=== PATIENT | male | born 1970 ===

== ENCOUNTER → 2020-02-24 08:49 | Outpatient (BNVA) | payer OTHER, SELFPAY | PROVIDERS: Visit Provider Anesthesiology | DX: F10.20 Alcohol dependence, uncomplicated (principal); F14.10 Cocaine abuse, uncomplicated; M47.817 Spondylosis without myelopathy or radiculopathy, lumbosacral region; M54.16 Radiculopathy, lumbar region | CPT/HCPCS: 80305; 99212 ==

== ENCOUNTER → 2020-03-09 13:48 | Outpatient (BNVA) | payer OTHER, SELFPAY | PROVIDERS: Visit Provider Nurse Practitioner Psychiatric/Mental Health | DX: F10.20 Alcohol dependence, uncomplicated (principal) | CPT/HCPCS: 80305 ==

== ENCOUNTER → 2020-04-13 14:47 | Outpatient (BNVA) | payer OTHER, SELFPAY | PROVIDERS: Visit Provider Nurse Practitioner Psychiatric/Mental Health | DX: F10.20 Alcohol dependence, uncomplicated (principal) | CPT/HCPCS: 80305; 99212 ==

== ENCOUNTER 2020-04-19 11:45 | Outpatient (REF) | payer OTHER, SELFPAY ==
[2020-04-19 13:26] LABS: MANUAL DIFF FLAG NO
[2020-04-19 13:31] LABS: Basophils Absolute Auto 0.1 X10*3/uL (0.0-0.2); Basophils Percent Auto 0.6 % (0-2); Eosinophils Absolute Auto 0.1 X10*3/uL (0.0-0.4); Eosinophils Percent Auto 1.3 % (0-4); Hemoglobin 16.1 g/dl (14.0-18.0); Imm Gran Abs Auto 0.03 X10*3/uL (0.00-0.03); Imm Gran Pct Auto 0.3 % (0.0-0.4); Lymphocytes Absolute Auto 3.2 X10*3/uL (1.2-4.9); Lymphocytes Percent Auto 35.1 % (20-40); Mean Corpuscular HGB Conc 32.9 g/dl (31.0-36.0); Mean Corpuscular Hemoglobin 30.6 pg (27.0-33.0); Mean Platelet Volume 9.7 fL (9.4-12.4); Monocytes Absolute Auto 0.7 X10*3/uL (0.1-1.2); Monocytes Percent Auto 7.6 % (2-11); Neutrophils Percent Auto 55.1 % (45-73); Platelet Count 401 X10*3/uL (160-400); Red Blood Count 5.27 X10*6/uL (4.60-5.80); Red Cell Distribution Width 12.3 % (11.0-16.0); White Blood Count 9.1 X10*3/uL (4.8-10.8)
[2020-04-19 13:54] LABS: Alanine Aminotransferase 25 U/L (0-40); Albumin Level 4.8 g/dL (3.5-5.0); Alkaline Phosphatase 141 U/L (39-117); Anion Gap 14 (12-20); Aspartate Amino Transferase 17 U/L (5-37); Bilirubin Direct 0.2 mg/dL (0.0-0.5); Bilirubin Total 0.7 mg/dL (0.0-1.0); Blood Urea Nitrogen 14 mg/dL (9-16); Calcium 9.9 mg/dL (8.4-10.2); Carbon Dioxide 29 mmol/L (22-29); Chloride 102 mmol/L (96-108); Cholesterol 316 mg/dL; Estimated Glomerular Filt Rate > 60; Glucose Fasting 83 mg/dL (60-99); HDL Cholesterol 52 mg/dL; LDL Cholesterol Calculated 230 mg/dl; Potassium 4.9 mmol/l (3.3-5.1); Sodium 140 mmol/L (135-145); Triglycerides 174 mg/dL
== END 2020-04-19 11:46 | disposition home or self-care (01) ==
LOC: HO.LAB 11:45
PROVIDERS: PCP Internal Medicine; Visit Provider Nurse Practitioner Family
DX: Z00.00 Encounter for general adult medical examination without abnormal findings (principal); F19.10 Other psychoactive substance abuse, uncomplicated; Z12.5 Encounter for screening for malignant neoplasm of prostate
CPT/HCPCS: 36415; 80048; 80061; 80076; 84153; 85025

== ENCOUNTER 2020-04-19 13:07 | Outpatient (REF) | payer OTHER, SELFPAY | END 2020-04-19 13:08 | disposition home or self-care (01) | LOC: HO.LAB 13:07 | PROVIDERS: Visit Provider Internal Medicine | DX: Z20.822 Contact with and (suspected) exposure to COVID-19 (principal) | CPT/HCPCS: 36415; C9803; U0003 ==

== ENCOUNTER → 2020-04-20 14:54 | Outpatient (BNVA) | payer OTHER, SELFPAY | PROVIDERS: Visit Provider Nurse Practitioner Psychiatric/Mental Health | DX: F10.20 Alcohol dependence, uncomplicated (principal) | CPT/HCPCS: 80305; 99212 ==

== ENCOUNTER → 2020-05-18 14:03 | Outpatient (BNVA) | payer OTHER, SELFPAY | PROVIDERS: PCP Internal Medicine; Visit Provider Nurse Practitioner Psychiatric/Mental Health | DX: Z51.81 Encounter for therapeutic drug level monitoring (principal) ==

== ENCOUNTER → 2020-06-15 14:15 | Outpatient (BNVA) | payer OTHER, SELFPAY | PROVIDERS: Visit Provider Nurse Practitioner Psychiatric/Mental Health | DX: F10.20 Alcohol dependence, uncomplicated (principal) | CPT/HCPCS: 99212 ==

== ENCOUNTER 2020-06-17 23:13 | Emergency (ER) | payer OTHER, SELFPAY ==
[2020-06-17 23:26] VITALS: BP 133/93; BP 147/86; PULSE 100; PULSE 115; RESP 24; TEMP 37.1; O2SAT 100; O2SAT 98; BMI 23.3
[2020-06-18] VITALS: RESP 16
--- NOTE | 2020-06-18 01:11 | ED.ALCOHOL ---
HPI - Alcohol General Chief Complaint: ETOH/Substance Use Stated Complaint: ETOH Time Seen by Provider: 06/18/20 01:10 Source: patient and EMS Mode of arrival: EMS History of Present Illness HPI narrative: This is a 50-year-old male who is brought in by EMS and patient states he has only had 2 beers this evening and further endorses and requests alcohol detox. Otherwise, he denies any constitutional symptoms such as fevers, chills, GI symptoms, shortness of breath. Related Data Home Medications Medication Instructions Recorded Confirmed bupropion HCl 300 mg 24 hr tablet, 300 mg PO DAILY 04/13/20 04/25/20 extended release trazodone 100 mg tablet mg PO BEDTIME tab 04/13/20 04/25/20 Previous Rx's Medication Instructions Recorded gabapentin 300 mg capsule 300 mg PO TID 30 Days #90 cap 02/24/20 vitamin B complex 1 cap PO DAILY #30 cap 04/13/20 atorvastatin 40 mg tablet 40 mg PO BEDTIME 90 Days #90 tab 04/25/20 folic acid 1 mg tablet 1 mg PO DAILY #30 tab 06/08/20 naltrexone 50 mg tablet 50 mg PO DAILY 7 Days #7 tab 06/08/20 Allergies Allergy/AdvReac Type Severity Reaction Status Date / Time No Known Allergies Allergy Verified 06/17/20 23:26 [No Known Allergies*] Review of Systems Review of Systems: Pertinent positives and negatives as stated in HPI 10 point review systems is otherwise negative. [facility] Past Medical History Source: nursing notes reviewed Medical History Abuse, drug or alcohol Alcoholism Lumbar radiculopathy Pure hypercholesterolemia Right elbow pain Spondylosis of lumbosacral spine without myelopathy Surgical History History of eye surgery Family History Family History Father Alcoholism Mother Diabetes Social History Social History Alcohol intake: current Alcohol intake frequency: 3 or more drinks per day Alcohol type: beer and hard liquor Smoking Status: Never smoker Substance Use Type: Crack/Cocaine and Marijuana Advance Directives: No Advance Directives Information Provided: Yes Physical Exam Vital Signs: Vital Signs: Last Vital Signs Temp 98.8 F 06/17/20 23:26 Pulse 80 06/18/20 06:19 Resp 16 06/18/20 06:19 BP 130/86 06/18/20 06:19 Pulse Ox 100 06/18/20 06:19 Body Mass Index 23.3 VITAL SIGNS: Reviewed. GENERAL: Well developed, well nourished, in no acute distress. HEAD: Normocephalic/atraumatic EYES: PERRLA, EOMI NOSE: Nares patent bilateral OROPHARYNX: no oral lesions noted, posterior pharynx clear NECK: Supple, no adenopathy LUNGS: Normal breath sounds. No adventitious sounds or accessory muscle use. SpO2<100> CARDIOVASCULAR: Regular rate and rhythm without noted murmurs ABDOMEN: Soft, non-tender, non-distended with bowel sounds. NEUROLOGIC: Alert and oriented x 4. Course Course Course Narrative: This is a 50-year-old male with history and clinical presentation of longstanding alcohol use disorder and recently seen by Tatyana Grover on 06/16 of this year wherein the patient verbalizes that he stop taking the naltrexone but would be interested in an inpatient program. At that time he was provided information for [facility]. All investigations reviewed and patient is medically cleared for inpatient detox program as indicated. Signed out to Dr Phillip: f/u detox plan ([facility] protocol) MDM - Alcohol Lab Data Result diagrams: 06/18/20 01:21 06/18/20 01:21 Labs: Lab Results 06/18/20 06/18/20 06/18/20 Range/Units 01:20 01:21 01:21 WBC 9.0 (4.8-10.8) X10*3/uL RBC 5.41 (4.60-5.80) X10*6/uL Hgb 16.4 (14.0-18.0) g/dl Hct 48.5 (42-52) % MCV 89.6 (80-98) fL MCH 30.3 (27.0-33.0) pg MCHC 33.8 (31.0-36.0) g/dl RDW 12.5 (11.0-16.0) % Plt Count 384 (160-400) X10*3/uL MPV 8.9 L (9.4-12.4) fL Immature Gran % (Auto) 0.2 (0.0-0.4) % Neut % (Auto) 64.1 (45-73) % Lymph % (Auto) 28.2 (20-40) % [place] % (Auto) 6.6 (2-11) % Eos % (Auto) 0.6 (0-4) % Baso % (Auto) 0.3 (0-2) % Lymph # (Auto) 2.6 (1.2-4.9) X10*3/uL [place] # (Auto) 0.6 (0.1-1.2) X10*3/uL Eos # (Auto) 0.1 (0.0-0.4) X10*3/uL Baso # (Auto) 0.0 (0.0-0.2) X10*3/uL Abs Immat Gran (auto) 0.02 (0.00-0.03) X10*3/uL Absolute Neuts (auto) 5.8 (2.0-8.3) X10*3/uL Absolute Nucleated RBC 0.000 (0.0-0.012) X10*3/uL Nucleated RBC % (auto) 0.0 (0.0-0.2) /100WBC Sodium 146 H (135-145) mmol/L Potassium 3.9 (3.3-5.1) mmol/L Chloride 111 H (96-108) mmol/L Carbon Dioxide 22 (22-29) mmol/L Anion Gap 17 (12-20) BUN 7 L (9-16) mg/dL Creatinine 0.73 (0.5-1.4) mg/dL Estim Creat Clear Calc 104.1 Estimated GFR > 60 Random Glucose 117 H (60-115) mg/dL Calcium 9.4 (8.4-10.2) mg/dL Total Bilirubin < 0.2 (0.0-1.0) mg/dL AST 18 (5-37) U/L ALT 17 (0-40) U/L Alkaline Phosphatase 138 H (39-117) U/L Total Protein 8.0 (6.5-8.0) g/dL Albumin 4.8 (3.5-5.0) g/dL Ethyl Alcohol 191 mg/dL Discharge Plan Discharge Prescriptions: No Action folic acid 1 mg tablet 1 mg PO DAILY Qty: 30 RF: 1 naltrexone 50 mg tablet 50 mg PO DAILY 7 Days Qty: 7 RF: 0 atorvastatin 40 mg tablet 40 mg PO BEDTIME 90 Days Qty: 90 RF: 3 gabapentin 300 mg capsule 300 mg PO TID 30 Days Qty: 90 RF: 8 vitamin B complex Capsule 1 cap PO DAILY Qty: 30 RF: 1 trazodone 100 mg tablet PO BEDTIME RF: 0 bupropion HCl 300 mg tablet extended release 24 hr 300 mg PO DAILY RF: 0
[2020-06-18 01:25] LABS: MANUAL DIFF FLAG NO
[2020-06-18 01:28] LABS: Basophils Percent Auto 0.3 % (0-2); Eosinophils Absolute Auto 0.1 X10*3/uL (0.0-0.4); Eosinophils Percent Auto 0.6 % (0-4); Hematocrit 48.5 % (42-52); Hemoglobin 16.4 g/dl (14.0-18.0); Imm Gran Abs Auto 0.02 X10*3/uL (0.00-0.03); Imm Gran Pct Auto 0.2 % (0.0-0.4); Lymphocytes Absolute Auto 2.6 X10*3/uL (1.2-4.9); Lymphocytes Percent Auto 28.2 % (20-40); Mean Corpuscular HGB Conc 33.8 g/dl (31.0-36.0); Mean Corpuscular Hemoglobin 30.3 pg (27.0-33.0); Mean Corpuscular Volume 89.6 fL (80-98); Mean Platelet Volume 8.9 fL (9.4-12.4); Monocytes Absolute Auto 0.6 X10*3/uL (0.1-1.2); Monocytes Percent Auto 6.6 % (2-11); Neutrophils Absolute Auto 5.8 X10*3/uL (2.0-8.3); Neutrophils Percent Auto 64.1 % (45-73); Platelet Count 384 X10*3/uL (160-400); Red Blood Count 5.41 X10*6/uL (4.60-5.80); Red Cell Distribution Width 12.5 % (11.0-16.0)
[2020-06-18 01:52] LABS: Ethanol 191 mg/dL
[2020-06-18 01:55] LABS: Alanine Aminotransferase 17 U/L (0-40); Albumin Level 4.8 g/dL (3.5-5.0); Alkaline Phosphatase 138 U/L (39-117); Anion Gap 17 (12-20); Aspartate Amino Transferase 18 U/L (5-37); Bilirubin Total < 0.2 mg/dL (0.0-1.0); Blood Urea Nitrogen 7 mg/dL (9-16); Calcium 9.4 mg/dL (8.4-10.2); Carbon Dioxide 22 mmol/L (22-29); Chloride 111 mmol/L (96-108); Creatinine Clr Calc Pharmacy 104.1; Estimated Glomerular Filt Rate > 60; Glucose Random 117 mg/dL (60-115); Potassium 3.9 mmol/L (3.3-5.1); Sodium 146 mmol/L (135-145)
[2020-06-18 03:00] VITALS: RESP 16
[2020-06-18 06:19] VITALS: BP 130/86; PULSE 80; RESP 16; O2SAT 100
--- NOTE | 2020-06-18 06:25 | PC.NURSE ---
Pt wakes easily in chair, pt reports feeling sick to his stomach from the drinking. This RN offering pt crackers and gingerale however pt refusing. Pt agreeable to provide urine sample, ambulating to the bathroom with a steady gait. VSS at this time. Pt denies alcohol withdrawal symptoms, including anxiety, hallucinations, N/V, and tremors. Pt awaiting breakfast in chair. Continue to monitor.
--- NOTE | 2020-06-18 07:00 | PC.NURSE ---
RECEIVED REPORT FROM BRIELLE HORVATH
[2020-06-18 07:26] LABS: Amphetamine Screen Urine Not Detected (Not Detect); Barbiturates, Urine Not Detected (Not Detect); Benzodiazepines Screen Urine Not Detected (Not Detect); Cannabinoid Screen Urine POSITIVE (Not Detect); Cocaine Screen Urine POSITIVE (Not Detect); Opiate Screen Urine Not Detected (Not Detect); Phencyclidine Screen Urine Not Detected (Not Detect)
[2020-06-18 08:02] VITALS: BP 125/85; PULSE 85; RESP 18; O2SAT 100
--- NOTE | 2020-06-18 08:04 | PC.NURSE ---
PT SLEEPING BUT EASILY AROUSABLE, PT REPORTS EPIGASTRIC PAIN/BURNING /. PT ALSO STATES THAT HE RELAPSED IN DRINKING ALCOHOL YESTERDAY AND ALSO DID SOME COCAINE, PT IS REQUESTING TO GO TO DETOX BUT DENIES SI/HI. PT ALSO STATES THAT HE HAS COURT ON [address] AND NOT SURE HOW THAT WILL WORK WITH DETOX.
--- NOTE | 2020-06-18 10:15 | PC.NURSE ---
EVELINA FROM CARE TEAM AT BEDSIDE
[2020-06-18 10:43] VITALS: BP 155/82; PULSE 73; RESP 18; O2SAT 100
--- NOTE | 2020-06-18 10:53 | MHC.CARE ---
CARE team rec consult placed 06/18/20 at 0120am seeking detox for primary concern of ETOH. Pts BAL at arrival was 191. Pt was seen this am 06/18 at 0930 by CARE team. Pt reported that he cannot attend a program outside of the local area due to upcoming court date on this wed. T/w placed calls to local detox and spoke w intake via [facility] who stated [place] has beds and [place] might have a bed later this evening. Pt not able/desired to attend [facility] location. T/w faxed clinical to [facility] at [facility] and did not hear back so placed a second call and asked to speak to the unit directly. Nsg at the [facility] will review packet and unclear if dcs today but suspected a bed this evening. Pt is instructed to call later with number provided. Pt seeking to dc home as he was not certain he wanted this service anymore but did not want to wait in the ED. Pt was given lists of resources and places to call if desired. Pt was instructed to follow up on the referral made today and he was grateful for this. Pt stated he wanted to ask his to come pick him up if provider would dc him. Pt was calm and polite and expressed gratitude for the assistance. Pt reported he planned to also follow up with his provider here at [facility] in the [facility] with Tatyana Grover. T/w reviewed info with ED provider for dc process as needed.
== END 2020-06-18 11:01 | disposition home or self-care (01) ==
PROVIDERS: Emergency Provider Student in an Organized Health Care Education/Training Program; PCP Internal Medicine
DX: F10.129 Alcohol abuse with intoxication, unspecified (principal); F14.90 Cocaine use, unspecified, uncomplicated; F15.90 Other stimulant use, unspecified, uncomplicated; Y90.6 Blood alcohol level of 120-199 mg/100 ml; Z71.51 Drug abuse counseling and surveillance of drug abuser
CPT/HCPCS: 36415; 80053; 80307; 80320; 85025; 99284

== ENCOUNTER 2020-07-17 08:59 | Outpatient (REF) | payer OTHER, SELFPAY ==
--- NOTE | ~2020-07-17 | XR_ITS ---
EXAMINATION: XR ELBOW, RIGHT CLINICAL INFORMATION: Right elbow pain. COMPARISON: None TECHNIQUE: AP, lateral, and oblique views of the right elbow. FINDINGS: No acute fracture or dislocation. No joint space narrowing or marginal osteophytes. No osseous erosion. No abnormal soft tissue calcification. No significant joint effusion. XR/XR elbow RT 2V IMPRESSION: Unremarkable examination.
[2020-07-17 10:18] LABS: Alanine Aminotransferase 21 U/L (0-40); Albumin Level 4.1 g/dL (3.5-5.0); Alkaline Phosphatase 120 U/L (39-117); Anion Gap 11 (12-20); Aspartate Amino Transferase 18 U/L (5-37); Bilirubin Total 0.2 mg/dL (0.0-1.0); Blood Urea Nitrogen 12 mg/dL (9-16); Calcium 9.2 mg/dL (8.4-10.2); Carbon Dioxide 27 mmol/L (22-29); Chloride 105 mmol/L (96-108); Cholesterol 169 mg/dL; Estimated Glomerular Filt Rate > 60; Glucose Fasting 97 mg/dL (60-99); HDL Cholesterol 41 mg/dL; LDL Cholesterol Calculated 102 mg/dl; Potassium 4.2 mmol/L (3.3-5.1); Sodium 139 mmol/L (135-145); Total Protein 6.8 g/dL (6.5-8.0); Triglycerides 130 mg/dL
== END 2020-07-17 09:00 | disposition home or self-care (01) ==
LOC: HO.LAB 08:59
PROVIDERS: PCP Internal Medicine; Visit Provider Internal Medicine
DX: M25.521 Pain in right elbow (principal); E78.00 Pure hypercholesterolemia, unspecified; E78.5 Hyperlipidemia, unspecified
CPT/HCPCS: 36415; 73070; 80053; 80061

== ENCOUNTER 2020-08-23 10:29 | Outpatient (REF) | payer OTHER, SELFPAY ==
--- NOTE | ~2020-08-23 | US_ITS ---
EXAMINATION: US COMPLETE ABDOMEN WITH LIVER ELASTOGRAPHY CLINICAL INFORMATION: Alcohol dependence COMPARISON: Previous abdominal ultrasound December 2015 TECHNIQUE: Real-time imaging of the abdominal viscera. Noninvasive ultrasound liver fibrosis assessment is performed using Vern ElastPQ point quantification shear wave elastography (pSWE) with a C5-2 MHz transducer. Multiple elastography samples are obtained. FINDINGS: PANCREAS: Not visualized due to bowel gas. ABDOMINAL AORTA: The middle, and distal aortic segments are normal in caliber. Proximal abdominal aorta is not well visualized. INFERIOR VENA CAVA: Visualized portions are normal. LIVER: Normal. The liver demonstrates normal size, contour and echogenicity. No focal lesion or intrahepatic biliary duct dilatation. The right lobe measures 13.2 cm in length. The left lobe measures 7.5 cm in length. Portal flow is normal/hepatopedal Shear wave liver elastography median stiffness is 1.2 m/s (reference: normal median stiffness is 1.3 m/s or less). IQR/median stiffness to assess sampling precision is 0.08 (reference: good quality data set is IQR/median stiffness of 0.15 or less). GALLBLADDER: The gallbladder is normal in size. There is a 0.4 x 0.2 x 0.2 cm echogenic density adjacent to the gallbladder wall that does not move or shadow suggestive of a polyp. No definite gallstones are seen. The gallbladder wall is otherwise COMMON BILE DUCT: Normal in caliber measuring . 0.3 cm in diameter. RIGHT KIDNEY: Normal. No hydronephrosis. No renal calculi or focal parenchymal lesions. The kidney measures 10 cm in maximum dimension. LEFT KIDNEY: Normal. No hydronephrosis. No renal calculi or focal parenchymal lesions. The kidney measures 10 cm in maximum dimension. SPLEEN: Normal. The spleen measures 10 cm in maximum dimension. FREE FLUID: None. US/US abdomen comp w elastography IMPRESSION: 1. Impression: Normal-appearing liver. Small gallbladder wall polyp. Nonvisualization of the pancreas and proximal aorta. 2. Liver elastography: High probability of normal. Adequate sampling. REFERENCE: Society of Radiologists in Ultrasound Liver Stiffness Thresholds (2019): LIVER STIFFNESS THRESHOLDS: *Liver Stiffness equal or less than 1.3 m/s: High probability of being normal. *Liver Stiffness less than 1.7 m/s: In the absence of other known clinical signs, rules out compensated advanced chronic liver disease. *Liver Stiffness 1.7-2.1 m/s: Suggestive of compensated advanced chronic liver disease but need further test for confirmation. *Liver Stiffness over 2.1 m/s: Rules in compensated advanced chronic liver disease. *Liver Stiffness over 2.4 m/s: Suggestive of clinically significant portal hypertension. QUALITY OF DATA SET: *IQR/Median value equal or less than 0.15 implies a quality data set. *IQR/Median value over 0.15 implies a poor quality data set. SIGNIFICANT CHANGE FROM PRIOR EXAM: Significant change if liver stiffness measurement is 10% or greater from prior exam. OTHER CONSIDERATIONS: The stage of liver fibrosis may be overestimated in the setting of acute hepatitis, liver inflammation, elevated liver function tests, hepatic vascular congestion, obstructive cholestasis, non-fasting state, and infiltrative diseases such as amyloidosis and lymphoma. In some patients with NAFLD, the liver stiffness thresholds for compensated advanced chronic liver disease may be lower. In causes other than viral hepatitis and NAFLD, liver stiffness thresholds are not well established.
== END 2020-08-23 10:30 | disposition home or self-care (01) ==
LOC: HO.US 10:29
PROVIDERS: Visit Provider Internal Medicine
DX: F10.20 Alcohol dependence, uncomplicated (principal)
CPT/HCPCS: 76705; 76981

== ENCOUNTER → 2020-08-31 14:23 | Outpatient (BNVA) | payer OTHER, SELFPAY | PROVIDERS: PCP Internal Medicine; Visit Provider Nurse Practitioner Psychiatric/Mental Health | DX: F10.20 Alcohol dependence, uncomplicated (principal) | CPT/HCPCS: 80305; 99212 ==

== ENCOUNTER 2020-09-20 07:00 | Day surgery (SDC) | payer OTHER, SELFPAY ==
[2020-08-31 11:39] VITALS: BMI 27.8
--- NOTE | 2020-09-05 11:00 | P.CONAN_ITS ---
HPI - Anesthesia Eval Consult details Narrative: 50yo M for Upper Endoscopy and Colonoscopy h/o polysub abuse - ? current [facility] Active Problems Active Problems: All Active Problems (Updated 08/31/20 @ 10:53 by Janay Denis) Encounter for routine adult health examination (Acute) Alcohol use disorder, severe, dependence (Acute) Headache (Acute) Right elbow pain (Acute) Pure hypercholesterolemia (Acute) Lumbar radiculopathy (Acute) Spondylosis of lumbosacral spine without myelopathy (Acute) Alcoholism (Acute) Abuse, drug or alcohol (Acute) Past Medical History Medical History (Updated 08/31/20 @ 10:53 by Janay Denis) Abuse, drug or alcohol Alcoholism GERD (gastroesophageal reflux disease) Headache History of back pain Lumbar radiculopathy Pure hypercholesterolemia Right elbow pain Spondylosis of lumbosacral spine without myelopathy Family History Family History Father Alcoholism Mother Diabetes Surgical History Surgical History (Updated 08/31/20 @ 10:52 by Janay Denis) History of esophagogastroduodenoscopy (EGD) History of eye surgery History of eye surgery Social History Social History Alcohol intake: current Alcohol intake frequency: 3 or more drinks per day Alcohol type: beer and hard liquor Patient Tobacco Use Status: Never used Tobacco Substance Use Type: Crack/Cocaine Meds Allergies Allergy/AdvReac Type Severity Reaction Status Date / Time No Known Allergies Allergy Verified 07/25/20 10:43 [No Known Allergies*] Home Medications Medication Instructions Recorded Confirmed Last Taken Type bupropion HCl 300 mg 24 hr tablet, 300 mg PO DAILY 04/13/20 08/31/20 Unknown History extended release trazodone 100 mg tablet 100 mg PO BEDTIME tab 04/13/20 08/31/20 Unknown History Exam Exam Date and Time: September 05, 2020 1100 Height,Weight and Vital Signs: Height 5 ft 2 in Weight 68.946 kg Assessment and Plan Assessment Anesthesia Assessment: Chart Reviewed
--- NOTE | 2020-09-18 13:37 | HO.ANESPROP2 ---
Documented by User: Lillian Devora 09/18/20 13:39 HPI - Anesthesia Eval Consult details Narrative: 50yo M for Upper Endoscopy and Colonoscopy +ETOH abuse +cocain use per social hx PMFSH Active Problems Active Problems: All Active Problems (Updated 08/31/20 @ 10:53 by Janay Denis) Encounter for routine adult health examination (Acute) Alcohol use disorder, severe, dependence (Acute) Headache (Acute) Right elbow pain (Acute) Pure hypercholesterolemia (Acute) Lumbar radiculopathy (Acute) Spondylosis of lumbosacral spine without myelopathy (Acute) Alcoholism (Acute) Abuse, drug or alcohol (Acute) Past Medical History Medical History Abuse, drug or alcohol Alcoholism GERD (gastroesophageal reflux disease) Headache History of back pain Lumbar radiculopathy Pure hypercholesterolemia Right elbow pain Spondylosis of lumbosacral spine without myelopathy Family History Family History Father Alcoholism Mother Diabetes Surgical History Surgical History History of esophagogastroduodenoscopy (EGD) History of eye surgery History of eye surgery Social History Social History Alcohol intake: current Alcohol intake frequency: 3 or more drinks per day Alcohol type: beer and hard liquor Patient Tobacco Use Status: Never used Tobacco Use of substances other than those prescribed or required for medical reasons: Yes Substance Use Type: Crack/Cocaine Advance Directives Information Provided: No Meds Allergies Allergy/AdvReac Type Severity Reaction Status Date / Time No Known Allergies Allergy Verified 07/25/20 10:43 [No Known Allergies*] Home Medications Medication Instructions Recorded Confirmed Last Taken Type bupropion HCl 300 mg 24 hr tablet, 300 mg PO DAILY 04/13/20 08/31/20 Unknown History extended release trazodone 100 mg tablet 100 mg PO BEDTIME tab 04/13/20 08/31/20 Unknown History Exam Exam Date and Time: September 18, 2020 1337 Height,Weight and Vital Signs: Height 5 ft 2 in Weight 68.946 kg Pertinent Lab Results Pertinent Lab Results: Laboratory Tests 06/18/20 07/17/20 01:21 09:21 WBC 9.0 Hgb 16.4 Hct 48.5 Plt Count 384 Sodium 139 Potassium 4.2 Chloride 105 Carbon Dioxide 27 BUN 12 D Creatinine 0.87 Assessment and Plan Assessment Anesthesia Assessment: Chart Reviewed Documented by User: Mary Munoz 09/20/20 09:32 PMFSH Past Medical History Medical History Abuse, drug or alcohol Alcoholism GERD (gastroesophageal reflux disease) Headache History of back pain Lumbar radiculopathy Pure hypercholesterolemia Right elbow pain Spondylosis of lumbosacral spine without myelopathy Family History Family History Father Alcoholism Mother Diabetes Family history of problems with anesthesia: No Surgical History Surgical History History of esophagogastroduodenoscopy (EGD) History of eye surgery History of eye surgery History of Problems with Anesthesia: No Social History Social History Alcohol intake: current Alcohol intake frequency: 3 or more drinks per day Alcohol type: beer and hard liquor Patient Tobacco Use Status: Never used Tobacco Use of substances other than those prescribed or required for medical reasons: Yes Substance Use Type: Crack/Cocaine Advance Directives Information Provided: No Meds Allergies Allergy/AdvReac Type Severity Reaction Status Date / Time No Known Allergies Allergy Verified 07/25/20 10:43 [No Known Allergies*] Home Medications Medication Instructions Recorded Confirmed Last Taken Type bupropion HCl 300 mg 24 hr tablet, 300 mg PO DAILY 04/13/20 08/31/20 Unknown History extended release trazodone 100 mg tablet 100 mg PO BEDTIME tab 04/13/20 08/31/20 Unknown History Exam Height,Weight and Vital Signs: Vital Signs Temp Pulse Resp BP Pulse Ox 09/20/20 07:44 97.6 F 88 16 108/80 99 Pertinent Lab Results Pertinent Lab Results: Lab Results 09/20/20 Range/Units 07:25 Urine Opiates Screen Not Detected (Not Detect) Ur Barbiturates Screen Not Detected (Not Detect) Ur Phencyclidine Scrn Not Detected (Not Detect) Ur Amphetamines Screen Not Detected (Not Detect) U Benzodiazepines Scrn Not Detected (Not Detect) Urine Cocaine Screen Not Detected (Not Detect) U Marijuana (THC) Screen POSITIVE H (Not Detect) Airway Mallampati Class: II TM Dist: >3cm Neck ROM: Full Partial: Lower Loose/Missing/Broken Teeth: Yes Heart: RRR Lungs: CTAB Assessment and Plan Assessment Anesthesia Assessment: Anesthesia Plan Discussed and Chart Reviewed Final Anesthetic Review NPO: Yes ASA Class: II Final Preanesthetic Review: No Changes in Pt Med Stat, Meds/Allgs Chart Reviewed, Consent Obtained/Reviewed and Anes Risks/Benef Reviewed Patient Risk: Intermediate Procedure Risk: Low Assessment/Block/Sedation in SS: Assess/Block/Sedation-SS Anesthetic Plan Anesthetic Plan: MAC: Disposition: Standard PACU
[2020-09-20 07:44] VITALS: BP 108/80; PULSE 88; RESP 16; TEMP 36.4; O2SAT 99
[2020-09-20] MEDS: Lactated Ringers 1,000 ML 100 ML IVCONT (07:57)
[2020-09-20 08:15] LABS: Amphetamine Screen Urine Not Detected (Not Detect); Barbiturates, Urine Not Detected (Not Detect); Benzodiazepines Screen Urine Not Detected (Not Detect); Cannabinoid Screen Urine POSITIVE (Not Detect); Cocaine Screen Urine Not Detected (Not Detect); Opiate Screen Urine Not Detected (Not Detect); Phencyclidine Screen Urine Not Detected (Not Detect)
[2020-09-20 09:56] VITALS: BP 86/57; PULSE 68; RESP 14; TEMP 36.4; O2SAT 98
--- NOTE | 2020-09-20 09:58 | PM.OP ---
Brief Operative Note Date of Service: 09/20/20 Pre-op diagnosis: Abdominal pain, Screening Post-op diagnosis: other (Gastritis, Hiatal hernia, Diverticulosis) Procedure: EGD with biopsies, Colonoscopy to the cecum Surgeon: Andrew Pope Anesthesia: MAC Was an Contract Administration Specialist used for this Procedure?: No Estimated blood loss (mL): 4.0 Pathology: other (A. Gastric antrum B. EG Junction at 35cm) Condition: stable Disposition: PACU
[2020-09-20 10:11] VITALS: BP 114/80; PULSE 83; RESP 16; O2SAT 100
--- NOTE | 2020-09-22 10:56 | OP_ITS ---
SURGEON: Andrew Pope MD INDICATIONS: The patient presents for evaluation of abdominal discomfort, previous history of gastritis and H pylori, and colorectal cancer screening. Full consent has been obtained from him for this, including risks of bleeding and perforation. PREOPERATIVE DIAGNOSIS: POSTOPERATIVE DIAGNOSIS: PROCEDURE PERFORMED: Esophagogastroduodenoscopy with biopsies, and colonoscopy to the cecum. ESTIMATED BLOOD LOSS: COMPLICATIONS: ANESTHESIA: Monitored anesthesia care. ASSISTANTS: SPECIMENS: PREOPERATIVE DIAGNOSES: History of abdominal discomfort, gastritis and Helicobacter pylori, colorectal cancer screening. POSTOPERATIVE DIAGNOSES: History of abdominal discomfort, gastritis and Helicobacter pylori, colorectal cancer screening, mild gastritis, hiatal hernia, diverticulosis, and internal hemorrhoids. DESCRIPTION OF PROCEDURE: The patient was placed in the left lateral decubitus position. The Olympus video gastroscope was passed in the posterior oropharynx and upper esophagus under direct vision. The scope was passed slowly into the distal esophagus. The gastroesophageal junction appeared at 35 cm. There was a very slight irregularity consistent with reflux, but no evidence of esophagitis nor any definitive evidence of Lopez's mucosa. The scope entered into the stomach. There was a small hiatal hernia. The scope was advanced to pylorus and the duodenum was cannulated to the descending portion. The duodenum including the bulb appeared normal without mass or ulceration. Scope was withdrawn back in the stomach. The gastric antrum had some mild areas of erythema and edema, but no erosions nor ulceration. There was good peristalsis. The scope was retroflexed visualizing the proximal stomach carefully, which appeared normal, without any sign of mass or ulceration. The scope was straightened. Biopsies were obtained from the gastric antrum. Scope was withdrawn back in the esophagus. Biopsies were obtained at the EG junction at 35 cm. Proximal to this, the esophageal mucosa appeared normal. The scope was withdrawn from the patient. He was turned around for colonoscopy. The digital rectal exam revealed no abnormalities. The Olympus video pediatric colonoscope was entered into the rectum and advanced easily to the cecum. Once in the cecum, I did identify normal-appearing cecal pouch with appendiceal orifice and a normal-appearing ileocecal valve. There was transillumination of light deep in the right lower quadrant. The entire cecum and ileocecal valve appeared normal. The scope was slowly withdrawn assessing all mucosal surfaces carefully. Preparation was excellent. I did not visualize any sign of polyps, colitis, nor angiodysplasia. There was a mild amount of sigmoid diverticulosis. In the rectum, scope was retroflexed visualizing small internal hemorrhoids, but no other pathology. The rectal mucosa appeared normal. The scope was straightened out and withdrawn from the patient. He tolerated both procedures well and was returned to the recovery area in stable condition. IMPRESSION: 1. Small hiatal hernia. 2. Mild gastritis. 3. Sigmoid diverticulosis. 4. Internal hemorrhoids. PLAN: Given today's negative colonoscopy, I would recommend a followup colonoscopy in 10 years for screening. He will continue his daily omeprazole. He will be seen in several months for a followup visit. If Helicobacter pylori is present on the gastric biopsies, we could consider treating that if he remains with significant upper GI complaints. He was advised again to avoid alcohol and cocaine. MD PRADEEP Stevens/RAKEL / [id number] MTDD
== END 2020-09-20 10:49 | disposition home or self-care (01) ==
PROVIDERS: Nurse Practitioner; PCP Internal Medicine; Visit Provider Internal Medicine
PROC: (CPT 45378; principal; 2020-09-20 08:20)
DX: Z12.11 Encounter for screening for malignant neoplasm of colon (principal); K57.30 Diverticulosis of large intestine without perforation or abscess without bleeding; K64.8 Other hemorrhoids; K29.70 Gastritis, unspecified, without bleeding; B96.81 Helicobacter pylori [H. pylori] as the cause of diseases classified elsewhere; K44.9 Diaphragmatic hernia without obstruction or gangrene; K21.9 Gastro-esophageal reflux disease without esophagitis; E78.5 Hyperlipidemia, unspecified; Z79.899 Other long term (current) drug therapy
CPT/HCPCS: 45378; 43239; 80307; 88305; 88342

== ENCOUNTER 2020-10-02 10:39 | Outpatient (REF) | payer OTHER, SELFPAY ==
--- NOTE | ~2020-10-02 | XR_ITS ---
EXAMINATION: XR CERVICAL SPINE CLINICAL INFORMATION: Cervical spondylarthritis. COMPARISON: CT scan of 09/23/2015 TECHNIQUE: Three views of the cervical spine were obtained. FINDINGS: No abnormal prevertebral soft tissue swelling is seen. No acute fracture is identified. There is significant disc space narrowing with marginal sclerosis and spurring seen C3 through C7. There appears to be fusion of the posterior elements at the C3-C4 level. XR/XR cervical spine 3V IMPRESSION: Cervical spondylosis C3 through C7 without acute fracture identified.
== END 2020-10-02 10:40 | disposition home or self-care (01) ==
LOC: HO.XRAY 10:39
PROVIDERS: PCP Internal Medicine; Visit Provider Psychiatry & Neurology Neurology
DX: M47.812 Spondylosis without myelopathy or radiculopathy, cervical region (principal)
CPT/HCPCS: 72040

== ENCOUNTER 2020-10-10 13:15 | Outpatient (REF) | payer OTHER, SELFPAY ==
--- NOTE | ~2020-10-10 | CT_ITS ---
EXAMINATION: CT HEAD WITHOUT CONTRAST CLINICAL INFORMATION: Tension headaches COMPARISON: CT head September 2015 TECHNIQUE: Contiguous axial imaging was performed from the skull base to vertex without intravenous administration of contrast. This CT examination was performed using dose optimization techniques as appropriate, variously including the following: *Automated exposure control *Adjustment of mA and/or kV according to patient size (this includes techniques or standardized protocols for targeted exams where dose is matched to indication/reason for exam; i.e. extremities or head) *Use of iterative reconstruction technique DLP: 694 mGy-cm FINDINGS: There is no evidence of acute intracranial hemorrhage or territorial infarction. No abnormal mass effect or midline shift is seen. Blake to white matter differentiation is well preserved. No extra-axial fluid collections are identified. The ventricles are normal in size. There is no abnormal attenuation within the brain parenchyma. The osseous structures and soft tissues are normal. Mastoid air cells clear. Sinuses: Mild mucosal thickening in the left maxillary sinus CT/CT head/brain wo con IMPRESSION: No acute intracranial pathology. Mucosal thickening in the left maxillary sinus slightly increased compared with September 2015
== END 2020-10-10 13:16 | disposition home or self-care (01) ==
LOC: HO.CT 13:15
PROVIDERS: Visit Provider Psychiatry & Neurology Neurology
DX: G44.209 Tension-type headache, unspecified, not intractable (principal)
CPT/HCPCS: 70450

== ENCOUNTER → 2020-10-20 09:11 | Outpatient (BNVA) | payer OTHER, SELFPAY | PROVIDERS: PCP Internal Medicine; Visit Provider Nurse Practitioner Family | DX: M47.817 Spondylosis without myelopathy or radiculopathy, lumbosacral region (principal); M54.16 Radiculopathy, lumbar region; F10.20 Alcohol dependence, uncomplicated; F19.10 Other psychoactive substance abuse, uncomplicated; Z79.899 Other long term (current) drug therapy | CPT/HCPCS: 99212 ==

== ENCOUNTER 2021-01-04 10:45 | Outpatient (REF) | payer OTHER, SELFPAY ==
[2021-01-04 11:12] LABS: COVID-19 Test Negative (Negative)
== END 2021-01-04 10:46 | disposition home or self-care (01) ==
LOC: HO.LAB 10:45
PROVIDERS: PCP Internal Medicine; Visit Provider Internal Medicine
DX: Z20.822 Contact with and (suspected) exposure to COVID-19 (principal)
CPT/HCPCS: 36415; 87635; C9803

== ENCOUNTER 2021-01-09 04:36 | Emergency (ER) | payer OTHER, SELFPAY ==
[2021-01-09 04:40] VITALS: BP 117/85; PULSE 105; RESP 16; TEMP 37.1; O2SAT 99; BMI 25.5
[2021-01-09 05:04] LABS: Strep A Nucleic Acid Negative (Negative)
[2021-01-09 05:13] LABS: COVID-19 Test Negative (Negative); IDNOW Serial# 9DD0AD1C
--- NOTE | 2021-01-09 05:31 | PC.NURSE ---
this nurse spoke to pt to clarify his symptoms/chief complaint and pt stated that he is seeking detox for alcohol and drugs. pt states he has not drank alcohol in a few months but started drinking yesterday morning, states he drank beer but unable to state how much. pt also states he uses cocaine. Provider notified provider added order for ethanol blood draw as well as drug urine screen. nuclear chemistry techniciansalome Rai obtained bloodwork and this nurse obtained urine sample. urine and blood sent to lab. MD koenig.
[2021-01-09 05:49] LABS: Amphetamine Screen Urine Not Detected (Not Detect); Barbiturates, Urine Not Detected (Not Detect); Benzodiazepines Screen Urine Not Detected (Not Detect); Cannabinoid Screen Urine Not Detected (Not Detect); Cocaine Screen Urine POSITIVE (Not Detect); Fentanyl, urine Not Detected (Not Detect); Opiate Screen Urine Not Detected (Not Detect); Phencyclidine Screen Urine Not Detected (Not Detect)
[2021-01-09 05:56] LABS: Ethanol 135 mg/dL
--- NOTE | 2021-01-09 06:22 | ED.GENADULT ---
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 and that he had been without use for approximately 5 months but has ?fallen off the wagon?. Related Data Home Medications Medication Instructions Recorded Confirmed trazodone 100 mg tablet 100 mg PO BEDTIME tab 04/13/20 10/20/20 Previous Rx's Medication Instructions Recorded gabapentin 300 mg capsule 300 mg PO TID 30 Days #90 cap 02/24/20 vitamin B complex 1 cap PO DAILY #30 cap 04/13/20 atorvastatin 40 mg tablet 40 mg PO BEDTIME 90 Days #90 tab 04/25/20 folic acid 1 mg tablet 1 mg PO DAILY #30 tab 06/08/20 naproxen 500 mg tablet 500 mg PO BID PRN 30 Days #60 tab 07/25/20 omeprazole 20 mg capsule,delayed 20 mg PO DAILY 90 Days #90 cap 07/25/20 release bupropion HCl 300 mg 24 hr tablet, 300 mg PO DAILY 90 Days #90 tab 10/21/20 extended release Allergies Allergy/AdvReac Type Severity Reaction Status Date / Time No Known Allergies Allergy Verified 01/09/21 04:38 [No Known Allergies*] Review of Systems Review of Systems: Pertinent positives and negatives as stated in HPI 10 point review of systems is otherwise negative. [facility] Past Medical History Source: nursing notes reviewed Medical History Abuse, drug or alcohol Alcoholism GERD (gastroesophageal reflux disease) Headache History of back pain Lumbar radiculopathy Pure hypercholesterolemia Right elbow pain Spondylosis of lumbosacral spine without myelopathy Surgical History History of esophagogastroduodenoscopy (EGD) History of eye surgery History of eye surgery Family History Family History Father Alcoholism Mother Diabetes Social History Social History Alcohol intake: current Alcohol intake frequency: 3 or more drinks per day Alcohol type: beer and hard liquor Patient Tobacco Use Status: Never used Tobacco Substance Use Type: Crack/Cocaine Advance Directives: No Advance Directives Information Provided: Yes Physical Exam Vital Signs: Vital Signs: Last Vital Signs Temp 98.7 F 01/09/21 04:40 Pulse 105 H 01/09/21 04:40 Resp 16 01/09/21 04:40 BP 117/85 01/09/21 04:40 Pulse Ox 99 01/09/21 04:40 Body Mass Index 25.5 VITAL SIGNS: Reviewed. GENERAL: Well developed, well nourished, in no acute distress. HEAD: Normocephalic/atraumatic EYES: PERRLA, EOMI OROPHARYNX: no oral lesions noted, posterior pharynx clear LUNGS: Normal breath sounds. No adventitious sounds or accessory muscle use. SpO2<99> CARDIOVASCULAR: Regular rate and rhythm without noted murmurs ABDOMEN: Soft, non-tender, non-distended with bowel sounds. NEUROLOGIC: Alert and oriented x 4. Strength and sensation to light touch were grossly intact x 4. Course Course Course Narrative: 50-year-old male with history and clinical presentation consistent with relapse with drugs and alcohol and requesting detox. Review of all investigations demonstrates presence cocaine and an elevated alcohol. Consult placed for passenger coach driver. Patient reports a history withdrawal symptoms and was provided with 25 mg of Librium and placed on a CIWA until passenger coach driver evaluates him. Medical Decision Making Lab Data Labs: Lab Results 01/09/21 01/09/21 01/09/21 Range/Units 04:51 04:51 05:29 Urine Opiates Screen Not Detected (Not Detect) Urine Fentanyl Screen Not Detected (Not Detect) Ur Barbiturates Screen Not Detected (Not Detect) Ur Phencyclidine Scrn Not Detected (Not Detect) Ur Amphetamines Screen Not Detected (Not Detect) U Benzodiazepines Scrn Not Detected (Not Detect) Urine Cocaine Screen POSITIVE H (Not Detect) U Marijuana (THC) Screen Not Detected (Not Detect) Ethyl Alcohol mg/dL COVID-19 (NATHALIE) Negative (Negative) COVID-19 Clin Com See Note S. pyogenes GrpA MARLENE Negative (Negative) 01/09/21 Range/Units 05:30 Urine Opiates Screen (Not Detect) Urine Fentanyl Screen (Not Detect) Ur Barbiturates Screen (Not Detect) Ur Phencyclidine Scrn (Not Detect) Ur Amphetamines Screen (Not Detect) U Benzodiazepines Scrn (Not Detect) Urine Cocaine Screen (Not Detect) U Marijuana (THC) Screen (Not Detect) Ethyl Alcohol 135 mg/dL COVID-19 (NATHALIE) (Negative) COVID-19 Clin Com S. pyogenes GrpA MARLENE (Negative) Discharge Plan Discharge Clinical Impression: Abuse, drug or alcohol Prescriptions: No Action folic acid 1 mg tablet 1 mg PO DAILY Qty: 30 RF: 1 bupropion HCl 300 mg tablet extended release 24 hr 300 mg PO DAILY 90 Days Qty: 90 RF: 1 atorvastatin 40 mg tablet 40 mg PO BEDTIME 90 Days Qty: 90 RF: 3 naproxen 500 mg tablet 500 mg PO BID PRN (Reason: pain) 30 Days Qty: 60 RF: 3 omeprazole 20 mg capsule,delayed release(DR/EC) 20 mg PO DAILY 90 Days Qty: 90 RF: 3 gabapentin 300 mg capsule 300 mg PO TID 30 Days Qty: 90 RF: 8 vitamin B complex Capsule 1 cap PO DAILY Qty: 30 RF: 1 trazodone 100 mg tablet 100 mg PO BEDTIME RF: 0
--- NOTE | 2021-01-09 08:55 | MHC.RECOVRN ---
T/w attempted to meet with pt to discuss ATS. Pt not in family room. Pts RN also reports pt she was looking for pt and is not in any bathrooms. Appears to have eloped. Dr. Phillip aware.
--- NOTE | 2021-01-09 10:19 | PC.NURSE ---
this development writer went to family room to administer pt's Librium, pt was not in room when this development writer went in. this development writer check all restrooms and did not see pt. Librium returned to dacia, witness co-signed.
== END 2021-01-09 10:19 | disposition left against medical advice (07) ==
PROVIDERS: Emergency Provider Student in an Organized Health Care Education/Training Program; PCP Internal Medicine
DX: F10.10 Alcohol abuse, uncomplicated (principal); Y90.6 Blood alcohol level of 120-199 mg/100 ml; F14.90 Cocaine use, unspecified, uncomplicated; Z20.822 Contact with and (suspected) exposure to COVID-19; Z79.899 Other long term (current) drug therapy; Z71.41 Alcohol abuse counseling and surveillance of alcoholic
CPT/HCPCS: 36415; 80307; 82077; 87635; 87651; 99283; 99284

== ENCOUNTER 2021-02-13 09:41 | Outpatient (REF) | payer OTHER, SELFPAY ==
[2021-02-13 10:04] LABS: MANUAL DIFF FLAG NO
[2021-02-13 10:14] LABS: Basophils Percent Auto 0.5 % (0-2); Eosinophils Absolute Auto 0.2 X10*3/uL (0.0-0.4); Eosinophils Percent Auto 2.4 % (0-4); Hematocrit 45.2 % (42.0-52.0); Imm Gran Abs Auto 0.02 X10*3/uL (0.00-0.03); Imm Gran Pct Auto 0.3 % (0.0-0.4); Lymphocytes Absolute Auto 2.1 X10*3/uL (1.2-4.9); Lymphocytes Percent Auto 32.1 % (20-40); Mean Corpuscular HGB Conc 33.2 g/dl (31.0-36.0); Mean Corpuscular Hemoglobin 30.9 pg (27.0-33.0); Mean Corpuscular Volume 93.2 fL (80.0-98.0); Mean Platelet Volume 8.9 fL (9.4-12.4); Monocytes Absolute Auto 0.5 X10*3/uL (0.1-1.2); Monocytes Percent Auto 8.1 % (2-11); Neutrophils Absolute Auto 3.7 x10*3/uL (2.0-8.3); Neutrophils Percent Auto 56.6 % (45-73); Platelet Count 344 X10*3/uL (160-400); Red Blood Count 4.85 X10*6/uL (4.60-5.80); Red Cell Distribution Width 13.2 % (11.0-16.0); White Blood Count 6.6 X10*3/uL (4.8-10.8)
[2021-02-13 10:38] LABS: Alanine Aminotransferase 29 U/L (0-40); Albumin Level 4.4 g/dL (3.5-5.0); Alkaline Phosphatase 140 U/L (39-117); Anion Gap 13 (12-20); Aspartate Amino Transferase 23 U/L (5-37); Bilirubin Total 0.6 mg/dL (0.0-1.0); Blood Urea Nitrogen 13 mg/dL (9-16); Calcium 9.6 mg/dL (8.4-10.2); Carbon Dioxide 26 mmol/L (22-29); Chloride 106 mmol/L (96-108); Cholesterol 210 mg/dL; Estimated Glomerular Filt Rate > 60; Glucose Fasting 90 mg/dL (60-99); HDL Cholesterol 55 mg/dL; LDL Cholesterol Calculated 134 mg/dl; Potassium 4.5 mmol/L (3.3-5.1); Sodium 140 mmol/L (135-145); Total Protein 7.7 g/dL (6.5-8.0); Triglycerides 105 mg/dL
[2021-02-20 16:10] LABS: Vitamin D 25-OH, D2 <4 ng/mL; Vitamin D 25-OH, D3 28 ng/mL; Vitamin D 25-OH, Total 28 ng/mL (30-100)
== END 2021-02-13 09:42 | disposition home or self-care (01) ==
LOC: HO.LAB 09:41
PROVIDERS: PCP Internal Medicine; Visit Provider Internal Medicine
DX: E55.9 Vitamin D deficiency, unspecified (principal); E78.5 Hyperlipidemia, unspecified; F10.20 Alcohol dependence, uncomplicated; D64.9 Anemia, unspecified
CPT/HCPCS: 36415; 80053; 80061; 82306; 85025

== ENCOUNTER 2021-03-16 13:09 | Emergency (ER) | payer OTHER, SELFPAY ==
--- NOTE | 2021-03-16 14:38 | PC.NURSE ---
pt called for triage not present at 1400, 1413 and now 1440
== END 2021-03-16 16:56 | disposition left against medical advice (07) ==
PROVIDERS: Emergency Provider Emergency Medicine; PCP Internal Medicine
DX: Z04.1 Encounter for examination and observation following transport accident (principal)

== ENCOUNTER 2021-03-21 10:54 | Emergency (ER) | payer OTHER, SELFPAY ==
[2021-03-21 11:11] VITALS: BP 127/82; PULSE 81; RESP 18; TEMP 36.2; O2SAT 98; BMI 26.9
== END 2021-03-21 15:00 | disposition left against medical advice (07) ==
PROVIDERS: Emergency Provider Emergency Medicine; PCP Internal Medicine
DX: M54.9 Dorsalgia, unspecified (principal); M25.511 Pain in right shoulder; M25.512 Pain in left shoulder; R51.9 Headache, unspecified
CPT/HCPCS: 99281; 99282

== ENCOUNTER → 2021-03-27 15:22 | Outpatient (BNVA) | payer OTHER, SELFPAY | PROVIDERS: PCP Internal Medicine; Visit Provider Nurse Practitioner Family | DX: M47.817 Spondylosis without myelopathy or radiculopathy, lumbosacral region (principal); M54.16 Radiculopathy, lumbar region; F10.20 Alcohol dependence, uncomplicated; F19.10 Other psychoactive substance abuse, uncomplicated | CPT/HCPCS: 99212 ==

== ENCOUNTER 2021-05-15 14:05 | Outpatient (REF) | payer OTHER, SELFPAY ==
--- NOTE | ~2021-05-15 | MR_ITS ---
EXAMINATION: MR LUMBAR SPINE WITHOUT CONTRAST CLINICAL INFORMATION: Right-sided lower back pain. Right leg pain. COMPARISON: Lumbar spine radiographs dated 03/26/2017 and lumbar spine MRI dated 06/03/2011. TECHNIQUE: MRI of the lumbar spine was obtained using routine sequences without contrast. FINDINGS: VERTEBRAL BODIES AND PARASPINAL STRUCTURES: Normal vertebral body alignment. The lumbar lordosis is maintained. No acute fracture or subluxation. No loss of vertebral body height. Prominent loss of intervertebral disc height with disc desiccation at L4-L5 and L5-S1 where there are Modic type II degenerative endplate changes as well as a prominent Schmorl's node at the inferior endplate of L4. More mild loss of intervertebral disc height with disc desiccation at L3-L4. Findings have progressed when compared to the prior MRI. No evidence of acute osseous injury. The visualized paraspinal soft tissues are unremarkable. CONUS MEDULLARIS AND CAUDA EQUINA: Normal, terminating at the level of L1. SPINAL LEVELS: T12-L1: No significant disc bulge. No central canal or neural foraminal stenosis. L1-L2: No significant disc bulge. No central canal or neural foraminal stenosis. L2-L3: No significant disc bulge. No central canal or neural foraminal stenosis. L3-L4: Mild broad-based disc bulge with a tiny left paracentral disc protrusion. Bilateral facet arthropathy. Mild bilateral neural foraminal stenosis. Findings are new/increased when compared to the prior examination. L4-L5: Broad-based disc bulge with bilateral facet arthropathy which encroaches upon the traversing bilateral L5 nerve roots within the lateral recesses and causes [id number] bilateral neural foraminal stenosis. Findings are slightly progressed when compared to the prior examination. L5-S1: Broad-based disc bulge with faint annular fissuring which abuts the traversing bilateral S1 nerve roots in the lateral recesses. Bilateral facet arthropathy causing mild central canal as well as [id number] bilateral neural foraminal stenosis, increased when compared to the prior examination. MR/MR lumbar spine wo con IMPRESSION: 1. Prominent degenerative disc disease at L4-L5 with a posterior Schmorl's node as well as a broad-based disc bulge and bilateral facet arthropathy which encroach upon the traversing bilateral L5 nerve roots in the lateral recesses. This causes [id number] bilateral neural foraminal stenosis. Findings are progressed when compared to the prior examination. 2. Degenerative disc disease at L5-S1 with a broad-based disc bulge and faint annular fissuring which abuts the traversing bilateral S1 nerve roots in combination with bilateral facet arthropathy causes mild central canal as well as [id number] bilateral neural foraminal stenosis, increased when compared to the prior examination. 3. Mild broad-based disc bulge at L3-L4 with a tiny left paracentral disc protrusion and bilateral facet arthropathy causing mild bilateral neural foraminal stenosis, new/increased when compared to the prior examination.
== END 2021-05-15 14:06 | disposition home or self-care (01) ==
LOC: HO.MRI 14:05
PROVIDERS: Visit Provider Nurse Practitioner Family
DX: M54.16 Radiculopathy, lumbar region (principal)
CPT/HCPCS: 72148

== ENCOUNTER → 2021-06-08 08:55 | Outpatient (BNVA) | payer OTHER, SELFPAY | PROVIDERS: PCP Internal Medicine; Visit Provider Nurse Practitioner Family | DX: F10.20 Alcohol dependence, uncomplicated (principal); M47.817 Spondylosis without myelopathy or radiculopathy, lumbosacral region; M54.16 Radiculopathy, lumbar region | CPT/HCPCS: 99212 ==

== ENCOUNTER 2021-07-09 10:48 | Emergency (ER) | payer OTHER, SELFPAY ==
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
[2021-07-09 12:03] VITALS: BP 107/69; PULSE 72; RESP 18; TEMP 36.6; O2SAT 100; BMI 26.2
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
== END 2021-07-09 15:08 | disposition home or self-care (01) ==
PROVIDERS: Emergency Provider Emergency Medicine; PCP Internal Medicine
DX: Z04.1 Encounter for examination and observation following transport accident (principal); G89.29 Other chronic pain; M54.2 Cervicalgia; M54.50 Low back pain, unspecified; M54.6 Pain in thoracic spine
CPT/HCPCS: 70450; 72125; 99283; 99284

== ENCOUNTER 2021-07-10 08:40 | Outpatient (REF) | payer OTHER, SELFPAY ==
[2021-07-10 10:37] LABS: Alanine Aminotransferase 41 U/L (0-40); Albumin Level 4.1 g/dL (3.5-5.0); Alkaline Phosphatase 103 U/L (39-117); Anion Gap 10 (12-20); Aspartate Amino Transferase 28 U/L (5-37); Bilirubin Total 0.5 mg/dL (0.0-1.0); Blood Urea Nitrogen 15 mg/dL (9-16); Calcium 9.8 mg/dL (8.4-10.2); Carbon Dioxide 29 mmol/L (22-29); Chloride 107 mmol/L (96-108); Cholesterol 176 mg/dL; Estimated Glomerular Filt Rate > 60; Glucose Fasting 91 mg/dL (60-99); HDL Cholesterol 44 mg/dL; LDL Cholesterol Calculated 114 mg/dl; Potassium 4.7 mmol/L (3.3-5.1); Sodium 141 mmol/L (135-145); Total Protein 6.9 g/dL (6.5-8.0); Triglycerides 92 mg/dL
== END 2021-07-10 08:41 | disposition home or self-care (01) ==
LOC: HO.LAB 08:40
PROVIDERS: PCP Internal Medicine; Visit Provider Internal Medicine
DX: E78.00 Pure hypercholesterolemia, unspecified (principal); E78.5 Hyperlipidemia, unspecified
CPT/HCPCS: 36415; 80053; 80061

== ENCOUNTER 2021-09-07 05:48 | Outpatient (REF) | payer OTHER, SELFPAY | END 2021-09-07 05:49 | disposition home or self-care (01) | LOC: HO.RADIR 05:48 | PROVIDERS: Visit Provider Internal Medicine | DX: Z13.89 Encounter for screening for other disorder (principal) ==

== ENCOUNTER 2021-10-04 10:29 | Emergency (ER) | payer OTHER, SELFPAY ==
[2021-10-04 11:20] VITALS: BP 123/80; PULSE 88; RESP 16; TEMP 36.4; O2SAT 98; BMI 24.0
--- NOTE | 2021-10-04 12:27 | ED_ITS ---
HPI - Back Pain/Injury General Chief Complaint: Back Pain/Injury Stated Complaint: back and shoulder pain Time Seen by Provider: 10/04/21 12:18 Source: patient Mode of arrival: ambulatory History of Present Illness HPI Narrative: 51-year-old male with a past medical history of ETOH abuse, substance abuse, lumbar radiculopathy, HLD, presenting to the ED complaining of upper and mid right-sided back pain x1 week s/p heavy lifting at work. 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 Denies radiation of pain down lower extremities, numbness, tingling, weakness, urinary incontinence/retention MD elicited complaint: back pain and back injury Onset (ago): week(s) Related Data Home Medications Medication Instructions Recorded Confirmed trazodone 100 mg tablet 100 mg PO BEDTIME 04/13/20 07/26/21 Previous Rx's Medication Instructions Recorded gabapentin 300 mg capsule 300 mg PO TID 1 month #90 caps 02/24/20 folic acid 1 mg tablet 1 mg PO DAILY #30 tabs 06/08/20 atorvastatin 40 mg tablet 40 mg PO BEDTIME 90 days #90 tabs 06/07/21 ibuprofen 600 mg tablet 600 mg PO Q8H PRN pain #14 tabs 07/09/21 bupropion HCl 300 mg 24 hr tablet, 300 mg PO DAILY 90 days #90 tabs 07/26/21 extended release lidocaine 5 % topical patch 1 patch topical DAILY #15 ea 07/26/21 naproxen 500 mg tablet 500 mg PO BID PRN pain 30 days #60 07/26/21 tabs omeprazole 20 mg capsule,delayed 20 mg PO DAILY 90 days #90 caps 07/26/21 release vitamin B complex 1 cap PO DAILY 90 days #90 caps 07/26/21 acetaminophen 500 mg tablet 500 mg PO Q6H PRN fever or pain 10/04/21 (Tylenol Extra Strength) #14 tabs lidocaine 5 % topical patch 1 patch topical DAILY PRN pain #30 10/04/21 (Lidoderm) ea naproxen 500 mg tablet 500 mg PO BID PRN pain 10 days #20 10/04/21 tabs Allergies Allergy/AdvReac Type Severity Reaction Status Date / Time No Known Allergies Allergy Verified 07/26/21 08:52 [No Known Allergies*] Review of Systems Review of Systems: Constitutional: No Fever, No Chills ENT/Mouth: No Ear Pain, No Nasal Congestion, No Sinus Pain, No Hoarseness, No sore throat, No Rhinorrhea, No Swallowing Difficulty Cardiovascular: No Chest Pain, No SOB Respiratory: No Cough, No Sputum, No Wheezing Gastrointestinal: No Nausea, No Vomiting, No Diarrhea, No Constipation, No Abdominal pain Genitourinary: No Dysuria, No Urinary Frequency, No Hematuria, No Urinary Incontinence/retention, No Urgency, No Flank Pain Musculoskeletal: + joint pain, No Myalgias, No Joint Swelling Skin: No Skin Lesions, No rash Neuro: No Weakness, No Numbness, No Paresthesias Yes all other systems are reviewed and are negative Neurologic: Denies Sensory deficit (Neuro) [facility] Past Medical History Attestation statement: The following information was validated with the patient. Medical History Abuse, drug or alcohol Alcoholism Cocaine use disorder GERD (gastroesophageal reflux disease) Headache History of back pain Lumbar radiculopathy Mild recurrent major depression Physical exam Pure hypercholesterolemia Right elbow pain Spondylosis of lumbosacral spine without myelopathy Surgical History History of esophagogastroduodenoscopy (EGD) History of eye surgery History of eye surgery Family History Family History Father Alcoholism Substance use disorder Mother Diabetes Social History Social History Housing: Apartment Alcohol intake: former Patient Tobacco Use Status: Never used Tobacco e-Cigarette/Vaping Use: Never Used Second Hand Smoke Exposure: No Substance Use Type: Crack/Cocaine and Marijuana Advance Directives: No Advance Directives Information Provided: No service: No Current occupational status: employed Current occupational exposures/hazards: No Cognitive needs: No Hearing needs: No Vision needs: No Physical Exam Vital Signs: Vital Signs: Last Vital Signs Temp 97.6 F 10/04/21 11:20 Pulse 88 10/04/21 11:20 Resp 16 10/04/21 11:20 BP 123/80 10/04/21 11:20 Pulse Ox 98 10/04/21 11:20 O2 Del Method 10/04/21 11:20 BMI result Body Mass Index 24.0 Const: General: cooperative, healthy appearing and no acute distress Orientation/consciousness: patient oriented x3 Limitations: no limitations HEENT: Head: Yes normal to inspection and Yes atraumatic Ears: hearing grossly normal bilaterally General nose exam: Normal external nose present Face and sinus: Yes normal facial exam Eyes: General: appearance normal, both eyes and all related structures EOM: EOMs intact bilaterally Neck: Other: No midline cervical spinous tenderness Neck: Yes normal visual inspection and Yes no meningeal signs Resp: Effort & Inspection: normal respiratory effort and no respiratory distress Cardio: Rate: regular rate Heart sounds: S1 normal heart sound present and S2 normal heart sound present GI: Inspection: Yes normal to inspection Palpation (GI): Soft to palpation, nontender, no guarding and not rigid : General: Yes no CVA tenderness Back/Spine/Pelvis: Other: No midline thoracic/lumbar spinous tenderness/step-off or deformity. + right- sided upper back and midthoracic MSK tenderness to palpation reproducing subjective complaint. No ecchymosis/erythema or crepitus Back: no CVA tenderness Skin: Rashes: no rashes Wounds: no wounds Neuro: Other: Strength intact throughout. No saddle anesthesia. Sensation intact to light touch. Neurovascular intact distally General: patient oriented x3, gait normal, tone normal and no meningeal signs Gait exam (Neuro): Normal gait present Motor exam (neuro): 5/5 motor strength present throughout Sensory Exam: No Sensory deficit (Neuro) Extrem: General: Yes normal to inspection MDM - Back Pain/Injury MDM Narrative Medical decision making narrative: 51-year-old male with a past medical history of ETOH abuse, substance abuse, lumbar radiculopathy, HLD, presenting to the ED complaining of upper and mid right-sided back pain x1 week s/p heavy lifting at work. On exam vital signs stable, NAD/nontoxic-appearing, physical exam as above. No midline spinous tenderness throughout or red flag symptoms. Concern for MSK pain/strain and muscle spasming. Low concern for cauda equina, cord compression, epidural abscess or pyelo/renal stone Differential Diagnosis Differential diagnosis: Likely lumbar radiculopathy, renal colic, pyelonephritis and thoracic back pain Medical Records Attestation: I reviewed the patient's medical records. Lab Data Attestation: I reviewed the patient's lab results. Discharge Plan Discharge Clinical Impression: Back pain, thoracic Patient Disposition: Home, Self-Care Instructions: Back Pain (ED) Additional Instructions: Your pain is likely musculoskeletal Naproxen as an anti-inflammatory / pain medication, take with food Lidoderm patches are numbing patches, apply to painful area In addition take Tylenol at home If symptoms persist or worsen, pain becomes unbearable, you developed urinary retention or incontinence, or weakness return to the ED Es probable que manning dolor sea musculoesquel?ximena Naproxeno denisha medicamento antiinflamatorio/analg?sico, t?alexander con alimentos Los parches de Lidoderm son parches anest?sicos, se aplican en el ?rigoberto dolorida Adem?s rose Tylenol en casa Si los s?ntomas persisten o empeoran, el dolor se vuelve insoportable, desarroll? retenci?n urinaria o incontinencia, o debilidad, regrese al servicio de urgencias. Prescriptions: New acetaminophen [Tylenol Extra Strength] 500 mg tablet 500 mg PO Q6H PRN (Reason: fever or pain) Qty: 14 0RF lidocaine [Lidoderm] 5 % adhesive patch,medicated 1 patch topical DAILY MDD remove after 12 hours PRN (Reason: pain) Qty: 30 0RF Rx Instructions: leave on most painful area for up to 12 hrs naproxen 500 mg tablet 500 mg PO BID PRN (Reason: pain) 10 Days Qty: 20 0RF No Action folic acid 1 mg tablet 1 mg PO DAILY Qty: 30 1RF atorvastatin 40 mg tablet 40 mg PO BEDTIME 90 Days Qty: 90 3RF ibuprofen 600 mg tablet 600 mg PO Q8H PRN (Reason: pain) Qty: 14 0RF bupropion HCl 300 mg tablet extended release 24 hr 300 mg PO DAILY 90 Days Qty: 90 1RF lidocaine 5 % adhesive patch,medicated 1 patch topical DAILY Qty: 15 0RF Rx Instructions: leave on most painful area for up to 12 hrs omeprazole 20 mg capsule,delayed release(DR/EC) 20 mg PO DAILY 90 Days Qty: 90 3RF naproxen 500 mg tablet 500 mg PO BID PRN (Reason: pain) 30 Days Qty: 60 3RF vitamin B complex Capsule 1 cap PO DAILY 90 Days Qty: 90 1RF gabapentin 300 mg capsule 300 mg PO TID 30 Days Qty: 90 8RF trazodone 100 mg tablet 100 mg PO BEDTIME Referrals: [facility] [Outside] - 3 days Stand Alone Forms: Work/School Release Print Language: Salvadorean
== END 2021-10-04 13:03 | disposition home or self-care (01) ==
PROVIDERS: Emergency Provider Emergency Medicine; PCP Internal Medicine
DX: M54.6 Pain in thoracic spine (principal); E78.00 Pure hypercholesterolemia, unspecified
CPT/HCPCS: 99283

== ENCOUNTER 2021-12-05 06:00 | Outpatient (REF) | payer OTHER, SELFPAY | END 2021-12-05 06:01 | disposition home or self-care (01) | LOC: HO.RADIR 06:00 | PROVIDERS: Visit Provider Internal Medicine | DX: Z13.89 Encounter for screening for other disorder (principal) ==

== ENCOUNTER 2021-12-11 13:21 | Outpatient (REF) | payer OTHER, SELFPAY ==
--- NOTE | ~2021-12-11 | XR_ITS ---
EXAMINATION: XR RIBS, RIGHT CLINICAL INFORMATION: Posterior right rib pain COMPARISON: Previous chest x-ray most recent November 2013 TECHNIQUE: 3 views of the right ribs were obtained. FINDINGS: Lungs are clear. No consolidation, pneumothorax, or pleural effusion. The cardiomediastinal silhouette and pulmonary vasculature are normal. There are degenerative changes of the thoracic spine. Ribs are intact. No fractures are identified. XR/XR ribs RT min 3V w CXR1V IMPRESSION: No evidence for acute disease in the chest. No rib fracture.
== END 2021-12-11 13:22 | disposition home or self-care (01) ==
LOC: HO.XRAY 13:21
PROVIDERS: PCP Internal Medicine; Visit Provider Internal Medicine
DX: R07.81 Pleurodynia (principal)
CPT/HCPCS: 71101

== ENCOUNTER → 2021-12-26 09:36 | Outpatient (BNVA) | payer OTHER, SELFPAY | PROVIDERS: PCP Internal Medicine; Visit Provider Nurse Practitioner Psychiatric/Mental Health | DX: F10.20 Alcohol dependence, uncomplicated (principal); F14.10 Cocaine abuse, uncomplicated; Z51.81 Encounter for therapeutic drug level monitoring; Z79.899 Other long term (current) drug therapy | CPT/HCPCS: 80305; 99212 ==

== ENCOUNTER 2021-12-27 01:20 | Emergency (ER) | payer OTHER, SELFPAY ==
[2021-12-27 01:48] VITALS: BP 122/86; PULSE 97; RESP 16; TEMP 38.1; O2SAT 97; BMI 25.6
[2021-12-27 02:00] VITALS: BP 120/83; PULSE 91; RESP 16; TEMP 37.1; O2SAT 98
[2021-12-27 02:10] LABS: COVID-19 Test Negative (Negative); IDNOW Serial# 16C4AD1C
--- NOTE | 2021-12-27 02:48 | ED.ALCOHOL ---
HPI - Alcohol General Chief Complaint: ETOH/Substance Use Stated Complaint: general medical Time Seen by Provider: 12/27/21 02:48 History of Present Illness HPI narrative: Patient is a 51-year-old male presents today with having drank alcohol and used cocaine in the parking lot. Patient now wants detox. Denies any suicidal homicidal thoughts. Is homeless have no place to sleep. Related Data Home Medications Medication Instructions Recorded Confirmed trazodone 100 mg tablet 100 mg PO BEDTIME 04/13/20 10/10/21 Previous Rx's Medication Instructions Recorded folic acid 1 mg tablet 1 mg PO DAILY #30 tabs 06/08/20 atorvastatin 40 mg tablet 40 mg PO BEDTIME 90 days #90 tabs 06/07/21 ibuprofen 600 mg tablet 600 mg PO Q8H PRN pain #14 tabs 07/09/21 bupropion HCl 300 mg 24 hr tablet, 300 mg PO DAILY 90 days #90 tabs 07/26/21 extended release omeprazole 20 mg capsule,delayed 20 mg PO DAILY 90 days #90 caps 07/26/21 release vitamin B complex 1 cap PO DAILY 90 days #90 caps 07/26/21 acetaminophen 500 mg tablet 500 mg PO Q6H PRN fever or pain 10/04/21 (Tylenol Extra Strength) #14 tabs gabapentin 300 mg capsule 300 mg PO TID 1 month #90 caps 10/31/21 naproxen 500 mg tablet 500 mg PO BID PRN pain 30 days #60 12/01/21 tabs lidocaine 5 % topical patch 1 patch topical DAILY #30 ea 12/11/21 naltrexone 50 mg tablet 50 mg PO DAILY #14 tabs 12/26/21 Allergies Allergy/AdvReac Type Severity Reaction Status Date / Time No Known Allergies Allergy Verified 12/26/21 09:48 [No Known Allergies*] Review of Systems Review of Systems: No suicidal homicidal ideation Yes all other systems are reviewed and are negative [facility] Past Medical History Attestation statement: The following information was validated with the patient. Medical History Abuse, drug or alcohol Alcoholism Cocaine use disorder GERD (gastroesophageal reflux disease) Headache History of back pain Lumbar radiculopathy Mild recurrent major depression Physical exam Pure hypercholesterolemia Right elbow pain Spondylosis of lumbosacral spine without myelopathy Surgical History History of esophagogastroduodenoscopy (EGD) History of eye surgery History of eye surgery Family History Family History Father Alcoholism Substance use disorder Mother Diabetes Social History Social History Housing: Apartment Alcohol intake: former Patient Tobacco Use Status: Never used Tobacco e-Cigarette/Vaping Use: Never Used Second Hand Smoke Exposure: No Substance Use Type: Crack/Cocaine and Marijuana Advance Directives: No service: No Current occupational status: employed Current occupational exposures/hazards: No Cognitive needs: No Hearing needs: No Vision needs: No Physical Exam ED Vital Signs: Vital Signs - 24 hr 12/27/21 01:48 12/27/21 02:00 12/27/21 03:55 Temperature 100.5 F H 98.7 F 98.2 F Pulse Rate 97 91 78 Respiratory Rate 16 16 18 Blood Pressure 122/86 120/83 93/56 L Pulse Oximetry 97 98 98 Oxygen Delivery Method Room Air Room Air Room Air BMI result Body Mass Index 25.6 Appearance: Alert. Oriented X3. No acute distress. Eyes: Pupils equal, round and reactive to light. ENT: Pharynx normal. Neck: Normal inspection. Neck supple. No lymph nodes noted. No crepitus CVS: Normal heart rate and rhythm. Pulses normal. Normal S1 and S2 Respiratory: No respiratory distress. Breath sounds normal. No Wheezing. No rales Abdomen: Soft and nontender. No rigidity. No distention. good BS x4 Skin: Skin warm and dry. Normal skin color. Normal skin turgor. Extremities: No lower extremity edema. Neurovascular intact to all extremities. No Lacerations. No Rash Neuro: Oriented X 3. No motor deficit. No sensory deficit. Moving all extermities. No slurred speech MDM - Alcohol MDM Narrative Medical decision making narrative: Will monitor patient await clinical sobriety. Patient denies any suicidal homicidal ideations. Medical Records Attestation: I reviewed the patient's medical records. Lab Data Attestation: I reviewed the patient's lab results. Result diagrams: 12/27/21 03:11 12/27/21 03:11 Labs: Lab Results 12/27/21 12/27/21 12/27/21 Range/Units 01:42 03:11 03:11 WBC 13.4 H (4.8-10.8) X10*3/uL RBC 5.03 (4.60-5.80) X10*6/uL Hgb 15.5 (14.0-18.0) g/dl Hct 45.6 (42.0-52.0) % MCV 90.7 (80.0-98.0) fL MCH 30.8 (27.0-33.0) pg MCHC 34.0 (31.0-36.0) g/dl RDW 13.4 (11.0-16.0) % Plt Count 419 H (160-400) X10*3/uL MPV 8.8 L (9.4-12.4) fL Immature Gran % (Auto) 0.3 (0.0-0.4) % Neut % (Auto) 70.4 (45-73) % Lymph % (Auto) 22.9 (20-40) % [place] % (Auto) 5.8 (2-11) % Eos % (Auto) 0.2 (0-4) % Baso % (Auto) 0.4 (0-2) % Lymph # (Auto) 3.1 (1.2-4.9) X10*3/uL [place] # (Auto) 0.8 (0.1-1.2) X10*3/uL Eos # (Auto) 0.0 (0.0-0.4) X10*3/uL Baso # (Auto) 0.1 (0.0-0.2) X10*3/uL Abs Immat Gran (auto) 0.04 H (0.00-0.03) X10*3/uL Absolute Neuts (auto) 9.5 H (2.0-8.3) x10*3/uL Absolute Nucleated RBC 0.000 (0.0-0.012) X10*3/uL Nucleated RBC % (auto) 0.0 (0.0-0.2) /100WBC Sodium 143 (135-145) mmol/L Potassium 4.3 (3.3-5.1) mmol/L Chloride 106 (96-108) mmol/L Carbon Dioxide 19 L (22-29) mmol/L Anion Gap 22 H (12-20) BUN 13 (9-16) mg/dL Creatinine 0.94 (0.5-1.4) mg/dL Estim Creat Clear Calc 70.9 Estimated GFR > 60 POC Glucose (60-115) mg/dL Random Glucose 57 L* (60-115) mg/dL Calcium 9.8 (8.4-10.2) mg/dL Total Bilirubin 0.5 (0.0-1.0) mg/dL AST 24 (5-37) U/L ALT 32 (0-40) U/L Alkaline Phosphatase 117 (39-117) U/L Total Protein 7.7 (6.5-8.0) g/dL Albumin 4.5 (3.5-5.0) g/dL Ethyl Alcohol 167 mg/dL COVID-19 (NATHALIE) Negative (Negative) COVID-19 Clin Com See Note 12/27/21 Range/Units 04:45 WBC (4.8-10.8) X10*3/uL RBC (4.60-5.80) X10*6/uL Hgb (14.0-18.0) g/dl Hct (42.0-52.0) % MCV (80.0-98.0) fL MCH (27.0-33.0) pg MCHC (31.0-36.0) g/dl RDW (11.0-16.0) % Plt Count (160-400) X10*3/uL MPV (9.4-12.4) fL Immature Gran % (Auto) (0.0-0.4) % Neut % (Auto) (45-73) % Lymph % (Auto) (20-40) % [place] % (Auto) (2-11) % Eos % (Auto) (0-4) % Baso % (Auto) (0-2) % Lymph # (Auto) (1.2-4.9) X10*3/uL [place] # (Auto) (0.1-1.2) X10*3/uL Eos # (Auto) (0.0-0.4) X10*3/uL Baso # (Auto) (0.0-0.2) X10*3/uL Abs Immat Gran (auto) (0.00-0.03) X10*3/uL Absolute Neuts (auto) (2.0-8.3) x10*3/uL Absolute Nucleated RBC (0.0-0.012) X10*3/uL Nucleated RBC % (auto) (0.0-0.2) /100WBC Sodium (135-145) mmol/L Potassium (3.3-5.1) mmol/L Chloride (96-108) mmol/L Carbon Dioxide (22-29) mmol/L Anion Gap (12-20) BUN (9-16) mg/dL Creatinine (0.5-1.4) mg/dL Estim Creat Clear Calc Estimated GFR POC Glucose 80 (60-115) mg/dL Random Glucose (60-115) mg/dL Calcium (8.4-10.2) mg/dL Total Bilirubin (0.0-1.0) mg/dL AST (5-37) U/L ALT (0-40) U/L Alkaline Phosphatase (39-117) U/L Total Protein (6.5-8.0) g/dL Albumin (3.5-5.0) g/dL Ethyl Alcohol mg/dL COVID-19 (NATHALIE) (Negative) COVID-19 Clin Com Discharge Plan Discharge Clinical Impression: Polysubstance (excluding opioids) dependence, Cocaine use disorder, Alcoholism Patient Disposition: Home, Self-Care Instructions: Cocaine Abuse (ED), Abuse of Alcohol (ED), Polysubstance Abuse (ED) Prescriptions: No Action folic acid 1 mg tablet 1 mg PO DAILY Qty: 30 1RF atorvastatin 40 mg tablet 40 mg PO BEDTIME 90 Days Qty: 90 3RF gabapentin 300 mg capsule 300 mg PO TID 30 Days Qty: 90 8RF naproxen 500 mg tablet 500 mg PO BID PRN (Reason: pain) 30 Days Qty: 60 3RF lidocaine 5 % adhesive patch,medicated 1 patch topical DAILY Qty: 30 5RF Rx Instructions: leave on most painful area for up to 12 hrs ibuprofen 600 mg tablet 600 mg PO Q8H PRN (Reason: pain) Qty: 14 0RF acetaminophen [Tylenol Extra Strength] 500 mg tablet 500 mg PO Q6H PRN (Reason: fever or pain) Qty: 14 0RF bupropion HCl 300 mg tablet extended release 24 hr 300 mg PO DAILY 90 Days Qty: 90 1RF omeprazole 20 mg capsule,delayed release(DR/EC) 20 mg PO DAILY 90 Days Qty: 90 3RF vitamin B complex Capsule 1 cap PO DAILY 90 Days Qty: 90 1RF trazodone 100 mg tablet 100 mg PO BEDTIME naltrexone 50 mg tablet 50 mg PO DAILY Qty: 14 0RF Rx Instructions: take 1/2 tab for 2 days, then take one tab daily Referrals: Physician,Unknown J [Primary Care Provider] - (Please go to detox. please stop using recreational drugs. Please do not drive after using cocaine. Please do not drive after using alcohol. Driving while intoxicated or under the influence of drugs can kill you.)
[2021-12-27 03:21] LABS: Basophils Absolute Auto 0.1 X10*3/uL (0.0-0.2); Basophils Percent Auto 0.4 % (0-2); Eosinophils Percent Auto 0.2 % (0-4); Hematocrit 45.6 % (42.0-52.0); Hemoglobin 15.5 g/dl (14.0-18.0); Imm Gran Abs Auto 0.04 X10*3/uL (0.00-0.03); Imm Gran Pct Auto 0.3 % (0.0-0.4); Lymphocytes Absolute Auto 3.1 X10*3/uL (1.2-4.9); Lymphocytes Percent Auto 22.9 % (20-40); MANUAL DIFF FLAG NO; Mean Corpuscular Hemoglobin 30.8 pg (27.0-33.0); Mean Corpuscular Volume 90.7 fL (80.0-98.0); Mean Platelet Volume 8.8 fL (9.4-12.4); Monocytes Absolute Auto 0.8 X10*3/uL (0.1-1.2); Monocytes Percent Auto 5.8 % (2-11); Neutrophils Absolute Auto 9.5 x10*3/uL (2.0-8.3); Neutrophils Percent Auto 70.4 % (45-73); Platelet Count 419 X10*3/uL (160-400); Red Blood Count 5.03 X10*6/uL (4.60-5.80); Red Cell Distribution Width 13.4 % (11.0-16.0); White Blood Count 13.4 X10*3/uL (4.8-10.8)
[2021-12-27 03:55] VITALS: BP 93/56; PULSE 78; RESP 18; TEMP 36.8; O2SAT 98
[2021-12-27 04:02] LABS: Alanine Aminotransferase 32 U/L (0-40); Albumin Level 4.5 g/dL (3.5-5.0); Alkaline Phosphatase 117 U/L (39-117); Anion Gap 22 (12-20); Aspartate Amino Transferase 24 U/L (5-37); Bilirubin Total 0.5 mg/dL (0.0-1.0); Blood Urea Nitrogen 13 mg/dL (9-16); Calcium 9.8 mg/dL (8.4-10.2); Carbon Dioxide 19 mmol/L (22-29); Chloride 106 mmol/L (96-108); Creatinine Clr Calc Pharmacy 70.9; Estimated Glomerular Filt Rate > 60; Ethanol 167 mg/dL; Glucose Random 57 mg/dL (60-115); Potassium 4.3 mmol/L (3.3-5.1); Sodium 143 mmol/L (135-145); Total Protein 7.7 g/dL (6.5-8.0)
[2021-12-27] MEDS: Ketorolac Tromethamine 30 MG/ML VIAL IM (04:32)
--- NOTE | 2021-12-27 04:42 | PC.NURSE ---
pt drowsy, medicated per provider order for generalized pain, given orange juice by provider.
[2021-12-27 04:50] LABS: Glucose, Whole Blood 80 mg/dL (60-115)
--- NOTE | 2021-12-27 04:50 | PC.NURSE ---
Recheck POC 80, pt resting comfortably.
[2021-12-27 05:57] VITALS: BP 107/74; PULSE 79; RESP 16; TEMP 36.6; O2SAT 98
== END 2021-12-27 06:29 | disposition home or self-care (01) ==
PROVIDERS: Emergency Provider Emergency Medicine Emergency Medical Services
DX: F14.29 Cocaine dependence with unspecified cocaine-induced disorder (principal); F10.129 Alcohol abuse with intoxication, unspecified; Y90.6 Blood alcohol level of 120-199 mg/100 ml; Z20.822 Contact with and (suspected) exposure to COVID-19; Z79.899 Other long term (current) drug therapy; Z59.00 Homelessness unspecified; Z71.51 Drug abuse counseling and surveillance of drug abuser
CPT/HCPCS: 80053; 82077; 82947; 85025; 87635; 96372; 99284; J1885

== ENCOUNTER 2021-12-28 20:45 | Inpatient (IN) | payer OTHER, SELFPAY ==
[2021-12-28 20:53] VITALS: BP 84/52; BP 98/64; PULSE 65; PULSE 77; RESP 22; TEMP 37.1; O2SAT 96; O2SAT 99; BMI 25.4
--- NOTE | 2021-12-28 21:02 | ECG_ITS ---
Test Reason : SEIZURE Blood Pressure : / mmHG Vent. Rate : 061 BPM Atrial Rate : 061 BPM P-R Int : 184 ms QRS Dur : 084 ms QT Int : 426 ms P-R-T Axes : 006 -21 020 degrees QTc Int : 428 ms Normal sinus rhythm Minimal voltage criteria for LVH, may be normal variant ( R in aVL ) Borderline ECG When compared with ECG of 12-NOV-2017 20:33, No significant change was found Referred By: Xochilt Phillip Electronically Signed By:LUIS MIGUEL MENSAH
--- NOTE | 2021-12-28 21:10 | ED.SEIZURE ---
HPI - Seizure General Chief Complaint: Seizure Stated Complaint: post seizure Time Seen by Provider: 12/28/21 21:00 Source: patient and EMS Mode of arrival: EMS Limitations: other (Postictal) History of Present Illness HPI Narrative: Patient comes in NC room from home via EMS. Patient has seizure prior to arrival. Patient admits that he was smoking marijuana, he scratched cocaine couple of days ago, last alcohol drink according to the patient was almost 30 hours ago. Patient states that he has had seizures in the past related to smoking marijuana. Patient was seen here yesterday, patient was seeking detox. Patient states that he has tried to obtain from using alcohol. At this time, patient complaining of tongue discomfort, did bite his tongue, but did not cause any lacerations. No urinary incontinence. Patient complaining of chest pressure Related Data Home Medications Medication Instructions Recorded Confirmed trazodone 100 mg tablet 100 mg PO BEDTIME 04/13/20 10/10/21 Previous Rx's Medication Instructions Recorded folic acid 1 mg tablet 1 mg PO DAILY #30 tabs 06/08/20 atorvastatin 40 mg tablet 40 mg PO BEDTIME 90 days #90 tabs 06/07/21 ibuprofen 600 mg tablet 600 mg PO Q8H PRN pain #14 tabs 07/09/21 bupropion HCl 300 mg 24 hr tablet, 300 mg PO DAILY 90 days #90 tabs 07/26/21 extended release omeprazole 20 mg capsule,delayed 20 mg PO DAILY 90 days #90 caps 07/26/21 release vitamin B complex 1 cap PO DAILY 90 days #90 caps 07/26/21 acetaminophen 500 mg tablet 500 mg PO Q6H PRN fever or pain 10/04/21 (Tylenol Extra Strength) #14 tabs gabapentin 300 mg capsule 300 mg PO TID 1 month #90 caps 10/31/21 naproxen 500 mg tablet 500 mg PO BID PRN pain 30 days #60 12/01/21 tabs lidocaine 5 % topical patch 1 patch topical DAILY #30 ea 12/11/21 naltrexone 50 mg tablet 50 mg PO DAILY #14 tabs 12/26/21 Allergies Allergy/AdvReac Type Severity Reaction Status Date / Time No Known Allergies Allergy Verified 12/26/21 09:48 [No Known Allergies*] PMFSH Past Medical History Medical History Abuse, drug or alcohol Alcoholism Cocaine use disorder GERD (gastroesophageal reflux disease) Headache History of back pain Lumbar radiculopathy Mild recurrent major depression Physical exam Pure hypercholesterolemia Right elbow pain Spondylosis of lumbosacral spine without myelopathy Surgical History History of esophagogastroduodenoscopy (EGD) History of eye surgery History of eye surgery Family History Family History Father Alcoholism Substance use disorder Mother Diabetes Social History Social History Housing: Apartment Alcohol intake: former Patient Tobacco Use Status: Never used Tobacco e-Cigarette/Vaping Use: Never Used Second Hand Smoke Exposure: No Substance Use Type: Crack/Cocaine and Marijuana service: No Current occupational status: employed Current occupational exposures/hazards: No Cognitive needs: No Hearing needs: No Vision needs: No Physical Exam Vital Signs: Vital Signs: Last Vital Signs Temp 98.7 F 12/28/21 20:53 Pulse 63 12/28/21 22:01 Resp 20 12/28/21 22:01 BP 91/56 L 12/28/21 22:01 Pulse Ox 97 12/28/21 22:01 O2 Del Method 12/28/21 22:01 BMI result Body Mass Index 25.4 Const: Other: Appearance: Alert. Oriented X3. No acute distress. Mildly postictal Eyes: Pupils equal, round and reactive to light. ENT: Pharynx normal. Neck: Normal inspection. Neck supple. No lymph nodes noted. No crepitus CVS: Normal heart rate and rhythm. Pulses normal. Normal S1 and S2 Respiratory: No respiratory distress. Breath sounds normal. No Wheezing. No rales Abdomen: Soft and nontender. No rigidity. No distention. Skin: Skin warm and dry. Normal skin color. Normal skin turgor. Extremities: No lower extremity edema. No Lacerations. No Rash Neuro: Oriented X 3. No motor deficit. No sensory deficit. Moving all extremities. No slurred speech. CN 2 through 12 grossly intact, mildly postictal Psych: calm, cooperative, normal affect Course Course Course Narrative: Patient has had seizures in the past, related to smoking marijuana, likely laced. However, patient states that his last drink was approximately 30 hours ago as he is trying to stop drinking. Alcohol levels pending. Patient given p.o. Ativan here in the emergency room. Patient's alcohol level is undetectable, patient likely did have our alcohol withdrawal seizure. Patient has been started on the phenobarb protocol. I discussed the patient with Dr. Mcmahon, patient being admitted. Patient agrees with plan. Elevated lactic acid is likely secondary to the seizure. Patient initially came in hypotensive, patient was given 2 L of normal saline. Patient does not have any signs of symptoms of any infection. Sepsis is not suspected. MDM - Seizure Lab Data Result diagrams: 12/28/21 21:15 12/28/21 21:15 Labs: Lab Results 12/28/21 12/28/21 12/28/21 Range/Units 21:15 21:15 21:15 WBC 9.7 (4.8-10.8) X10*3/uL RBC 4.53 L (4.60-5.80) X10*6/uL Hgb 14.3 (14.0-18.0) g/dl Hct 41.4 L (42.0-52.0) % MCV 91.4 (80.0-98.0) fL MCH 31.6 (27.0-33.0) pg MCHC 34.5 (31.0-36.0) g/dl RDW 13.0 (11.0-16.0) % Plt Count 370 (160-400) X10*3/uL MPV 9.3 L (9.4-12.4) fL Immature Gran % (Auto) 0.3 (0.0-0.4) % Neut % (Auto) 61.6 (45-73) % Lymph % (Auto) 25.9 (20-40) % [place] % (Auto) 10.2 (2-11) % Eos % (Auto) 1.6 (0-4) % Baso % (Auto) 0.4 (0-2) % Lymph # (Auto) 2.5 (1.2-4.9) X10*3/uL [place] # (Auto) 1.0 (0.1-1.2) X10*3/uL Eos # (Auto) 0.2 (0.0-0.4) X10*3/uL Baso # (Auto) 0.0 (0.0-0.2) X10*3/uL Abs Immat Gran (auto) 0.03 (0.00-0.03) X10*3/uL Absolute Neuts (auto) 6.0 (2.0-8.3) x10*3/uL Absolute Nucleated RBC 0.000 (0.0-0.012) X10*3/uL Nucleated RBC % (auto) 0.0 (0.0-0.2) /100WBC Sodium 140 (135-145) mmol/L Potassium 4.3 (3.3-5.1) mmol/L Chloride 103 (96-108) mmol/L Carbon Dioxide 24 (22-29) mmol/L Anion Gap 17 (12-20) BUN 22 H D (9-16) mg/dL Creatinine 1.34 (0.5-1.4) mg/dL Estim Creat Clear Calc 53.9 Estimated GFR 56 Random Glucose 218 H D (60-115) mg/dL Lactic Acid 2.5 H* (0.5-2.0) mmol/L Calcium 9.3 (8.4-10.2) mg/dL Magnesium 2.4 (1.6-2.6) mg/dL Total Bilirubin 0.6 (0.0-1.0) mg/dL Direct Bilirubin 0.2 (0.0-0.5) mg/dL AST 36 D (5-37) U/L ALT 35 (0-40) U/L Alkaline Phosphatase 105 (39-117) U/L Troponin I High Sens (<3.5-35.0) ng/L Total Protein 7.3 (6.5-8.0) g/dL Albumin 4.1 (3.5-5.0) g/dL Ethyl Alcohol < 10 mg/dL COVID-19 (NATHALIE) (Negative) COVID-19 Clin Com 12/28/21 12/28/21 Range/Units 21:15 21:15 WBC (4.8-10.8) X10*3/uL RBC (4.60-5.80) X10*6/uL Hgb (14.0-18.0) g/dl Hct (42.0-52.0) % MCV (80.0-98.0) fL MCH (27.0-33.0) pg MCHC (31.0-36.0) g/dl RDW (11.0-16.0) % Plt Count (160-400) X10*3/uL MPV (9.4-12.4) fL Immature Gran % (Auto) (0.0-0.4) % Neut % (Auto) (45-73) % Lymph % (Auto) (20-40) % [place] % (Auto) (2-11) % Eos % (Auto) (0-4) % Baso % (Auto) (0-2) % Lymph # (Auto) (1.2-4.9) X10*3/uL [place] # (Auto) (0.1-1.2) X10*3/uL Eos # (Auto) (0.0-0.4) X10*3/uL Baso # (Auto) (0.0-0.2) X10*3/uL Abs Immat Gran (auto) (0.00-0.03) X10*3/uL Absolute Neuts (auto) (2.0-8.3) x10*3/uL Absolute Nucleated RBC (0.0-0.012) X10*3/uL Nucleated RBC % (auto) (0.0-0.2) /100WBC Sodium (135-145) mmol/L Potassium (3.3-5.1) mmol/L Chloride (96-108) mmol/L Carbon Dioxide (22-29) mmol/L Anion Gap (12-20) BUN (9-16) mg/dL Creatinine (0.5-1.4) mg/dL Estim Creat Clear Calc Estimated GFR Random Glucose (60-115) mg/dL Lactic Acid (0.5-2.0) mmol/L Calcium (8.4-10.2) mg/dL Magnesium (1.6-2.6) mg/dL Total Bilirubin (0.0-1.0) mg/dL Direct Bilirubin (0.0-0.5) mg/dL AST (5-37) U/L ALT (0-40) U/L Alkaline Phosphatase (39-117) U/L Troponin I High Sens < 3.5 (<3.5-35.0) ng/L Total Protein (6.5-8.0) g/dL Albumin (3.5-5.0) g/dL Ethyl Alcohol mg/dL COVID-19 (NATHALIE) Negative (Negative) COVID-19 Clin Com See Note Discharge Plan Discharge Clinical Impression: Alcohol withdrawal seizure Patient Disposition: Admitted As Inpatient Prescriptions: No Action folic acid 1 mg tablet 1 mg PO DAILY Qty: 30 1RF atorvastatin 40 mg tablet 40 mg PO BEDTIME 90 Days Qty: 90 3RF gabapentin 300 mg capsule 300 mg PO TID 30 Days Qty: 90 8RF naproxen 500 mg tablet 500 mg PO BID PRN (Reason: pain) 30 Days Qty: 60 3RF lidocaine 5 % adhesive patch,medicated 1 patch topical DAILY Qty: 30 5RF Rx Instructions: leave on most painful area for up to 12 hrs ibuprofen 600 mg tablet 600 mg PO Q8H PRN (Reason: pain) Qty: 14 0RF acetaminophen [Tylenol Extra Strength] 500 mg tablet 500 mg PO Q6H PRN (Reason: fever or pain) Qty: 14 0RF bupropion HCl 300 mg tablet extended release 24 hr 300 mg PO DAILY 90 Days Qty: 90 1RF omeprazole 20 mg capsule,delayed release(DR/EC) 20 mg PO DAILY 90 Days Qty: 90 3RF vitamin B complex Capsule 1 cap PO DAILY 90 Days Qty: 90 1RF trazodone 100 mg tablet 100 mg PO BEDTIME naltrexone 50 mg tablet 50 mg PO DAILY Qty: 14 0RF Rx Instructions: take 1/2 tab for 2 days, then take one tab daily
[2021-12-28] MEDS: 0.9 % Sodium Chloride 1,000 ML 999 ML IVCONT ×2 (21:19→22:33)
[2021-12-28 21:24] LABS: MANUAL DIFF FLAG NO
[2021-12-28] MEDS: ondansetron HCL 4 MG/2 ML VIAL IVPUSH (21:25)
[2021-12-28] MEDS: LORazepam 1 MG TABLET 2 MG PO (21:25)
[2021-12-28 21:26] LABS: Basophils Percent Auto 0.4 % (0-2); Eosinophils Absolute Auto 0.2 X10*3/uL (0.0-0.4); Eosinophils Percent Auto 1.6 % (0-4); Hematocrit 41.4 % (42.0-52.0); Hemoglobin 14.3 g/dl (14.0-18.0); Imm Gran Abs Auto 0.03 X10*3/uL (0.00-0.03); Imm Gran Pct Auto 0.3 % (0.0-0.4); Lymphocytes Absolute Auto 2.5 X10*3/uL (1.2-4.9); Lymphocytes Percent Auto 25.9 % (20-40); Mean Corpuscular HGB Conc 34.5 g/dl (31.0-36.0); Mean Corpuscular Hemoglobin 31.6 pg (27.0-33.0); Mean Corpuscular Volume 91.4 fL (80.0-98.0); Mean Platelet Volume 9.3 fL (9.4-12.4); Monocytes Percent Auto 10.2 % (2-11); Neutrophils Percent Auto 61.6 % (45-73); Platelet Count 370 X10*3/uL (160-400); Red Blood Count 4.53 X10*6/uL (4.60-5.80); White Blood Count 9.7 X10*3/uL (4.8-10.8)
[2021-12-28 21:42] LABS: Lactic Acid 2.5 mmol/L (0.5-2.0)
[2021-12-28 21:43] LABS: Alanine Aminotransferase 35 U/L (0-40); Albumin Level 4.1 g/dL (3.5-5.0); Alkaline Phosphatase 105 U/L (39-117); Anion Gap 17 (12-20); Aspartate Amino Transferase 36 U/L (5-37); Bilirubin Direct 0.2 mg/dL (0.0-0.5); Bilirubin Total 0.6 mg/dL (0.0-1.0); Blood Urea Nitrogen 22 mg/dL (9-16); COVID-19 Test Negative (Negative); Calcium 9.3 mg/dL (8.4-10.2); Carbon Dioxide 24 mmol/L (22-29); Chloride 103 mmol/L (96-108); Creatinine Clr Calc Pharmacy 53.9; Estimated Glomerular Filt Rate 56; Ethanol < 10 mg/dL; Glucose Random 218 mg/dL (60-115); IDNOW Serial# 16C4AD1C; Magnesium 2.4 mg/dL (1.6-2.6); Potassium 4.3 mmol/L (3.3-5.1); Sodium 140 mmol/L (135-145); Total Protein 7.3 g/dL (6.5-8.0)
[2021-12-28 21:46] LABS: Troponin-I High Sensitivity < 3.5 ng/L (<3.5-35.0)
[2021-12-28 22:01] VITALS: BP 91/56; PULSE 63; RESP 20; O2SAT 97
--- NOTE | 2021-12-28 22:11 | P.HPHOSP_ITS ---
History of Present Illness Date of Service: 12/28/21 Chief Complaint: seizure Syrian-speaking only, history is obtained with the help of an lang interpreter 51-year-old male with past medical history of alcohol abuse, HLD, GERD, presents the hospital with complaints of seizure episode at home. Patient reports that he stop drinking about 30 hours ago, had about 1 neb of hard liquor around 12:00 on the day of presentation which is nowhere near what he usually drinks but several hours later had a tonic clonic witnessed seizure in front of his son who called EMS and he was brought into the hospital. Patient stop drinking because he wants to detox and and he was seen in our ED the day prior and was provided with resources to a detox facility. Patient reports that when the seizure episode occurred, he was sitting down. He denies any head injury, he reports being postictal. patient noted to be postictal even on arrival to the ED. at this time patient denies any headache, no chest pain, no shortness breast, no nausea or vomiting, no diarrhea constipation, knee in her symptoms, no abdominal pain, no numbness or tingling. On arrival to the ED patient hemodynamically stable But found to be hypotensive with BP of 84/52, Labs are significant for WBC count of 9.7, BUN of 22, creatinine of 1.34 with a baseline of 0.9, lactic acid of 2.5 improved after IV fluids, UA negative, UDS positive for cocaine and marijuana patient started on phenobarb, IV fluids, will be admitted for further management Review of Systems Review of Systems: Yes all other systems are reviewed and are negative [facility] Medical History Abuse, drug or alcohol Alcoholism Cocaine use disorder GERD (gastroesophageal reflux disease) Headache History of back pain Lumbar radiculopathy Mild recurrent major depression Physical exam Pure hypercholesterolemia Right elbow pain Spondylosis of lumbosacral spine without myelopathy Family History Father Alcoholism Substance use disorder Mother Diabetes Surgical History History of esophagogastroduodenoscopy (EGD) History of eye surgery History of eye surgery Social History Housing: Apartment Alcohol intake: former Patient Tobacco Use Status: Never used Tobacco e-Cigarette/Vaping Use: Never Used Second Hand Smoke Exposure: No Substance Use Type: Crack/Cocaine and Marijuana Advance Directives: No Advance Directives Information Provided: No service: No Current occupational status: employed Current occupational exposures/hazards: No Cognitive needs: No Hearing needs: No Vision needs: No Meds Allergies Allergy/AdvReac Type Severity Reaction Status Date / Time No Known Allergies Allergy Verified 12/26/21 09:48 [No Known Allergies*] Active Medications: Current Medications Sodium Chloride (Ns) 1,000 mls @ 999 mls/hr IVCONT .Q1H1M ONE Stop: 12/28/21 23:07 Pharmacy Consult (Consult Rx Etoh Phenob Im/Po) 1 each MISCELLANE ONCE PRN; Protocol PRN Reason: Consult order Home Medications Medication Instructions Recorded Confirmed Last Taken Type atorvastatin 40 mg tablet 1 tab BEDTIME 12/28/21 12/28/21 Unknown History bupropion HCl 300 mg 24 hr tablet, 1 tab PO DAILY 12/28/21 12/28/21 Unknown History extended release gabapentin 300 mg capsule 1 cap PO TID 12/28/21 12/28/21 Unknown History lidocaine 5 % topical patch patch 12/28/21 Unknown History naltrexone 50 mg tablet 1 tab PO DAILY 12/28/21 12/28/21 Unknown History naproxen 500 mg tablet 1 tab PO BID 12/28/21 12/28/21 Unknown History omeprazole 20 mg capsule,delayed 1 cap PO DAILY 12/28/21 12/28/21 Unknown History release vitamin B complex (Vitamins B 1 cap DAILY 12/28/21 12/28/21 Unknown History Complex capsule) Physical Exam Vital Signs and Narrative: Vital Signs: Last Vital Signs Temp 98.7 F 12/28/21 20:53 Pulse 63 12/28/21 22:01 Resp 20 12/28/21 22:01 BP 91/56 L 12/28/21 22:01 Pulse Ox 97 12/28/21 22:01 O2 Del Method 12/28/21 22:01 BMI result Body Mass Index 25.4 Const: General: cooperative and no acute distress Orientation/consciousness: patient oriented x3 Eyes: General: appearance normal, both eyes and all related structures Resp: Effort & Inspection: normal respiratory effort Auscultation: clear to auscultation bilaterally Cardio: Rate: regular rate Rhythm: regular rhythm GI: Palpation (GI): Soft to palpation Auscultation: normal bowel sounds Skin: General skin exam: no rashes or lesions noted Neuro: General: patient oriented x3 Cognition (Neuro): normal cognition Extrem: General: Yes normal to inspection and Yes no pedal edema Results Labs CBC and Chem 7: 12/28/21 21:15 12/28/21 21:15 Labs: Laboratory Results - last 24 hr 12/28/21 12/28/21 12/28/21 21:15 21:15 21:15 MCV 91.4 MCH 31.6 MCHC 34.5 RDW 13.0 Plt Count 370 MPV 9.3 L Immature Gran % (Auto) 0.3 Neut % (Auto) 61.6 Lymph % (Auto) 25.9 [place] % (Auto) 10.2 Eos % (Auto) 1.6 Baso % (Auto) 0.4 Lymph # (Auto) 2.5 [place] # (Auto) 1.0 Eos # (Auto) 0.2 Baso # (Auto) 0.0 Abs Immat Gran (auto) 0.03 Absolute Neuts (auto) 6.0 Absolute Nucleated RBC 0.000 Nucleated RBC % (auto) 0.0 Anion Gap 17 Estim Creat Clear Calc 53.9 Estimated GFR 56 Random Glucose 218 H D Lactic Acid 2.5 H* Calcium 9.3 Magnesium 2.4 Total Bilirubin 0.6 Direct Bilirubin 0.2 AST 36 D ALT 35 Alkaline Phosphatase 105 Total Protein 7.3 Albumin 4.1 Ethyl Alcohol < 10 COVID-19 (NATHALIE) COVID-19 Clin Com 12/28/21 21:15 MCV MCH MCHC RDW Plt Count MPV Immature Gran % (Auto) Neut % (Auto) Lymph % (Auto) [place] % (Auto) Eos % (Auto) Baso % (Auto) Lymph # (Auto) [place] # (Auto) Eos # (Auto) Baso # (Auto) Abs Immat Gran (auto) Absolute Neuts (auto) Absolute Nucleated RBC Nucleated RBC % (auto) Anion Gap Estim Creat Clear Calc Estimated GFR Random Glucose Lactic Acid Calcium Magnesium Total Bilirubin Direct Bilirubin AST ALT Alkaline Phosphatase Total Protein Albumin Ethyl Alcohol COVID-19 (NATHALIE) Negative COVID-19 Clin Com See Note Assessment and Plan (1) Alcohol withdrawal seizure: Qualifiers: Complication of substance-induced condition: uncomplicated Qualified Code(s): F10.930 - Alcohol use, unspecified with withdrawal, uncomplicated; R56.9 - Unspecified convulsions Status: Acute (2) PABLO (acute kidney injury): Status: Acute (3) Hypotension: Status: Acute (4) Lactic acidosis: Status: Acute Plan 51-year-old male with past medical history of alcohol abuse, presents to the hospital after an alcohol withdrawal seizure # alcohol withdrawal seizure - after not drinking for 30 hours - currently patient not delirious, alert and oriented - started on phenobarb protocol, will add thiamine and folic acid supplement - care team consulted patient interested in detox # PABLO - likely secondary to dehydration in the setting of alcohol abuse - will treat with IV fluids - follow BMP # hypotension - likely secondary to dehydration - no evidence or source of infection, patient has no leukocytosis, afebrile, lactic acidosis explained by seizure - responsive to IV fluids - continue maintenance fluid - vitals q.4 hours # lactic acidosis - likely secondary to dehydration as well as seizure episode - improved with IV fluids - trend # will continue home statin, omeprazole for history of GERD DVT prophylaxis: Lovenox Pt will require a minimum 2 night hospital stay for management of alcohol withdrawal Quality Stroke Does the patient have a stroke diagnosis?: No VTE Prior VTE?: No VTE Risk Level:: Medical - moderate - high VTE Device Contraindication: Treatment Not Indicated VTE Drug Contraindication: N/A - Med Ordered
[2021-12-28 23:08] VITALS: BP 98/56; PULSE 80; RESP 18; TEMP 36.7; O2SAT 97
[2021-12-28] MEDS: PHENobarbitaL sodium 130 MG/ML IM ONCE 237 MG IM (23:16)
[2021-12-28] MEDS: Enoxaparin Sodium 40 MG/0.4 ML SYRINGE SUBCUT (23:16)
[2021-12-28] MEDS: Acetaminophen 325 MG TABLET 650 MG PO (23:17)
[2021-12-28 23:22] LABS: Reflex Lactate? Lactic Acid Added
[2021-12-29 00:55] LABS: Appearance Urine Clear; Color Urine Dark Yellow; Glucose Urine UA Negative (Negative); Leukocyte Esterase Urine Negative (Negative); Nitrite Urine Negative (Negative); Specific Gravity - Urine >= 1.030 (1.005-1.025); UMIC TRIGGER UACC YES; Urine Blood Negative (Negative); Urine Ketones Trace mg/dL (Negative); Urine Protein 30 (1+) mg/dL (Neg-Trace)
[2021-12-29 00:57] LABS: Bacteria Urine None Seen (None Seen); RBC Urine 0-2 /HPF (0-2); Squamous Epithelial Cell Urine 0-2 /HPF (0-2); WBC Urine 0-5 /HPF (0-5)
[2021-12-29 00:59] LABS: ~Lactic Acid-LAB USE ONLY 2.5 mmol/L (0.5-2.0)
[2021-12-29 01:23] LABS: Amphetamine Screen Urine Not Detected (Not Detect); Barbiturates, Urine Not Detected (Not Detect); Benzodiazepines Screen Urine Not Detected (Not Detect); Cannabinoid Screen Urine POSITIVE (Not Detect); Cocaine Screen Urine POSITIVE (Not Detect); Fentanyl, urine Not Detected (Not Detect); Opiate Screen Urine Not Detected (Not Detect); Phencyclidine Screen Urine Not Detected (Not Detect)
--- NOTE | 2021-12-29 01:39 | PC.NURSE ---
Patient BP continues to run low 89-90/50-52, P 78-80. Dr. Mcmahon notified. will order 1 L of IV hydration.
[2021-12-29] MEDS: 0.9 % Sodium Chloride 2,000 ML 2000 ML IV (01:47)
[2021-12-29] MEDS: PHENobarbitaL sodium 130 MG/ML VIAL IM Q3Hx2 178 MG IM ×2 (02:12→05:00)
[2021-12-29 02:25] LABS: Reflex Lactate? 2 Y
[2021-12-29 03:04] LABS: ~Lactic Acid-LAB USE ONLY 1.6 mmol/L (0.5-2.0)
[2021-12-29 03:28] VITALS: BP 97/66; PULSE 78; RESP 16; O2SAT 96
[2021-12-29 05:03] VITALS: BP 104/71; PULSE 70; RESP 16; TEMP 36.4; O2SAT 96
[2021-12-29 06:36] VITALS: BP 100/61; PULSE 63; RESP 17; TEMP 36.2; O2SAT 97
--- NOTE | 2021-12-29 07:26 | PHA.MEDREC ---
Pharmacy Consult ? Medication Reconciliation Pharmacy has completed the medication reconciliation. Reviewed by LEVON YEE, completed by nurs. Thanks Kirill
[2021-12-29 07:31] LABS: MANUAL DIFF FLAG NO
[2021-12-29 07:41] LABS: Basophils Percent Auto 0.2 % (0-2); Eosinophils Absolute Auto 0.2 X10*3/uL (0.0-0.4); Eosinophils Percent Auto 2.6 % (0-4); Hematocrit 35.3 % (42.0-52.0); Hemoglobin 11.6 g/dl (14.0-18.0); Imm Gran Abs Auto 0.01 X10*3/uL (0.00-0.03); Imm Gran Pct Auto 0.2 % (0.0-0.4); Lymphocytes Absolute Auto 1.8 X10*3/uL (1.2-4.9); Lymphocytes Percent Auto 28.1 % (20-40); Mean Corpuscular HGB Conc 32.9 g/dl (31.0-36.0); Mean Corpuscular Hemoglobin 30.7 pg (27.0-33.0); Mean Corpuscular Volume 93.4 fL (80.0-98.0); Mean Platelet Volume 9.6 fL (9.4-12.4); Monocytes Absolute Auto 0.8 X10*3/uL (0.1-1.2); Monocytes Percent Auto 11.5 % (2-11); Neutrophils Absolute Auto 3.8 x10*3/uL (2.0-8.3); Neutrophils Percent Auto 57.4 % (45-73); Platelet Count 242 X10*3/uL (160-400); Red Blood Count 3.78 X10*6/uL (4.60-5.80); Red Cell Distribution Width 13.2 % (11.0-16.0); White Blood Count 6.6 X10*3/uL (4.8-10.8)
[2021-12-29 08:14] LABS: Anion Gap 11 (12-20); Blood Urea Nitrogen 18 mg/dL (9-16); Carbon Dioxide 21 mmol/L (22-29); Chloride 112 mmol/L (96-108); Creatinine Clr Calc Pharmacy 93.9; Estimated Glomerular Filt Rate > 60; Glucose Random 107 mg/dL (60-115); Sodium 140 mmol/L (135-145)
[2021-12-29 08:27] LABS: Calcium 7.7 mg/dL (8.4-10.2)
[2021-12-29] MEDS: 0.9 % Sodium Chloride Flush 3 ML SYRINGE IVFLUSH ×2 (08:43)
[2021-12-29] MEDS: Lactated Ringers 1,000 ML 100 ML IVCONT ×2 (09:29)
[2021-12-29] MEDS: Thiamine HCL 100 MG TABLET PO (09:30)
[2021-12-29] MEDS: PHENobarbitaL 15 MG TABLET 45 MG PO (09:30)
[2021-12-29] MEDS: Folic Acid 1 MG TABLET PO (09:30)
[2021-12-29 09:32] VITALS: BP 125/85; PULSE 56; RESP 16; O2SAT 96
--- NOTE | 2021-12-29 11:07 | P.PNIM_ITS ---
Subjective Subjective Date of Service: 12/29/21 Interval History: patient complaining of epigastric discomfort for almost 1 month, also complaining of sore throat, denies chest pain, no palpitation, denies tremors, admits to drinking 3-4 8 oz beer as well as hard liquor and 1 nip daily, no acute events since admission, no recurrent seizures. History obtained via spanish interpreter Review of Systems Review of Systems: Yes all other systems are reviewed and are negative Physical Exam 2 Vital Signs: Vital Signs: Last Vital Signs Temp 97.1 F 12/29/21 06:36 Pulse 56 12/29/21 09:32 Resp 16 12/29/21 09:32 BP 125/85 12/29/21 09:32 Pulse Ox 96 12/29/21 09:32 O2 Del Method 12/29/21 09:32 BMI result Body Mass Index 25.4 Const: Other: General awake alert x3,in no acute distress. anicteric sclera Neck supple no JVD. CVS regular rate rhythm, Respiratory lungs clear to auscultation, no respiratory distress, no wheeze, no rhonchi. Gastrointestinal abdomen soft, mild epigastric discomfort, bowel sounds audible, no guarding , no rigidity. Extremities no edema. Neuro nonfocal , no tremors Skin no rash psych appropriate affect Objective Data Active Medications Acetaminophen (Acetaminophen 325 Mg Tablet) 650 mg PO Q6H PRN PRN Reason: Pain, Mild (Pain Scale 1-3) Last Admin: 12/28/21 23:17 Dose: 650 mg Documented By: LIZA Docusate Sodium (Docusate Sodium 100 Mg Capsule) 100 mg PO DAILY PRN PRN Reason: Constipation Enoxaparin Sodium (Enoxaparin Sodium 40 Mg/0.4 Ml Syringe) 40 mg SUBCUT Q24H [facility] Last Admin: 12/28/21 23:16 Dose: 40 mg Documented By: LIZA Folic Acid (Folic Acid 1 Mg Tablet) 1 mg PO DAILY [facility] Last Admin: 12/29/21 09:30 Dose: 1 mg Documented By: HENRI Lactated Ringer's (Lr) 1,000 mls @ 100 mls/hr IVCONT .Q10H [facility] Last Admin: 12/29/21 09:29 Dose: 100 mls/hr Documented By: HENRI Ondansetron HCl (Ondansetron Hcl 4 Mg/2 Ml Vial) 4 mg IVPUSH Q8H PRN PRN Reason: Nausea and Vomiting Pharmacy Consult (Consult Rx Etoh Phenob Im/Po) 1 each MISCELLANE ONCE PRN; Pro tocol PRN Reason: Consult order Phenobarbital (Phenobarbital 15 Mg Tablet) 45 mg PO BID [facility]; Protocol Stop: 12/30/21 21:01 Last Admin: 12/29/21 09:30 Dose: 45 mg Documented By: HENRI Phenobarbital (Phenobarbital 30 Mg Tablet) 30 mg PO BID [facility]; Protocol Stop: 01/01/22 21:01 Phenobarbital (Phenobarbital 30 Mg Tablet) 30 mg PO DAILY [facility]; Protocol Stop: 01/03/22 09:01 Sodium Chloride (0.9 % Sodium Chloride Flush 3 Ml Syringe) 3 ml IVFLUSH QSHIFT [facility] Last Admin: 12/29/21 08:43 Dose: 3 ml Documented By: HENRI Thiamine HCl (Thiamine Hcl 100 Mg Tablet) 100 mg PO DAILY [facility] Last Admin: 12/29/21 09:30 Dose: 100 mg Documented By: HENRI Labs CBC & Chem 7: 12/29/21 07:15 12/29/21 07:15 Labs: Laboratory Results - last 24 hr 12/28/21 12/28/21 12/28/21 21:15 21:15 21:15 MCV 91.4 MCH 31.6 MCHC 34.5 RDW 13.0 Plt Count 370 MPV 9.3 L Immature Gran % (Auto) 0.3 Neut % (Auto) 61.6 Lymph % (Auto) 25.9 [place] % (Auto) 10.2 Eos % (Auto) 1.6 Baso % (Auto) 0.4 Lymph # (Auto) 2.5 [place] # (Auto) 1.0 Eos # (Auto) 0.2 Baso # (Auto) 0.0 Abs Immat Gran (auto) 0.03 Absolute Neuts (auto) 6.0 Absolute Nucleated RBC 0.000 Nucleated RBC % (auto) 0.0 Anion Gap 17 Estim Creat Clear Calc 53.9 Estimated GFR 56 Random Glucose 218 H D Lactic Acid 2.5 H* Lactic Acid F/U @ 2Hr Lactic Acid F/U @ 4Hr Calcium 9.3 Magnesium 2.4 Total Bilirubin 0.6 Direct Bilirubin 0.2 AST 36 D ALT 35 Alkaline Phosphatase 105 Total Protein 7.3 Albumin 4.1 Urine Color Urine Appearance Urine pH Ur Specific [place] Urine Protein Urine Glucose (UA) Urine Ketones Urine Blood Urine Nitrite Ur Leukocyte Esterase Urine RBC Urine WBC Ur Squamous Epith Cells Urine Bacteria Hyaline Casts Urine Opiates Screen Urine Fentanyl Screen Ur Barbiturates Screen Ur Phencyclidine Scrn Ur Amphetamines Screen U Benzodiazepines Scrn Urine Cocaine Screen U Marijuana (THC) Screen Ethyl Alcohol < 10 COVID-19 (NATHALIE) COVID-19 Clin Com 12/28/21 12/29/21 12/29/21 21:15 00:19 00:49 MCV MCH MCHC RDW Plt Count MPV Immature Gran % (Auto) Neut % (Auto) Lymph % (Auto) [place] % (Auto) Eos % (Auto) Baso % (Auto) Lymph # (Auto) [place] # (Auto) Eos # (Auto) Baso # (Auto) Abs Immat Gran (auto) Absolute Neuts (auto) Absolute Nucleated RBC Nucleated RBC % (auto) Anion Gap Estim Creat Clear Calc Estimated GFR Random Glucose Lactic Acid Lactic Acid F/U @ 2Hr 2.5 H* Lactic Acid F/U @ 4Hr Calcium Magnesium Total Bilirubin Direct Bilirubin AST ALT Alkaline Phosphatase Total Protein Albumin Urine Color Dark Yellow Urine Appearance Clear Urine pH 5.0 Ur Specific [place] >= 1.030 H Urine Protein 30 (1+) H Urine Glucose (UA) Negative Urine Ketones Trace Urine Blood Negative Urine Nitrite Negative Ur Leukocyte Esterase Negative Urine RBC 0-2 Urine WBC 0-5 Ur Squamous Epith Cells 0-2 Urine Bacteria None Seen Hyaline Casts 3-5 Urine Opiates Screen Urine Fentanyl Screen Ur Barbiturates Screen Ur Phencyclidine Scrn Ur Amphetamines Screen U Benzodiazepines Scrn Urine Cocaine Screen U Marijuana (THC) Screen Ethyl Alcohol COVID-19 (NATHALIE) Negative COVID-19 Clin Com See Note 12/29/21 12/29/21 12/29/21 00:49 02:38 07:15 MCV 93.4 MCH 30.7 MCHC 32.9 RDW 13.2 Plt Count 242 D MPV 9.6 Immature Gran % (Auto) 0.2 Neut % (Auto) 57.4 Lymph % (Auto) 28.1 [place] % (Auto) 11.5 H Eos % (Auto) 2.6 Baso % (Auto) 0.2 Lymph # (Auto) 1.8 [place] # (Auto) 0.8 Eos # (Auto) 0.2 Baso # (Auto) 0.0 Abs Immat Gran (auto) 0.01 Absolute Neuts (auto) 3.8 Absolute Nucleated RBC 0.000 Nucleated RBC % (auto) 0.0 Anion Gap Estim Creat Clear Calc Estimated GFR Random Glucose Lactic Acid Lactic Acid F/U @ 2Hr Lactic Acid F/U @ 4Hr 1.6 Calcium Magnesium Total Bilirubin Direct Bilirubin AST ALT Alkaline Phosphatase Total Protein Albumin Urine Color Urine Appearance Urine pH Ur Specific [place] Urine Protein Urine Glucose (UA) Urine Ketones Urine Blood Urine Nitrite Ur Leukocyte Esterase Urine RBC Urine WBC Ur Squamous Epith Cells Urine Bacteria Hyaline Casts Urine Opiates Screen Not Detected Urine Fentanyl Screen Not Detected Ur Barbiturates Screen Not Detected Ur Phencyclidine Scrn Not Detected Ur Amphetamines Screen Not Detected U Benzodiazepines Scrn Not Detected Urine Cocaine Screen POSITIVE H U Marijuana (THC) Screen POSITIVE H Ethyl Alcohol COVID-19 (NATHALIE) COVID-[employer] 12/29/21 07:15 MCV MCH MCHC RDW Plt Count MPV Immature Gran % (Auto) Neut % (Auto) Lymph % (Auto) [place] % (Auto) Eos % (Auto) Baso % (Auto) Lymph # (Auto) [place] # (Auto) Eos # (Auto) Baso # (Auto) Abs Immat Gran (auto) Absolute Neuts (auto) Absolute Nucleated RBC Nucleated RBC % (auto) Anion Gap 11 L Estim Creat Clear Calc 93.9 Estimated GFR > 60 Random Glucose 107 D Lactic Acid Lactic Acid F/U @ 2Hr Lactic Acid F/U @ 4Hr Calcium 7.7 L D Magnesium Total Bilirubin Direct Bilirubin AST ALT Alkaline Phosphatase Total Protein Albumin Urine Color Urine Appearance Urine pH Ur Specific [place] Urine Protein Urine Glucose (UA) Urine Ketones Urine Blood Urine Nitrite Ur Leukocyte Esterase Urine RBC Urine WBC Ur Squamous Epith Cells Urine Bacteria Hyaline Casts Urine Opiates Screen Urine Fentanyl Screen Ur Barbiturates Screen Ur Phencyclidine Scrn Ur Amphetamines Screen U Benzodiazepines Scrn Urine Cocaine Screen U Marijuana (THC) Screen Ethyl Alcohol COVID-19 (NATHALIE) COVID-[employer] Assessment and Plan (1) Lactic acidosis: Status: Acute (2) Hypotension: Status: Acute (3) PABLO (acute kidney injury): Status: Acute (4) Alcohol withdrawal seizure: Status: Acute Plan 51-year-old male with past medical history of alcohol abuse, presents to the hospital after an alcohol withdrawal seizure #? alcohol abuse/alcohol withdrawal seizure -? no recurrent seizures since admission seizures occurred after not drinking for 30 hours -? at present patient not delirious,? alert or disoriented -? cont. on? phenobarb protocol, cont. thiamine and folic acid , follow CIWA protocol - ? care team consulted patient interested in detox # ? PABLO creatinine normalized ,dc IV fluids,was likely secondary to dehydration in the setting of alcohol abuse #? hypotension resolved with IV fluids -? likely secondary to dehydration,? no evidence or source of infection, patient has no leukocytosis, afebrile, lactic acidosis explained by seizure -? continue maintenance fluid - ? vitals q.4 hours #? lactic acidosis -? likely secondary to dehydration as well as seizure episode,? improved with IV fluids #? 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 Lovenox ? will need continued inpatient hospitalization due to alcohol withdrawal seizures on phenobarb protocol, and IV fluids for hypotension and lactic acidosis. Quality Stroke Does the patient have a stroke diagnosis?: No VTE Prior VTE?: No VTE Risk Level:: Medical - moderate - high VTE Device Contraindication: Treatment Not Indicated VTE Drug Contraindication: N/A - Med Ordered
--- NOTE | 2021-12-29 11:30 | PC.NURSE ---
Pt alert and oriented x4. Ambulated to bathroom with steady gait.
--- NOTE | 2021-12-29 12:58 | PM.DS ---
DS: Providers Provider Date of Service: 12/29/21 Date of admission: 12/28/21 22:15 Primary care physician: Kaley Ramirez MD Consults: 12/29/21 06:27 Consult to Care Team Routine Comment: Reason for consultation: detox of alcohol and crack cocaine DS: Diagnosis Discharge Diagnosis (1) Lactic acidosis: Status: Acute (2) Hypotension: Status: Acute (3) PABLO (acute kidney injury): Status: Acute (4) Alcohol withdrawal seizure: Status: Acute DS: Summary Hospital Course Hospital Course: Chief Complaint: seizure ? Belarusian-speaking only, history is obtained with the help of an floor winder ?51-year-old male with past medical history of alcohol abuse, HLD, GERD, presents the hospital with complaints of seizure episode at home.? Patient reports that he stop drinking about 30 hours ago, had about 1 neb of hard liquor around 12:00 on the day of presentation which is nowhere near what he usually drinks but several hours later had a tonic clonic witnessed seizure in front of his son who called EMS and he was brought into the hospital.? Patient stop drinking because he wants to detox and and he was seen in our ED the day prior and was provided with resources to a detox facility.? Patient reports that when the seizure episode occurred, he was sitting down.? He denies any head injury, he reports being postictal. patient noted to be postictal even on arrival to the ED. ?at this time patient denies any headache, no chest pain, no shortness breast, no nausea or vomiting, no diarrhea constipation, knee in her symptoms, no abdominal pain, no numbness or tingling. On arrival to the ED patient hemodynamically stable? But found to be hypotensive with BP of 84/52, Labs are significant for WBC count of 9.7, BUN of 22, creatinine of 1.34 with a baseline of 0.9, lactic acid of 2.5 improved after IV fluids, UA negative, UDS positive for cocaine and marijuana ?patient started on phenobarb, IV fluids, will be admitted for further management Hospital course 51-year-old male with past medical history of alcohol abuse, presents to the hospital after an alcohol withdrawal seizure, patient admitted to [facility] due to alcohol withdrawal seizure, no recurrent seizures since admission seizures occurred after not drinking for 30 hours, patient placed on phenobarb protocol, thiamine and folic acid gating consult was obtained however patient decided to leave hospital against medical advice he has been inform about risk of having another seizure but patient is adamant to leave the hospital recommended return to hospital with any recurrent symptoms of withdrawal including seizures lightheadedness dizziness nausea vomiting. # ? PABLO? creatinine normalized with IV fluids,was likely secondary to dehydration in the setting of alcohol abuse #? hypotension resolved with IV fluids, likely secondary to dehydration,? no evidence or source of infection, patient has no leukocytosis, afebrile, lactic acidosis explained by seizure #? lactic acidosis? likely secondary to dehydration as well as seizure episode,? improved with IV fluids #?? epigastric pain likely due to alcoholic gastritis continue omeprazole # ? sore throat take lozenges Time Spent with Patient Time attestation: Total time spent providing and/or coordinating discharge services: Discharge coordination time: Greater than 30 minutes Quality: Safe Use of Opioids Does Pt have an Active Cancer Diagnosis on the Problem List?: No Quality: Stroke Does the patient have a stroke diagnosis?: No Physical Exam Vital Signs: Vital Signs: Last Vital Signs Temp 97.1 F 12/29/21 06:36 Pulse 56 12/29/21 09:32 Resp 16 12/29/21 09:32 BP 125/85 12/29/21 09:32 Pulse Ox 96 12/29/21 09:32 O2 Del Method 12/29/21 09:32 BMI result Body Mass Index 25.4 Const: Other: General? awake aleisha rt x3,in no acute distress.? ?anicte albaro sclera Neck [place] pple no JVD. CVS? regular rate rhyth m, Respiratory roxie gs clear to auscul tation, no respira tory distress, no wheeze, no rhonchi . Gastrointestinal abdomen soft,? mi ld epigastric disc omfort, bowel soun ds audible, no gua rding , no rigidit y. Extremities no edema. Neuro nonfo enio , no tremors S kin no rash psych appropriate affect DS: Data Data Completed and Pending Labs on day of discharge: Laboratory Results - last 24 hr 12/28/21 12/28/21 12/28/21 21:15 21:15 21:15 WBC 9.7 RBC 4.53 L Hgb 14.3 Hct 41.4 L MCV 91.4 MCH 31.6 MCHC 34.5 RDW 13.0 Plt Count 370 MPV 9.3 L Immature Gran % (Auto) 0.3 Neut % (Auto) 61.6 Lymph % (Auto) 25.9 [place] % (Auto) 10.2 Eos % (Auto) 1.6 Baso % (Auto) 0.4 Lymph # (Auto) 2.5 [place] # (Auto) 1.0 Eos # (Auto) 0.2 Baso # (Auto) 0.0 Abs Immat Gran (auto) 0.03 Absolute Neuts (auto) 6.0 Absolute Nucleated RBC 0.000 Nucleated RBC % (auto) 0.0 Sodium 140 Potassium 4.3 Chloride 103 Carbon Dioxide 24 Anion Gap 17 BUN 22 H D Creatinine 1.34 Estim Creat Clear Calc 53.9 Estimated GFR 56 Random Glucose 218 H D Lactic Acid 2.5 H* Lactic Acid F/U @ 2Hr Lactic Acid F/U @ 4Hr Calcium 9.3 Magnesium 2.4 Total Bilirubin 0.6 Direct Bilirubin 0.2 AST 36 D ALT 35 Alkaline Phosphatase 105 Troponin I High Sens Total Protein 7.3 Albumin 4.1 Urine Color Urine Appearance Urine pH Ur Specific [place] Urine Protein Urine Glucose (UA) Urine Ketones Urine Blood Urine Nitrite Ur Leukocyte Esterase Urine RBC Urine WBC Ur Squamous Epith Cells Urine Bacteria Hyaline Casts Urine Opiates Screen Urine Fentanyl Screen Ur Barbiturates Screen Ur Phencyclidine Scrn Ur Amphetamines Screen U Benzodiazepines Scrn Urine Cocaine Screen U Marijuana (THC) Screen Ethyl Alcohol < 10 COVID-19 (NATHALIE) COVID-19 Clin Com 12/28/21 12/28/21 12/29/21 21:15 21:15 00:19 WBC RBC Hgb Hct MCV MCH MCHC RDW Plt Count MPV Immature Gran % (Auto) Neut % (Auto) Lymph % (Auto) [place] % (Auto) Eos % (Auto) Baso % (Auto) Lymph # (Auto) [place] # (Auto) Eos # (Auto) Baso # (Auto) Abs Immat Gran (auto) Absolute Neuts (auto) Absolute Nucleated RBC Nucleated RBC % (auto) Sodium Potassium Chloride Carbon Dioxide Anion Gap BUN Creatinine Estim Creat Clear Calc Estimated GFR Random Glucose Lactic Acid Lactic Acid F/U @ 2Hr 2.5 H* Lactic Acid F/U @ 4Hr Calcium Magnesium Total Bilirubin Direct Bilirubin AST ALT Alkaline Phosphatase Troponin I High Sens < 3.5 Total Protein Albumin Urine Color Urine Appearance Urine pH Ur Specific [place] Urine Protein Urine Glucose (UA) Urine Ketones Urine Blood Urine Nitrite Ur Leukocyte Esterase Urine RBC Urine WBC Ur Squamous Epith Cells Urine Bacteria Hyaline Casts Urine Opiates Screen Urine Fentanyl Screen Ur Barbiturates Screen Ur Phencyclidine Scrn Ur Amphetamines Screen U Benzodiazepines Scrn Urine Cocaine Screen U Marijuana (THC) Screen Ethyl Alcohol COVID-19 (NATHALIE) Negative COVID-19 Clin Com See Note 12/29/21 12/29/21 12/29/21 00:49 00:49 02:38 WBC RBC Hgb Hct MCV MCH MCHC RDW Plt Count MPV Immature Gran % (Auto) Neut % (Auto) Lymph % (Auto) [place] % (Auto) Eos % (Auto) Baso % (Auto) Lymph # (Auto) [place] # (Auto) Eos # (Auto) Baso # (Auto) Abs Immat Gran (auto) Absolute Neuts (auto) Absolute Nucleated RBC Nucleated RBC % (auto) Sodium Potassium Chloride Carbon Dioxide Anion Gap BUN Creatinine Estim Creat Clear Calc Estimated GFR Random Glucose Lactic Acid Lactic Acid F/U @ 2Hr Lactic Acid F/U @ 4Hr 1.6 Calcium Magnesium Total Bilirubin Direct Bilirubin AST ALT Alkaline Phosphatase Troponin I High Sens Total Protein Albumin Urine Color Dark Yellow Urine Appearance Clear Urine pH 5.0 Ur Specific [place] >= 1.030 H Urine Protein 30 (1+) H Urine Glucose (UA) Negative Urine Ketones Trace Urine Blood Negative Urine Nitrite Negative Ur Leukocyte Esterase Negative Urine RBC 0-2 Urine WBC 0-5 Ur Squamous Epith Cells 0-2 Urine Bacteria None Seen Hyaline Casts 3-5 Urine Opiates Screen Not Detected Urine Fentanyl Screen Not Detected Ur Barbiturates Screen Not Detected Ur Phencyclidine Scrn Not Detected Ur Amphetamines Screen Not Detected U Benzodiazepines Scrn Not Detected Urine Cocaine Screen POSITIVE H U Marijuana (THC) Screen POSITIVE H Ethyl Alcohol COVID-19 (NATHALIE) COVID-19 Clin Com 12/29/21 12/29/21 07:15 07:15 WBC 6.6 RBC 3.78 L Hgb 11.6 L Hct 35.3 L MCV 93.4 MCH 30.7 MCHC 32.9 RDW 13.2 Plt Count 242 D MPV 9.6 Immature Gran % (Auto) 0.2 Neut % (Auto) 57.4 Lymph % (Auto) 28.1 [place] % (Auto) 11.5 H Eos % (Auto) 2.6 Baso % (Auto) 0.2 Lymph # (Auto) 1.8 [place] # (Auto) 0.8 Eos # (Auto) 0.2 Baso # (Auto) 0.0 Abs Immat Gran (auto) 0.01 Absolute Neuts (auto) 3.8 Absolute Nucleated RBC 0.000 Nucleated RBC % (auto) 0.0 Sodium 140 Potassium 4.0 Chloride 112 H Carbon Dioxide 21 L Anion Gap 11 L BUN 18 H Creatinine 0.77 Estim Creat Clear Calc 93.9 Estimated GFR > 60 Random Glucose 107 D Lactic Acid Lactic Acid F/U @ 2Hr Lactic Acid F/U @ 4Hr Calcium 7.7 L D Magnesium Total Bilirubin Direct Bilirubin AST ALT Alkaline Phosphatase Troponin I High Sens Total Protein Albumin Urine Color Urine Appearance Urine pH Ur Specific [place] Urine Protein Urine Glucose (UA) Urine Ketones Urine Blood Urine Nitrite Ur Leukocyte Esterase Urine RBC Urine WBC Ur Squamous Epith Cells Urine Bacteria Hyaline Casts Urine Opiates Screen Urine Fentanyl Screen Ur Barbiturates Screen Ur Phencyclidine Scrn Ur Amphetamines Screen U Benzodiazepines Scrn Urine Cocaine Screen U Marijuana (THC) Screen Ethyl Alcohol COVID-19 (NATHALIE) COVID-19 Clin Com Discharge Plan Discharge Patient Disposition: Left Against Medical Advice Discharge Diagnosis: alcohol withdrawal seizures APBLO hypotension lactic acidosis Referrals: Kaley Sanchez MD [Primary Care Provider] - 1 Week Discharge Medications: Continued atorvastatin 40 mg tablet 1 tab BEDTIME naltrexone 50 mg tablet 1 tab PO DAILY lidocaine 5 % adhesive patch,medicated 1 patch topical DAILY gabapentin 300 mg capsule 1 cap PO TID omeprazole 20 mg capsule,delayed release(DR/EC) 1 cap PO DAILY naproxen 500 mg tablet 1 tab PO BID PRN (Reason: Pain) vitamin B complex [Vitamins B Complex] Capsule 1 cap DAILY bupropion HCl 300 mg tablet extended release 24 hr 1 tab PO DAILY Discharge Orders: Discharge Order (Routine); Ordered 12/29/21 Ordered By: Ryanne Herr Care Plan Goals: alcohol withdrawal seizure patient wishes to leave against medical advice patient inform of risk of further seizures but patient is adamant to leave the hospital therefore strongly recommend to abstain from alcohol and patient is being discharged home on all of his above medications return to [facility] with recurrent seizure / nausea vomiting lightheadedness dizziness chest pain or shortness of breath. Health Concerns: alcoholic gastritis, alcohol abuse and withdrawal hyperlipidemia continue all home medications Plan of Treatment: follow-up with primary care physician Assessment: as above
--- NOTE | 2021-12-29 13:00 | PC.NURSE ---
Pt requesting to leave. Hospitalist at bedside. Pt to leave AMA
== END 2021-12-29 13:33 | disposition left against medical advice (07) | DRG 241 ==
LOC: HO.ED 22:15 → HO.EDOVER 12-29 00:32
PROVIDERS: Admitting Provider Internal Medicine; Emergency Provider Emergency Medicine; PCP Internal Medicine; Visit Provider Hospitalist
DX: K29.20 Alcoholic gastritis without bleeding (principal); E87.2 Acidosis; N17.9 Acute kidney failure, unspecified; R56.9 Unspecified convulsions; I95.9 Hypotension, unspecified; E86.0 Dehydration; J02.9 Acute pharyngitis, unspecified; K21.9 Gastro-esophageal reflux disease without esophagitis; F10.239 Alcohol dependence with withdrawal, unspecified; M47.817 Spondylosis without myelopathy or radiculopathy, lumbosacral region; Z20.822 Contact with and (suspected) exposure to COVID-19; Z79.899 Other long term (current) drug therapy
CPT/HCPCS: 36415; 80048; 80076; 80307; 81001; 82077; 83605; 83735; 84484; 85025; 87635; 93005; 96361; 96372; 96374; 99285; J1650; J2405; J2560

== ENCOUNTER 2022-01-29 20:19 | Emergency (ER) | payer OTHER, SELFPAY ==
[2022-01-29 21:45] VITALS: BP 132/76; BP 132/78; PULSE 82; PULSE 84; RESP 14; TEMP 36.6; O2SAT 98; O2SAT 99; BMI 25.7
[2022-01-29 23:16] VITALS: BP 119/73; PULSE 86; RESP 20
== END 2022-01-30 01:34 | disposition left against medical advice (07) ==
PROVIDERS: Emergency Provider Emergency Medicine
DX: R51.9 Headache, unspecified (principal); F33.1 Major depressive disorder, recurrent, moderate; G25.81 Restless legs syndrome
CPT/HCPCS: 99283; 99284

== ENCOUNTER 2022-02-15 11:07 | Emergency (ER) | payer OTHER, SELFPAY ==
[2022-02-15 11:08] VITALS: BP 135/88; PULSE 99; RESP 20; TEMP 36.9; O2SAT 99; BMI 24.9
--- NOTE | 2022-02-15 11:37 | ED_ITS ---
HPI - General Adult General Chief complaint: General Medical Stated complaint: severe headache Time Seen by Provider: 02/15/22 11:37 Source: patient Mode of arrival: ambulatory Limitations: no limitations History of Present Illness HPI narrative: Patient is a 51 year old assigned male at with a history of GERD and cocaine use presenting to the emergency department today with left sided sinus pain x2 weeks. Patient states that over the last 2 weeks, he has had left sided sinus pain and nasal congestion. Patient states that nothing makes it better and nothing makes it worse. Patient denies any dizziness, lightheadedness, abdominal pain, nausea, vomiting, fever, chills, blurry vision, double vision, loss of vision, chest pain, difficulty breathing, shortness of breath, back pain, night sweats, pain with urination, increased urinary frequency, increased urinary urgency, blood in his urine or stool, syncope or a near syncopal episode, recent trauma or falls, bowel incontinence, bladder incontinence, bowel retention, bladder retention, or any other complaints at this time. Onset (ago): week(s) (2) Location: face Radiation: non-radiation Severity: mild Severity scale (1-10): 4 Quality: aching and dull Pain Consistency: constant Relieving factors: none Exacerbating factors: none Associated symptoms: denies other symptoms Treatments prior to arrival: none Related Data Home Medications Medication Instructions Recorded Confirmed atorvastatin 40 mg tablet 1 tab BEDTIME 12/28/21 12/28/21 bupropion HCl 300 mg 24 hr tablet, 1 tab PO DAILY 12/28/21 12/28/21 extended release gabapentin 300 mg capsule 1 cap PO TID 12/28/21 12/28/21 lidocaine 5 % topical patch 1 patch topical DAILY 12/28/21 12/29/21 naltrexone 50 mg tablet 1 tab PO DAILY 12/28/21 12/28/21 naproxen 500 mg tablet 1 tab PO BID PRN Pain 12/28/21 12/28/21 omeprazole 20 mg capsule,delayed 1 cap PO DAILY 12/28/21 12/28/21 release vitamin B complex (Vitamins B 1 cap DAILY 12/28/21 12/28/21 Complex capsule) Previous Rx's Medication Instructions Recorded doxycycline hyclate 100 mg tablet 100 mg PO BID 7 days #14 tabs 02/15/22 Allergies Allergy/AdvReac Type Severity Reaction Status Date / Time No Known Allergies Allergy Verified 12/26/21 09:48 [No Known Allergies*] Review of Systems Constitutional: Constitutional: Reports no additional constitutional complaints, Denies chills, Denies fever(s) and Denies night sweats Eyes: Eyes: Reports no additional eye complaints, Denies blurry vision, Denies change in vision, Denies diplopia, Denies eye discharge, Denies loss of vision and Denies eye pain ENT: Denies dizziness and Reports sinus pressure Cardiovascular: Cardiovascular: Reports no additional cardiovascular complaints, Denies chest pain, Denies lightheadedness, Denies Loss of Consciousness and Denies dyspnea Respiratory: Respiratory: Reports no additional respiratory complaints and Denies dyspnea Gastrointestinal: Gastrointestinal: Reports no additional gastrointestinal complaints, Denies abdominal pain, Denies melena, Denies hematochezia, Denies change in bowel habits and Denies change in stool character Genitourinary: Genitourinary: Reports no additional male genitourinary complaints, Denies hematuria, Denies oliguria, Denies difficulty urinating, Denies dysuria, Denies urinary frequency, Denies urinary hesitancy, Denies urinary incontinence and Denies urinary urgency Musculoskeletal: Musculoskeletal: Reports no additional musculoskeletal complaints, Denies numbness and Denies tingling Neurologic: Denies dizziness, Denies loss of vision, Denies numbness and Denies tingling Psychiatric: Psychiatric: Reports no additional psychiatric complaints Endocrine: Endocrine: Reports no additional endocrine complaints Hematologic/Lymphatic: Hematologic/Lymphatic: Reports no additional hematologic/lymphatic complaints Allergic/Immunologic: Allergic/Immunologic: Reports no additional allergic/immunologic complaints [facility] Past Medical History Attestation statement: The following information was validated with the patient. Source: old records reviewed Medical History Abuse, drug or alcohol Alcoholism Cocaine use disorder GERD (gastroesophageal reflux disease) Headache History of back pain Lumbar radiculopathy Mild recurrent major depression Physical exam Pure hypercholesterolemia Right elbow pain Spondylosis of lumbosacral spine without myelopathy Surgical History History of esophagogastroduodenoscopy (EGD) History of eye surgery History of eye surgery Family History Family History Father Alcoholism Substance use disorder Mother Diabetes Social History Social History Housing: Apartment Alcohol intake: current Alcohol intake frequency: 3 or more drinks per day Patient Tobacco Use Status: Former Tobacco user e-Cigarette/Vaping Use: Never Used Second Hand Smoke Exposure: No Substance Use Type: Marijuana Advance Directives: No Advance Directives Information Provided: Yes service: No Current occupational status: employed Current occupational exposures/hazards: No Cognitive needs: No Hearing needs: No Vision needs: No Physical Exam ED Vital Signs: Vital Signs - 24 hr 02/15/22 11:08 Temperature 98.4 F Pulse Rate 99 Respiratory Rate 20 Blood Pressure 135/88 Pulse Oximetry 99 Oxygen Delivery Method Room Air BMI result Body Mass Index 24.9 Const General: cooperative, no acute distress, alert and awake Nutritional Appearance: well nourished Orientation/consciousness: patient oriented x3 Limitations: no limitations HENMT Head: Yes normal to inspection and Yes atraumatic Ears: hearing grossly normal bilaterally and external ears normal General nose exam: Normal external nose present, no nasal discharge noted and no epistaxis Face and sinus: Yes normal facial exam, No abrasion, No laceration and Yes sinus tenderness Mouth: Normal oral and palatal mucosa present, no drooling and no muffled voice Eyes General: appearance normal, both eyes and all related structures Periorbital: periorbital findings normal Eyelids: Yes eyelids normal Conjunctivae: conjunctivae normal Pupils: Equal, round and reactive pupils present EOM: EOMs intact bilaterally Neck Neck: Yes normal visual inspection, Yes full ROM and Yes no lymphadenopathy Chest Chest palpation & inspection: normal inspection of the chest Resp Effort & Inspection: normal respiratory effort and able to speak in complete sentences Auscultation: clear to auscultation bilaterally Cardio Rate: regular rate Rhythm: regular rhythm GI Inspection: Yes normal to inspection Neuro General: patient oriented x3 and moves all extremities Cranial nerves: Yes Equal, round and reactive pupils present Cognition (Neuro): normal cognition Motor exam (neuro): 5/5 motor strength present throughout Sensory Exam: Normal double simultaneous stimulation for sensation Coordination: [id number] test normal Extrem General: Yes normal to inspection, Yes full ROM and Yes capillary refill normal Psych Appearance: grossly normal Mental Status: mental status grossly normal Affect: normal affect Attitude: cooperative Thought process: Normal thought process present Thought content: Normal thought content present Insight: Good insight present (Psych) Medical Decision Making MDM Narrative Medical decision making narrative: Patient is a 51 year old assigned male at with a history of cocaine use and GERD presenting to the emergency department today with left sided facial pain. Patient's physical exam showed left sided sinus pain to palpation / tympany. Patient was afebrile and not tachycardic. Patient's clinical presentation is most consistent with acute sinusitis. Low suspicion for sinus abscess, however, patient given strict return precautions. I explained my physical exam findings to the patient. I answered all questions asked by the patient. I stressed the importance of the patient taking his medication as prescribed. I stressed the importance of the patient following up with his [facility] care provider. I stressed the importance of the patient returning to the emergency department immediately if his symptoms were to worsen or if he were to develop any dizziness, shortness of breath, difficulty breathing, chest pain, blurry vision, loss of vision, nausea, vomiting, abdominal pain, fever, chills, back pain, or any other complaints. Patient verbalized agreement and understanding with this treatment plan and discharge. Medical Records Medical records reviewed: Yes I reviewed the patient's medical records. Discharge Plan Discharge Clinical Impression: Sinusitis Patient Disposition: Home, Self-Care Instructions: Sinusitis (ED) Additional Instructions: Follow up with your primary care provider. Return to the emergency department immediately if your symptoms worsen or if you develop any dizziness, shortness of breath, difficulty breathing, chest pain, blurry vision, loss of vision, nausea, vomiting, abdominal pain, fever, chills, back pain, or any other complaints. Prescriptions: New doxycycline hyclate 100 mg tablet 100 mg PO BID 7 Days Qty: 14 0RF No Action atorvastatin 40 mg tablet 1 tab BEDTIME naltrexone 50 mg tablet 1 tab PO DAILY lidocaine 5 % adhesive patch,medicated 1 patch topical DAILY gabapentin 300 mg capsule 1 cap PO TID omeprazole 20 mg capsule,delayed release(DR/EC) 1 cap PO DAILY naproxen 500 mg tablet 1 tab PO BID PRN (Reason: Pain) vitamin B complex [Vitamins B Complex] Capsule 1 cap DAILY bupropion HCl 300 mg tablet extended release 24 hr 1 tab PO DAILY Referrals: Kaley Sanchez MD [Primary Care Provider] - Stand Alone Forms: Work/School Release Interventions: ED Discharge Assessment Last Done: 02/15/22 12:08 Discharge Date/Time: 02/15/22 12:09 Print Language: Czech
== END 2022-02-15 12:09 | disposition home or self-care (01) ==
PROVIDERS: Emergency Provider Emergency Medicine; PCP Internal Medicine
DX: J32.9 Chronic sinusitis, unspecified (principal); R51.9 Headache, unspecified; Z79.899 Other long term (current) drug therapy
CPT/HCPCS: 99283

== ENCOUNTER 2022-03-17 17:47 | Emergency (ER) | payer OTHER, SELFPAY ==
--- NOTE | 2022-03-17 18:07 | ED.OVERDOSE ---
HPI - Overdose General Chief Complaint: Altered Mental Status Stated Complaint: substance abuse, AMS Time Seen by Provider: 03/17/22 18:03 Source: patient Mode of arrival: EMS Limitations: no limitations History of Present Illness HPI Narrative: Patient with history of cocaine and heroin use was found semi-responsive which are low breathing was given 2 mg of Narcan came back to normal still sleeping was saturating 100% patient been here for same multiple times No signs of trauma Related Data Home Medications Medication Instructions Recorded Confirmed atorvastatin 40 mg tablet 1 tab BEDTIME 12/28/21 12/28/21 bupropion HCl 300 mg 24 hr tablet, 1 tab PO DAILY 12/28/21 12/28/21 extended release gabapentin 300 mg capsule 1 cap PO TID 12/28/21 12/28/21 lidocaine 5 % topical patch 1 patch topical DAILY 12/28/21 12/29/21 naltrexone 50 mg tablet 1 tab PO DAILY 12/28/21 12/28/21 naproxen 500 mg tablet 1 tab PO BID PRN Pain 12/28/21 12/28/21 omeprazole 20 mg capsule,delayed 1 cap PO DAILY 12/28/21 12/28/21 release vitamin B complex (Vitamins B 1 cap DAILY 12/28/21 12/28/21 Complex capsule) Previous Rx's Medication Instructions Recorded doxycycline hyclate 100 mg tablet 100 mg PO BID 7 days #14 tabs 02/15/22 Allergies Allergy/AdvReac Type Severity Reaction Status Date / Time No Known Allergies Allergy Verified 12/26/21 09:48 [No Known Allergies*] Review of Systems Review of Systems: Yes all other systems are reviewed and are negative [facility] Past Medical History Medical History Abuse, drug or alcohol Alcoholism Cocaine use disorder GERD (gastroesophageal reflux disease) Headache History of back pain Lumbar radiculopathy Mild recurrent major depression Physical exam Pure hypercholesterolemia Right elbow pain Spondylosis of lumbosacral spine without myelopathy Surgical History History of esophagogastroduodenoscopy (EGD) History of eye surgery History of eye surgery Family History Family History Father Alcoholism Substance use disorder Mother Diabetes Social History Social History Housing: Apartment Alcohol intake: current Alcohol intake frequency: 3 or more drinks per day Patient Tobacco Use Status: Former Tobacco user Smoked in Last 30 Days: Yes e-Cigarette/Vaping Use: Never Used Second Hand Smoke Exposure: No Use of substances other than those prescribed or required for medical reasons: Yes Substance Use Type: Crack/Cocaine, Heroin, Marijuana and Methamphetamine Advance Directives: No Advance Directives Information Provided: No service: No Current occupational status: employed Current occupational exposures/hazards: No Cognitive needs: No Hearing needs: No Vision needs: No Physical Exam Vital Signs: Vital Signs: Last Vital Signs Temp 97.7 F 03/17/22 21:05 Pulse 72 03/17/22 21:05 Resp 14 03/17/22 21:05 BP 118/73 03/17/22 21:05 Pulse Ox 99 03/17/22 21:05 O2 Del Method 03/17/22 21:05 BMI result Body Mass Index 22.3 Appearance: Alert. Oriented X3. No acute distress. Sleepy easily arousable Eyes: PERRLA, No Nystagmus HEENT: Atraumatic normocephalic Pharynx normal. Oral Mucosa moist Neck: Normal inspection. Neck supple. No midline tenderness CVS: Normal heart rate and rhythm. Pulses normal. Respiratory: No respiratory distress. Equal air entry bilateral, no wheezing/rales/rhonchi Abdomen: Soft and nontender. Bowel sounds are present, no mass palpable, no CVA tenderness Skin: Skin warm and dry. Normal skin color. Normal skin turgor. Extremities: No lower extremity edema. No calf tenderness Neuro: Oriented X 3. No motor deficit. No sensory deficit.No cerebellar signs , cranial nerves II-XII intact Medical Decision Making Medical Decision Making MDM Narrative: Patient with history of opiate abuse does not want detox discharge patient vitals are stable Discharge Plan Discharge Clinical Impression: Opiate addiction Patient Disposition: Home, Self-Care Instructions: Opioid Use Disorder (ED) Additional Instructions: Follow up with detox Prescriptions: No Action atorvastatin 40 mg tablet 1 tab BEDTIME naltrexone 50 mg tablet 1 tab PO DAILY lidocaine 5 % adhesive patch,medicated 1 patch topical DAILY gabapentin 300 mg capsule 1 cap PO TID omeprazole 20 mg capsule,delayed release(DR/EC) 1 cap PO DAILY naproxen 500 mg tablet 1 tab PO BID PRN (Reason: Pain) vitamin B complex [Vitamins B Complex] Capsule 1 cap DAILY bupropion HCl 300 mg tablet extended release 24 hr 1 tab PO DAILY doxycycline hyclate 100 mg tablet 100 mg PO BID 7 Days Qty: 14 0RF Interventions: ED Discharge Assessment Last Done: 03/17/22 21:29 Discharge Date/Time: 03/17/22 21:30
[2022-03-17 18:42] VITALS: BP 108/72; PULSE 58; RESP 16; TEMP 36.4; O2SAT 99; BMI 22.3
--- NOTE | 2022-03-17 18:56 | MHC.RECOVSUP ---
Recovery Support note: Patient is a 51 year old male in ED bed 21 due to altered mental status. Chart review indicates patient has a history of alcohol and cocaine use. This bond writer met with patient to discuss what brought him to the hospital. Patient was difficult to arouse, opening his eyes when this bond writer asked a question but not providing an answer. Patient may benefit from recovery resources prior to discharge.
--- OUTSIDE RECORDS SUMMARY | 2022-03-17 19:02 | XMS_ITS | Continuity of Care Document ---
:1970 Author Organization [facility] Address [address] [place] [address]- Care Team Providers Name Role Phone Not on Staff, PCP Primary Care Physician Unavailable Encounter [facility] Date(s): 02/06/22 - 02/13/22 [facility] [address] [place], [place] [address] Attending Physician: Tyson DSOUZA, Zoya Bauman Allergies, Adverse Reactions, Alerts Substance Reaction Severity Status penicillins Active Immunizations Given and Recorded Vaccine Date Status Refusal Reason tetanus/diphtheria/pertussis, acel(Tdap) 11/30/15 Given Medications Cymbalta 60 mg oral enteric coated capsule 1 capsule = 60 mg, By Mouth, 2 times a day, Take 1 capsule at 9 AM and 2 PM daily, # 60 capsule, 3 Refills, Maintenance, 02/06/22 16:08:00 EDT, EC Capsule, [id number], 173, cm, 02/06/22 15:44:00 EDT, Height Start Date: 02/06/22 Status: Orderedibuprofen 800 mg oral tablet 800 mg, 1, tablet, By Mouth, 3 times a day, PRN, # 270 tablet, Refills 0, Maintenance, as needed forpain, 08/28/16 15:39:02 Start Date: 08/28/16 Status: OrderedVitamin D3 2000 intl units oral capsule 1 capsule = 50 mcg, By Mouth, Daily, # 90 capsule, 3 Refills, Maintenance, 02/06/22 16:12:00 EDT, Capsule, [id number], Partial fill upon patient request if the prescription is for a schedule IIopioid drug., 173, cm, 02/06/22 15:44:00 EDT, Height Start Date: 02/06/22 Status: Ordered Problem List Condition Confirmation Course Effective Dates Status Health Stat us Informant Adjustment disorder Confirmed Active with mixed anxiety and depressed mood Adverse effects of Confirmed Active medication1 Childhood asthma Confirmed Active without complication Depression Confirmed Active Limitation due to Confirmed Active disability2 Drug or alcohol Confirmed Active risk assessment or counseling3 Cephalalgia Confirmed Active H/O renal calculi Confirmed Active Intermittent Confirmed Active palpitations Low back pain Confirmed Active Neck pain Confirmed Active Lower extremity Confirmed Active pain Upper extremity Confirmed Active pain Depression, major, Confirmed Active single episode, severe 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
--- OUTSIDE RECORDS SUMMARY | 2022-03-17 19:02 | XMS_ITS ---
:1970 Author Organization [facility] Address [address] [place] [address] Care Team Providers Name Role Phone Andrew Pope Unavailable Unavailable PROBLEMS Type Condition ICD9-CM [id number]-IH Onset Condition SNOMED Cod e Code Code Dates Status Problem Gastroesophageal K21.9 Active 235 853873 reflux disease, esophagitis presence not specified Problem Abdominal pain, R10.13 Active 7992 2009 epigastric Problem Gastritis K29.70 Active 9713239 Problem Diverticulosis of K57.30 Active 39 9749070 large intestine without perforation or abscess without bleeding Problem Generalized R10.84 Active [id number] 6 abdominal pain Problem H. pylori infection A04.8 Active 909979047 Problem Encounter for Z12.11 Active 120815 004 screening for malignant neoplasm of colon Problem Gastroesophageal K21.9 Active reflux disease, unspecified whether esophagitis present ALLERGIES No Known Allergies ENCOUNTERS Encounter Location Date Diagnosis [facility] [address] [place] [address] 16 Sep, 2020 Encounter for filipe D[place] [id number] colonoscop y Z12.11 ; Diverticulosis o f large intestine withou t perforation or a bscess without bleeding K57.30 ; Other hemorrhoid s K64.8 ; Gastritis K29.70 ; Hernia, hiatal K44.9 and Abdominal pain, generalize d R10.[address] [facility] [address] [place] [address] [facility] [address] KATIE D[place] disease, u nspecified whether [address] esophagitis pres ent K21.9 ; Encounter for sc reening for malignant neopla sm of colon Z12.11 ; H. pylo ri infection A04.8 and Genera lized abdominal pain R 10.84 [facility] [address] [facility] [address] [place] [address] [facility] [address] [facility] [address] [place] [address] [facility] [address] [facility] [address] [place] [address] [facility] [address] [facility] [address] [place] [address] [facility] [address] [facility], [place] [phone] [facility] [address] [facility] [address] [place] [address] [facility] [address] [facility] [address] [place] [address] [place] [address] [facility] [address] KATIE [place] disease, e sophagitis [address] presence not spe cified K21.9 and Abdominal pa in, epigastric R10.1 3 IMMUNIZATIONS Vaccine Route Administration Date Status Influenza Unknown Jan 06, 2020 Administered SOCIAL HISTORY Never Assessed REASON FOR REFERRAL FUNCTIONAL STATUS PLAN OF CARE Activity Details Follow Up prn Reason: Pending Test Pathology Pending Test US ABD Future/Pending Procedure COLONOSCOPY 20200822 Future/Pending Procedure UPPER GI ENDOSCOPY 20200822 Future/Pending Procedure UPPER GI ENDOSCOPY 20151214 VITAL SIGNS Weight 148 lbs 2020-08-22 Weight 139 lbs 2015-12-14 Height 65 in 2020-08-22 Height 65 in 2015-12-14 BMI 24.63 kg/m2 2020-08-22 BMI 23.13 kg/m2 2015-12-14 Heart Rate 76 /min 2015-12-14 Temperature 96.9 degrees Fahrenheit 2020-08-22 Blood pressure systolic 000 mm Hg 2020-08-22 Blood pressure diastolic 00 mm Hg 2020-08-22 MEDICATIONS Medication Instructions Dosage Frequency Start End Duration Statu s Date Date Gabapentin Active Dulcolax (colon Orally two take at 3:00 22 August, 1 day Active prep) 5 MG tablets twice a p.m and 2020 day for one day 7:00p.m. Ibuprofen Active Naltrexone HCl Active Omeprazole Active Atorvastatin Active Calcium ibuprofen 800 Active MiraLax (colon orally begin at mixed with 22 August, day Active prep) 8.3 ounce 5:00 p.m. the Gatorade or 2020 ((238) grams day before the Crystal procedure Light B Complex Active Folic Acid Active buPROPion HCl ER Active (XL) PROCEDURES Procedure Date Ordered Result Body Site BP SCR PRFRM RCMDD DEFIND SCR INTVL August 22, 2020 TOBACCO NON-USER August 22, 2020 DOC MEDS VERIFIED W/PT OR RE August 22, 2020 UPPER GI ENDOSCOPY, BIOPSY September 20, 2020 COLORECTAL CA SCREEN DOC REV August 22, 2020 DIAGNOSTIC COLONOSCOPY September 20, 2020 RESULTS Name Result Date Reference Range GI BIOPSY 2015-12-25 G.I. BIOPSY US ABD 2015-12-25 REASON FOR VISIT ABDOMINAL PAIN * sooner appt*, h pylori,screening,gerd, h pylori,screening,gerd, bowel prep, patientpresents today for colonoscopy , COVID Screen, Pt no show, PATIENT PRESENTS TODAY FOR screening colonoscopy, COVID Screen, Looking for results, EPIGASTRIC PAIN, REFLUX, NEEDS DATE FOR PAT TESTING, GERD Insurance Providers [facility] Health Member Patient Patient Patient Patient Patient Subscriber Subscriber Subscriber Group Insurance Plan Plan Plan Plan ID Relationship Address Phone Name Date of ID Name Date of No Type Insurance Insurance Insurance Coverage to Subscriber Address Phone Name Dates [facility] [phone] [facility] self [place] [id number] [facility] [id number] [facility] [id number]
--- OUTSIDE RECORDS SUMMARY | 2022-03-17 19:02 | XMS_ITS | Continuity of Care Document ---
:[address] [facility] Address [address] [place] [address]- Care Team Providers Name Role Phone Not on Staff, PCP Primary Care Physician Unavailable Encounter [facility] [place] [facility] Date(s): 12/14/21 - 01/13/22 [facility] [address] [place], [place] [address] Allergies, Adverse Reactions, Alerts Substance Reaction Severity Status penicillins Active Immunizations Given and Recorded Vaccine Date Status Refusal Reason tetanus/diphtheria/pertussis, acel(Tdap) 11/30/15 Given Medications Cymbalta 60 mg oral enteric coated capsule 1 capsule = 60 mg, By Mouth, 2 times a day, Take 1 capsule at 9 AM and 2 PM daily, # 30 capsule, 2 Refills, Maintenance, 04/09/18 15:38:20 EST, EC Capsule Start Date: 04/09/18 Status: Orderedibuprofen 800 mg oral tablet 800 mg, 1, tablet, By Mouth, 3 times a day, PRN, # 270 tablet, Refills 0, Maintenance, as needed forpain, 08/28/16 15:39:02 Start Date: 08/28/16 Status: Ordered Problem List Condition Confirmation Course [...] 66% ( crippled ) on 08/15/16; initial Korbel: 8 on SOAPP-R: 28 on 08/15/16 Social History Social History Type Response Smoking Status Never smoker entered on: 01/10/15 Sex Patient Care team information PersonnelName: Not on Staff, PCP
[2022-03-17 21:05] VITALS: BP 118/73; PULSE 72; RESP 14; TEMP 36.5; O2SAT 99
== END 2022-03-17 21:30 | disposition home or self-care (01) ==
PROVIDERS: Emergency Provider Internal Medicine
DX: F11.29 Opioid dependence with unspecified opioid-induced disorder (principal); F14.10 Cocaine abuse, uncomplicated; Z87.891 Personal history of nicotine dependence; Z79.899 Other long term (current) drug therapy
CPT/HCPCS: 99283; 99284

== ENCOUNTER → 2022-03-25 11:13 | Outpatient (BNVA) | payer OTHER, SELFPAY | PROVIDERS: Visit Provider Anesthesiology | DX: M47.817 Spondylosis without myelopathy or radiculopathy, lumbosacral region (principal); F14.10 Cocaine abuse, uncomplicated; F10.20 Alcohol dependence, uncomplicated | CPT/HCPCS: 99212 ==

== ENCOUNTER 2022-03-26 18:24 | Emergency (ER) | payer OTHER, SELFPAY ==
--- NOTE | ~2022-03-26 | CT_ITS ---
EXAMINATION: CT ABDOMEN AND PELVIS WITHOUT CONTRAST CLINICAL INFORMATION: Right back and flank pain with dysuria COMPARISON: Ultrasound abdomen 08/23/2020 TECHNIQUE: Multidetector volumetric imaging was performed from the superior aspect of the liver through the pubic symphysis. Sagittal and coronal reformatted images were obtained on the technologist's workstation. This CT examination was performed using dose optimization techniques as appropriate, variously including the following: *Automated exposure control *Adjustment of mA and/or kV according to patient size (this includes techniques or standardized protocols for targeted exams where dose is matched to indication/reason for exam; i.e. extremities or head) *Use of iterative reconstruction technique DLP: 439 mGy-cm FINDINGS: LUNG BASES: The visualized lung bases are unremarkable. LIVER, GALLBLADDER, AND BILIARY TREE: The liver is normal in size, shape, and attenuation. No focal hepatic lesion or biliary ductal dilatation is present. The gallbladder is unremarkable with no evidence of radiopaque gallstones, gallbladder wall thickening, or obvious pericholecystic inflammatory changes. PANCREAS: Unremarkable. SPLEEN: Unremarkable. ADRENAL GLANDS: Unremarkable. KIDNEYS AND URETERS: The kidneys are normal in size, shape, and attenuation. No hydronephrosis, hydroureter, or calculi seen. No perinephric stranding. BLADDER: The bladder is decompressed GASTROINTESTINAL TRACT: The small and large bowel are unremarkable aside from colonic diverticulosis without diverticulitis.. The appendix is unremarkable. ABDOMINAL WALL: No significant hernia is appreciated. LYMPH NODES: Normal. VASCULAR: Unremarkable. PELVIC VISCERA: There is mild BPH. Seminal vesicles appear normal. OSSEOUS STRUCTURES: Marked degenerative changes present at L4-L5 and L5-S1. A cyst filled with air is present in the L4 vertebral body. CT/CT abdomen pelvis wo IV con IMPRESSION: 1. A cause for the patient's right back pain and dysuria has not been found. 2. Incidental note made of colonic diverticulosis without diverticulitis, mild BPH and degenerative changes in the spine. Fleischner guidelines were followed.
[2022-03-26 18:39] VITALS: BP 156/80; PULSE 79; O2SAT 100
[2022-03-26 18:41] VITALS: BP 120/81; PULSE 75; RESP 18; TEMP 36.6; O2SAT 98; BMI 22.3
--- NOTE | 2022-03-26 18:42 | ED.BACK ---
HPI - Back Pain/Injury General Chief Complaint: Back Pain/Injury <Clarissa Dumont CNP - Last Filed: 03/26/22 18:45> Stated Complaint: LOW BACK/R LEG PAIN X'S 5 DAYS PER EMS <Clarissa Dumont CNP - Last Filed: 03/26/22 18:45> Time Seen by Provider: 03/26/22 18:36 <Clarissa Dumont CNP - Last Filed: 03/26/22 18:45> Source: patient <Samuel Mo MD - Last Filed: 03/27/22 04:31> Mode of arrival: EMS <Samuel Mo MD - Last Filed: 03/27/22 04:31> Limitations: no limitations <Samuel Mo MD - Last Filed: 03/27/22 04:31> History of Present Illness HPI Narrative: Patient chronic back pain came for increased pain for last 5 days especially on the right side it radiated to the right leg patient was seen and triaged by provider blood workup was done which was negative CT scan of the abdomen pelvis negative for kidney stone or acute pathology patient does have chronic pain seen at Pain [facility], used to get gabapentin, plan to get steroid injections unable to get his pain medications by PCP <Samuel Mo MD - Last Filed: 03/27/22 04:31> Related Data Home Medications: Home Medications Medication Instructions Recorded Confirmed atorvastatin 40 mg tablet 1 tab BEDTIME 12/28/21 12/28/21 bupropion HCl 300 mg 24 hr tablet, 1 tab PO DAILY 12/28/21 12/28/21 extended release gabapentin 300 mg capsule 1 cap PO TID 12/28/21 12/28/21 lidocaine 5 % topical patch 1 patch topical DAILY 12/28/21 12/29/21 naltrexone 50 mg tablet 1 tab PO DAILY 12/28/21 12/28/21 naproxen 500 mg tablet 1 tab PO BID PRN Pain 12/28/21 12/28/21 omeprazole 20 mg capsule,delayed 1 cap PO DAILY 12/28/21 12/28/21 release vitamin B complex (Vitamins B 1 cap DAILY 12/28/21 12/28/21 Complex capsule) Previous Rx's Medication Instructions Recorded doxycycline hyclate 100 mg tablet 100 mg PO BID 7 days #14 tabs 02/15/22 celecoxib 100 mg capsule (Celebrex) 100 mg PO BID 30 days #60 caps 03/25/22 cyclobenzaprine 10 mg tablet 10 mg PO Q8H #20 tabs 03/26/22 prednisone 20 mg tablet 40 mg PO DAILY #10 tabs 03/26/22 tramadol 50 mg tablet 50 mg PO Q6H PRN pain #20 tabs 03/26/22 <Clarissa Dumont CNP - Last Filed: 03/26/22 18:45> Allergies/Adverse Reactions: Allergies Allergy/AdvReac Type Severity Reaction Status Date / Time No Known Allergies Allergy Verified 03/25/22 11:30 [No Known Allergies*] <Clarissa Dumont CNP - Last Filed: 03/26/22 18:45> Review of Systems Review of Systems: Yes all other systems are reviewed and are negative <Samuel Mo MD - Last Filed: 03/27/22 04:31> [facility] Past Medical History Medical History: Medical History Abuse, drug or alcohol Alcoholism Cocaine use disorder GERD (gastroesophageal reflux disease) Headache History of back pain Lumbar radiculopathy Mild recurrent major depression Physical exam Pure hypercholesterolemia Right elbow pain Spondylosis of lumbosacral spine without myelopathy <Clarissa Dumont CNP - Last Filed: 03/26/22 18:45> Surgical History: Surgical History History of esophagogastroduodenoscopy (EGD) History of eye surgery History of eye surgery <Clarissa Dumont CNP - Last Filed: 03/26/22 18:45> Family History Family History: Family History Father Alcoholism Substance use disorder Mother Diabetes <Clarissa Dumont CNP - Last Filed: 03/26/22 18:45> Social History Social History: Social History Housing: Apartment Alcohol intake: current Alcohol intake frequency: 3 or more drinks per day Patient Tobacco Use Status: Former Tobacco user e-Cigarette/Vaping Use: Never Used Second Hand Smoke Exposure: No Substance Use Type: Crack/Cocaine, Heroin, Marijuana and Methamphetamine Advance Directives: No Advance Directives Information Provided: No service: No Current occupational status: employed Current occupational exposures/hazards: No Cognitive needs: No Hearing needs: No Vision needs: No <Clarissa Vick BRYANT Dumont - Last Filed: 03/26/22 18:45> Physical Exam Vital Signs: Vital Signs: Last Vital Signs Temp 97.9 F 03/26/22 18:41 Pulse 75 03/26/22 18:41 Resp 18 03/26/22 18:41 BP 120/81 03/26/22 18:41 Pulse Ox 98 03/26/22 18:41 O2 Del Method 03/26/22 18:41 BMI result Body Mass Index 22.3 <Clarissa KatzBRYANT espinosa - Last Filed: 03/26/22 18:45> Vital Signs: Last Vital Signs Temp 97.9 F 03/26/22 18:41 Pulse 75 03/26/22 18:41 Resp 18 03/26/22 18:41 BP 120/81 03/26/22 18:41 Pulse Ox 98 03/26/22 18:41 O2 Del Method 03/26/22 18:41 BMI result Body Mass Index 22.3 <Samuel Mo MD - Last Filed: 03/27/22 04:31> Appearance: Alert. Oriented X3. No acute distress. Eyes: PERRLA, ENT: Pharynx normal. Oral Mucosa moist Neck: Normal inspection. Neck supple. CVS: Normal heart rate and rhythm. Pulses normal. Respiratory: No respiratory distress. Equal air entry bilateral, no wheezing/rales/rhonchi Abdomen: Soft and nontender. Bowel sounds are present, no mass palpable, no CVA tenderness Skin: Skin warm and dry. Normal skin color. Normal skin turgor. Extremities: No lower extremity edema. No calf tenderness Back: Diffuse lumbar spine tenderness right sciatic notch tenderness SLR positive at 45degrees Neuro: Oriented X 3. No motor deficit. No sensory deficit. Reflexes 2+ patient ambulatory with steady gait <Samuel Mo MD - Last Filed: 03/27/22 04:31> Course Course Course Narrative: RME: Patient is a 51-year-old male who presents emergency department for evaluation of lower back pain radiating to the right leg. Symptom onset was 5 days ago. Reports history of chronic back pain. However the pain is significantly worse today. This has been atraumatic. States he is unable to walk due to the pain he is having pain after a speaking in a wheelchair, he came to the emergency department via EMS. Additionally, he is reporting dysuria with urinary frequency, denies hematuria. Diffuse right-sided back pain upon palpation, right-sided CVA tenderness Plan: Labs, urinalysis, CT abdomen and pelvis without contrast to evaluate nephrolithiasis, hydronephrosis, evidence of pyelonephritis. Additional HPI, ROS, PE deferred to primary provider <Clarissa Dumont CNP - Last Filed: 03/26/22 18:45> Medications Administered Discontinued Medications Generic Name Dose Route Start Last Admin Trade Name Freq PRN Reason Stop Dose Admin Ibuprofen 400 mg 03/26/22 21:35 03/26/22 21:41 Ibuprofen 400 Mg Tablet PO 03/26/22 21:36 400 mg ONCE ONE Administration <Clarissa Dumont CNP - Last Filed: 03/26/22 18:45> Medications Administered Discontinued Medications Generic Name Dose Route Start Last Admin Trade Name Freq PRN Reason Stop Dose Admin Ibuprofen 400 mg 03/26/22 21:35 03/26/22 21:41 Ibuprofen 400 Mg Tablet PO 03/26/22 21:36 400 mg ONCE ONE Administration <Samuel Mo MD - Last Filed: 03/27/22 04:31> Medical Decision Making Medical Decision Making [facility] Narrative: Patient with chronic back pain clinically right sciatica L5-S1 lumbar canal stenosis already has follow-up plan to see pain clinic discharge patient home on pain medication and muscle relaxers <Samuel Mo MD - Last Filed: 03/27/22 04:31> Lab Data [facility] Lab Attestation statement: I reviewed the patient's lab results. <Samuel Mo MD - Last Filed: 03/27/22 04:31> Result Diagrams: : 03/26/22 21:34 03/26/22 21:34 <Clarissa Dumont CNP - Last Filed: 03/26/22 18:45> Labs: Lab Results 03/26/22 03/26/22 Range/Units 21:34 21:34 WBC 9.9 (4.8-10.8) X10*3/uL RBC 5.12 D (4.60-5.80) X10*6/uL Hgb 16.0 D (14.0-18.0) g/dl Hct 46.0 D (42.0-52.0) % MCV 89.8 (80.0-98.0) fL MCH 31.3 (27.0-33.0) pg MCHC 34.8 (31.0-36.0) g/dl RDW 12.5 (11.0-16.0) % Plt Count 405 H D (160-400) X10*3/uL MPV 9.2 L (9.4-12.4) fL Immature Gran % (Auto) 0.4 (0.0-0.4) % Neut % (Auto) 69.8 (45-73) % Lymph % (Auto) 19.9 L (20-40) % Dare % (Auto) 9.1 (2-11) % Eos % (Auto) 0.4 (0-4) % Baso % (Auto) 0.4 (0-2) % Lymph # (Auto) 2.0 (1.2-4.9) X10*3/uL Dare # (Auto) 0.9 (0.1-1.2) X10*3/uL Eos # (Auto) 0.0 (0.0-0.4) X10*3/uL Baso # (Auto) 0.0 (0.0-0.2) X10*3/uL Abs Immat Gran (auto) 0.04 H (0.00-0.03) X10*3/uL Absolute Neuts (auto) 6.9 (2.0-8.3) x10*3/uL Absolute Nucleated RBC 0.000 (0.0-0.012) X10*3/uL Nucleated RBC % (auto) 0.0 (0.0-0.2) /100WBC Sodium 137 (135-145) mmol/L Potassium 4.1 (3.3-5.1) mmol/L Chloride 104 (96-108) mmol/L Carbon Dioxide 22 (22-29) mmol/L Anion Gap 15 (12-20) BUN 15 (9-16) mg/dL Creatinine 0.80 (0.5-1.4) mg/dL Estim Creat Clear Calc 90.0 Estimated GFR > 60 Random Glucose 87 (60-115) mg/dL Calcium 9.9 D (8.4-10.2) mg/dL Total Bilirubin 0.7 (0.0-1.0) mg/dL AST 28 (5-37) U/L ALT 34 (0-40) U/L Alkaline Phosphatase 109 (39-117) U/L Total Protein 7.4 (6.5-8.0) g/dL Albumin 4.5 (3.5-5.0) g/dL <Clarissa Dumont CNP - Last Filed: 03/26/22 18:45> Lab Results 03/26/22 03/26/22 Range/Units 21:34 21:34 WBC 9.9 (4.8-10.8) X10*3/uL RBC 5.12 D (4.60-5.80) X10*6/uL Hgb 16.0 D (14.0-18.0) g/dl Hct 46.0 D (42.0-52.0) % MCV 89.8 (80.0-98.0) fL MCH 31.3 (27.0-33.0) pg MCHC 34.8 (31.0-36.0) g/dl RDW 12.5 (11.0-16.0) % Plt Count 405 H D (160-400) X10*3/uL MPV 9.2 L (9.4-12.4) fL Immature Gran % (Auto) 0.4 (0.0-0.4) % Neut % (Auto) 69.8 (45-73) % Lymph % (Auto) 19.9 L (20-40) % Dare % (Auto) 9.1 (2-11) % Eos % (Auto) 0.4 (0-4) % Baso % (Auto) 0.4 (0-2) % Lymph # (Auto) 2.0 (1.2-4.9) X10*3/uL Dare # (Auto) 0.9 (0.1-1.2) X10*3/uL Eos # (Auto) 0.0 (0.0-0.4) X10*3/uL Baso # (Auto) 0.0 (0.0-0.2) X10*3/uL Abs Immat Gran (auto) 0.04 H (0.00-0.03) X10*3/uL Absolute Neuts (auto) 6.9 (2.0-8.3) x10*3/uL Absolute Nucleated RBC 0.000 (0.0-0.012) X10*3/uL Nucleated RBC % (auto) 0.0 (0.0-0.2) /100WBC Sodium 137 (135-145) mmol/L Potassium 4.1 (3.3-5.1) mmol/L Chloride 104 (96-108) mmol/L Carbon Dioxide 22 (22-29) mmol/L Anion Gap 15 (12-20) BUN 15 (9-16) mg/dL Creatinine 0.80 (0.5-1.4) mg/dL Estim Creat Clear Calc 90.0 Estimated GFR > 60 Random Glucose 87 (60-115) mg/dL Calcium 9.9 D (8.4-10.2) mg/dL Total Bilirubin 0.7 (0.0-1.0) mg/dL AST 28 (5-37) U/L ALT 34 (0-40) U/L Alkaline Phosphatase 109 (39-117) U/L Total Protein 7.4 (6.5-8.0) g/dL Albumin 4.5 (3.5-5.0) g/dL <Samuel Mo MD - Last Filed: 03/27/22 04:31> Discharge Plan Discharge Clinical Impression: Chronic right-sided low back pain with right-sided sciatica <Clarissa Dumont CNP - Last Filed: 03/26/22 18:45> Patient Disposition: Home, Self-Care <Clarissa Dumont CNP - Last Filed: 03/26/22 18:45> Instructions: Sciatica (ED) <Clarissa Dumont CNP - Last Filed: 03/26/22 18:45> Additional Instructions: Take pain medication and muscle relaxant as prescribed and follow with pain clinic/PCP <Clarissa Dumont CNP - Last Filed: 03/26/22 18:45> Prescriptions: New cyclobenzaprine 10 mg tablet 10 mg PO Q8H Qty: 20 0RF prednisone 20 mg tablet 40 mg PO DAILY Qty: 10 0RF tramadol 50 mg tablet 50 mg PO Q6H PRN (Reason: pain) Qty: 20 0RF No Action atorvastatin 40 mg tablet 1 tab BEDTIME naltrexone 50 mg tablet 1 tab PO DAILY lidocaine 5 % adhesive patch,medicated 1 patch topical DAILY gabapentin 300 mg capsule 1 cap PO TID omeprazole 20 mg capsule,delayed release(DR/EC) 1 cap PO DAILY naproxen 500 mg tablet 1 tab PO BID PRN (Reason: Pain) vitamin B complex [Vitamins B Complex] Capsule 1 cap DAILY bupropion HCl 300 mg tablet extended release 24 hr 1 tab PO DAILY doxycycline hyclate 100 mg tablet 100 mg PO BID 7 Days Qty: 14 0RF celecoxib [Celebrex] 100 mg capsule 100 mg PO BID 30 Days Qty: 60 4RF <Clarissa Dumont CNP - Last Filed: 03/26/22 18:45> Interventions: ED Discharge Assessment Last Done: 03/26/22 22:58 <Clarissa Dumont CNP - Last Filed: 03/26/22 18:45> Discharge Date/Time: 03/26/22 22:59 <Clarissa Dumont CNP - Last Filed: 03/26/22 18:45>
[2022-03-26 21:41] LABS: Basophils Percent Auto 0.4 % (0-2); Eosinophils Percent Auto 0.4 % (0-4); Imm Gran Abs Auto 0.04 X10*3/uL (0.00-0.03); Imm Gran Pct Auto 0.4 % (0.0-0.4); Lymphocytes Percent Auto 19.9 % (20-40); MANUAL DIFF FLAG NO; Mean Corpuscular HGB Conc 34.8 g/dl (31.0-36.0); Mean Corpuscular Hemoglobin 31.3 pg (27.0-33.0); Mean Corpuscular Volume 89.8 fL (80.0-98.0); Mean Platelet Volume 9.2 fL (9.4-12.4); Monocytes Absolute Auto 0.9 X10*3/uL (0.1-1.2); Monocytes Percent Auto 9.1 % (2-11); Neutrophils Absolute Auto 6.9 x10*3/uL (2.0-8.3); Neutrophils Percent Auto 69.8 % (45-73); Platelet Count 405 X10*3/uL (160-400); Red Blood Count 5.12 X10*6/uL (4.60-5.80); Red Cell Distribution Width 12.5 % (11.0-16.0); White Blood Count 9.9 X10*3/uL (4.8-10.8)
[2022-03-26] MEDS: Ibuprofen 400 MG TABLET PO (21:41)
[2022-03-26 21:57] LABS: Alanine Aminotransferase 34 U/L (0-40); Albumin Level 4.5 g/dL (3.5-5.0); Alkaline Phosphatase 109 U/L (39-117); Anion Gap 15 (12-20); Aspartate Amino Transferase 28 U/L (5-37); Bilirubin Total 0.7 mg/dL (0.0-1.0); Blood Urea Nitrogen 15 mg/dL (9-16); Calcium 9.9 mg/dL (8.4-10.2); Carbon Dioxide 22 mmol/L (22-29); Chloride 104 mmol/L (96-108); Estimated Glomerular Filt Rate > 60; Glucose Random 87 mg/dL (60-115); Potassium 4.1 mmol/L (3.3-5.1); Sodium 137 mmol/L (135-145); Total Protein 7.4 g/dL (6.5-8.0)
== END 2022-03-26 22:59 | disposition home or self-care (01) ==
PROVIDERS: Nurse Practitioner Family; Emergency Provider Internal Medicine; PCP Internal Medicine
DX: G89.29 Other chronic pain (principal); M54.41 Lumbago with sciatica, right side; E78.00 Pure hypercholesterolemia, unspecified; F10.20 Alcohol dependence, uncomplicated; F14.10 Cocaine abuse, uncomplicated; Z79.02 Long term (current) use of antithrombotics/antiplatelets
CPT/HCPCS: 36415; 74176; 80053; 85025; 99283; 99284

== ENCOUNTER 2022-04-16 05:49 | Outpatient (REF) | payer OTHER, SELFPAY ==
--- NOTE | ~2022-04-16 | FL_ITS ---
EXAMINATION: XR FLUOROSCOPY WITH IMAGES CLINICAL INFORMATION: M47.817 - Spondylosis without myelopathy or radiculopathy, lumbosacral COMPARISON: CT abdomen and pelvis 03/26/2022 TECHNIQUE: Fluoroscopy Supervised By: Dr. Dariel Jacobo. Fluoroscopy Time: 0.4 minutes. Cumulative Dose: 4.06 mGy. DAP: 1.10 Gycm2. Images: 4. FINDINGS: There are spinal needles overlying the outer right L2, L3, L4, and L5 neural foramen. There is contrast seen in the respective nerve sheaths. Some early transforaminal epidural extension is suggested. No visible vascular communication. There are multilevel degenerative disc changes with lumbar disc narrowing and vertebral spurring. FL/FL guidance in treatment room IMPRESSION: Fluoroscopy for pain management procedures.
== END 2022-04-16 05:50 | disposition home or self-care (01) ==
LOC: CF 05:49
PROVIDERS: Visit Provider Anesthesiology
DX: M47.817 Spondylosis without myelopathy or radiculopathy, lumbosacral region (principal); F14.10 Cocaine abuse, uncomplicated; F10.20 Alcohol dependence, uncomplicated
CPT/HCPCS: 64493; 64494; J2795

== ENCOUNTER → 2022-04-18 09:02 | Outpatient (BNVA) | payer OTHER, SELFPAY | PROVIDERS: PCP Internal Medicine; Visit Provider Anesthesiology | DX: M47.817 Spondylosis without myelopathy or radiculopathy, lumbosacral region (principal); F14.10 Cocaine abuse, uncomplicated; F10.20 Alcohol dependence, uncomplicated | CPT/HCPCS: 99212 ==

== ENCOUNTER 2022-08-09 11:36 | Emergency (ER) | payer OTHER, SELFPAY ==
--- NOTE | 2022-08-09 11:40 | ED.EXTPRO ---
HPI - Extremity Problem General Chief complaint: Skin/Abscess/Foreign Body Stated complaint: R foot pain Time Seen by Provider: 08/09/22 11:46 Source: patient Mode of arrival: ambulatory Limitations: no limitations History of Present Illness HPI Narrative: 52 yo Armenian speaking male with history of depression, GERD, cocaine use, HLD, ETOH use, who presents to the ER for evaluation of a calus on his right foot that has been painful and swollen, worsening over the last 1 month. Has not tried anything OTC. He reports significant itching that it disrupting his sleep. He is not diabetic. He denies redness or warmth. No drainage. MD Complaint: extremity pain Onset (ago): month(s) (1) Pain Consistency: constant Location: right Quality: aching Radiation: none Relieving factors: nothing Exacerbating factors: palpation and other (night) Associated symptoms: denies other symptoms Related Data Home Medications Medication Instructions Recorded Confirmed lidocaine 5 % topical patch 1 patch topical DAILY 12/28/21 12/29/21 naltrexone 50 mg tablet 1 tab PO DAILY 12/28/21 12/28/21 naproxen 500 mg tablet 1 tab PO BID PRN Pain 12/28/21 12/28/21 omeprazole 20 mg capsule,delayed 1 cap PO DAILY 12/28/21 12/28/21 release vitamin B complex (Vitamins B 1 cap DAILY 12/28/21 12/28/21 Complex capsule) Previous Rx's Medication Instructions Recorded doxycycline hyclate 100 mg tablet 100 mg PO BID 7 days #14 tabs 02/15/22 celecoxib 100 mg capsule (Celebrex) 100 mg PO BID 30 days #60 caps 03/25/22 cyclobenzaprine 10 mg tablet 10 mg PO Q8H #20 tabs 03/26/22 prednisone 20 mg tablet 40 mg PO DAILY #10 tabs 03/26/22 tramadol 50 mg tablet 50 mg PO Q6H PRN pain #20 tabs 03/26/22 bupropion HCl 300 mg 24 hr tablet, 300 mg PO DAILY 90 days #90 tabs 04/18/22 extended release gabapentin 400 mg capsule 400 mg PO TID 30 days #90 caps 04/18/22 atorvastatin 40 mg tablet 40 mg PO BEDTIME 90 days #90 tabs 05/29/22 Allergies Allergy/AdvReac Type Severity Reaction Status Date / Time No Known Allergies Allergy Verified 08/09/22 11:46 [No Known Allergies*] Review of Systems Review of Systems: Yes all other systems are reviewed and are negative [facility] Past Medical History Medical History Abuse, drug or alcohol Alcoholism Cocaine use disorder GERD (gastroesophageal reflux disease) Headache History of back pain Lumbar radiculopathy Mild recurrent major depression Physical exam Pure hypercholesterolemia Right elbow pain Spondylosis of lumbosacral spine without myelopathy Surgical History History of esophagogastroduodenoscopy (EGD) History of eye surgery History of eye surgery Family History Family History Father Alcoholism Substance use disorder Mother Diabetes Social History Social History Housing: Apartment Alcohol intake: current Alcohol intake frequency: 3 or more drinks per day Patient Tobacco Use Status: Former Tobacco user e-Cigarette/Vaping Use: Never Used Second Hand Smoke Exposure: No Substance Use Type: Crack/Cocaine, Heroin, Marijuana and Methamphetamine Advance Directives: No Advance Directives Information Provided: Yes service: No Current occupational status: employed Current occupational exposures/hazards: No Cognitive needs: No Hearing needs: No Vision needs: No Physical Exam Vital Signs: Vital Signs: Last Vital Signs Temp 97.6 F 08/09/22 11:42 Pulse 77 08/09/22 11:42 Resp 16 08/09/22 11:42 BP 112/76 08/09/22 11:42 Pulse Ox 97 08/09/22 11:42 O2 Del Method Room Air 08/09/22 11:42 BMI result Body Mass Index 24.8 Appearance: Alert. Oriented X3. No acute distress. HEENT: normal inspection CVS: Normal heart rate and rhythm. Pulses normal. Respiratory: No respiratory distress. Skin: Skin warm and dry. Normal skin color. Normal skin turgor. No rashes. Extremities: bottom of the right foot there is a nontender plantar wart at the base of the great toe. no surrounding erythema or drainage Neuro: Oriented X 3. Nonfocal. Steady gait Medical Decision Making Medical Decision Making MDM Narrative: 52 yo Armenian speaking male presenting with a painful callus on his right foot. Exam is c/w a plantar wart. We discussed treatment options. He was encouraged to trial OTC medications and OTC wart treatments. If no improvement, advised to f/u with PCP or Podiatry. Stable for d/c home Differential Diagnosis Differential Diagnoses: The differential diagnosis associated with the presentation includes plantar wart, callus, blister, open wound Prescription Management I considered prescription management with: Antiviral Critical Care Time Critical Care Time Critical Care Time: No Discharge Plan Discharge Clinical Impression: Plantar wart Patient Disposition: Home, Self-Care Instructions: Plantar Wart (ED) Additional Instructions: use over the counter plantar wart treatment found at your local pharmacy Prescriptions: No Action bupropion HCl 300 mg tablet extended release 24 hr 300 mg PO DAILY 90 Days Qty: 90 1RF atorvastatin 40 mg tablet 40 mg PO BEDTIME 90 Days Qty: 90 1RF naltrexone 50 mg tablet 1 tab PO DAILY lidocaine 5 % adhesive patch,medicated 1 patch topical DAILY omeprazole 20 mg capsule,delayed release(DR/EC) 1 cap PO DAILY naproxen 500 mg tablet 1 tab PO BID PRN (Reason: Pain) vitamin B complex [Vitamins B Complex] Capsule 1 cap DAILY doxycycline hyclate 100 mg tablet 100 mg PO BID 7 Days Qty: 14 0RF cyclobenzaprine 10 mg tablet 10 mg PO Q8H Qty: 20 0RF prednisone 20 mg tablet 40 mg PO DAILY Qty: 10 0RF tramadol 50 mg tablet 50 mg PO Q6H PRN (Reason: pain) Qty: 20 0RF celecoxib [Celebrex] 100 mg capsule 100 mg PO BID 30 Days Qty: 60 4RF gabapentin 400 mg capsule 400 mg PO TID 30 Days Qty: 90 8RF Referrals: Chevy Francisco MD [Physician] - Interventions: ED Discharge Assessment Last Done: 08/09/22 11:55 Print Language: Armenian
[2022-08-09 11:42] VITALS: BP 112/76; PULSE 77; RESP 16; TEMP 36.4; O2SAT 97; BMI 24.8
--- NOTE | 2022-08-09 11:55 | PC.NURSE ---
PT EVALUATED BY PROVIDER IN TRIAGE. PLAN IS FOR DISCHARGE FROM THE TRIAGE AREA. PT AGREEABLE TO PLAN. STATES NO QUESTIONS.
== END 2022-08-09 12:12 | disposition home or self-care (01) ==
LOC: HO.ED 11:54
PROVIDERS: Emergency Provider Emergency Medicine; PCP Internal Medicine
DX: B07.0 Plantar wart (principal); Z87.891 Personal history of nicotine dependence
CPT/HCPCS: 99282; 99283

== ENCOUNTER 2022-09-14 15:25 | Emergency (ER) | payer OTHER, SELFPAY ==
[2022-09-14] VITALS (7 sets, daily range): BP systolic 127–149; BP diastolic 76–88; PULSE 55–85; RESP 11–16; TEMP 36.4; O2SAT 95–98; BMI 23.6
[2022-09-14 15:57] LABS: Hemoglobin 16.1 g/dl (14.0-18.0); Mean Corpuscular HGB Conc 33.5 g/dl (31.0-36.0); Mean Corpuscular Hemoglobin 30.8 pg (27.0-33.0); Platelet Count 381 X10*3/uL (160-400); Red Blood Count 5.22 X10*6/uL (4.60-5.80); Red Cell Distribution Width 13.3 % (11.0-16.0); White Blood Count 15.3 X10*3/uL (4.8-10.8)
[2022-09-14 16:13] LABS: Alanine Aminotransferase 62 U/L (0-40); Albumin Level 4.9 g/dL (3.5-5.0); Alkaline Phosphatase 127 U/L (39-117); Anion Gap 24 (12-20); Aspartate Amino Transferase 55 U/L (5-37); Bilirubin Total 0.9 mg/dL (0.0-1.0); Blood Urea Nitrogen 10 mg/dL (9-16); Calcium 10.3 mg/dL (8.4-10.2); Carbon Dioxide 19 mmol/L (22-29); Chloride 105 mmol/L (96-108); Creatinine Clr Calc Pharmacy 95.3; Estimated Glomerular Filt Rate > 60; Glucose Random 103 mg/dL (60-115); Potassium 4.1 mmol/L (3.3-5.1); Sodium 144 mmol/L (135-145); Total Protein 8.2 g/dL (6.5-8.0)
--- NOTE | 2022-09-14 16:22 | ED.OVERDOSE ---
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 Her nursing patient was found by bystanders to be lethargic and EMS was called. Patient did not receive any Narcan prior to arrival. Patient admits to using 1 bag of heroin and drinking alcohol. Patient is interested in detox resources. He denies any SI or HI. He reports occasional substance use but not daily use. Sometimes he also uses cocaine. He is complaining of feeling generally weak, dizzy with nausea and vomiting. Related Data Home Medications Medication Instructions Recorded Confirmed lidocaine 5 % topical patch 1 patch topical DAILY 12/28/21 08/29/22 naltrexone 50 mg tablet 1 tab PO DAILY 12/28/21 08/29/22 naproxen 500 mg tablet 1 tab PO BID PRN Pain 12/28/21 08/29/22 vitamin B complex (Vitamins B 1 cap DAILY 12/28/21 08/29/22 Complex capsule) Previous Rx's Medication Instructions Recorded atorvastatin 40 mg tablet 40 mg PO BEDTIME 90 days #90 tabs 08/29/22 bupropion HCl 300 mg 24 hr tablet, 300 mg PO DAILY 90 days #90 tabs 08/29/22 extended release celecoxib 100 mg capsule (Celebrex) 100 mg PO BID 30 days #60 caps 08/29/22 omeprazole 20 mg capsule,delayed 20 mg PO DAILY PRN heartburn 30 08/29/22 release days #30 caps Allergies Allergy/AdvReac Type Severity Reaction Status Date / Time No Known Allergies Allergy Verified 08/29/22 09:33 [No Known Allergies*] Review of Systems Review of Systems: Yes all other systems are reviewed and are negative Constitutional: Constitutional: Reports no additional constitutional complaints, Denies body ache(s), Denies chills, Denies fever(s), Denies headache(s) and Reports weakness Eyes: Eyes: Reports no additional eye complaints and Denies change in vision ENT: Reports system reviewed and no additional complaints, except as documented, Reports dizziness, Denies headache(s), Denies nasal congestion, Denies nasal discharge and Denies neck pain Cardiovascular: Cardiovascular: Reports no additional cardiovascular complaints, Denies chest pain, Denies leg edema and Denies dyspnea Respiratory: Respiratory: Reports no additional respiratory complaints, Denies cough and Denies dyspnea Gastrointestinal: Gastrointestinal: Reports no additional gastrointestinal complaints, Denies abdominal pain, Denies diarrhea, Reports nausea and Reports vomiting Genitourinary: Genitourinary: Denies urinary incontinence Musculoskeletal: Musculoskeletal: Reports no additional musculoskeletal complaints, Denies back pain, Denies arthralgias, Denies joint swelling, Denies neck pain, Denies numbness and Denies tingling Integumentary/Breasts: Skin/Breast: Reports system reviewed and no additional complaints, except as docu and Denies rash Neurologic: Reports system reviewed and no additional complaints, except as documented, Denies Abnormal speech present, Reports dizziness, Denies headache(s), Denies numbness, Denies tingling and Reports weakness PMFSH Past Medical History Attestation statement: The following information was validated with the patient. Source: old records reviewed and nursing notes reviewed Medical History Abuse, drug or alcohol Alcoholism Cocaine use disorder GERD (gastroesophageal reflux disease) Headache History of back pain Lumbar radiculopathy Mild recurrent major depression Physical exam Pure hypercholesterolemia Right elbow pain Spondylosis of lumbosacral spine without myelopathy Surgical History History of esophagogastroduodenoscopy (EGD) History of eye surgery History of eye surgery Family History Family History Father Alcoholism Substance use disorder Mother Diabetes Social History Social History Housing: Apartment Alcohol intake: current Alcohol intake frequency: 3 or more drinks per day Patient Tobacco Use Status: Former Tobacco user Tobacco use type: Cigarette Smoked in Last 30 Days: No e-Cigarette/Vaping Use: Never Used Second Hand Smoke Exposure: No Use of substances other than those prescribed or required for medical reasons: Yes Substance Use Type: Heroin Advance Directives: No Advance Directives Information Provided: Yes service: No Current occupational status: unemployed Cognitive needs: No Hearing needs: No Vision needs: No Physical Exam Vital Signs: Vital Signs: Last Vital Signs Temp 97.6 F 09/14/22 20:58 Pulse 85 09/14/22 20:58 Resp 16 09/14/22 20:58 BP 128/84 09/14/22 20:58 Pulse Ox 98 09/14/22 20:58 O2 Del Method Room Air 09/14/22 20:58 BMI result Body Mass Index 23.6 Const: Other: Lethargic, arouses to verbal Orientation/consciousness: patient oriented x3 Limitations: language barrier HEENT: Head: Yes normal to inspection Ears: hearing grossly normal bilaterally General nose exam: Normal external nose present Face and sinus: Yes normal facial exam Mouth: Normal oral and palatal mucosa present Throat: Yes posterior oropharynx normal Eyes: General: appearance normal, both eyes and all related structures Pupils: Equal, round and reactive pupils present Neck: Neck: Yes normal visual inspection Chest: Chest palpation & inspection: normal inspection of the chest Resp: Effort & Inspection: normal respiratory effort Auscultation: clear to auscultation bilaterally Cardio: Rate: regular rate Rhythm: regular rhythm Peripheral pulses: Peripheral pulses 2+ throughout GI: Inspection: Yes normal to inspection Palpation (GI): Soft to palpation and nontender Auscultation: normal bowel sounds Back/Spine/Pelvis: Thoracic/Lumbar Spine: thoracic and lumbar spine normal to inspection Skin: General skin exam: no rashes or lesions noted Neuro: General: patient oriented x3, moves all extremities and no focal motor deficits Cranial nerves: Yes Equal, round and reactive pupils present Cognition (Neuro): normal cognition Speech: No Abnormal speech present Motor exam (neuro): 5/5 motor strength present throughout Extrem: General: Yes normal to inspection Course Course Course Narrative: Patient met with the care team. There are no available detox beds. Plan is for discharge with resources provided. Patient is walking with a steady gait. Patient has tolerated p.o. with no additional vomiting episodes. Next sign reviewed labs. Patient has mild leukocytosis which is likely reactive. No fever, source of infection. Reviewed worrisome signs and symptoms with the patient when to return to the emergency room. Comfortable plan for discharge home. Medications Administered Discontinued Medications Generic Name Dose Route Start Last Admin Trade Name Freq PRN Reason Stop Dose Admin Ondansetron HCl 4 mg 09/14/22 16:21 09/14/22 16:26 Ondansetron Odt 4 Mg Tab.Rapdis TRANSLINGU 09/14/22 16:22 4 mg ONCE ONE Administration Medical Decision Making Medical Decision Making MDM Narrative: 52-year-old male with a history of polysubstance use here seeking detox. Patient reports using heroin and drinking alcohol prior to arrival. Patient is lethargic but arouses to verbal and answers all questions appropriately with a public records officer. Patient denies SI or HI. Patient is complaining of generalized weakness, dizziness, nausea and vomiting. Vitals are stable Will obtain labs, drug screen, EKG Patient be given sublingual Zofran, then p.o. trial Will need SUDE once medically cleared Differential Diagnosis Differential Diagnoses: The differential diagnosis associated with the presentation includes Polysubstance use Lab Data [facility] Lab Attestation statement: I reviewed the patient's lab results. 09/14/22 15:48 09/14/22 15:48 Labs: Lab Results 09/14/22 09/14/22 Range/Units 15:48 15:48 WBC 15.3 H (4.8-10.8) X10*3/uL RBC 5.22 (4.60-5.80) X10*6/uL Hgb 16.1 (14.0-18.0) g/dl Hct 48.0 (42.0-52.0) % MCV 92.0 (80.0-98.0) fL MCH 30.8 (27.0-33.0) pg MCHC 33.5 (31.0-36.0) g/dl RDW 13.3 (11.0-16.0) % Plt Count 381 (160-400) X10*3/uL MPV 9.0 L (9.4-12.4) fL Absolute Nucleated RBC 0.000 (0.0-0.012) X10*3/uL Nucleated RBC % (auto) 0.0 (0.0-0.2) /100WBC Sodium 144 (135-145) mmol/L Potassium 4.1 (3.3-5.1) mmol/L Chloride 105 (96-108) mmol/L Carbon Dioxide 19 L (22-29) mmol/L Anion Gap 24 H (12-20) BUN 10 (9-16) mg/dL Creatinine 0.75 (0.5-1.4) mg/dL Estim Creat Clear Calc 95.3 Estimated GFR > 60 Random Glucose 103 (60-115) mg/dL Calcium 10.3 H (8.4-10.2) mg/dL Total Bilirubin 0.9 (0.0-1.0) mg/dL AST 55 H (5-37) U/L ALT 62 H (0-40) U/L Alkaline Phosphatase 127 H (39-117) U/L Total Protein 8.2 H (6.5-8.0) g/dL Albumin 4.9 (3.5-5.0) g/dL Ethyl Alcohol 25 mg/dL Independent Interpretation I performed an independent interpretation of an: EKG Interpretation: I independently reviewed the EKG which shows normal sinus rhythm with a rate of 60, normal TX, normal QRS, normal QT Discharge Plan Discharge Clinical Impression: Polysubstance (including opioids) dependence, daily use Patient Disposition: Home, Self-Care Instructions: Polysubstance Abuse (ED) Additional Instructions: We did look for a detox bed for you today but there is not 1 available. You [facility] with [facility] They have walk-in hours Friday through Friday 10-12 Hoy buscamos luz cama de desintoxicaci?n para usted, mark no hay ninguna disponible. Puede realizar un seguimiento en [facility]. Tienen horario de atenci?n de lunes a viernes de 10 a 12 Prescriptions: No Action naltrexone 50 mg tablet 1 tab PO DAILY lidocaine 5 % adhesive patch,medicated 1 patch topical DAILY naproxen 500 mg tablet 1 tab PO BID PRN (Reason: Pain) vitamin B complex [Vitamins B Complex] Capsule 1 cap DAILY atorvastatin 40 mg tablet 40 mg PO BEDTIME 90 Days Qty: 90 1RF bupropion HCl 300 mg tablet extended release 24 hr 300 mg PO DAILY 90 Days Qty: 90 1RF celecoxib [Celebrex] 100 mg capsule 100 mg PO BID 30 Days Qty: 60 4RF omeprazole 20 mg capsule,delayed release(DR/EC) 20 mg PO DAILY PRN (Reason: heartburn) 30 Days Qty: 30 0RF Referrals: Po,Leighton Martínez MD [Primary Care Provider] - 1 week Print Language: Slovak
[2022-09-14] MEDS: Ondansetron ODT 4 MG TAB.RAPDIS TRANSLINGU (16:26)
--- NOTE | 2022-09-14 16:32 | ECG_ITS ---
Test Reason : dizziness Blood Pressure : / mmHG Vent. Rate : 060 BPM Atrial Rate : 060 BPM P-R Int : 160 ms QRS Dur : 084 ms QT Int : 448 ms P-R-T Axes : -04 -07 035 degrees QTc Int : 448 ms Normal sinus rhythm Normal ECG When compared with ECG of 28-DEC-2021 21:52, No significant change was found Referred By: Alicia Eng Electronically Signed By:Rigoberto Dunbar
[2022-09-14 16:49] LABS: Ethanol 25 mg/dL
[2022-09-15] MEDS: Naloxone HCl Nasal TAKE HOME 4 MG SPRAY NOSTRILALT (01:28)
== END 2022-09-15 01:31 | disposition home or self-care (01) ==
PROVIDERS: Emergency Provider Emergency Medicine; PCP Internal Medicine
DX: F11.20 Opioid dependence, uncomplicated (principal); F19.20 Other psychoactive substance dependence, uncomplicated; F10.20 Alcohol dependence, uncomplicated; Y90.1 Blood alcohol level of 20-39 mg/100 ml; R53.83 Other fatigue; E78.00 Pure hypercholesterolemia, unspecified; Z79.02 Long term (current) use of antithrombotics/antiplatelets; Z79.899 Other long term (current) drug therapy
CPT/HCPCS: 36415; 80053; 80307; 85027; 93005; 99284; 99285

== ENCOUNTER 2022-10-21 08:42 | Outpatient (REF) | payer OTHER, SELFPAY ==
[2022-10-21 09:52] LABS: Alanine Aminotransferase 139 U/L (0-40); Albumin Level 4.2 g/dL (3.5-5.0); Alkaline Phosphatase 96 U/L (39-117); Anion Gap 13 (12-20); Aspartate Amino Transferase 73 U/L (5-37); Bilirubin Total 0.6 mg/dL (0.0-1.0); Blood Urea Nitrogen 13 mg/dL (9-16); Calcium 9.4 mg/dL (8.4-10.2); Carbon Dioxide 25 mmol/L (22-29); Chloride 106 mmol/L (96-108); Cholesterol 208 mg/dL; Estimated Glomerular Filt Rate > 60; Glucose Fasting 93 mg/dL (60-99); HDL Cholesterol 67 mg/dL; LDL Cholesterol Calculated 127 mg/dl; Potassium 3.3 mmol/L (3.3-5.1); Sodium 141 mmol/L (135-145); Total Protein 7.1 g/dL (6.5-8.0); Triglycerides 73 mg/dL
== END 2022-10-21 08:43 | disposition home or self-care (01) ==
LOC: HO.LAB 08:42
PROVIDERS: PCP Internal Medicine; Visit Provider Internal Medicine
DX: E78.5 Hyperlipidemia, unspecified (principal); E78.00 Pure hypercholesterolemia, unspecified
CPT/HCPCS: 36415; 80053; 80061

== ENCOUNTER 2022-11-23 11:30 | Emergency (ER) | payer MEDICAID, SELFPAY ==
--- NOTE | 2022-11-23 | ECG_ITS ---
Test Reason : DIZZINESS Blood Pressure : / mmHG Vent. Rate : 061 BPM Atrial Rate : 061 BPM P-R Int : 174 ms QRS Dur : 086 ms QT Int : 426 ms P-R-T Axes : 035 -12 029 degrees QTc Int : 428 ms Normal sinus rhythm Normal ECG When compared with ECG of 14-SEP-2022 16:35, No significant change was found Referred By: Generic ED Physician Electronically Signed By:LUIS MIGUEL MENSAH
--- NOTE | ~2022-11-23 | CT_ITS ---
EXAMINATION: CT brain and CT cervical spine without IV contrast. COMPARISON: Neck pain and dizziness. COMPARISON: CT brain and CT cervical spine 07/09/2021 TECHNIQUE: 5 mm thin axial and reformatted 2 mm thin sagittal and coronal images of brain were obtained. Subsequently axial 3 mm thin and reformatted 2 mm thin sagittal and coronal images of cervical spine were obtained. DLP 1055mGy/cm. This CT examination was performed using dose optimization technique as appropriate, variously including the following: Automated exposure control Adjustment of MA and/or KV according to patient size(this includes techniques or standardized protocols for targeted exams where dose is matched to indication/reason for exam; extremities or head. Use of iterative reconstruction techniques. FINDINGS: BRAIN: There is no acute intra-axial, extra-axial bleed, masses or midline shift. There is no acute infarction evolution. There is no edema. Blake to white matter differentiation is maintained. The lateral ventricles are symmetrical in size and configuration without enlargement. Bone windows reveal no calvarial abnormality. There is no scalp soft tissue abnormality. Bilateral paranasal sinuses and mastoid air cells are well-aerated. Cervical spine: There is normal cervical lordosis. The vertebral heights and alignment is normal. There is loss of C3-C4, C4-C5, C5-C6 and C6-C7 disc heights with mild ventral and posterior spondylosis. There is almost C3-for disc fusion The craniovertebral junction and the C1-C2 alignment is normal. There is no visible acute fracture, dislocation or subluxation seen. The prevertebral and paravertebral soft tissues are normal. The airways widely patent. The lung apices are clear. CT/CT cervical spine wo IV con IMPRESSION: No acute intracranial process seen. Degenerative disc changes with spondylosis. No visible acute fracture or dislocation seen. There is almost C3-4 disc fusion.
[2022-11-23 11:35] VITALS: BP 138/91; PULSE 74; RESP 16; TEMP 36.3; O2SAT 96; BMI 23.6
[2022-11-23 11:48] LABS: Hematocrit 43.9 % (42.0-52.0); Hemoglobin 15.2 g/dl (14.0-18.0); Mean Corpuscular HGB Conc 34.6 g/dl (31.0-36.0); Mean Corpuscular Hemoglobin 31.3 pg (27.0-33.0); Mean Corpuscular Volume 90.3 fL (80.0-98.0); Mean Platelet Volume 8.8 fL (9.4-12.4); Platelet Count 306 X10*3/uL (160-400); Red Blood Count 4.86 X10*6/uL (4.60-5.80); Red Cell Distribution Width 12.4 % (11.0-16.0); White Blood Count 7.3 X10*3/uL (4.8-10.8)
[2022-11-23 12:00] LABS: Anion Gap 12 (12-20); Blood Urea Nitrogen 6 mg/dL (9-16); Calcium 10.5 mg/dL (8.4-10.2); Carbon Dioxide 25 mmol/L (22-29); Chloride 107 mmol/L (96-108); Creatinine Clr Calc Pharmacy 89.4; Estimated Glomerular Filt Rate > 60; Glucose Random 92 mg/dL (60-115); Potassium 3.8 mmol/L (3.3-5.1); Sodium 140 mmol/L (135-145)
--- NOTE | 2022-11-23 12:05 | ED.DIZZY ---
HPI - Dizziness General Chief Complaint: Dizziness Stated Complaint: neck pain headache Time Seen by Provider: 11/23/22 13:20 Source: patient and old records reviewed Mode of arrival: ambulatory Limitations: no limitations History of Present Illness HPI Narrative: 52 yo male with PMH of GERD, substance abuse reports L sided headache and neck pain for 2 weeks started at rest no fevers worse with movements no trauma not on blood thinners denies IVDA at this time. He only sniffs heroin and cocaine. He notes he only tried tylenol once for his pain. He comes in as the pain in his neck and head still hurt and he doesn't know why he has no n/v photophobia, numbness or weakness. He has not had a headache for this long. no URI symptoms. no neck injury or manipulation prior to this MD elicited complaint: other (headache/neck pain) Onset (ago): week(s) (2) Timing: gradual onset Severity: moderate Description: other (pain) Context: other (hurts all the time or when he moves his neck) History of similar symptoms: Yes (but milder) Exacerbating factors: other (touching his neck or head) Relieving factors: remaining still Associated symptoms: other (neck pain) Related Data Home Medications Medication Instructions Recorded Confirmed lidocaine 5 % topical patch 1 patch topical DAILY 12/28/21 08/29/22 naltrexone 50 mg tablet 1 tab PO DAILY 12/28/21 08/29/22 naproxen 500 mg tablet 1 tab PO BID PRN Pain 12/28/21 08/29/22 vitamin B complex (Vitamins B 1 cap DAILY 12/28/21 08/29/22 Complex capsule) Previous Rx's Medication Instructions Recorded atorvastatin 40 mg tablet 40 mg PO BEDTIME 90 days #90 tabs 08/29/22 bupropion HCl 300 mg 24 hr tablet, 300 mg PO DAILY 90 days #90 tabs 08/29/22 extended release celecoxib 100 mg capsule (Celebrex) 100 mg PO BID 30 days #60 caps 08/29/22 omeprazole 20 mg capsule,delayed 20 mg PO DAILY PRN heartburn 30 09/26/22 release days #30 caps gabapentin 100 mg capsule 100 mg PO TID 30 days #90 caps 10/21/22 cyclobenzaprine 10 mg tablet 10 mg PO TID PRN muscle spasm #20 11/23/22 tabs lidocaine 5 % topical patch 1 patch topical DAILY #30 ea 11/23/22 Allergies Allergy/AdvReac Type Severity Reaction Status Date / Time No Known Allergies Allergy Verified 11/23/22 11:35 [No Known Allergies*] Review of Systems Review of Systems: Constitutional : No Fever, No Chills, No Fatigue ENT/Mouth : No sore throat, No Rhinorrhea Eyes: No Eye Pain, No Swelling, No Redness Cardiovascular : No Chest Pain, No SOB, No Dyspnea on Exertion Respiratory : No Cough, No Sputum Gastrointestinal : No Nausea, No Vomiting, No Diarrhea, No abdominal Pain Genitourinary : No Dysuria, No Urinary Frequency, No Hematuria, Musculoskeletal : No joint pain, No Myalgias, No Joint Swelling, pos neck pain Skin : No Skin Lesions, No rash Neuro : No Weakness, No Numbness, No Dizziness, positive Headache Psych : No Anxiety/Panic, No Depression Heme/Lymph: No Bruising, No Bleeding,No Lymphadenopathy Endocrine : No Polyuria, No Polydipsia All other systems reviewed and are negative [facility] Past Medical History Attestation statement: The following information was validated with the patient. Medical History Abuse, drug or alcohol Alcoholism Cocaine use disorder GERD (gastroesophageal reflux disease) Headache History of back pain Lumbar radiculopathy Mild recurrent major depression Physical exam Pure hypercholesterolemia Right elbow pain Spondylosis of lumbosacral spine without myelopathy Surgical History History of esophagogastroduodenoscopy (EGD) History of eye surgery History of eye surgery Family History Family History Father Alcoholism Substance use disorder Mother Diabetes Social History Social History Housing: Apartment Alcohol intake: current Alcohol intake frequency: holidays/special occasions only Patient Tobacco Use Status: Former Tobacco user Tobacco use type: Cigarette Smoked in Last 30 Days: No e-Cigarette/Vaping Use: Never Used Second Hand Smoke Exposure: No Use of substances other than those prescribed or required for medical reasons: Yes Substance Use Type: Crack/Cocaine Advance Directives: No Advance Directives Information Provided: No service: No Current occupational status: unemployed Cognitive needs: No Hearing needs: No Vision needs: No Physical Exam Vital Signs: Vital Signs: Last Vital Signs Temp 98.4 F 11/23/22 13:01 Pulse 69 11/23/22 13:01 Resp 18 11/23/22 13:01 BP 124/87 11/23/22 13:01 Pulse Ox 98 11/23/22 13:01 O2 Del Method Room Air 11/23/22 13:01 BMI result Body Mass Index 23.6 Appearance: Alert. Oriented X3. No acute distress. watching TV and playing on phone Eyes: Pupils equal, round and reactive to light. ENT: Pharynx normal. TMs normal bilaterally Neck: L trapezius ttp some ttp along lower cervical spine CVS: Normal heart rate and rhythm. Pulses normal. Respiratory: No respiratory distress. Breath sounds normal. Abdomen: Soft and nontender. Skin: Skin warm and dry. Normal skin color. Normal skin turgor. Extremities: No lower extremity edema. No calf ttp Neuro: Oriented X 3. No motor deficit. No sensory deficit. Course Course Course Narrative: This is a rapid medical exam. Deferred additional hpi, ros, pe to primary provider. 52 yo male with pmh chronic low back pain, depression, HLD, anxiety, alcohol use disorder, crack cocaine (denies IVDA) here with complaints of left sided headache with radiation x 2 weeks with dizziness with no known injury or trauma. Will obtain labs, CT head/cervical spine. VSS Reevaluation(s) Reevaluation #1: ESR 7 doubt GCA and doubt epidural abscess Medications Administered Discontinued Medications Generic Name Dose Route Start Last Admin Trade Name Francisco Jq PRN Reason Stop Dose Admin Cyclobenzaprine HCl 10 mg 11/23/22 13:35 11/23/22 13:47 Cyclobenzaprine Hcl 10 Mg Tablet PO 11/23/22 13:36 10 mg ONCE ONE Administration Ketorolac Tromethamine 30 mg 11/23/22 13:35 11/23/22 13:46 Ketorolac Tromethamine 30 Mg/Ml Vial IM 11/23/22 13:36 30 mg ONCE ONE Administration Lidocaine 1 patch 11/23/22 13:35 11/23/22 13:45 Lidocaine 4 % Patch Adh..Patch TRANSDERMA 11/23/22 13:36 1 patch ONCE ONE Administration Protocol Medical Decision Making Medical Decision Making MDM Narrative: 52 yo male with PMH of GERD, substance abuse reports L sided headache and neck pain for 2 weeks here with c/o L sided headache and neck pain with normal neuro exam and UE neuro exam intact no numbness or weakness - symptoms x 2 weeks no ENT findings and no jaw claudication. 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 I am sending ESR, pain control ordered but he is smiling playing on phone and watching TV in no distress Differential Diagnosis Differential Diagnoses: The differential diagnosis associated with the presentation includes headache, GCA, tension, neck arthritis Admission/Observation Consideration of admission/observation: Escalation of care including admission/observation considered normal exam pain improved can be managed as outpatient Lab Data MDM Lab Attestation statement: I reviewed the patient's lab results. 11/23/22 11:42 11/23/22 11:42 Labs: Lab Results 11/23/22 11/23/22 11/23/22 Range/Units 11:42 11:42 11:42 WBC 7.3 (4.8-10.8) X10*3/uL RBC 4.86 (4.60-5.80) X10*6/uL Hgb 15.2 (14.0-18.0) g/dl Hct 43.9 (42.0-52.0) % MCV 90.3 (80.0-98.0) fL MCH 31.3 (27.0-33.0) pg MCHC 34.6 (31.0-36.0) g/dl RDW 12.4 (11.0-16.0) % Plt Count 306 (160-400) X10*3/uL MPV 8.8 L (9.4-12.4) fL Absolute Nucleated RBC 0.000 (0.0-0.012) X10*3/uL Nucleated RBC % (auto) 0.0 (0.0-0.2) /100WBC ESR 7 (0-15) MM/HR Sodium 140 (135-145) mmol/L Potassium 3.8 (3.3-5.1) mmol/L Chloride 107 (96-108) mmol/L Carbon Dioxide 25 (22-29) mmol/L Anion Gap 12 (12-20) BUN 6 L (9-16) mg/dL Creatinine 0.80 (0.5-1.4) mg/dL Estim Creat Clear Calc 89.4 Estimated GFR > 60 Random Glucose 92 (60-115) mg/dL Calcium 10.5 H D (8.4-10.2) mg/dL Independent Interpretation I performed an independent interpretation of an: EKG and CT Scan (no ICH) Interpretation: Rate: 61 Rhythm: NSR [place]: left Normal P waves. Normal PHUC. Normal QRS complex. ST T wave : no STACY, normal qTC: normal prior studies: no acute ischemia The study has been interpreted contemporaneously by me. . Radiology Impression Discussion of test interpretation with radiology: I have reviewed the radiologist's reading. External Record Review External record reviewed: Inpatient record Prescription Management I considered prescription management with: Other Discharge Plan Discharge Clinical Impression: Cervical disc disease Headache Qualifiers: Headache type: unspecified Headache chronicity pattern: acute headache Intractability: not intractable Qualified Code(s): R51.9 - Headache, unspecified Patient Disposition: Home, Self-Care Instructions: Acute Headache (ED), Neck Pain (ED) Additional Instructions: your cervical spine has significant arthritis and disc disease this could be the cause of your pain please follow up with your doctor to get referral to spine doctor. return for increased pain, numbness, weakness or any other concerns. [place] cervical tiene artritis significativa y enfermedad del disco, esta podr?a ser la causa de manning dolor, nova un seguimiento con manning m?dico para que lo remita a un m?dico de columna. regrese si aumenta el dolor, el entumecimiento, la debilidad o cualquier otra inquietud. Prescriptions: New cyclobenzaprine 10 mg tablet 10 mg PO TID PRN (Reason: muscle spasm) Qty: 20 0RF lidocaine 5 % adhesive patch,medicated 1 patch topical DAILY Qty: 30 0RF Rx Instructions: leave on most painful area for up to 12 hrs No Action omeprazole 20 mg capsule,delayed release(DR/EC) 20 mg PO DAILY PRN (Reason: heartburn) 30 Days Qty: 30 0RF gabapentin 100 mg capsule 100 mg PO TID 30 Days Qty: 90 2RF naltrexone 50 mg tablet 1 tab PO DAILY lidocaine 5 % adhesive patch,medicated 1 patch topical DAILY naproxen 500 mg tablet 1 tab PO BID PRN (Reason: Pain) vitamin B complex [Vitamins B Complex] Capsule 1 cap DAILY atorvastatin 40 mg tablet 40 mg PO BEDTIME 90 Days Qty: 90 1RF bupropion HCl 300 mg tablet extended release 24 hr 300 mg PO DAILY 90 Days Qty: 90 1RF celecoxib [Celebrex] 100 mg capsule 100 mg PO BID 30 Days Qty: 60 4RF Print Language: [place]
[2022-11-23 13:01] VITALS: BP 124/87; PULSE 69; RESP 18; TEMP 36.9; O2SAT 98
[2022-11-23] MEDS: Lidocaine 4 % Patch ADH..PATCH 1 PATCH TRANSDERMA (13:45)
[2022-11-23] MEDS: Ketorolac Tromethamine 30 MG/ML VIAL IM (13:46)
[2022-11-23] MEDS: Cyclobenzaprine HCl 10 MG TABLET PO (13:47)
[2022-11-23 15:00] LABS: Erythrocyte Sedimentation Rate 7 MM/HR (0-15)
[2022-11-23 15:16] VITALS: BP 140/90; PULSE 69; RESP 18; O2SAT 99
== END 2022-11-23 15:24 | disposition home or self-care (01) ==
PROVIDERS: Emergency Provider Emergency Medicine; PCP Internal Medicine
DX: M50.320 Other cervical disc degeneration, mid-cervical region, unspecified level (principal); M47.812 Spondylosis without myelopathy or radiculopathy, cervical region; E78.00 Pure hypercholesterolemia, unspecified; Z87.891 Personal history of nicotine dependence; F19.10 Other psychoactive substance abuse, uncomplicated
CPT/HCPCS: 36415; 70450; 72125; 80048; 85027; 85652; 93005; 96372; 99284; 99285; J1885

== ENCOUNTER 2022-12-05 13:49 | Outpatient (AMB) | payer OTHER, SELFPAY ==
[2022-12-05 13:52] VITALS: BP 126/80; BMI 22.7
--- NOTE | 2022-12-05 13:52 | A.OFFPC_ITS ---
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: No Accompanied by: Self / Same As Patient Allergies No Known Allergies [No Known Allergies*] Allergy (Verified 12/05/22 14:16) Medication List - Last Reconciled 12/05/22 by Kaley Ramirez MD atorvastatin 40 mg PO BEDTIME 90 days bupropion HCl 300 mg PO DAILY 90 days celecoxib (Celebrex) 100 mg PO BID 30 days cyclobenzaprine 10 mg PO TID PRN gabapentin 100 mg PO TID 30 days lidocaine 5% 1 patch topical DAILY lidocaine 5% 1 patch topical DAILY naltrexone 1 tab PO DAILY naproxen 1 tab PO BID PRN omeprazole 20 mg PO DAILY PRN 30 days vitamin B complex (Vitamins B Complex capsule) 1 cap DAILY Tobacco use date assessed: 08/29/22 Dental Screening Dental Screen Date: 12/05/22 Did you have a dental visit in the last 12 months?: No Did you have a dental problem in the last 6 months where you did not have access to dental care?: No Was dental information given to patient?: Yes HPI HPI Comments History of Present Illness Details This is a 52-year-old male with mild recurrent major depression, alcoholism and current poly substance use daily that comes for his physical exam. On bupropion for depression. He was advised to cut down and drinking alcohol and declines any counseling now. He use inhaled cocaine daily. Last colonoscopy was 2020 was normal. Has chronic low back pain and is not able to work. [facility] Medical History (Updated 12/05/22 @ 14:24 by Kaley Ramirez MD) Abuse, drug or alcohol Alcoholism Cocaine use disorder GERD (gastroesophageal reflux disease) Headache History of back pain Lumbar radiculopathy Mild recurrent major depression Physical exam Pure hypercholesterolemia Right elbow pain Spondylosis of lumbosacral spine without myelopathy Surgical History History of esophagogastroduodenoscopy (EGD) History of eye surgery History of eye surgery Family History Father Alcoholism Substance use disorder Mother Diabetes Social History (Updated 12/05/22 @ 14:19 by Kaley Ramirez MD) Housing: Apartment Alcohol intake: current Alcohol intake frequency: 0-2 drinks per day Alcohol type: beer and hard liquor Patient Tobacco Use Status: Former Tobacco user Tobacco use type: Cigarette e-Cigarette/Vaping Use: Never Used Second Hand Smoke Exposure: No Substance Use Type: Crack/Cocaine service: No Current occupational status: unemployed Cognitive needs: No Hearing needs: No Vision needs: No Questionnaire Thrive Questionnaire Date Thrive assessed: 08/29/22 KAITY-7 AMB Questionnaire KAITY-7 Date KAITY - 7 assessed: 08/29/22 Source: Developed by Drs. Andrew Olson, Anuradha Keith, Qamar Ortiz and colleagues, with an educational cj from [employer]. Review of Systems Const All systems reviewed & are unremarkable except as noted in HPI and below Eyes Reports no additional complaints, Denies change in vision and Denies other visual disturbances Card Denies chest pain at rest, Denies chest pain with activity, Denies edema, Denies irregular heart rhythm, Denies claudication, Denies dyspnea, Denies dyspnea on exertion, Denies orthopnea, Denies paroxysmal nocturnal dyspnea and Denies slow heart rate Resp Denies cough, Denies dyspnea and Denies dyspnea on exertion GI Denies abdominal pain, Denies change in bowel habits, Denies excessive flatus, Denies nausea and Denies vomiting Denies urinary hesitancy, Denies urinary incontinence and Denies urinary urgency Musc Denies abnormal gait, Denies atrophy, Denies deformity and Denies limited range of motion Skin/Breast Denies bleeding lesions, Denies changing lesions and Denies rash Neuro Denies abnormal gait and Denies lack of coordination Physical exam (Primary Care) Vital Signs: Last Vital Signs BP 126/80 12/05/22 13:52 BMI result Body Mass Index 22.7 Tobacco/Smoking Status: Tobacco use Status Tobacco use date assessed 08/29/22 12/05/22 13:56 Patient Tobacco Use Status Former Tobacco user 12/05/22 14:19 Tobacco use type Cigarette 12/05/22 14:19 e-Cigarette/Vaping Use Never Used 12/05/22 14:19 Thrive Assessment: Date of Thrive Assessment Date Thrive assessed 05/25/23 08/31/23 13:56 Const Orientation/consciousness: patient oriented x3 HENNV Head: Yes normal to inspection, Yes normocephalic and Yes atraumatic Ears: external ears normal Eyes General: appearance normal, both eyes and all related structures Eyelids: Yes eyelids normal Conjunctivae: conjunctivae normal Neck Neck: Yes normal visual inspection and Yes supple Resp Effort & Inspection: normal respiratory effort Auscultation: clear to auscultation bilaterally Cardio Jugular venous distension: no JVD Rate: regular rate Rhythm: regular rhythm Heart sounds: S1 normal heart sound present and S2 normal heart sound present GI Inspection: Yes normal to inspection Palpation (GI): Soft to palpation and nontender Auscultation: normal bowel sounds Skin General skin exam: no rashes or lesions noted Neuro General: patient oriented x3 and no focal motor deficits Extrem General: Yes full ROM Psych Appearance: grossly normal Assessment and Plan Assessment & Plan (1) Physical exam: Code(s): Z00.00 - Encounter for general adult medical examination without abnormal findings Plan: Repeat in a year (2) Mild recurrent major depression: Code(s): F33.0 - Major depressive disorder, recurrent, mild Plan: Continue bupropion (3) Polysubstance (including opioids) dependence, daily use: Code(s): F11.20 - Opioid dependence, uncomplicated; F19.20 - Other psychoactive substance dependence, uncomplicated Plan: Advised to seek counseling. (4) Alcoholism: Code(s): F10.20 - Alcohol dependence, uncomplicated Plan: Advised to cut down on drinking alcohol. Use counseling. Orders: Orders Calcium, Ionized Today E83.52 - Hypercalcemia Comprehensive Met. Panel Today E83.52 - Hypercalcemia PTHI Today E83.52 - Hypercalcemia Calcium, Random Urine Today E83.52 - Hypercalcemia Hepatitis B Core Antibody Today F11.20 - Opioid dependence, uncomplicated, F19.20 - Other psychoactive substance dependence, uncomplicated HIV Ab/Ag Today F11.20 - Opioid dependence, uncomplicated, F19.20 - Other psychoactive substance dependence, uncomplicated Vitamin D 25-OH Total Today E55.9 - Vitamin D deficiency, unspecified, E83.52 - Hypercalcemia Medications: Discontinued gabapentin Discontinued Reason: No Longer Medically Relevant 100 mg PO TID 30 days 90 caps 2RF Coding Level of Care Code Est Pt Prev Care 40-64y([id number]) Diagnoses Physical exam Z00.00 Mild recurrent major depression F33.0 Polysubstance (including opioids) dependence, daily use F11.20; F19.20 Alcoholism F10.20 Time Spent (min) 31
== END 2022-12-05 14:24 | disposition home or self-care (01) ==
PROVIDERS: PCP Internal Medicine; Visit Provider Internal Medicine
DX: Z00.00 Encounter for general adult medical examination without abnormal findings (principal); F33.0 Major depressive disorder, recurrent, mild; F19.20 Other psychoactive substance dependence, uncomplicated; F11.20 Opioid dependence, uncomplicated; F10.20 Alcohol dependence, uncomplicated
CPT/HCPCS: 99396

== ENCOUNTER 2022-12-26 00:34 | Emergency (ER) | payer OTHER, SELFPAY ==
--- NOTE | ~2022-12-26 | CT_ITS ---
EXAMINATION: NONCONTRAST HEAD CT NONCONTRAST CERVICAL SPINE CT INDICATION INFORMATION: Altered mental status, possible fall COMPARISON: 11/23/2022 TECHNIQUE: Separate noncontrast CT examinations of the head and cervical spine were performed. Coronal head CT images and coronal and sagittal cervical spine images were created at the technologist workstation. DLP: 948 mGy-cm DOSE LOWERING TECHNIQUES: This CT examination was performed using dose optimization techniques as appropriate, variously including the following: - Automated exposure control - Adjustment of mA and/or kV according to patient size (this includes techniques or standardized protocols for targeted exams were dose is matched to indication/reason for exam; i.e. extremities or head) - Use of iterative reconstruction technique FINDINGS: Head: There is no evidence of acute intracranial hemorrhage or territorial infarction. No abnormal mass-effect or midline shift is seen. Blake to white matter differentiation is well preserved. No extra-axial fluid collections are identified. The ventricles are normal in size. There is no abnormal attenuation within the brain parenchyma. The osseous structures and soft tissues are normal. The mastoid air cells and visualized portions of the paranasal sinuses are well-aerated. Cervical spine: There is anatomic alignment of the vertebral bodies and posterior elements. Vertebral body heights are maintained. There is degenerative change at the atlantodens articulation. There is partial ankylosis across C3-C4. There is disc space narrowing throughout much of the remaining cervical spine along with endplate osteophytes. No evidence of acute fracture. No prevertebral soft tissue swelling. Visualized portions of the lung apices are unremarkable. The thyroid gland is unremarkable. CT/CT cervical spine wo IV con IMPRESSION: HEAD: No acute intracranial findings. CERVICAL SPINE: No acute findings identified. Degenerative changes as noted above.
[2022-12-26 00:39] VITALS: BP 113/74; BP 148/98; PULSE 102; PULSE 92; RESP 16; TEMP 35.1; O2SAT 97; O2SAT 98; BMI 23.6
--- NOTE | 2022-12-26 01:28 | ED.PSYCH ---
HPI - Psych General Chief Complaint: ETOH/Substance Use Stated Complaint: ETOH Time Seen by Provider: 12/26/22 01:24 Source: EMS Mode of arrival: EMS Limitations: other (Intoxicated) History of Present Illness HPI Narrative: Patient comes to the emergency room for alcohol intoxication. Patient was found by bystanders drinking and vomiting. An ambulance was called. Patient has been awake and vomiting, nonverbal. Patient is still arousable but goes back to sleep. Patient does not have any signs of obvious injury, patient cannot provide any history. Related Data Home Medications Medication Instructions Recorded Confirmed lidocaine 5 % topical patch 1 patch topical DAILY 12/28/21 12/05/22 naltrexone 50 mg tablet 1 tab PO DAILY 12/28/21 12/05/22 naproxen 500 mg tablet 1 tab PO BID PRN Pain 12/28/21 12/05/22 vitamin B complex (Vitamins B 1 cap DAILY 12/28/21 12/05/22 Complex capsule) Previous Rx's Medication Instructions Recorded atorvastatin 40 mg tablet 40 mg PO BEDTIME 90 days #90 tabs 08/29/22 bupropion HCl 300 mg 24 hr tablet, 300 mg PO DAILY 90 days #90 tabs 08/29/22 extended release celecoxib 100 mg capsule (Celebrex) 100 mg PO BID 30 days #60 caps 08/29/22 omeprazole 20 mg capsule,delayed 20 mg PO DAILY PRN heartburn 30 09/26/22 release days #30 caps cyclobenzaprine 10 mg tablet 10 mg PO TID PRN muscle spasm #20 11/23/22 tabs lidocaine 5 % topical patch 1 patch topical DAILY #30 ea 11/23/22 Allergies Allergy/AdvReac Type Severity Reaction Status Date / Time No Known Allergies Allergy Verified 12/26/22 02:31 [No Known Allergies*] Review of Systems Review of Systems: Yes Unobtainable due to mental status PMFSH Past Medical History Medical History Mild recurrent major depression Physical exam Cocaine use disorder GERD (gastroesophageal reflux disease) History of back pain Headache Right elbow pain Pure hypercholesterolemia Lumbar radiculopathy Spondylosis of lumbosacral spine without myelopathy Alcoholism Abuse, drug or alcohol Surgical History History of esophagogastroduodenoscopy (EGD) History of eye surgery History of eye surgery Family History Family History Father Alcoholism Substance use disorder Mother Diabetes Social History Social History (Updated 12/05/22 @ 14:19 by Kaley Ramirez MD) Housing: Apartment Alcohol intake: current Alcohol intake frequency: 3 or more drinks per day Alcohol type: beer and hard liquor Patient Tobacco Use Status: Former Tobacco user Tobacco use type: Cigarette Smoked in Last 30 Days: Yes e-Cigarette/Vaping Use: Never Used Second Hand Smoke Exposure: No Use of substances other than those prescribed or required for medical reasons: Yes Substance Use Type: Crack/Cocaine and Marijuana Substance Use Frequency: Chronic Longstanding Last Used Substance: Just Prior to Admission Advance Directives: No Advance Directives Information Provided: Yes service: No Current occupational status: unemployed Cognitive needs: No Hearing needs: No Vision needs: No Physical Exam Vital Signs: Vital Signs: Last Vital Signs Temp 97.7 F 12/26/22 04:20 Pulse 93 12/26/22 04:34 Resp 18 12/26/22 04:34 BP 112/69 12/26/22 04:34 Pulse Ox 98 12/26/22 04:34 O2 Del Method Room Air 12/26/22 04:34 BMI result Body Mass Index 23.6 Const: Other: Appearance: Alert. Somnolent, easily arousable Eyes: Pupils equal, round and reactive to light. ENT: Pharynx normal. Neck: Normal inspection. Neck supple. No lymph nodes noted. No crepitus CVS: Normal heart rate and rhythm. Pulses normal. Normal S1 and S2 Respiratory: No respiratory distress. Breath sounds normal. No Wheezing. No rales Abdomen: Soft and nontender. No rigidity. No distention. Skin: Skin warm and dry. Normal skin color. Normal skin turgor. Extremities: No lower extremity edema. No Lacerations. No Rash Neuro: Intoxicated, unable to participating cranial nerve assessment Psych: Intoxicated, somnolent Course Course Course Narrative: -all of patient's labs pending and head CT/cervical spine CT -01:44 I was informed that the patient has a rectal temperature of 95.6 degrees, of patient's lab work pending. Patient does not seem to have any obvious source of infection, patient was found outside and is cold, likely hypothermia due to exposure. All of patient's labs pending, this time, blood pressure stable, 113/74, sepsis not suspected. Medications Administered Discontinued Medications Generic Name Dose Route Start Last Admin Trade Name Alisha PRN Reason Stop Dose Admin Sodium Chloride 2,000 mls @ 999 mls/hr 12/26/22 01:44 12/26/22 04:19 Ns IVCONT 12/26/22 03:44 Infused .Q2H1M ONE Infusion Ondansetron HCl 4 mg 12/26/22 01:28 12/26/22 02:05 Ondansetron Hcl 4 Mg/2 Ml Vial IVPUSH 12/26/22 01:29 4 mg ONCE ONE Administration Medical Decision Making Medical Decision Making [facility] Narrative: -my interpretation of head CT: No intracranial bleed -patient's rectal temperature back to normal, warmed with warm blankets -my interpretation of labs: White blood cell count 12.6, likely reactive leukocytosis, urinalysis negative, toxicology positive for alcohol and cocaine -patient's lactic chronically elevated likely secondary to alcohol abuse -wake, alert and oriented x3, stable gait, still somnolent, vital stable, blood pressure 112/69, pulse 69, respirations 18, oxygen saturation 98% on room air. -plan: Metabolize to freedom and discharge Differential Diagnosis Differential Diagnoses: The differential diagnosis associated with the presentation includes (Intracranial bleed, alcohol intoxication, polysubstance abuse concussion) Admission/Observation Consideration of admission/observation: Escalation of care including admission/observation considered (Given the patient's presentation on arrival, patient was considered) Lab Data [facility] Lab Attestation statement: I reviewed the patient's lab results. 12/26/22 01:24 12/26/22 02:13 Labs: Lab Results 12/26/22 12/26/22 12/26/22 Range/Units 01:24 02:13 03:17 WBC 12.6 H (4.8-10.8) X10*3/uL RBC 4.75 (4.60-5.80) X10*6/uL Hgb 14.9 (14.0-18.0) g/dl Hct 44.1 (42.0-52.0) % MCV 92.8 (80.0-98.0) fL MCH 31.4 (27.0-33.0) pg MCHC 33.8 (31.0-36.0) g/dl RDW 12.7 (11.0-16.0) % Plt Count 365 (160-400) X10*3/uL MPV 8.8 L (9.4-12.4) fL Immature Gran % (Auto) 0.2 (0.0-0.4) % Neut % (Auto) 64.0 (45-73) % Lymph % (Auto) 27.6 (20-40) % [place] % (Auto) 7.5 (2-11) % Eos % (Auto) 0.3 (0-4) % Baso % (Auto) 0.4 (0-2) % Lymph # (Auto) 3.5 (1.2-4.9) X10*3/uL [place] # (Auto) 0.9 (0.1-1.2) X10*3/uL Eos # (Auto) 0.0 (0.0-0.4) X10*3/uL Baso # (Auto) 0.1 (0.0-0.2) X10*3/uL Abs Immat Gran (auto) 0.03 (0.00-0.03) X10*3/uL Absolute Neuts (auto) 8.1 (2.0-8.3) x10*3/uL Absolute Nucleated RBC 0.000 (0.0-0.012) X10*3/uL Nucleated RBC % (auto) 0.0 (0.0-0.2) /100WBC Sodium 144 (135-145) mmol/L Potassium 3.5 (3.3-5.1) mmol/L Chloride 107 (96-108) mmol/L Carbon Dioxide 23 (22-29) mmol/L Anion Gap 18 (12-20) BUN 7 L (9-16) mg/dL Creatinine 0.78 (0.5-1.4) mg/dL Estim Creat Clear Calc 91.7 Estimated GFR > 60 Random Glucose 95 (60-115) mg/dL Lactic Acid 3.5 H* (0.5-2.0) mmol/L Calcium 9.4 D (8.4-10.2) mg/dL Magnesium 2.1 (1.6-2.6) mg/dL Total Bilirubin 0.3 (0.0-1.0) mg/dL Direct Bilirubin 0.1 (0.0-0.5) mg/dL AST 24 (5-37) U/L ALT 41 H (0-40) U/L Alkaline Phosphatase 89 (39-117) U/L Total Protein 7.1 (6.5-8.0) g/dL Albumin 4.2 (3.5-5.0) g/dL Lipase 12 (8-78) U/L Urine Color Yellow Urine Appearance Clear Urine pH 5.5 (5.0-9.0) Ur Specific [place] 1.015 (1.005-1.025) Urine Protein Negative (Neg-Trace) mg/dL Urine Glucose (UA) Negative (Negative) mg/dL Urine Ketones Trace (Negative) mg/dL Urine Blood Negative (Negative) Urine Nitrite Negative (Negative) Ur Leukocyte Esterase Negative (Negative) Urine Opiates Screen Not Detected (Not Detect) Urine Fentanyl Screen Not Detected (Not Detect) Ur Barbiturates Screen Not Detected (Not Detect) Ur Phencyclidine Scrn Not Detected (Not Detect) Ur Amphetamines Screen Not Detected (Not Detect) U Benzodiazepines Scrn Not Detected (Not Detect) Urine Cocaine Screen POSITIVE H (Not Detect) U Marijuana (THC) Screen Not Detected (Not Detect) Ethyl Alcohol 283 mg/dL COVID-19 (NATHALIE) Negative (Negative) COVID-19 Clin Com See Note Influenza Type A (MARLENE) Negative (Negative) Influenza Type B (MARLENE) Negative (Negative) Influenza A & B Note See Note 12/26/22 Range/Units 04:13 WBC (4.8-10.8) X10*3/uL RBC (4.60-5.80) X10*6/uL Hgb (14.0-18.0) g/dl Hct (42.0-52.0) % MCV (80.0-98.0) fL MCH (27.0-33.0) pg MCHC (31.0-36.0) g/dl RDW (11.0-16.0) % Plt Count (160-400) X10*3/uL MPV (9.4-12.4) fL Immature Gran % (Auto) (0.0-0.4) % Neut % (Auto) (45-73) % Lymph % (Auto) (20-40) % [place] % (Auto) (2-11) % Eos % (Auto) (0-4) % Baso % (Auto) (0-2) % Lymph # (Auto) (1.2-4.9) X10*3/uL [place] # (Auto) (0.1-1.2) X10*3/uL Eos # (Auto) (0.0-0.4) X10*3/uL Baso # (Auto) (0.0-0.2) X10*3/uL Abs Immat Gran (auto) (0.00-0.03) X10*3/uL Absolute Neuts (auto) (2.0-8.3) x10*3/uL Absolute Nucleated RBC (0.0-0.012) X10*3/uL Nucleated RBC % (auto) (0.0-0.2) /100WBC Sodium (135-145) mmol/L Potassium (3.3-5.1) mmol/L Chloride (96-108) mmol/L Carbon Dioxide (22-29) mmol/L Anion Gap (12-20) BUN (9-16) mg/dL Creatinine (0.5-1.4) mg/dL Estim Creat Clear Calc Estimated GFR Random Glucose (60-115) mg/dL Lactic Acid 3.6 H* (0.5-2.0) mmol/L Calcium (8.4-10.2) mg/dL Magnesium (1.6-2.6) mg/dL Total Bilirubin (0.0-1.0) mg/dL Direct Bilirubin (0.0-0.5) mg/dL AST (5-37) U/L ALT (0-40) U/L Alkaline Phosphatase (39-117) U/L Total Protein (6.5-8.0) g/dL Albumin (3.5-5.0) g/dL Lipase (8-78) U/L Urine Color Urine Appearance Urine pH (5.0-9.0) Ur Specific [place] (1.005-1.025) Urine Protein (Neg-Trace) mg/dL Urine Glucose (UA) (Negative) mg/dL Urine Ketones (Negative) mg/dL Urine Blood (Negative) Urine Nitrite (Negative) Ur Leukocyte Esterase (Negative) Urine Opiates Screen (Not Detect) Urine Fentanyl Screen (Not Detect) Ur Barbiturates Screen (Not Detect) Ur Phencyclidine Scrn (Not Detect) Ur Amphetamines Screen (Not Detect) U Benzodiazepines Scrn (Not Detect) Urine Cocaine Screen (Not Detect) U Marijuana (THC) Screen (Not Detect) Ethyl Alcohol mg/dL COVID-19 (NATHALIE) (Negative) COVID-19 Clin Com Influenza Type A (MARLENE) (Negative) Influenza Type B (MARLENE) (Negative) Influenza A & B Note Independent Interpretation I performed an independent interpretation of an: CT Scan Radiology Impression Discussion of test interpretation with radiology: I have reviewed the radiologist's reading. Radiologist Impression: Head: There is no evidence of acute intracranial hemorrhage or territorial infarction. No abnormal mass-effect or midline shift is seen. Blake to white matter differentiation is well preserved. No extra-axial fluid collections are identified. The ventricles are normal in size. There is no abnormal attenuation within the brain parenchyma. The osseous structures and soft tissues are normal. The mastoid air cells and visualized portions of the paranasal sinuses are well-aerated. Cervical spine: There is anatomic alignment of the vertebral bodies and posterior elements. Vertebral body heights are maintained. There is degenerative change at the atlantodens articulation. There is partial ankylosis across C3-C4. There is disc space narrowing throughout much of the remaining cervical spine along with endplate osteophytes. No evidence of acute fracture. No prevertebral soft tissue swelling. Visualized portions of the lung apices are unremarkable. The thyroid gland is unremarkable. CT/CT head/brain wo IV con IMPRESSION: HEAD: No acute intracranial findings. CERVICAL SPINE: No acute findings identified. Degenerative changes as noted above. Critical Care Time Critical Care Time Critical Care Time: Yes Total Critical Care Time: 60 Attestation: I have personally provided critical care time. Time includes review of lab data, radiology results, discussion with consultants, and monitoring for potential decompensation. Intervention performed as documented. Discharge Plan Discharge Clinical Impression: Alcohol intoxication Patient Disposition: Home, Self-Care Instructions: Alcohol Intoxication (ED) Additional Instructions: Please follow-up with your primary care physician tomorrow. If you have any worsening or new symptoms, please return to the emergency room or call 911 Prescriptions: No Action omeprazole 20 mg capsule,delayed release(DR/EC) 20 mg PO DAILY PRN (Reason: heartburn) 30 Days Qty: 30 0RF naltrexone 50 mg tablet 1 tab PO DAILY lidocaine 5 % adhesive patch,medicated 1 patch topical DAILY naproxen 500 mg tablet 1 tab PO BID PRN (Reason: Pain) vitamin B complex [Vitamins B Complex] Capsule 1 cap DAILY cyclobenzaprine 10 mg tablet 10 mg PO TID PRN (Reason: muscle spasm) Qty: 20 0RF lidocaine 5 % adhesive patch,medicated 1 patch topical DAILY Qty: 30 0RF Rx Instructions: leave on most painful area for up to 12 hrs atorvastatin 40 mg tablet 40 mg PO BEDTIME 90 Days Qty: 90 1RF bupropion HCl 300 mg tablet extended release 24 hr 300 mg PO DAILY 90 Days Qty: 90 1RF celecoxib [Celebrex] 100 mg capsule 100 mg PO BID 30 Days Qty: 60 4RF
[2022-12-26 01:29] LABS: MANUAL DIFF FLAG NO
[2022-12-26 01:32] LABS: Basophils Absolute Auto 0.1 X10*3/uL (0.0-0.2); Basophils Percent Auto 0.4 % (0-2); Eosinophils Percent Auto 0.3 % (0-4); Hematocrit 44.1 % (42.0-52.0); Hemoglobin 14.9 g/dl (14.0-18.0); Imm Gran Abs Auto 0.03 X10*3/uL (0.00-0.03); Imm Gran Pct Auto 0.2 % (0.0-0.4); Lymphocytes Absolute Auto 3.5 X10*3/uL (1.2-4.9); Lymphocytes Percent Auto 27.6 % (20-40); Mean Corpuscular HGB Conc 33.8 g/dl (31.0-36.0); Mean Corpuscular Hemoglobin 31.4 pg (27.0-33.0); Mean Corpuscular Volume 92.8 fL (80.0-98.0); Mean Platelet Volume 8.8 fL (9.4-12.4); Monocytes Absolute Auto 0.9 X10*3/uL (0.1-1.2); Monocytes Percent Auto 7.5 % (2-11); Neutrophils Absolute Auto 8.1 x10*3/uL (2.0-8.3); Platelet Count 365 X10*3/uL (160-400); Red Blood Count 4.75 X10*6/uL (4.60-5.80); Red Cell Distribution Width 12.7 % (11.0-16.0); White Blood Count 12.6 X10*3/uL (4.8-10.8)
[2022-12-26 01:39] VITALS: TEMP 35.3
[2022-12-26] MEDS: 0.9 % Sodium Chloride 2,000 ML 999 ML IVCONT (02:01)
[2022-12-26] MEDS: ondansetron HCL 4 MG/2 ML VIAL IVPUSH (02:05)
--- NOTE | 2022-12-26 02:09 | PC.NURSE ---
Pt BIBA, was found on the side of the road vomiting, pt nonverbal at the moment, pt opens eyes spontaneously to verbal command. Pt has a rectal temp of 95.[address] Phillip aware. IV line placed labs drawn and sent to lab. Pt has been cleaned up and changed over.
[2022-12-26 02:35] LABS: COVID-19 Test Negative (Negative); IDNOW Serial# BCCEAD1C
[2022-12-26 02:36] LABS: IDNOW Serial# 08D9AD1C; Influenza A Negative (Negative); Influenza B2 Negative (Negative); Lactic Acid 3.5 mmol/L (0.5-2.0)
[2022-12-26 02:37] LABS: Alanine Aminotransferase 41 U/L (0-40); Albumin Level 4.2 g/dL (3.5-5.0); Alkaline Phosphatase 89 U/L (39-117); Anion Gap 18 (12-20); Aspartate Amino Transferase 24 U/L (5-37); Bilirubin Direct 0.1 mg/dL (0.0-0.5); Bilirubin Total 0.3 mg/dL (0.0-1.0); Blood Urea Nitrogen 7 mg/dL (9-16); Calcium 9.4 mg/dL (8.4-10.2); Carbon Dioxide 23 mmol/L (22-29); Chloride 107 mmol/L (96-108); Creatinine Clr Calc Pharmacy 91.7; Estimated Glomerular Filt Rate > 60; Ethanol 283 mg/dL; Glucose Random 95 mg/dL (60-115); Lipase 12 U/L (8-78); Magnesium 2.1 mg/dL (1.6-2.6); Potassium 3.5 mmol/L (3.3-5.1); Sodium 144 mmol/L (135-145); Total Protein 7.1 g/dL (6.5-8.0)
--- NOTE | 2022-12-26 02:57 | PC.NURSE ---
Pt more awake linda, primarily Citizen [place] speaking, pt asking where he is, reporting ETOH/crack/cocaine use. IV fluids running per MAR
[2022-12-26 03:00] VITALS: BP 118/76; PULSE 93; RESP 16; TEMP 36.4; O2SAT 100
[2022-12-26 03:29] LABS: Amphetamine Screen Urine Not Detected (Not Detect); Appearance Urine Clear; Barbiturates, Urine Not Detected (Not Detect); Benzodiazepines Screen Urine Not Detected (Not Detect); Cannabinoid Screen Urine Not Detected (Not Detect); Cocaine Screen Urine POSITIVE (Not Detect); Color Urine Yellow; Fentanyl, urine Not Detected (Not Detect); Glucose Urine UA Negative (Negative); Leukocyte Esterase Urine Negative (Negative); Nitrite Urine Negative (Negative); Opiate Screen Urine Not Detected (Not Detect); PH 5.5 (5.0-9.0); Phencyclidine Screen Urine Not Detected (Not Detect); Specific Gravity - Urine 1.015 (1.005-1.025); Urine Blood Negative (Negative); Urine Ketones Trace mg/dL (Negative); Urine Protein Negative (Neg-Trace)
[2022-12-26 04:17] LABS: Reflex Lactate? Lactic Acid Added
[2022-12-26 04:20] VITALS: BP 113/72; PULSE 96; RESP 16; TEMP 36.5; O2SAT 99
[2022-12-26 04:34] VITALS: BP 112/69; PULSE 93; RESP 18; O2SAT 98
[2022-12-26 04:51] LABS: Lactic Acid 3.6 mmol/L (0.5-2.0)
[2022-12-26 06:16] LABS: Reflex Lactate? Lactic Acid Added
== END 2022-12-26 05:49 | disposition home or self-care (01) ==
PROVIDERS: Emergency Provider Emergency Medicine; PCP Internal Medicine
DX: F10.220 Alcohol dependence with intoxication, uncomplicated (principal); R40.0 Somnolence; Y90.8 Blood alcohol level of 240 mg/100 ml or more; Z20.822 Contact with and (suspected) exposure to COVID-19; F11.20 Opioid dependence, uncomplicated; Z79.899 Other long term (current) drug therapy
CPT/HCPCS: 36415; 70450; 72125; 80048; 80076; 80307; 81003; 83605; 83690; 83735; 85025; 87040; 87502; 87635; 96361; 96374; 99284; 99285; J2405

== ENCOUNTER 2023-01-16 12:18 | Emergency (ER) | payer OTHER, SELFPAY ==
[2023-01-16 12:38] VITALS: BP 119/82; PULSE 75; RESP 18; TEMP 36.6; O2SAT 98; BMI 24.2
--- NOTE | 2023-01-16 12:40 | ED_ITS ---
HPI - General Adult General Chief complaint: Headache Stated complaint: Head Pain No Injury Related Data Home Medications Medication Instructions Recorded Confirmed lidocaine 5 % topical patch 1 patch topical DAILY 12/28/21 12/05/22 naltrexone 50 mg tablet 1 tab PO DAILY 12/28/21 12/05/22 naproxen 500 mg tablet 1 tab PO BID PRN Pain 12/28/21 12/05/22 vitamin B complex (Vitamins B 1 cap DAILY 12/28/21 12/05/22 Complex capsule) gabapentin 300 mg capsule 300 mg PO TID 02/25/23 Previous Rx's Medication Instructions Recorded atorvastatin 40 mg tablet 40 mg PO BEDTIME 90 days #90 tabs 08/29/22 celecoxib 100 mg capsule (Celebrex) 100 mg PO BID 30 days #60 caps 08/29/22 omeprazole 20 mg capsule,delayed 20 mg PO DAILY PRN heartburn 30 09/26/22 release days #30 caps cyclobenzaprine 10 mg tablet 10 mg PO TID PRN muscle spasm #20 11/23/22 tabs lidocaine 5 % topical patch 1 patch topical DAILY #30 ea 11/23/22 meclizine 25 mg tablet 25 mg PO TID PRN dizziness #14 tabs 01/20/23 bupropion HCl 300 mg 24 hr tablet, 300 mg PO DAILY 90 days #90 tabs 02/12/23 extended release Allergies Allergy/AdvReac Type Severity Reaction Status Date / Time No Known Allergies Allergy Verified 02/25/23 13:56 [No Known Allergies*] [facility] Past Medical History Medical History Mild recurrent major depression Physical exam Cocaine use disorder GERD (gastroesophageal reflux disease) History of back pain Headache Right elbow pain Pure hypercholesterolemia Lumbar radiculopathy Spondylosis of lumbosacral spine without myelopathy Alcoholism Abuse, drug or alcohol Surgical History History of esophagogastroduodenoscopy (EGD) History of eye surgery History of eye surgery Family History Family History Father Alcoholism Substance use disorder Mother Diabetes Social History Social History Housing: Apartment Alcohol intake: current Alcohol intake frequency: 3 or more drinks per day Alcohol type: beer and hard liquor Patient Tobacco Use Status: Former Tobacco user Tobacco use type: Cigarette e-Cigarette/Vaping Use: Never Used Second Hand Smoke Exposure: No Substance Use Type: Crack/Cocaine and Marijuana service: No Current occupational status: unemployed Cognitive needs: No Hearing needs: No Vision needs: No Physical Exam ED Vital Signs: BMI result Body Mass Index 24.2 Course Course Course Narrative: RME- 52 year old male presents for evaluation of headache over the last month. He had a CT scan the brain on 12/26/2022 that was unremarkable. Patient reports he quit drinking alcohol about 2 weeks ago. Who has no neuro deficits on exam. Patient states ?I do not want to wait and I am going to leave. He has a he was encouraged to stay for complete evaluation Discharge Plan Discharge Clinical Impression: Headache Patient Disposition: Left W/O Completing Treatment Prescriptions: No Action omeprazole 20 mg capsule,delayed release(DR/EC) 20 mg PO DAILY PRN (Reason: heartburn) 30 Days Qty: 30 0RF bupropion HCl 300 mg tablet extended release 24 hr 300 mg PO DAILY 90 Days Qty: 90 1RF naltrexone 50 mg tablet 1 tab PO DAILY lidocaine 5 % adhesive patch,medicated 1 patch topical DAILY naproxen 500 mg tablet 1 tab PO BID PRN (Reason: Pain) vitamin B complex [Vitamins B Complex] Capsule 1 cap DAILY cyclobenzaprine 10 mg tablet 10 mg PO TID PRN (Reason: muscle spasm) Qty: 20 0RF lidocaine 5 % adhesive patch,medicated 1 patch topical DAILY Qty: 30 0RF Rx Instructions: leave on most painful area for up to 12 hrs meclizine 25 mg tablet 25 mg PO TID PRN (Reason: dizziness) Qty: 14 0RF atorvastatin 40 mg tablet 40 mg PO BEDTIME 90 Days Qty: 90 1RF celecoxib [Celebrex] 100 mg capsule 100 mg PO BID 30 Days Qty: 60 4RF gabapentin 300 mg capsule 300 mg PO TID Discharge Date/Time: 01/16/23 17:14
== END 2023-01-16 17:14 | disposition left against medical advice (07) ==
LOC: HO.ED 17:00
PROVIDERS: Emergency Provider Emergency Medicine; PCP Internal Medicine
DX: R51.9 Headache, unspecified (principal); E78.00 Pure hypercholesterolemia, unspecified; Z87.891 Personal history of nicotine dependence; F12.90 Cannabis use, unspecified, uncomplicated; F11.20 Opioid dependence, uncomplicated; F10.20 Alcohol dependence, uncomplicated; Y90.9 Presence of alcohol in blood, level not specified; Z79.899 Other long term (current) drug therapy
CPT/HCPCS: 99281; 99283

== ENCOUNTER 2023-01-20 11:57 | Emergency (ER) | payer OTHER, SELFPAY ==
[2023-01-20 12:05] VITALS: BP 113/75; PULSE 80; RESP 16; TEMP 36.2; O2SAT 99; BMI 25.0
--- NOTE | 2023-01-20 12:09 | ECG_ITS ---
Test Reason : neck/shoulder pain.pmh of cocain use Blood Pressure : / mmHG Vent. Rate : 066 BPM Atrial Rate : 066 BPM P-R Int : 180 ms QRS Dur : 088 ms QT Int : 398 ms P-R-T Axes : 034 -15 038 degrees QTc Int : 417 ms Normal sinus rhythm Minimal voltage criteria for LVH, may be normal variant ( R in aVL ) Borderline ECG When compared with ECG of 23-NOV-2022 13:18, No significant change was found Referred By: Evans Garcia Electronically Signed By:EMIGDIO BRAVO MD
--- NOTE | 2023-01-20 12:12 | ED.GENADULT ---
HPI - General Adult General Chief complaint: Headache Stated complaint: headache dizzy neckpain Time Seen by Provider: 01/20/23 14:11 Source: patient, RN notes reviewed and old records reviewed Mode of arrival: ambulatory History of Present Illness HPI narrative: 52-year-old male with a past medical history of ETOH and cocaine use disorder, HLD, lumbar radiculopathy, depression, GERD, presenting to the ED complaining of room spinning dizziness/feeling off-balance x3 weeks, sx worse with position changes. Admits symptoms resolve when sitting still. Also reports left-sided headache radiating to neck/shoulder x3 weeks. Admits was recently seen and treated in our ED s/p intoxication/polysubstance use and fall, symptoms started shortly after. States has been sober x2 weeks. Admits to blurry vision associated with headache. Denies weakness, vision loss, CP/SOB, abdominal pain, nausea/vomiting. Denies taking anticoagulation Related Data Home Medications Medication Instructions Recorded Confirmed lidocaine 5 % topical patch 1 patch topical DAILY 12/28/21 12/05/22 naltrexone 50 mg tablet 1 tab PO DAILY 12/28/21 12/05/22 naproxen 500 mg tablet 1 tab PO BID PRN Pain 12/28/21 12/05/22 vitamin B complex (Vitamins B 1 cap DAILY 12/28/21 12/05/22 Complex capsule) Previous Rx's Medication Instructions Recorded atorvastatin 40 mg tablet 40 mg PO BEDTIME 90 days #90 tabs 08/29/22 bupropion HCl 300 mg 24 hr tablet, 300 mg PO DAILY 90 days #90 tabs 08/29/22 extended release celecoxib 100 mg capsule (Celebrex) 100 mg PO BID 30 days #60 caps 08/29/22 omeprazole 20 mg capsule,delayed 20 mg PO DAILY PRN heartburn 30 09/26/22 release days #30 caps cyclobenzaprine 10 mg tablet 10 mg PO TID PRN muscle spasm #20 11/23/22 tabs lidocaine 5 % topical patch 1 patch topical DAILY #30 ea 11/23/22 meclizine 25 mg tablet 25 mg PO TID PRN dizziness #14 tabs 01/20/23 Allergies Allergy/AdvReac Type Severity Reaction Status Date / Time No Known Allergies Allergy Verified 01/20/23 12:05 [No Known Allergies*] Review of Systems Review of Systems: Constitutional: No Fever, No Chills, No Fatigue, No Malaise ENT/Mouth: No Ear Pain, No sore throat, No Rhinorrhea, No Swallowing Difficulty Eyes: No Eye Pain, No Swelling, No Redness, + Vision Changes Cardiovascular: No Chest Pain, No SOB Respiratory: No Cough, No Dyspnea Gastrointestinal: No Nausea, No Vomiting, No Diarrhea, No Constipation, No Abdominal pain Genitourinary: No Dysuria, No Urinary Frequency, No Hematuria, No Urinary Incontinence/retention, No Urgency, No Flank Pain Musculoskeletal: + joint pain, +Myalgias, No Joint Swelling Skin: No Skin Lesions, No rash Neuro: No Weakness, No Numbness, No Paresthesias, No Loss of Consciousness, + Dizziness, + Headache Yes all other systems are reviewed and are negative Constitutional: Constitutional: Reports as per HPI Neurologic: Denies Abnormal speech present [facility] Past Medical History Attestation statement: The following information was validated with the patient. Source: old records reviewed Medical History Mild recurrent major depression Physical exam Cocaine use disorder GERD (gastroesophageal reflux disease) History of back pain Headache Right elbow pain Pure hypercholesterolemia Lumbar radiculopathy Spondylosis of lumbosacral spine without myelopathy Alcoholism Abuse, drug or alcohol Surgical History History of esophagogastroduodenoscopy (EGD) History of eye surgery History of eye surgery Family History Family History Father Alcoholism Substance use disorder Mother Diabetes Social History Social History Housing: Apartment Alcohol intake: current Alcohol intake frequency: 3 or more drinks per day Alcohol type: beer and hard liquor Patient Tobacco Use Status: Former Tobacco user Tobacco use type: Cigarette e-Cigarette/Vaping Use: Never Used Second Hand Smoke Exposure: No Substance Use Type: Crack/Cocaine and Marijuana Advance Directives: No Advance Directives Information Provided: Yes service: No Current occupational status: unemployed Cognitive needs: No Hearing needs: No Vision needs: No Physical Exam ED Vital Signs: Vital Signs - 24 hr 01/20/23 12:05 01/20/23 14:25 01/20/23 14:40 Temperature 97.2 F Pulse Rate 80 61 58 Respiratory Rate 16 Blood Pressure 113/75 131/79 121/79 Pulse Oximetry 99 Oxygen Delivery Method Room Air 01/20/23 14:40 Temperature Pulse Rate 60 Respiratory Rate Blood Pressure 131/84 Pulse Oximetry Oxygen Delivery Method BMI result Body Mass Index 25.0 Const General: cooperative, healthy appearing, no acute distress, alert and awake Orientation/consciousness: patient oriented x3 Limitations: no limitations HENMT Head: Yes normal to inspection and Yes atraumatic Ears: hearing grossly normal bilaterally and TM's normal bilaterally General nose exam: Normal external nose present Face and sinus: Yes normal facial exam Throat: Yes posterior oropharynx normal, Yes uvula midline, No uvula laterally displaced and No uvular edema Eyes General: appearance normal, both eyes and all related structures Pupils: Equal, round and reactive pupils present EOM: EOMs intact bilaterally Neck Neck: Yes normal visual inspection, Yes no meningeal signs and No anterior neck swelling Resp Effort & Inspection: normal respiratory effort and no respiratory distress Auscultation: clear to auscultation bilaterally Cardio Rate: regular rate Heart sounds: S1 normal heart sound present and S2 normal heart sound present GI Inspection: Yes normal to inspection Palpation (GI): Soft to palpation, nontender, no guarding and not rigid Back/Spine/Pelvis Other: No midline cervical/thoracic/lumbar spinous tenderness/step-off or deformity Skin Rashes: no rashes Wounds: no wounds Neuro General: patient oriented x3, gait normal, tone normal, moves all extremities, no meningeal signs, no focal motor deficits and CN's II-XI intact bilaterally Cranial nerves: Yes CN's II-XII intact bilaterally, Yes Equal, round and reactive pupils present, Yes Bilaterally intact EOM present, Yes Nystagmus not present and Yes Midline tongue present Cognition (Neuro): normal cognition Speech: No Abnormal speech present Gait exam (Neuro): Normal gait present Motor exam (neuro): 5/5 motor strength present throughout, no tremor noted and Motor fasciculations not present Extrem General: Yes normal to inspection Course Course Course Narrative: RME: 52 yold male with pmh of cocaine and alcohol abuse presents to the ED for headache, dizziness, neck pain and shoulder pain for the past 4 weeks since going sober. patient was seen for similar symptoms two other times and had normal head CT scan and a cervical spine which showed cervical radiculpathy. due to age will just do EKG and labs. nuero exam is intact. -1437--no leukocytosis. H&H stable. labs otherwise unremarkable -COVID and flu negative -1455--troponin negative. Tox screen negative. UA negative. Orthostatic vital signs negative Results discussed with patient including worrisome signs and symptoms and strict return precautions, and when to return to the emergency department. They verbalized understanding and feel safe for discharge at this time. Medications Administered Discontinued Medications Generic Name Dose Route Start Last Admin Trade Name Freq PRN Reason Stop Dose Admin Meclizine HCl 25 mg 01/20/23 14:25 01/20/23 14:35 Meclizine Hcl 25 Mg Tablet PO 01/20/23 14:26 25 mg ONCE ONE Administration Medical Decision Making Medical Decision Making MDM Narrative: 52-year-old male with a past medical history of ETOH and cocaine use disorder, HLD, lumbar radiculopathy, depression, GERD, presenting to the ED complaining of room spinning dizziness/feeling off-balance x3 weeks, sx worse with position changes, resolved at rest. Also reports left-sided headache radiating to neck/shoulder x3 weeks. On exam vital signs stable, NAD, nontoxic appearing, lungs CTA, no focal neuro deficits, no midline spinous tenderness throughout. No nystagmus. Ambulating with steady gait, no ataxia. Concern for BPPV vs vertigo. Lower suspicion for ICH/SAH or meningitis/encephalitis or mass. Lower suspicion for cervical dissection. Concern for apply substance use/ETOH. No evidence of withdrawal at this time Patient at head and C-spine CT on 12/26 which were unremarkable. No need for repeat imaging at this time Plan: EKG, labs, UA, orthostatics, tox screen, meclizine, re-evaluate Please refer to course for remaining clinical decision making, interpretation of labs/imaging results, and discussions with consultants and/or family members. Differential Diagnosis Differential Diagnoses: The differential diagnosis associated with the presentation includes As above Admission/Observation Consideration of admission/observation: Escalation of care including admission/observation considered Lab Data [facility] Lab Attestation statement: I reviewed the patient's lab results. 01/20/23 12:40 01/20/23 12:40 Labs: Lab Results 01/20/23 01/20/23 Range/Units 12:40 14:33 WBC 7.5 (4.8-10.8) X10*3/uL RBC 4.31 L (4.60-5.80) X10*6/uL Hgb 13.5 L (14.0-18.0) g/dl Hct 39.4 L (42.0-52.0) % MCV 91.4 (80.0-98.0) fL MCH 31.3 (27.0-33.0) pg MCHC 34.3 (31.0-36.0) g/dl RDW 12.4 (11.0-16.0) % Plt Count 355 (160-400) X10*3/uL MPV 9.3 L (9.4-12.4) fL Immature Gran % (Auto) 0.3 (0.0-0.4) % Neut % (Auto) 55.7 (45-73) % Lymph % (Auto) 31.5 (20-40) % [place] % (Auto) 9.6 (2-11) % Eos % (Auto) 2.5 (0-4) % Baso % (Auto) 0.4 (0-2) % Lymph # (Auto) 2.4 (1.2-4.9) X10*3/uL [place] # (Auto) 0.7 (0.1-1.2) X10*3/uL Eos # (Auto) 0.2 (0.0-0.4) X10*3/uL Baso # (Auto) 0.0 (0.0-0.2) X10*3/uL Abs Immat Gran (auto) 0.02 (0.00-0.03) X10*3/uL Absolute Neuts (auto) 4.2 (2.0-8.3) x10*3/uL Absolute Nucleated RBC 0.000 (0.0-0.012) X10*3/uL Nucleated RBC % (auto) 0.0 (0.0-0.2) /100WBC PT 10.7 L (11.1-13.3) SEC INR 0.9 (0.9-1.1) APTT 32.0 (26.0-36.4) SEC Sodium 141 (135-145) mmol/L Potassium 3.7 (3.3-5.1) mmol/L Chloride 110 H (96-108) mmol/L Carbon Dioxide 22 (22-29) mmol/L Anion Gap 13 (12-20) BUN 15 (9-16) mg/dL Creatinine 0.75 (0.5-1.4) mg/dL Estim Creat Clear Calc 95.3 Estimated GFR > 60 Random Glucose 99 (60-115) mg/dL Calcium 9.5 (8.4-10.2) mg/dL Magnesium 1.9 (1.6-2.6) mg/dL Total Bilirubin 0.4 (0.0-1.0) mg/dL AST 32 (5-37) U/L ALT 43 H (0-40) U/L Alkaline Phosphatase 99 (39-117) U/L Troponin I High Sens < 2.7 (<3.5-35.0) ng/L Total Protein 6.8 (6.5-8.0) g/dL Albumin 3.9 (3.5-5.0) g/dL Urine Color Yellow Urine Appearance Clear Urine pH 7.5 (5.0-9.0) Ur Specific [place] 1.015 (1.005-1.025) Urine Protein Negative (Neg-Trace) mg/dL Urine Glucose (UA) Negative (Negative) mg/dL Urine Ketones Negative (Negative) mg/dL Urine Blood Negative (Negative) Urine Nitrite Negative (Negative) Ur Leukocyte Esterase Negative (Negative) Urine Opiates Screen Not Detected (Not Detect) Urine Fentanyl Screen Not Detected (Not Detect) Ur Barbiturates Screen Not Detected (Not Detect) Ur Phencyclidine Scrn Not Detected (Not Detect) Ur Amphetamines Screen Not Detected (Not Detect) U Benzodiazepines Scrn Not Detected (Not Detect) Urine Cocaine Screen Not Detected (Not Detect) U Marijuana (THC) Screen Not Detected (Not Detect) Ethyl Alcohol < 10 mg/dL COVID-19 (NATHALIE) Negative (Negative) COVID-19 Clin Com See Note Influenza Type A (MARLENE) Negative (Negative) Influenza Type B (MARLENE) Negative (Negative) Influenza A & B Note See Note Independent Interpretation I performed an independent interpretation of an: EKG (My interpretation EKG is normal sinus rhythm at a rate of 66. QRS 88. QTC 417. No significant change when compared to prior.) and CT Scan Radiology Impression Discussion of test interpretation with radiology: I have reviewed the radiologist's reading. External Record Review External record reviewed: Inpatient record, Office record, Outpatient record, Prior outpatient labs, Prior outpatient radiology, Primary care record and Outside ED record Tests considered The following testing was considered but not selected: As above Social Determinants Patient?s care significantly limited by Social Determinants of Health including: Low income, Alcoholism and drug addiction in family and Problems related to primary support group Discharge Plan Discharge Clinical Impression: Benign paroxysmal positional vertigo, Headache Patient Disposition: Home, Self-Care Instructions: Acute Headache (DC), Benign Paroxysmal Positional Vertigo (ED) Additional Instructions: Your blood work and urine were reassuring Meclizine is for dizziness please take as needed. Please close follow-up with her doctor We also recommend he follow up with Neurology If symptoms persist, worsen, change of constant dizziness, chest pain or shortness of breath or weakness return to the ED [place] an?lisis de nida y orina fueron tranquilizadores. La meclizina es para los mareos, t?tio seg?n sea necesario. Por favor cierre el seguimiento con manning m?dico. Tambi?n recomendamos manning seguimiento con Neurolog?a. Si los s?ntomas persisten, empeoran, cambian de mareos constantes, dolor en el pecho o dificultad para respirar o debilidad, regrese al servicio de urgencias. Prescriptions: New meclizine 25 mg tablet 25 mg PO TID PRN (Reason: dizziness) Qty: 14 0RF No Action omeprazole 20 mg capsule,delayed release(DR/EC) 20 mg PO DAILY PRN (Reason: heartburn) 30 Days Qty: 30 0RF naltrexone 50 mg tablet 1 tab PO DAILY lidocaine 5 % adhesive patch,medicated 1 patch topical DAILY naproxen 500 mg tablet 1 tab PO BID PRN (Reason: Pain) vitamin B complex [Vitamins B Complex] Capsule 1 cap DAILY cyclobenzaprine 10 mg tablet 10 mg PO TID PRN (Reason: muscle spasm) Qty: 20 0RF lidocaine 5 % adhesive patch,medicated 1 patch topical DAILY Qty: 30 0RF Rx Instructions: leave on most painful area for up to 12 hrs atorvastatin 40 mg tablet 40 mg PO BEDTIME 90 Days Qty: 90 1RF bupropion HCl 300 mg tablet extended release 24 hr 300 mg PO DAILY 90 Days Qty: 90 1RF celecoxib [Celebrex] 100 mg capsule 100 mg PO BID 30 Days Qty: 60 4RF Referrals: [facility] – [place], [place] Neuro/Sleep [Provider Group] Kaley Sanchez MD [Primary Care Provider] - Interventions: ED Discharge Assessment Last Done: 01/20/23 15:17 Discharge Date/Time: 01/20/23 15:17 Print Language: Portuguese
[2023-01-20 12:45] LABS: MANUAL DIFF FLAG NO
[2023-01-20 12:47] LABS: Basophils Percent Auto 0.4 % (0-2); Eosinophils Absolute Auto 0.2 X10*3/uL (0.0-0.4); Eosinophils Percent Auto 2.5 % (0-4); Hematocrit 39.4 % (42.0-52.0); Hemoglobin 13.5 g/dl (14.0-18.0); Imm Gran Abs Auto 0.02 X10*3/uL (0.00-0.03); Imm Gran Pct Auto 0.3 % (0.0-0.4); Lymphocytes Absolute Auto 2.4 X10*3/uL (1.2-4.9); Lymphocytes Percent Auto 31.5 % (20-40); Mean Corpuscular HGB Conc 34.3 g/dl (31.0-36.0); Mean Corpuscular Hemoglobin 31.3 pg (27.0-33.0); Mean Corpuscular Volume 91.4 fL (80.0-98.0); Mean Platelet Volume 9.3 fL (9.4-12.4); Monocytes Absolute Auto 0.7 X10*3/uL (0.1-1.2); Monocytes Percent Auto 9.6 % (2-11); Neutrophils Absolute Auto 4.2 x10*3/uL (2.0-8.3); Neutrophils Percent Auto 55.7 % (45-73); Platelet Count 355 X10*3/uL (160-400); Red Blood Count 4.31 X10*6/uL (4.60-5.80); Red Cell Distribution Width 12.4 % (11.0-16.0); White Blood Count 7.5 X10*3/uL (4.8-10.8)
[2023-01-20 12:56] LABS: INTERNATIONAL NORM RATIO 0.9 (0.9-1.1); Prothrombin Time 10.7 SEC (11.1-13.3)
[2023-01-20 13:03] LABS: Alanine Aminotransferase 43 U/L (0-40); Albumin Level 3.9 g/dL (3.5-5.0); Alkaline Phosphatase 99 U/L (39-117); Anion Gap 13 (12-20); Aspartate Amino Transferase 32 U/L (5-37); Bilirubin Total 0.4 mg/dL (0.0-1.0); Blood Urea Nitrogen 15 mg/dL (9-16); Calcium 9.5 mg/dL (8.4-10.2); Carbon Dioxide 22 mmol/L (22-29); Chloride 110 mmol/L (96-108); Creatinine Clr Calc Pharmacy 95.3; Estimated Glomerular Filt Rate > 60; Glucose Random 99 mg/dL (60-115); Potassium 3.7 mmol/L (3.3-5.1); Sodium 141 mmol/L (135-145); Total Protein 6.8 g/dL (6.5-8.0)
[2023-01-20 13:08] LABS: COVID-19 Test Negative (Negative); IDNOW Serial# 08D9AD1C; IDNOW Serial# BCCEAD1C; Influenza A Negative (Negative); Influenza B2 Negative (Negative)
[2023-01-20 13:10] LABS: Troponin-I High Sensitivity < 2.7 ng/L (<3.5-35.0)
[2023-01-20 14:25] VITALS: BP 131/79; PULSE 61
[2023-01-20] MEDS: Meclizine HCl 25 MG TABLET PO (14:35)
--- NOTE | 2023-01-20 14:38 | PC.NURSE ---
pt medicated per MAR
[2023-01-20 14:40] VITALS: BP 121/79; BP 131/84; PULSE 58; PULSE 60
[2023-01-20 14:48] LABS: Appearance Urine Clear; Color Urine Yellow; Glucose Urine UA Negative (Negative); Leukocyte Esterase Urine Negative (Negative); Nitrite Urine Negative (Negative); PH 7.5 (5.0-9.0); Specific Gravity - Urine 1.015 (1.005-1.025); Urine Blood Negative (Negative); Urine Ketones Negative (Negative); Urine Protein Negative (Neg-Trace)
[2023-01-20 14:50] LABS: Amphetamine Screen Urine Not Detected (Not Detect); Barbiturates, Urine Not Detected (Not Detect); Benzodiazepines Screen Urine Not Detected (Not Detect); Cannabinoid Screen Urine Not Detected (Not Detect); Cocaine Screen Urine Not Detected (Not Detect); Fentanyl, urine Not Detected (Not Detect); Opiate Screen Urine Not Detected (Not Detect); Phencyclidine Screen Urine Not Detected (Not Detect)
[2023-01-20 14:51] LABS: Ethanol < 10 mg/dL; Magnesium 1.9 mg/dL (1.6-2.6)
== END 2023-01-20 15:17 | disposition home or self-care (01) ==
PROVIDERS: Physician Assistant; Emergency Provider Emergency Medicine; PCP Internal Medicine
DX: H81.13 Benign paroxysmal vertigo, bilateral (principal); R51.9 Headache, unspecified; M54.2 Cervicalgia; M25.512 Pain in left shoulder; M25.511 Pain in right shoulder; F14.10 Cocaine abuse, uncomplicated; Z87.891 Personal history of nicotine dependence; Z11.52 Encounter for screening for COVID-19; Z20.822 Contact with and (suspected) exposure to COVID-19; Z79.899 Other long term (current) drug therapy
CPT/HCPCS: 80053; 80307; 81003; 83735; 84484; 85025; 85610; 85730; 87502; 87635; 93005; 99283

== ENCOUNTER 2023-02-25 13:44 | Outpatient (AMB) | payer OTHER, SELFPAY ==
--- NOTE | 2023-02-25 13:46 | A.OFFVIS_ITS ---
Intake Vital Signs 02/25/23 13:53 Height 5 ft 4 in Weight 140 lb 6 oz BMI 24.1 BP 133/79 Blood Pressure Location Rt brachial Position Sitting Pulse 85 Pulse Source Pulse Oximeter Pulse Oximetry (%) 97 Oxygen Delivery Method Room Air Intake Visit Reasons: Follow Up/Low Back Pain Intake Note: Pain today 12/15 Talent Acquisition Coordinator Required: Yes Talent Acquisition Coordinator Language: Photoengraving Machine Operator/Tender Name: Melissa WILSON Accompanied by: Self / Same As Patient Allergies No Known Allergies [No Known Allergies*] Allergy (Verified 02/25/23 13:56) HPI HPI Comments History of Present Illness Details Patient is a pleasant [place] speaking 52-year-old male with a past medical history of ETOH and cocaine use disorder, HLD, lumbar DDD and radiculopathy, depression, GERD, presents today for follow up for worsening chronic low back pain, worse on the right side that radiates up to his neck. Patient was recently treated in our ED s/p intoxication/polysubstance use and fall. Patient states he has been sober for 2 months. Patient reports he was trying to get refill for gabapentin from his PCP office but was told it was not good for him. His previous ALT level was elevated. Patient has outstanding lab work ordered by his PCP but not completed yet, I have reminded patient to complete these labs and follow up with his PCP. Patient reports increase in back pain with any movement, worse with bending forward, pulling, lifting, walking, prolonged standing. Resting and repositioning will temporary alleviate his back symptoms. Pain negatively affects his daily activities, functioning, mood, social activities and quality of life. He reports he tried massage therapy, acupuncture, attempted physical therapy and underwent back injections with minimal to no improvement in his symptoms. Denies any fever, chills, weight loss, abdominal or groin pain, gait imbalances, bladder or bowel dysfunction or saddle anesthesia. PRIOR Dr. Jacobo 04/2022: Nick is very pleasant 51 years old gentleman who presents in my office with complains on lower back pain on the right side with radiation into the right lower extremity to the level of the knee but not below the level of the knee. He is under observation in this office for long period of time. He was requesting to be admitted into chronic opioid program in the past. Due to chronic addiction to a alcoholism he was not admitted to the opioid program. He was offered multiple injections. He had an MRI in the past with changes dictated as below. Diagnostic medial branch block on the right L2-L3 L4-5 resulted in less than 50% pain improvement, he does not want to proceed in more injections. Possibility of treating his pain as discogenic explained to the patient. In the past he was adamantly refusing the injections which were offered to him. He requests me to give him some medications which potentially could help him with the pain. He requests me to start him on gabapentin will do it with 6 refills. He is recommended to give us a call in 5-6 months to request about possibility of intradiscal injections. [facility] Medical History Mild recurrent major depression Physical exam Cocaine use disorder GERD (gastroesophageal reflux disease) History of back pain Headache Right elbow pain Pure hypercholesterolemia Lumbar radiculopathy Spondylosis of lumbosacral spine without myelopathy Alcoholism Abuse, drug or alcohol Surgical History History of esophagogastroduodenoscopy (EGD) History of eye surgery History of eye surgery Family History Father Alcoholism Substance use disorder Mother Diabetes Housing: Apartment Alcohol intake: current Alcohol intake frequency: 3 or more drinks per day Alcohol type: beer and hard liquor Patient Tobacco Use Status: Former Tobacco user Tobacco use type: Cigarette e-Cigarette/Vaping Use: Never Used Second Hand Smoke Exposure: No Substance Use Type: Crack/Cocaine and Marijuana service: No Current occupational status: unemployed Cognitive needs: No Hearing needs: No Vision needs: No Review of Systems Const All systems reviewed & are unremarkable except as noted in HPI and below ENT Reports Normal hearing present Neuro Reports Normal hearing present, Denies Abnormal speech present, Denies confusion and Denies Sensory deficit (Neuro) Psych Denies confusion Physical Exam Vital Signs: Last Vital Signs Pulse 85 02/25/23 13:53 BP 133/79 02/25/23 13:53 Pulse Ox 97 02/25/23 13:53 Oxygen Delivery Method Room Air 02/25/23 13:53 BMI result Body Mass Index 24.1 Const General: cooperative, healthy appearing, comfortable, no acute distress, alert, awake and well groomed; No confusion or intoxicated appearing Nutritional Appearance: average body habitus Orientation/consciousness: No confusion Limitations: language barrier HEENT Head: Yes normal to inspection, Yes normocephalic and Yes atraumatic Ears: hearing grossly normal bilaterally Eyes General: appearance normal, both eyes and all related structures Eyelids: Yes eyelids normal Pupils: Equal, round and reactive pupils present EOM: EOMs intact bilaterally Neck Neck: Yes normal visual inspection, Yes full ROM, Yes no lymphadenopathy, Yes supple, No anterior neck swelling and Yes no JVD Resp Effort & Inspection: normal respiratory effort, able to speak in complete sentences, no audible wheezes, no cough and symmetric chest movement Cardio Jugular venous distension: no JVD GI Palpation (GI): Soft to palpation and nontender Back/Spine/Pelvis Other: No midline tenderness to palpation in the thoracic or lumbar spine. Mild paraspinal tenderness to palpation in the lumbar spine, worse on the right. Lumbar extension causes mild pain and flexion reproduces moderate pain. Painful facet loading bilaterally, R>L. Cervical Spine: cervical muscular tenderness, pain with cervical ROM and No Cervical spine tenderness Thoracic/Lumbar Spine: thoracic and lumbar spine normal to inspection, No Thoracic/lumbar spine scar(s), Lasegue's sign negative, straight leg raise negative bilaterally, pain with thoraco-lumbar ROM, paraspinal muscle tenderness, thoraco-lumbar ROM limited, No thoracic spinal tenderness and lumbar spinal tenderness at L4 and at L5 Pelvis: no buttock tenderness Sacroiliac joints: bilaterally (Renaldo's test reproduces right lateral hip pain, not back pain.) nontender Neuro General: No confusion Cranial nerves: Yes Equal, round and reactive pupils present and Yes Normal hearing present Speech: No Abnormal speech present Sensory Exam: No Sensory deficit (Neuro) Psych Appearance: grossly normal Mental Status: mental status grossly normal Speech and movement: Normal speech and movement present Affect: normal affect Attitude: cooperative Thought process: Normal thought process present Thought content: Normal thought content present Insight: Good insight present (Psych) Judgement: Good judgement present (Psych) Results Reviewed Results Reviewed: MR LUMBAR SPINE WITHOUT CONTRAST 05/15/21 CLINICAL INFORMATION: Right-sided lower back pain. Right leg pain. COMPARISON: Lumbar spine radiographs dated 03/26/2017 and lumbar spine MRI dated 06/03/2011. TECHNIQUE: MRI of the lumbar spine was obtained using routine sequences without contrast. FINDINGS: VERTEBRAL BODIES AND PARASPINAL STRUCTURES: Normal vertebral body alignment. The lumbar lordosis is maintained. No acute fracture or subluxation. No loss of vertebral body height. Prominent loss of intervertebral disc height with disc desiccation at L4-L5 and L5-S1 where there are Modic type II degenerative endplate changes as well as a prominent Schmorl's node at the inferior endplate of L4. More mild loss of intervertebral disc height with disc desiccation at L3-L4. Findings have progressed when compared to the prior MRI. No evidence of acute osseous injury. The visualized paraspinal soft tissues are unremarkable. CONUS MEDULLARIS AND CAUDA EQUINA: Normal, terminating at the level of L1. SPINAL LEVELS: T12-L1: No significant disc bulge. No central canal or neural foraminal stenosis. L1-L2: No significant disc bulge. No central canal or neural foraminal stenosis. L2-L3: No significant disc bulge. No central canal or neural foraminal stenosis. L3-L4: Mild broad-based disc bulge with a tiny left paracentral disc protrusion. Bilateral facet arthropathy. Mild bilateral neural foraminal stenosis. Findings are new/increased when compared to the prior examination. L4-L5: Broad-based disc bulge with bilateral facet arthropathy which encroaches upon the traversing bilateral L5 nerve roots within the lateral recesses and causes [id number] bilateral neural foraminal stenosis. Findings are slightly progressed when compared to the prior examination. L5-S1: Broad-based disc bulge with faint annular fissuring which abuts the traversing bilateral S1 nerve roots in the lateral recesses. Bilateral facet arthropathy causing mild central canal as well as [id number] bilateral neural foraminal stenosis, increased when compared to the prior examination. IMPRESSION: 1. Prominent degenerative disc disease at L4-L5 with a posterior Schmorl's node as well as a broad-based disc bulge and bilateral facet arthropathy which encroach upon the traversing bilateral L5 nerve roots in the lateral recesses. This causes [id number] bilateral neural foraminal stenosis. Findings are progressed when compared to the prior examination. 2. Degenerative disc disease at L5-S1 with a broad-based disc bulge and faint annular fissuring which abuts the traversing bilateral S1 nerve roots in combination with bilateral facet arthropathy causes mild central canal as well as [id number] bilateral neural foraminal stenosis, increased when compared to the prior examination. 3. Mild broad-based disc bulge at L3-L4 with a tiny left paracentral disc protrusion and bilateral facet arthropathy causing mild bilateral neural foraminal stenosis, new/increased when compared to the prior examination. NONCONTRAST HEAD CT NONCONTRAST CERVICAL SPINE CT 12/26/22 INDICATION INFORMATION: Altered mental status, possible fall COMPARISON: 11/23/2022 FINDINGS: Head: There is no evidence of acute intracranial hemorrhage or territorial infarction. No abnormal mass-effect or midline shift is seen. Blake to white matter differentiation is well preserved. No extra-axial fluid collections are identified. The ventricles are normal in size. There is no abnormal attenuation within the brain parenchyma. The osseous structures and soft tissues are normal. The mastoid air cells and visualized portions of the paranasal sinuses are well-aerated. Cervical spine: There is anatomic alignment of the vertebral bodies and posterior elements. Vertebral body heights are maintained. There is degenerative change at the atlantodens articulation. There is partial ankylosis across C3-C4. There is disc space narrowing throughout much of the remaining cervical spine along with endplate osteophytes. No evidence of acute fracture. No prevertebral soft tissue swelling. Visualized portions of the lung apices are unremarkable. The thyroid gland is unremarkable. IMPRESSION: HEAD: No acute intracranial findings. CERVICAL SPINE: No acute findings identified. Degenerative changes as noted above. Assessment & Plan Assessment & Plan (1) Vertebrogenic low back pain: Code(s): M54.51 - Vertebrogenic low back pain (2) Lumbar degenerative disc disease: Code(s): M51.36 - Other intervertebral disc degeneration, lumbar region (3) Lumbosacral spondylosis: Code(s): M47.817 - Spondylosis without myelopathy or radiculopathy, lumbosacral region Plan For his axial low back pain and Modic type II degenerative endplate changes at L4-L5 as well as a prominent Schmorl's node at the inferior endplate of L4, he is a good candidate for possible Intracept procedure. Patient underwent diagnostic medial branch block on the right L2-L3 L4-L5 on 04/16/22 which resulted in less than 50% pain improvement. We discussed Intracept procedure in [facility] today with assistance of shell machine operator. I discussed the BVN ablation with him for L4-L5 levels, based on MRI findings and exacerbation of back pain with lumbar flexion which indicates a discogenic source. Information pamphlet was provided to patient in [place]. Patient will notify our office if he is interested to proceed with Intracept procedure. Patient was reminded to complete outstanding lab work per his PCP. Discussed polysubstance abuse and alcohol consumption negative effects on his kidney and liver function. Patient reports he has been sober for 2 months, has been using marijuana occasionally and has been rarely using illicit drugs. 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 He verbalized understanding. All questions and concerns have been answered and patient agreed with the plan. Quality Reporting (2019) Adult ([facility] 138/05/29/68) Smoking risk assessment performed?: Yes Patient Tobacco Use Status: Former Tobacco user Coding Level of Care Code Est Pt Level 4 (36745) Diagnoses Vertebrogenic low back pain M54.51 Lumbar degenerative disc disease M51.36 Lumbosacral spondylosis M47.817
[2023-02-25 13:53] VITALS: BP 133/79; PULSE 85; O2SAT 97; BMI 24.1
== END 2023-02-25 14:33 | disposition home or self-care (01) ==
PROVIDERS: PCP Internal Medicine; Visit Provider Nurse Practitioner Family
DX: M54.51 Vertebrogenic low back pain (principal); M51.36 Other intervertebral disc degeneration, lumbar region; M47.817 Spondylosis without myelopathy or radiculopathy, lumbosacral region
CPT/HCPCS: 99214

== ENCOUNTER 2023-02-25 13:44 | Outpatient (REF) | payer OTHER, SELFPAY ==
[2023-02-25 15:53] LABS: Alanine Aminotransferase 29 U/L (0-40); Albumin Level 4.3 g/dL (3.5-5.0); Alkaline Phosphatase 115 U/L (39-117); Anion Gap 8 (12-20); Aspartate Amino Transferase 22 U/L (5-37); Bilirubin Total 0.6 mg/dL (0.0-1.0); Blood Urea Nitrogen 12 mg/dL (9-16); Calcium 9.7 mg/dL (8.4-10.2); Carbon Dioxide 31 mmol/L (22-29); Chloride 107 mmol/L (96-108); Estimated Glomerular Filt Rate > 60; Glucose Random 71 mg/dL (60-115); Potassium 3.8 mmol/L (3.3-5.1); Sodium 142 mmol/L (135-145); Total Protein 7.3 g/dL (6.5-8.0)
[2023-02-25 16:09] LABS: Vitamin D 25-OH Total 31.8 ng/mL (>30)
[2023-02-26 04:28] LABS: HBc Num1 0.75 S/CO (0.00-0.79); HIV AB/AG Nonreactive (Nonreactive); HIV Num 1 0.07 S/CO (0.00-0.99); Hepatitis B Core Antibody Nonreactive (Nonreactive)
[2023-02-26 15:54] LABS: Calcium (PTHI) 11.2 mg/dL (8.6-10.3); PTHI 68 pg/mL (16-77)
[2023-02-27 17:03] LABS: Calcium, Random Urine 5.3 mg/dL
[2023-02-28 16:57] LABS: Calcium, Ionized 5.2 mg/dL (4.7-5.5)
== END 2023-02-25 13:45 | disposition home or self-care (01) ==
LOC: HO.LAB 13:44
PROVIDERS: Absent Provider Internal Medicine; PCP Internal Medicine; Visit Provider Nurse Practitioner Family
DX: Z11.4 Encounter for screening for human immunodeficiency virus [HIV] (principal); F11.20 Opioid dependence, uncomplicated; F19.20 Other psychoactive substance dependence, uncomplicated; E55.9 Vitamin D deficiency, unspecified; M54.51 Vertebrogenic low back pain; M51.36 Other intervertebral disc degeneration, lumbar region; M47.817 Spondylosis without myelopathy or radiculopathy, lumbosacral region
CPT/HCPCS: 36415; 80053; 82306; 82310; 82330; 83970; 86704; 87389; 99212

== ENCOUNTER 2023-04-09 08:25 | Outpatient (AMB) | payer OTHER, SELFPAY ==
--- NOTE | 2023-04-09 08:31 | MHC.PC.OV ---
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 Required: No Accompanied by: Self / Same As Patient Allergies No Known Allergies [No Known Allergies*] Allergy (Verified 04/09/23 08:53) Medication List - Last Reconciled 04/09/23 by Kaley Ramirez MD atorvastatin 40 mg PO BEDTIME 90 days bupropion HCl 300 mg PO DAILY 90 days celecoxib (Celebrex) 100 mg PO BID 30 days cyclobenzaprine 10 mg PO TID PRN gabapentin 300 mg PO TID lidocaine 5% 1 patch topical DAILY meclizine 25 mg PO TID PRN naltrexone 1 tab PO DAILY naproxen 1 tab PO BID PRN omeprazole 20 mg PO DAILY PRN 30 days vitamin B complex (Vitamins B Complex capsule) 1 cap DAILY Tobacco use date assessed: 08/29/22 Dental Screening Dental Screen Date: 04/09/23 Did you have a dental visit in the last 12 months?: No Did you have a dental problem in the last 6 months where you did not have access to dental care?: No Was dental information given to patient?: Patient has dentist HPI HPI Comments History of Present Illness Details This is a 52-year-old male with mild recurrent major depression, alcohol use disorder, pure hypercholesterolemia and polysubstance abuse currently in remission that comes today for follow-up on his conditions. Depression stable with bupropion. He said his stop drinking alcohol and using illegal drugs such as cocaine in January 2023. On statins for his elevated cholesterol. He also has lumbar degenerative disc disease causing chronic low back pain and asked for Percocet but I told him no due to his history of polysubstance abuse. He agree and understood. On naproxen as needed for this matter. Due to his chronic low back pain he is not able to work. [facility] Medical History Mild recurrent major depression Physical exam Cocaine use disorder GERD (gastroesophageal reflux disease) History of back pain Headache Right elbow pain Pure hypercholesterolemia Lumbar radiculopathy Spondylosis of lumbosacral spine without myelopathy Alcoholism Abuse, drug or alcohol Surgical History History of esophagogastroduodenoscopy (EGD) History of eye surgery History of eye surgery Family History Father Alcoholism Substance use disorder Mother Diabetes Social History (Updated 04/09/23 @ 08:55 by Kaley Ramirez MD) Housing: Apartment Alcohol intake: former Patient Tobacco Use Status: Former Tobacco user Tobacco use type: Cigarette e-Cigarette/Vaping Use: Never Used Second Hand Smoke Exposure: No Substance Use Type: Crack/Cocaine and Marijuana service: No Current occupational status: unemployed Cognitive needs: No Hearing needs: No Vision needs: No Questionnaire PHQ-9 Over the last 2 weeks, how often have you been bothered by any of the following problems? 1. Little interest or pleasure in doing things: several days 2. Feeling down, depressed, or hopeless: several days 3. Trouble falling or staying asleep, or sleeping too much: several days 4. Feeling tired or having little energy: several days 5. Poor appetite or overeating: several days 6. Feeling bad about yourself - or that you are a failure or have let yourself or your family down: several days 7. Trouble concentrating on things, such as reading the newspaper or watching television: several days 8. Moving or speaking so slowly that other people could have noticed. Or the opposite - being so fidgety or restless that you have been moving around a lot more than usual: not at all 9. Thoughts that you would be better off or of hurting yourself in some way: not at all Total score: 7 Depression Screening Interpretation: Positive Depression Screening Follow-up: Existing condition Depression Screening Done: Yes 88005 - PHQ-9 Billing: Yes Source: Developed by Drs. Andrew Olson, Anuradha Keith, Qamar Ortiz and colleagues, with an educational cj from [employer]. Thrive Questionnaire Date Thrive assessed: 04/09/23 I am a: Patient What is your living situation today?: I have a steady place to live Within the past 12 months, did the food you bought not last and you didn't have the money to get more?: Never true Within the past 12 months, did you worry whether your food would run out before you got money to buy more?: Never true Do you have trouble paying for medicines?: No Do you have trouble getting transportation to medical appointments?: No Do you have trouble paying your heating and electricity bill?: No Do you have trouble taking care of your child, family member or friend?: No Do you have trouble with day-to-day activities such as bathing, preparing meals, shopping, managing finances, etc.?: No Are you currently unemployed and looking for a job?: No Are you interested in more education?: No Please select the resources that you would like help with: None Currently or been in a relationship where the following occur: no concerns reported AUDIT C Alcohol Use Questionnaire (AUDIT-C) 1. How often do you have a drink containing alcohol?: Never 2. How many drinks containing alcohol do you have on a typical day when you are drinking?: 3 or 4 3. How often do you have six or more drinks on one occasion?: Never Total Score: 1 Score Reviewed/Action Taken: No KAITY-7 AMB Questionnaire KAITY-7 Date KAITY - 7 assessed: 04/09/23 Feeling nervous, anxious, or on edge: 1 = Several days Not being able to stop or control worryin = Not at all Worrying too much about different things: 1 = Several days Trouble relaxin = Several days Being so restless that it is hard to sit still: 1 = Several days Becoming easily annoyed or irritable: 1 = Several days Feeling afraid as if something awful might happen: 0 = Not at all Total KAITY-7 score (0-4 normal; 5-9 mild; 10-14 moderate; 15-21 severe): 5 Source: Developed by Drs. Andrew Olson, Anuradha Keith, Qamar Ortiz and colleagues, with an educational cj from [employer]. KAITY-7 Assessment Billing KAITY-7 Assessment Tool: KAITY-7 Assessment 04774 Review of Systems Const All systems reviewed & are unremarkable except as noted in HPI and below Eyes Reports no additional complaints, Denies change in vision and Denies other visual disturbances Card Denies chest pain at rest, Denies chest pain with activity, Denies edema, Denies irregular heart rhythm, Denies claudication, Denies dyspnea, Denies dyspnea on exertion, Denies orthopnea, Denies paroxysmal nocturnal dyspnea and Denies slow heart rate Resp Denies cough, Denies dyspnea and Denies dyspnea on exertion GI Denies abdominal pain, Denies change in bowel habits, Denies excessive flatus, Denies nausea and Denies vomiting Denies urinary hesitancy, Denies urinary incontinence and Denies urinary urgency Musc Denies abnormal gait, Denies atrophy, Denies deformity and Denies limited range of motion Skin/Breast Denies bleeding lesions, Denies changing lesions and Denies rash Neuro Denies abnormal gait and Denies lack of coordination Physical exam (Primary Care) Vital Signs: Last Vital Signs BP 102/70 04/09/23 08:32 BMI result Body Mass Index 24.9 Tobacco/Smoking Status: Tobacco use Status Tobacco use date assessed 08/29/22 04/09/23 08:38 Patient Tobacco Use Status Former Tobacco user 04/09/23 08:55 Tobacco use type Cigarette 04/09/23 08:55 e-Cigarette/Vaping Use Never Used 04/09/23 08:55 PHQ-9: PHQ-9 Score PHQ-9: Total score 7 04/09/23 08:56 Depression Screening Interpretation: Positive Depression Screening Follow-up: Existing condition Thrive Assessment: Date of Thrive Assessment Date Thrive assessed 04/09/23 04/09/23 08:38 Currently or been in a relationship where the following occur: no concerns reported Eyes General: appearance normal, both eyes and all related structures Eyelids: Yes eyelids normal Conjunctivae: conjunctivae normal Neck Neck: Yes normal visual inspection and Yes supple Resp Effort & Inspection: normal respiratory effort Auscultation: clear to auscultation bilaterally Cardio Jugular venous distension: no JVD Rate: regular rate Rhythm: regular rhythm Heart sounds: S1 normal heart sound present and S2 normal heart sound present Extrem General: Yes full ROM Assessment and Plan Assessment & Plan (1) Lumbar degenerative disc disease: Code(s): M51.36 - Other intervertebral disc degeneration, lumbar region Plan: Continue naproxen as needed. (2) Mild recurrent major depression: Code(s): F33.0 - Major depressive disorder, recurrent, mild Plan: Continue bupropion. (3) Alcohol use disorder, severe, dependence: Code(s): F10.20 - Alcohol dependence, uncomplicated Plan: In remission. (4) Pure hypercholesterolemia: Code(s): E78.00 - Pure hypercholesterolemia, unspecified Plan: Continue statins. (5) Polysubstance (including opioids) dependence, daily use: Code(s): F11.20 - Opioid dependence, uncomplicated; F19.20 - Other psychoactive substance dependence, uncomplicated Plan: In remission. Medications: Refilled bupropion HCl 300 mg PO DAILY 90 days 90 tabs 1RF E78.00 - Pure hypercholesterolemia, unspecified omeprazole 20 mg PO DAILY 30 days PRN 30 caps 0RF heartburn atorvastatin 40 mg PO BEDTIME 90 days 90 tabs 1RF E78.00 - Pure hypercholesterolemia, unspecified celecoxib (Celebrex) 100 mg PO BID 30 days 60 caps 4RF E78.00 - Pure hypercholesterolemia, unspecified cyclobenzaprine 10 mg PO TID PRN 20 tabs 0RF muscle spasm Coding Level of Care Code Est Pt Level 4 (63741) Diagnoses Lumbar degenerative disc disease M51.36 Mild recurrent major depression F33.0 Alcohol use disorder, severe, dependence F10.20 Pure hypercholesterolemia E78.00 Polysubstance (including opioids) dependence, daily use F11.20; F19.20 Additional Codes KAITY-7 Assessment Billing - KAITY-7 Assessment Tool: KAITY-7 Assessment 92364 ([id number]) Time Spent (min) 23
[2023-04-09 08:32] VITALS: BP 102/70; BMI 24.9
== END 2023-04-09 08:59 | disposition home or self-care (01) ==
PROVIDERS: PCP Internal Medicine; Visit Provider Internal Medicine
DX: F33.0 Major depressive disorder, recurrent, mild (principal); F10.20 Alcohol dependence, uncomplicated; F11.20 Opioid dependence, uncomplicated; F19.20 Other psychoactive substance dependence, uncomplicated; M51.36 Other intervertebral disc degeneration, lumbar region; E78.00 Pure hypercholesterolemia, unspecified
CPT/HCPCS: 99214

== ENCOUNTER 2023-06-23 08:35 | Outpatient (REF) | payer OTHER, SELFPAY ==
--- NOTE | ~2023-06-23 | US_ITS ---
EXAMINATION: US COMPLETE ABDOMEN WITH LIVER ELASTOGRAPHY CLINICAL INFORMATION: Elevated liver function test; alcoholic liver damage. COMPARISON: None available. TECHNIQUE: Real-time imaging of the abdominal viscera. Noninvasive ultrasound liver fibrosis assessment is performed using Vern ElastPQ point quantification shear wave elastography (2D-SWE) with a C5-2 MHz transducer. Multiple elastography samples are obtained. FINDINGS: PANCREAS: Largely obscured by overlapping bowel gas. ABDOMINAL AORTA: The proximal, middle, and distal aortic segments are normal in caliber. INFERIOR VENA CAVA: Visualized portions are normal. LIVER: Normal. The liver demonstrates normal size, contour and echogenicity. No focal lesion or intrahepatic biliary duct dilatation. The right lobe measures 12.4 cm in length. The left lobe measures 9.0 cm in length. Portal flow is towards the liver (hepatopetal). Shear wave liver elastography median stiffness is 1.35 m/s (reference: normal median stiffness is 1.3 m/s or less). IQR/median stiffness to assess sampling precision is 0.07 (reference: good quality data set is IQR/median stiffness of 0.15 or less). GALLBLADDER: Normal. The gallbladder is physiologically distended without evidence of stones, sludge, polyps, wall thickening or pericholecystic fluid. COMMON BILE DUCT: Normal in caliber measuring 0.2 cm in diameter. RIGHT KIDNEY: Normal. No hydronephrosis. No renal calculi or focal parenchymal lesions. The kidney measures 10.3 cm in maximum dimension. LEFT KIDNEY: Normal. No hydronephrosis. No renal calculi or focal parenchymal lesions. The kidney measures 10.2 cm in maximum dimension. SPLEEN: Normal. The spleen measures 10.7 cm in maximum dimension. FREE FLUID: None. US/US abdomen comp w elastography IMPRESSION: 1. Liver elastography: In the absence of other known clinical signs, measurements rule out compensated advanced chronic liver disease. If there are known clinical signs, further testing may be needed for confirmation. 2. Technically limited ultrasound examination of pancreas. REFERENCE: Society of Radiologists in Ultrasound Liver Stiffness Thresholds (2020): LIVER STIFFNESS THRESHOLDS: *Liver Stiffness equal or less than 1.3 m/s: High probability of being normal. *Liver Stiffness less than 1.7 m/s: In the absence of other known clinical signs, rules out compensated advanced chronic liver disease. *Liver Stiffness 1.7-2.1 m/s: Suggestive of compensated advanced chronic liver disease but need further test for confirmation. *Liver Stiffness over 2.1 m/s: Rules in compensated advanced chronic liver disease. *Liver Stiffness over 2.4 m/s: Suggestive of clinically significant portal hypertension. QUALITY OF DATA SET: *IQR/Median value equal or less than 0.15 implies a quality data set. *IQR/Median value over 0.15 implies a poor quality data set. SIGNIFICANT CHANGE FROM PRIOR EXAM: Significant change if liver stiffness measurement is 10% or greater from prior exam. OTHER CONSIDERATIONS: The stage of liver fibrosis may be overestimated in the setting of acute hepatitis, liver inflammation, elevated liver function tests, hepatic vascular congestion, obstructive cholestasis, non-fasting state, and infiltrative diseases such as amyloidosis and lymphoma. In some patients with NAFLD, the liver stiffness thresholds for compensated advanced chronic liver disease may be lower. In causes other than viral hepatitis and NAFLD, liver stiffness thresholds are not well established.
[2023-06-23 08:55] LABS: MANUAL DIFF FLAG NO
[2023-06-23 09:13] LABS: Basophils Percent Auto 0.4 % (0-2); Eosinophils Absolute Auto 0.2 X10*3/uL (0.0-0.4); Hematocrit 48.2 % (42.0-52.0); Hemoglobin 16.4 g/dl (14.0-18.0); Imm Gran Abs Auto 0.03 X10*3/uL (0.00-0.03); Imm Gran Pct Auto 0.4 % (0.0-0.4); Lymphocytes Absolute Auto 2.4 X10*3/uL (1.2-4.9); Lymphocytes Percent Auto 30.1 % (20-40); Mean Corpuscular Hemoglobin 30.3 pg (27.0-33.0); Mean Corpuscular Volume 89.1 fL (80.0-98.0); Mean Platelet Volume 9.2 fL (9.4-12.4); Monocytes Absolute Auto 0.7 X10*3/uL (0.1-1.2); Monocytes Percent Auto 8.1 % (2-11); Neutrophils Absolute Auto 4.8 x10*3/uL (2.0-8.3); Platelet Count 441 X10*3/uL (160-400); Red Blood Count 5.41 X10*6/uL (4.60-5.80); White Blood Count 8.1 X10*3/uL (4.8-10.8)
[2023-06-23 09:16] LABS: Prothrombin Time 11.8 SEC (11.1-13.3)
[2023-06-23 09:44] LABS: Alanine Aminotransferase 25 U/L (0-40); Albumin Level 4.2 g/dL (3.5-5.0); Alkaline Phosphatase 127 U/L (39-117); Aspartate Amino Transferase 16 U/L (5-37); Bilirubin Direct 0.2 mg/dL (0.0-0.5); Bilirubin Total 0.6 mg/dL (0.0-1.0); Total Protein 7.4 g/dL (6.5-8.0)
[2023-06-23 10:10] LABS: HBS Num1 > 1000.00 mIU/mL (0-7.99); HBc Num1 0.07 S/CO (0.00-0.79); HBsAGNum1 0.38 S/CO (0.00-0.99); Hepatitis B Core Antibody Nonreactive (Nonreactive); Hepatitis B Surface Antigen Negative (Negative); ~HepC Num1 0.12 S/CO (0.00-0.79); ~Hepatitis B Surface Antibody REACTIVE (Nonreactive); ~Hepatitis C Antibody Nonreactive (Nonreactive)
[2023-06-24 13:09] LABS: Alpha Fetoprotein 11.3 ng/mL (<6.1)
[2023-06-30 14:34] LABS: FIB-ALT 22 U/L (9-46); FIB-Alpha-2-Macroglobulin 209 mg/dL (106-279); FIB-Apolipoprotein A1 168 mg/dL (94-176); FIB-GGT 25 U/L (3-95); FIB-Haptoglobin 145 mg/dL (43-212); FIB-Total Bilirubin 0.6 mg/dL (0.2-1.2); Liver Fibrosis Score 0.21; Liver Fibrosis Stage F0-F1; Nec Inflam Act Grade A0; Nec Inflam Act Score 0.08
== END 2023-06-23 08:36 | disposition home or self-care (01) ==
LOC: HO.US 08:35
PROVIDERS: PCP Internal Medicine; Visit Provider Internal Medicine
DX: K70.9 Alcoholic liver disease, unspecified (principal); R79.89 Other specified abnormal findings of blood chemistry
CPT/HCPCS: 36415; 76700; 76981; 80076; 81596; 82105; 85025; 85610; 86704; 86706; 86803; 87340

== ENCOUNTER 2023-06-27 14:10 | Outpatient (AMB) | payer OTHER, SELFPAY ==
--- NOTE | 2023-06-27 14:13 | MHC.OFFVIS ---
Intake Vital Signs 06/27/23 14:16 Height 5 ft 4 in Weight 148 lb BMI 25.4 BP 123/86 Blood Pressure Location Rt brachial Position Sitting Pulse 86 Pulse Source Pulse Oximeter Pulse Oximetry (%) 97 Oxygen Delivery Method Room Air Intake Visit Reasons: follow up procedure discussion Intake Note: Pain today 11/14 Organizational Consultant Required: No Accompanied by: Self / Same As Patient Allergies No Known Allergies [No Known Allergies*] Allergy (Verified 06/27/23 14:17) HPI HPI Comments History of Present Illness Details Patient presents today for follow up to discuss interventional procedures to alleviate his chronic low back pain with right sided radiculopathy. This has been chronic issues for him and he was treated in our office for axial and right radicular pain in the past as well as underwent neurosurgical evaluation by Dr. Smith and was deemed non-surgical. He had good response to right L4-L5 TFESI in 2018 which provided him significant pain relief. Patient request to repeat this injection under sedation. He denies any recent cough, cold, infection, fever, bladder or bowel dysfunction, saddle anesthesia, any significant changes in her medical history, medications or recent hospitalizations. PRIOR: Patient is a pleasant Moroccan speaking 52-year-old male with a past medical history of ETOH and cocaine use disorder, HLD, lumbar DDD and radiculopathy, depression, GERD, presents today for follow up for worsening chronic low back pain, worse on the right side that radiates up to his neck. Patient was recently treated in our ED s/p intoxication/polysubstance use and fall. Patient states he has been sober for 2 months. Patient reports he was trying to get refill for gabapentin from his PCP office but was told it was not good for him. His previous ALT level was elevated. Patient has outstanding lab work ordered by his PCP but not completed yet, I have reminded patient to complete these labs and follow up with his PCP. Patient reports increase in back pain with any movement, worse with bending forward, pulling, lifting, walking, prolonged standing. Resting and repositioning will temporary alleviate his back symptoms. Pain negatively affects his daily activities, functioning, mood, social activities and quality of life. He reports he tried massage therapy, acupuncture, attempted physical therapy and underwent back injections with minimal to no improvement in his symptoms. Denies any fever, chills, weight loss, abdominal or groin pain, gait imbalances, bladder or bowel dysfunction or saddle anesthesia. PRIOR Dr. Jacobo 04/2022: Nick is very pleasant 51 years old gentleman who presents in my office with complains on lower back pain on the right side with radiation into the right lower extremity to the level of the knee but not below the level of the knee. He is under observation in this office for long period of time. He was requesting to be admitted into chronic opioid program in the past. Due to chronic addiction to a alcoholism he was not admitted to the opioid program. He was offered multiple injections. He had an MRI in the past with changes dictated as below. Diagnostic medial branch block on the right L2-L3 L4-5 resulted in less than 50% pain improvement, he does not want to proceed in more injections. Possibility of treating his pain as discogenic explained to the patient. In the past he was adamantly refusing the injections which were offered to him. He requests me to give him some medications which potentially could help him with the pain. He requests me to start him on gabapentin will do it with 6 refills. He is recommended to give us a call in 5-6 months to request about possibility of intradiscal injections. [facility] Medical History Mild recurrent major depression Physical exam Cocaine use disorder GERD (gastroesophageal reflux disease) History of back pain Headache Right elbow pain Pure hypercholesterolemia Lumbar radiculopathy Spondylosis of lumbosacral spine without myelopathy Alcoholism Abuse, drug or alcohol Surgical History History of esophagogastroduodenoscopy (EGD) History of eye surgery History of eye surgery Family History Father Alcoholism Substance use disorder Mother Diabetes Social History Housing: Apartment Alcohol intake: former Patient Tobacco Use Status: Former Tobacco user Tobacco use type: Cigarette e-Cigarette/Vaping Use: Never Used Second Hand Smoke Exposure: No Substance Use Type: Crack/Cocaine and Marijuana service: No Current occupational status: unemployed Cognitive needs: No Hearing needs: No Vision needs: No Review of Systems Const All systems reviewed & are unremarkable except as noted in HPI and below ENT Reports Normal hearing present Neuro Reports Normal hearing present, Denies Abnormal speech present, Denies confusion and Denies Sensory deficit (Neuro) Psych Denies confusion Physical Exam Vital Signs: Last Vital Signs Pulse 86 06/27/23 14:16 BP 123/86 06/27/23 14:16 Pulse Ox 97 06/27/23 14:16 Oxygen Delivery Method Room Air 06/27/23 14:16 BMI result Body Mass Index 25.4 Const General: cooperative, no acute distress, alert, awake and well groomed; No confusion or intoxicated appearing Nutritional Appearance: average body habitus Orientation/consciousness: No confusion Limitations: language barrier HEENT Head: Yes normal to inspection, Yes normocephalic and Yes atraumatic Ears: hearing grossly normal bilaterally Eyes General: appearance normal, both eyes and all related structures Resp Effort & Inspection: normal respiratory effort, able to speak in complete sentences, no audible wheezes and no cough Cardio Jugular venous distension: no JVD GI Inspection: Yes normal to inspection Palpation (GI): Soft to palpation and nontender Back/Spine/Pelvis Other: No midline tenderness to palpation in the thoracic or lumbar spine. Mild paraspinal tenderness to palpation in the lumbar spine, worse on the right. Lumbar extension causes mild pain and flexion reproduces moderate pain. Painful facet loading bilaterally, R>L. Cervical Spine: cervical muscular tenderness, pain with cervical ROM and No Cervical spine tenderness Thoracic/Lumbar Spine: thoracic and lumbar spine normal to inspection, No Thoracic/lumbar spine scar(s), Lasegue's sign positive on the right and localized, pain with thoraco-lumbar ROM, paraspinal muscle tenderness, thoraco-lumbar ROM limited, No thoracic spinal tenderness, lumbar spinal tenderness at L4 and at L5 and straight leg raise positive right at 50 degrees Pelvis: no buttock tenderness Sacroiliac joints: bilaterally (Renaldo's test reproduces right lateral hip pain, not back pain.) nontender Neuro General: No confusion Cranial nerves: Yes Normal hearing present Speech: No Abnormal speech present Sensory Exam: No Sensory deficit (Neuro) Psych Appearance: grossly normal Mental Status: mental status grossly normal Speech and movement: Normal speech and movement present Affect: normal affect Attitude: cooperative Thought process: Normal thought process present Thought content: Normal thought content present Insight: Good insight present (Psych) Judgement: Good judgement present (Psych) Results Reviewed Results Reviewed: MR LUMBAR SPINE WITHOUT CONTRAST 05/15/21 CLINICAL INFORMATION: Right-sided lower back pain. Right leg pain. COMPARISON: Lumbar spine radiographs dated 03/26/2017 and lumbar spine MRI dated 06/03/2011. TECHNIQUE: MRI of the lumbar spine was obtained using routine sequences without contrast. FINDINGS: VERTEBRAL BODIES AND PARASPINAL STRUCTURES: Normal vertebral body alignment. The lumbar lordosis is maintained. No acute fracture or subluxation. No loss of vertebral body height. Prominent loss of intervertebral disc height with disc desiccation at L4-L5 and L5-S1 where there are Modic type II degenerative endplate changes as well as a prominent Schmorl's node at the inferior endplate of L4. More mild loss of intervertebral disc height with disc desiccation at L3-L4. Findings have progressed when compared to the prior MRI. No evidence of acute osseous injury. The visualized paraspinal soft tissues are unremarkable. CONUS MEDULLARIS AND CAUDA EQUINA: Normal, terminating at the level of L1. SPINAL LEVELS: T12-L1: No significant disc bulge. No central canal or neural foraminal stenosis. L1-L2: No significant disc bulge. No central canal or neural foraminal stenosis. L2-L3: No significant disc bulge. No central canal or neural foraminal stenosis. L3-L4: Mild broad-based disc bulge with a tiny left paracentral disc protrusion. Bilateral facet arthropathy. Mild bilateral neural foraminal stenosis. Findings are new/increased when compared to the prior examination. L4-L5: Broad-based disc bulge with bilateral facet arthropathy which encroaches upon the traversing bilateral L5 nerve roots within the lateral recesses and causes [id number] bilateral neural foraminal stenosis. Findings are slightly progressed when compared to the prior examination. L5-S1: Broad-based disc bulge with faint annular fissuring which abuts the traversing bilateral S1 nerve roots in the lateral recesses. Bilateral facet arthropathy causing mild central canal as well as [id number] bilateral neural foraminal stenosis, increased when compared to the prior examination. IMPRESSION: 1. Prominent degenerative disc disease at L4-L5 with a posterior Schmorl's node as well as a broad-based disc bulge and bilateral facet arthropathy which encroach upon the traversing bilateral L5 nerve roots in the lateral recesses. This causes [id number] bilateral neural foraminal stenosis. Findings are progressed when compared to the prior examination. 2. Degenerative disc disease at L5-S1 with a broad-based disc bulge and faint annular fissuring which abuts the traversing bilateral S1 nerve roots in combination with bilateral facet arthropathy causes mild central canal as well as [id number] bilateral neural foraminal stenosis, increased when compared to the prior examination. 3. Mild broad-based disc bulge at L3-L4 with a tiny left paracentral disc protrusion and bilateral facet arthropathy causing mild bilateral neural foraminal stenosis, new/increased when compared to the prior examination. NONCONTRAST HEAD CT NONCONTRAST CERVICAL SPINE CT 12/26/22 INDICATION INFORMATION: Altered mental status, possible fall COMPARISON: 11/23/2022 FINDINGS: Head: There is no evidence of acute intracranial hemorrhage or territorial infarction. No abnormal mass-effect or midline shift is seen. Blake to white matter differentiation is well preserved. No extra-axial fluid collections are identified. The ventricles are normal in size. There is no abnormal attenuation within the brain parenchyma. The osseous structures and soft tissues are normal. The mastoid air cells and visualized portions of the paranasal sinuses are well-aerated. Cervical spine: There is anatomic alignment of the vertebral bodies and posterior elements. Vertebral body heights are maintained. There is degenerative change at the atlantodens articulation. There is partial ankylosis across C3-C4. There is disc space narrowing throughout much of the remaining cervical spine along with endplate osteophytes. No evidence of acute fracture. No prevertebral soft tissue swelling. Visualized portions of the lung apices are unremarkable. The thyroid gland is unremarkable. IMPRESSION: HEAD: No acute intracranial findings. CERVICAL SPINE: No acute findings identified. Degenerative changes as noted above. Assessment & Plan Assessment & Plan (1) Lumbosacral spondylosis: Code(s): M47.817 - Spondylosis without myelopathy or radiculopathy, lumbosacral region (2) Lumbar degenerative disc disease: Code(s): M51.36 - Other intervertebral disc degeneration, lumbar region (3) Vertebrogenic low back pain: Code(s): M54.51 - Vertebrogenic low back pain (4) Lumbar radiculopathy: Code(s): M54.16 - Radiculopathy, lumbar region Plan Previous lumbar MRI results were reviewed with patient again today and discussed potential injections/procedures to alleviate his right lumbar radiculopathies. I will send him for a Right L4-L5 TFESI with sedation and fluoroscopy. Expectations, risks and benefits were viewed. Patient also has Modic type II degenerative endplate changes at L4-L5 as well as a prominent Schmorl's node at the inferior endplate of L4, he is a good candidate for BVN ablation procedure for his increase in back pain with forward flexion. Patient underwent diagnostic medial branch block on the right L2-L3 L4-L5 on 04/16/22 which resulted in less than 50% pain improvement. Refills provided for Celebrex and Lidocaine patches. Reviewed side effects and precautions of long-term use of NSAIDs with patient. Patient is aware to avoid other NSAIDs, including Naproxen, while taking Celebrex. All questions were answered and patient is in agreement of plan. Follow up after injections and sooner as needed. Medications: Changed From celecoxib (Celebrex) 100 mg PO BID 30 days 60 caps 4RF M47.817 - Spondylosis without myelopathy or radiculopathy, lumbosacral region, M51.36 - Other intervertebral disc degeneration, lumbar region, M54.51 - Vertebrogenic low back pain To celecoxib (Celebrex) Take it with food and full glass of water. 100 mg PO BID 30 days PRN 60 caps 1RF pain (scale score 7-10) M47.817 - Spondylosis without myelopathy or radiculopathy, lumbosacral region, M51.36 - Other intervertebral disc degeneration, lumbar region, M54.51 - Vertebrogenic low back pain From lidocaine 5% leave on most painful area for up to 12 hrs 1 patch topical DAILY 30 ea 0RF M47.817 - Spondylosis without myelopathy or radiculopathy, lumbosacral region, M51.36 - Other intervertebral disc degeneration, lumbar region, M54.51 - Vertebrogenic low back pain To lidocaine 5% leave on most painful area for up to 12 hrs 1 patch topical DAILY 30 days 30 ea 3RF pain M47.817 - Spondylosis without myelopathy or radiculopathy, lumbosacral region, M51.36 - Other intervertebral disc degeneration, lumbar region, M54.51 - Vertebrogenic low back pain Quality Reporting (2020) Adult ([facility] 138/05/29/68) Smoking risk assessment performed?: Yes Patient Tobacco Use Status: Former Tobacco user Coding Level of Care Code Est Pt Level 4 (12074) Diagnoses Lumbosacral spondylosis M47.817 Lumbar degenerative disc disease M51.36 Vertebrogenic low back pain M54.51 Lumbar radiculopathy M54.16
[2023-06-27 14:16] VITALS: BP 123/86; PULSE 86; O2SAT 97; BMI 25.4
== END 2023-06-27 14:44 | disposition home or self-care (01) ==
PROVIDERS: PCP Internal Medicine; Visit Provider Nurse Practitioner Family
DX: M47.817 Spondylosis without myelopathy or radiculopathy, lumbosacral region (principal); M51.36 Other intervertebral disc degeneration, lumbar region; M54.51 Vertebrogenic low back pain; M54.16 Radiculopathy, lumbar region
CPT/HCPCS: 99214

== ENCOUNTER → 2023-06-27 14:10 | Outpatient (BNVA) | payer OTHER, SELFPAY | PROVIDERS: PCP Internal Medicine; Visit Provider Nurse Practitioner Family | DX: M47.817 Spondylosis without myelopathy or radiculopathy, lumbosacral region (principal); M51.36 Other intervertebral disc degeneration, lumbar region; M54.51 Vertebrogenic low back pain; M54.16 Radiculopathy, lumbar region | CPT/HCPCS: 99212 ==

== ENCOUNTER 2023-07-16 10:00 | Outpatient (RCR) | payer OTHER, SELFPAY ==
--- NOTE | 2023-06-30 11:41 | MHC.OT.EP ---
[address] [phone] Occupational Therapy Plan of Care Patient Name: Nick Munoz Date of Evaluation: 06/30/23 Diagnosis: B/L hand pain Pain Location: Right lateral elbow and volar wrist Left medial elbow and ulnar wrist Pain Score: 8 Pain Scale Used: Numeric (0 - 10) Aggravating Factors: General use Alleviating Factors: Gabapentin, naproxen Assessment: 53 yo male w/ hx of bilateral hand pain, persistent over the past few years, has been followed by his PCP but no further work-up from ortho, neuro or rheumatology. He reports having nerve conduction, but no results available on the portal to this therapist. On assessment, signs and symptoms consistent w/ mild carpal tunnel syndrome B/L'ly, with right lateral epicondyle and left medial epicondyle irritation. We have fabricated B/L nighttime resting wrist orthosis and will progress w/ course of therapy. Frequency and Duration: The patient will be seen 2x/wk 4 weeks Short Term Goals: Ind w/ nighttime orthosis wear Good follow through w/ activity modification techniques Ind w/ HEP for tendon and nerve glides Long-Term Goals: Pt to report ease w/ sleeping due to orthosis wear Pain free hand and elbow at rest <3/10 hand and elbow pain w/ moderate daily activities <35pts QuickDASH B/L gross grasp >45lb Treatment Plan: Therapeutic Exercise Therapeutic Activity Home Exercise Program Splinting Patient Education ADL Training Ultrasound Paraffin Fluidotherapy MHP Cold Packs Joint Mobilization Soft Tissue Mobilization Kinesiotaping nighttime wrist orthoses Electronically Signed By: KAREN De/L CHT Please Sign and return to therapist. Thank you once again for your referral.
--- NOTE | 2023-08-26 11:07 | MHC.OT.DC ---
[address] [phone] F: [phone] Occupational Therapy Discharge Note Patient Name: Nick Aguileradavian Munoz Provider: Dr Kaley Ramirez Diagnosis: B/L hand pain Date of Evaluation: 06/30/23 Treatments to Date: 5 Cancellations to Date: 2 No Shows to Date: 1 Discharge Status: Independent with HEP Visit Non-compliance Discharge Summary: Manual was referred to OT w/ B/L hand pain. He was seen for brief course of OT with stretching, increasing daily movement and trialing nighttime orthosis, but had still been having pain. He was seen seen in therapy for over a month and missed several appointments. We will be discharging from services at this time due to compliance policy. Electronically Signed By: Sharron Miller OTR/L CHT Please Sign and return to therapist, thank you for your referral.
== END 2023-08-26 11:07 | disposition home or self-care (01) ==
LOC: HO.OT 10:00
PROVIDERS: PCP Internal Medicine; Visit Provider Internal Medicine
DX: M79.641 Pain in right hand (principal); M79.642 Pain in left hand
CPT/HCPCS: 29125; 97110; 97140; 97166; 97760

== ENCOUNTER 2023-07-16 15:34 | Outpatient (AMB) | payer OTHER, SELFPAY ==
[2023-07-16 16:05] VITALS: BP 104/76; BMI 26.6
--- NOTE | 2023-07-16 16:05 | MHC.PC.OV ---
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 Accompanied by: Self / Same As Patient Allergies No Known Allergies [No Known Allergies*] Allergy (Verified 07/16/23 16:26) Medication List - Last Reconciled 07/16/23 by Kaley Ramirez MD atorvastatin 40 mg PO BEDTIME 90 days bupropion HCl XL 300 mg PO DAILY 90 days celecoxib (Celebrex) 100 mg PO BID PRN 30 days cyclobenzaprine 10 mg PO TID PRN gabapentin 300 mg PO TID lidocaine 5% 1 patch topical DAILY 30 days meclizine 25 mg PO TID PRN naltrexone 1 tab PO DAILY naproxen 500 mg PO BID PRN 30 days omeprazole 20 mg PO DAILY PRN 30 days vitamin B complex (Vitamins B Complex capsule) 1 cap DAILY Tobacco use date assessed: 07/16/23 Dental Screening Dental Screen Date: 04/09/23 HPI HPI Comments History of Present Illness Details This is a 53-year-old male with pure hypercholesterolemia, GERD, alcohol use disorder, cocaine use disorder and mild recurrent major depression that still complains of bilateral hand pain and is receiving occupational therapy. On statins for his elevated cholesterol. GERD stable with medications. Had endoscopy and colonoscopy recently. Quit cocaine and alcohol 5 months ago. On bupropion for his depression. Denies any chest pain or shortness of breath. 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 Pope to see when is his next follow-up. [facility] Medical History Mild recurrent major depression Physical exam Cocaine use disorder GERD (gastroesophageal reflux disease) History of back pain Headache Right elbow pain Pure hypercholesterolemia Lumbar radiculopathy Spondylosis of lumbosacral spine without myelopathy Alcoholism Abuse, drug or alcohol Surgical History History of esophagogastroduodenoscopy (EGD) History of eye surgery History of eye surgery Family History Father Alcoholism Substance use disorder Mother Diabetes Social History Housing: Apartment Alcohol intake: former Patient Tobacco Use Status: Former Tobacco user Tobacco use type: Cigarette e-Cigarette/Vaping Use: Never Used Second Hand Smoke Exposure: No Substance Use Type: Crack/Cocaine and Marijuana service: No Current occupational status: unemployed Cognitive needs: No Hearing needs: No Vision needs: No Questionnaire Thrive Questionnaire Date Thrive assessed: 04/09/23 KAITY-7 AMB Questionnaire KAITY-7 Date KAITY - 7 assessed: 04/09/23 Source: Developed by Drs. Andrew Olson, Anuradha Keith, Qamar Ortiz and colleagues, with an educational cj from [employer]. Review of Systems Const All systems reviewed & are unremarkable except as noted in HPI and below Eyes Reports no additional complaints, Denies change in vision and Denies other visual disturbances Card Denies chest pain at rest, Denies chest pain with activity, Denies edema, Denies irregular heart rhythm, Denies claudication, Denies dyspnea, Denies dyspnea on exertion, Denies orthopnea, Denies paroxysmal nocturnal dyspnea and Denies slow heart rate Resp Denies cough, Denies dyspnea and Denies dyspnea on exertion Physical exam (Primary Care) Vital Signs: Last Vital Signs BP 104/76 07/16/23 16:05 BMI result Body Mass Index 26.6 Tobacco/Smoking Status: Tobacco use Status Tobacco use date assessed 07/16/23 07/16/23 16:11 Patient Tobacco Use Status Former Tobacco user 07/16/23 16:11 Tobacco use type Cigarette 07/16/23 16:11 e-Cigarette/Vaping Use Never Used 07/16/23 16:11 Thrive Assessment: Date of Thrive Assessment Date Thrive assessed 04/09/23 07/16/23 16:11 Resp Effort & Inspection: normal respiratory effort Auscultation: clear to auscultation bilaterally Cardio Jugular venous distension: no JVD Rate: regular rate Rhythm: regular rhythm Heart sounds: S1 normal heart sound present and S2 normal heart sound present Extrem General: Yes full ROM Assessment and Plan Assessment & Plan (1) Mild recurrent major depression: Code(s): F33.0 - Major depressive disorder, recurrent, mild Plan: Continue bupropion. (2) GERD (gastroesophageal reflux disease): Code(s): K21.9 - Gastro-esophageal reflux disease without esophagitis Qualifiers: Esophagitis presence: esophagitis presence not specified Qualified Code(s): K21.9 - Gastro-esophageal reflux disease without esophagitis Plan: Continue PPIs. (3) Cocaine use disorder: Code(s): F14.10 - Cocaine abuse, uncomplicated Plan: Avoid using cocaine. (4) Alcohol use disorder, severe, dependence: Code(s): F10.20 - Alcohol dependence, uncomplicated Plan: Avoid using alcohol. (5) Pure hypercholesterolemia: Code(s): E78.00 - Pure hypercholesterolemia, unspecified Plan: Continue statins. (6) Hand pain: Code(s): M79.643 - Pain in unspecified hand Plan: Continue occupational therapy. Medications: New triamcinolone acetonide 0.1% 1 appl topical DAILY 15 grams 0RF 2 weeks Changed From vitamin B complex (Vitamins B Complex capsule) 1 cap DAILY To vitamin B complex (Vitamins B Complex capsule) 1 cap PO DAILY 90 caps 1RF 90 days Refilled atorvastatin 40 mg PO BEDTIME 90 tabs 1RF 90 days E78.00 - Pure hypercholesterolemia, unspecified celecoxib (Celebrex) Take it with food and full glass of water. 100 mg PO BID PRN 60 caps 1RF pain (scale score 7-10) 30 days M47.817 - Spondylosis without myelopathy or radiculopathy, lumbosacral region, M51.36 - Other intervertebral disc degeneration, lumbar region, M54.51 - Vertebrogenic low back pain omeprazole 20 mg PO DAILY PRN 30 caps 0RF heartburn 30 days bupropion HCl XL 300 mg PO DAILY 90 tabs 1RF 90 days E78.00 - Pure hypercholesterolemia, unspecified Coding Level of Care Code Est Pt Level 4 (66844) Diagnoses Mild recurrent major depression F33.0 Gastroesophageal reflux disease, unspecified whether esophagitis present K21.9 Esophagitis presence: esophagitis presence not specified Cocaine use disorder F14.10 Alcohol use disorder, severe, dependence F10.20 Pure hypercholesterolemia E78.00 Hand pain M79.643 Time Spent (min) 20
== END 2023-07-16 16:37 | disposition home or self-care (01) ==
PROVIDERS: PCP Internal Medicine; Visit Provider Internal Medicine
DX: F33.0 Major depressive disorder, recurrent, mild (principal); K21.9 Gastro-esophageal reflux disease without esophagitis; F14.10 Cocaine abuse, uncomplicated; F10.20 Alcohol dependence, uncomplicated; E78.00 Pure hypercholesterolemia, unspecified; M79.643 Pain in unspecified hand
CPT/HCPCS: 99214

== ENCOUNTER 2023-10-27 19:31 | Emergency (ER) | payer OTHER, SELFPAY ==
--- NOTE | ~2023-10-27 | CT_ITS ---
EXAMINATION CT HEAD WITHOUT CONTRAST CT CERVICAL SPINE WITHOUT CONTRAST CLINICAL INFORMATION: Altered mental status, alcohol use COMPARISON: CT head and cervical spine 12/27/2023 TECHNIQUE: CT of the head was performed without intravenous contrast. Reformatted axial, coronal, and sagittal images were reviewed. Then, multidetector CT of the cervical spine was performed without intravenous contrast. Reformatted axial, coronal and sagittal images were reviewed. This CT examination was performed using dose optimization techniques as appropriate, variously including the following: *Automated exposure control *Adjustment of mA and/or kV according to patient size (this includes techniques or standardized protocols for targeted exams where dose is matched to indication/reason for exam; i.e. extremities or head) *Use of iterative reconstruction technique DLP: 128 mGy-cm FINDINGS: HEAD: No intracranial hemorrhage, extra-axial fluid collection, or midline shift is identified. Blake-white matter differentiation is preserved. The ventricles are within normal limits. Basal cisterns are within normal limits. Mucosal thickening of the left maxillary sinus. Deviated nasal septum. Mastoid air cells and middle ear cavities are clear. No acute calvarial fractures. CERVICAL SPINE: There is no fracture, malalignment or prevertebral soft tissue abnormality seen in the cervical spine. There is no abnormal widening of the predental space, separation of the lateral masses of C1 or facet joint distraction. Multilevel degenerative changes of the cervical spine, worst at C5-C6 where there is calcification of the posterior longitudinal ligament and uncovertebral hypertrophy resulting in mild central canal and moderate bilateral neural foraminal stenosis. Partial bony ankylosis of C3-C4 vertebral body and facets. The visualized portions of the lung parenchyma is unremarkable. CT/CT cervical spine wo IV con IMPRESSION: CT HEAD: 1. No acute intracranial abnormality. CT CERVICAL SPINE: 1. No acute fracture or malalignment of the cervical spine. 2. Multilevel degenerative changes of the cervical spine, worst at C5-C6.
[2023-10-27 19:43] VITALS: BP 112/75; BP 117/78; PULSE 79; PULSE 94; RESP 20; TEMP 36.6; O2SAT 93; O2SAT 97; BMI 26.6
--- NOTE | 2023-10-27 19:50 | ECG_ITS ---
Test Reason : AMS Blood Pressure : / mmHG Vent. Rate : 076 BPM Atrial Rate : 076 BPM P-R Int : 172 ms QRS Dur : 088 ms QT Int : 392 ms P-R-T Axes : 037 -04 026 degrees QTc Int : 441 ms Normal sinus rhythm Normal ECG When compared with ECG of 20-JAN-2023 12:31, No significant change was found Referred By: Xochilt Phillip Electronically Signed By:ELROY PALACIO
--- NOTE | 2023-10-27 19:51 | ED.GENADULT ---
HPI - General Adult General Chief complaint: ETOH/Substance Use Stated complaint: AMS/ETOH, possible illicit drug use, lethargic Time Seen by Provider: 10/27/23 19:41 Source: EMS Mode of arrival: EMS Limitations: altered mental status History of Present Illness ED Provider: Dr. Xochilt Phillip HPI narrative: Patient comes to the emergency room via ambulance. According to EMS, patient's family called 911 because patient was found unresponsive/lethargic at home. According to the family, patient had 1 Natty , likely use THC and crack. Patient opens his eyes to voice. Not answering any questions, to somnolent. Unclear if patient has fallen or had any injuries. Related Data Home Medications ?Medication ?Instructions ?Recorded ?Confirmed naltrexone 50 mg tablet 1 tab PO DAILY 12/28/21 07/16/23 gabapentin 300 mg capsule 300 mg PO TID 02/25/23 07/16/23 Previous Rx's ?Medication ?Instructions ?Recorded meclizine 25 mg tablet 25 mg PO TID PRN dizziness #14 tabs 01/20/23 cyclobenzaprine 10 mg tablet 10 mg PO TID PRN muscle spasm #20 04/09/23 tabs lidocaine 5 % topical patch 1 patch topical DAILY pain 30 days 06/27/23 #30 ea naproxen 500 mg tablet 500 mg PO BID PRN for pain 30 days 07/02/23 #60 tabs atorvastatin 40 mg tablet 40 mg PO BEDTIME 90 days #90 tabs 07/16/23 bupropion HCl 300 mg 24 hr tablet, 300 mg PO DAILY 90 days #90 tabs 07/16/23 extended release celecoxib 100 mg capsule (Celebrex) 100 mg PO BID PRN pain (scale 07/16/23 score 7-10) 30 days #60 caps omeprazole 20 mg capsule,delayed 20 mg PO DAILY PRN heartburn 30 07/16/23 release days #30 caps triamcinolone acetonide 0.1 % 1 appl topical DAILY 2 weeks #15 07/16/23 topical cream grams vitamin B complex (Vitamins B 1 cap PO DAILY 90 days #90 caps 07/16/23 Complex capsule) Allergies Allergy/AdvReac Type Severity Reaction Status Date / Time No Known Allergies Allergy Verified 10/27/23 19:45 [No Known Allergies*] Review of Systems Review of Systems: Yes Unobtainable due to mental status PMFSH Past Medical History Medical History Mild recurrent major depression Physical exam Cocaine use disorder GERD (gastroesophageal reflux disease) History of back pain Headache Right elbow pain Pure hypercholesterolemia Lumbar radiculopathy Spondylosis of lumbosacral spine without myelopathy Alcoholism Abuse, drug or alcohol Surgical History History of esophagogastroduodenoscopy (EGD) History of eye surgery History of eye surgery Family History Family History Father Alcoholism Substance use disorder Mother Diabetes Social History Social History Housing: Apartment Unable to assess alcohol history related to: Unknown Alcohol intake: former Patient Tobacco Use Status: Former Tobacco user Tobacco use type: Cigarette e-Cigarette/Vaping Use: Never Used Second Hand Smoke Exposure: No Use of substances other than those prescribed or required for medical reasons: Unknown Substance Use Type: Crack/Cocaine and Marijuana Advance Directives: No Advance Directives Information Provided: No service: No Current occupational status: unemployed Cognitive needs: No Hearing needs: No Vision needs: No Physical Exam ED Vital Signs: Vital Signs - 24 hr 10/27/23 19:43 10/27/23 20:21 Temperature 98 F Pulse Rate 79 73 Respiratory Rate 20 19 Blood Pressure 112/75 105/67 Pulse Oximetry 93 96 Oxygen Delivery Method Room Air Room Air BMI result Body Mass Index 26.6 Const Other: Appearance: Very somnolent, opens his eyes on command but falls right back asleep. Eyes: Pupils equal, round and reactive to light. ENT: Pharynx normal. Neck: Normal inspection. Neck supple. No lymph nodes noted. No crepitus CVS: Normal heart rate and rhythm. Pulses normal. Normal S1 and S2 Respiratory: No respiratory distress. Breath sounds normal. No Wheezing. No rales Abdomen: Soft and nontender. No rigidity. No distention. Skin: Skin warm and dry. Normal skin color. Normal skin turgor. Extremities: No lower extremity edema. No Lacerations. No Rash Neuro: Somnolent, unable to participate in cranial nerve assessment Psych: To somnolent at this time Course Course Course Narrative: -all of patient's labs and CT scans pending Medical Decision Making Medical Decision Making [facility] Narrative: -my interpretation of head CT, no intracranial bleed. However, this crawling of the CT scan brain imaging was limited due to a system issue. -radiology report pending -my interpretation of labs, hematology and chemistry no obvious abnormality., ETOH positive 124 -patient has not provided a urine sample yet, UA and U tox pending -patient's vitals remained stable -sign-out given to my colleague Dr. Silva Differential Diagnosis Differential Diagnoses: The differential diagnosis associated with the presentation includes (Intracranial bleed, alcohol intoxication, polysubstance abuse, overdose) Admission/Observation Consideration of admission/observation: Escalation of care including admission/observation considered (Patient is still intoxicated, plan metabolize to freedom, patient under physician observation) Lab Data [facility] Lab Attestation statement: I reviewed the patient's lab results. 10/27/23 20:02 10/27/23 20:02 Labs: Lab Results 10/27/23 Range/Units 20:02 WBC 8.0 (4.8-10.8) X10*3/uL RBC 4.30 L D (4.60-5.80) X10*6/uL Hgb 13.5 L (14.0-18.0) g/dl Hct 38.9 L (42.0-52.0) % MCV 90.5 (80.0-98.0) fL MCH 31.4 (27.0-33.0) pg MCHC 34.7 (31.0-36.0) g/dl RDW 13.3 (11.0-16.0) % Plt Count 346 (160-400) X10*3/uL MPV 8.9 L (9.4-12.4) fL Immature Gran % (Auto) 0.3 (0.0-0.4) % Neut % (Auto) 69.2 (45-73) % Lymph % (Auto) 21.5 (20-40) % Talbot % (Auto) 8.3 (2-11) % Eos % (Auto) 0.3 (0-4) % Baso % (Auto) 0.4 (0-2) % Lymph # (Auto) 1.7 (1.2-4.9) X10*3/uL Talbot # (Auto) 0.7 (0.1-1.2) X10*3/uL Eos # (Auto) 0.0 (0.0-0.4) X10*3/uL Baso # (Auto) 0.0 (0.0-0.2) X10*3/uL Abs Immat Gran (auto) 0.02 (0.00-0.03) X10*3/uL Absolute Neuts (auto) 5.5 (2.0-8.3) x10*3/uL Absolute Nucleated RBC 0.000 (0.0-0.012) X10*3/uL Nucleated RBC % (auto) 0.0 (0.0-0.2) /100WBC Sodium 143 (135-145) mmol/L Potassium 3.3 (3.3-5.1) mmol/L Chloride 109 H (96-108) mmol/L Carbon Dioxide 20 L (22-29) mmol/L Anion Gap 17 (12-20) BUN 11 (9-16) mg/dL Creatinine 0.88 (0.5-1.4) mg/dL Estim Creat Clear Calc 86.5 Estimated GFR > 60 Random Glucose 92 (60-115) mg/dL Calcium 9.4 (8.4-10.2) mg/dL Magnesium 1.9 (1.6-2.6) mg/dL Total Bilirubin 0.3 (0.0-1.0) mg/dL Direct Bilirubin 0.1 (0.0-0.5) mg/dL AST 26 (5-37) U/L ALT 34 (0-40) U/L Alkaline Phosphatase 90 (39-117) U/L Troponin I High Sens < 2.7 (<3.5-35.0) ng/L Total Protein 6.9 (6.5-8.0) g/dL Albumin 4.2 (3.5-5.0) g/dL Ethyl Alcohol 124 mg/dL Critical Care Time Critical Care Time Critical Care Time: Yes Total Critical Care Time: 35 Attestation: I have personally provided critical care time. Time includes review of lab data, radiology results, discussion with consultants, and monitoring for potential decompensation. Intervention performed as documented. Discharge Plan Discharge Clinical Impression: Alcohol intoxication Patient Disposition: Still a Patient Prescriptions: No Action naproxen 500 mg tablet 500 mg PO BID PRN (Reason: for pain) 30 Days Qty: 60 3RF naltrexone 50 mg tablet 1 tab PO DAILY meclizine 25 mg tablet 25 mg PO TID PRN (Reason: dizziness) Qty: 14 0RF cyclobenzaprine 10 mg tablet 10 mg PO TID PRN (Reason: muscle spasm) Qty: 20 0RF bupropion HCl 300 mg tablet extended release 24 hr 300 mg PO DAILY 90 Days Qty: 90 1RF atorvastatin 40 mg tablet 40 mg PO BEDTIME 90 Days Qty: 90 1RF celecoxib [Celebrex] 100 mg capsule 100 mg PO BID PRN (Reason: pain (scale score 7-10)) 30 Days Qty: 60 1RF Rx Instructions: Take it with food and full glass of water. omeprazole 20 mg capsule,delayed release(DR/EC) 20 mg PO DAILY PRN (Reason: heartburn) 30 Days Qty: 30 0RF vitamin B complex [Vitamins B Complex] Capsule 1 cap PO DAILY 90 Days Qty: 90 1RF triamcinolone acetonide 0.1 % cream 1 appl topical DAILY 14 Days Qty: 15 0RF gabapentin 300 mg capsule 300 mg PO TID lidocaine 5 % adhesive patch,medicated 1 patch topical DAILY 30 Days Qty: 30 3RF Rx Instructions: leave on most painful area for up to 12 hrs Print Language: Burkinan
[2023-10-27 20:06] LABS: MANUAL DIFF FLAG NO
[2023-10-27 20:12] LABS: Basophils Percent Auto 0.4 % (0-2); Eosinophils Percent Auto 0.3 % (0-4); Hematocrit 38.9 % (42.0-52.0); Hemoglobin 13.5 g/dl (14.0-18.0); Imm Gran Abs Auto 0.02 X10*3/uL (0.00-0.03); Imm Gran Pct Auto 0.3 % (0.0-0.4); Lymphocytes Absolute Auto 1.7 X10*3/uL (1.2-4.9); Lymphocytes Percent Auto 21.5 % (20-40); Mean Corpuscular HGB Conc 34.7 g/dl (31.0-36.0); Mean Corpuscular Hemoglobin 31.4 pg (27.0-33.0); Mean Corpuscular Volume 90.5 fL (80.0-98.0); Mean Platelet Volume 8.9 fL (9.4-12.4); Monocytes Absolute Auto 0.7 X10*3/uL (0.1-1.2); Monocytes Percent Auto 8.3 % (2-11); Neutrophils Absolute Auto 5.5 x10*3/uL (2.0-8.3); Neutrophils Percent Auto 69.2 % (45-73); Platelet Count 346 X10*3/uL (160-400); Red Cell Distribution Width 13.3 % (11.0-16.0)
[2023-10-27 20:21] VITALS: BP 105/67; PULSE 73; RESP 19; O2SAT 96
[2023-10-27 20:36] LABS: Alanine Aminotransferase 34 U/L (0-40); Albumin Level 4.2 g/dL (3.5-5.0); Alkaline Phosphatase 90 U/L (39-117); Anion Gap 17 (12-20); Aspartate Amino Transferase 26 U/L (5-37); Bilirubin Direct 0.1 mg/dL (0.0-0.5); Bilirubin Total 0.3 mg/dL (0.0-1.0); Blood Urea Nitrogen 11 mg/dL (9-16); Calcium 9.4 mg/dL (8.4-10.2); Carbon Dioxide 20 mmol/L (22-29); Chloride 109 mmol/L (96-108); Creatinine Clr Calc Pharmacy 86.5; Estimated Glomerular Filt Rate > 60; Ethanol 124 mg/dL; Glucose Random 92 mg/dL (60-115); Magnesium 1.9 mg/dL (1.6-2.6); Potassium 3.3 mmol/L (3.3-5.1); Sodium 143 mmol/L (135-145); Total Protein 6.9 g/dL (6.5-8.0)
[2023-10-27 20:45] LABS: Troponin-I High Sensitivity < 2.7 ng/L (<3.5-35.0)
--- NOTE | 2023-10-27 21:27 | PC.NURSE ---
pt continues to sleep comfortably on stretcher in no apparent distress, pt responds to verbal stimuli however not really answering any questions. respirations even and unlabored. on cardiac rn, waiting for labs and CT scan to result. plan of care ongoing
[2023-10-27 21:29] VITALS: BP 98/63; PULSE 63; RESP 17; TEMP 36.7; O2SAT 97
--- NOTE | 2023-10-27 22:52 | PC.NURSE ---
pt is more akwake, beginning to answer questions and have conversation. pt drank cranberry juice and given pb&j sandwich. spoke with daughter on phone who says she is going to come pick pt up. MD Porfirio koenig.
[2023-10-27 23:44] VITALS: BP 107/66; PULSE 60; RESP 15; TEMP 36.6; O2SAT 96
--- NOTE | 2023-10-28 00:34 | PC.NURSE ---
attempted to call pt daughter to come pick him up however she is not answering phone
[2023-10-28 00:57] LABS: Appearance Urine Clear; Color Urine Yellow; Glucose Urine UA Negative (Negative); Leukocyte Esterase Urine Negative (Negative); Nitrite Urine Negative (Negative); PH 5.5 (5.0-9.0); Urine Blood Negative (Negative); Urine Ketones Trace mg/dL (Negative); Urine Protein Negative (Neg-Trace)
[2023-10-28 00:59] LABS: Amphetamine Screen Urine Not Detected (Not Detect); Barbiturates, Urine Not Detected (Not Detect); Benzodiazepines Screen Urine Not Detected (Not Detect); Buprenorphine Scr Not Detected (Not Detect); Cannabinoid Screen Urine POSITIVE (Not Detect); Cocaine Screen Urine POSITIVE (Not Detect); Fentanyl, urine Not Detected (Not Detect); Methadone Screen, Urine Not Detected (Not Detect); Opiate Screen Urine Not Detected (Not Detect); Oxycodone Screen Urine Not Detected (Not Detect); Phencyclidine Screen Urine Not Detected (Not Detect)
[2023-10-28 02:15] VITALS: BP 108/71; PULSE 61; RESP 18; TEMP 36.7; O2SAT 98
[2023-10-28 05:48] VITALS: BP 125/82; PULSE 63; RESP 12; TEMP 36.5; O2SAT 100
[2023-10-28] MEDS: Acetaminophen 325 MG TABLET 650 MG PO (05:55)
[2023-10-28 06:10] VITALS: BP 125/82; PULSE 63; RESP 12; TEMP 36.5; O2SAT 100
== END 2023-10-28 06:11 | disposition home or self-care (01) ==
PROVIDERS: Emergency Provider Emergency Medicine
DX: R40.4 Transient alteration of awareness (principal); F10.229 Alcohol dependence with intoxication, unspecified; Y90.6 Blood alcohol level of 120-199 mg/100 ml; R51.9 Headache, unspecified; M54.2 Cervicalgia; Z79.899 Other long term (current) drug therapy
CPT/HCPCS: 36415; 70450; 72125; 80048; 80076; 80307; 81003; 83735; 84484; 85025; 93005; 99284; 99285

== ENCOUNTER → 2023-10-27 19:50 | Outpatient (BNV) | payer OTHER, SELFPAY | PROVIDERS: Emergency Provider Emergency Medicine; Visit Provider Internal Medicine | DX: R41.82 Altered mental status, unspecified (principal) | CPT/HCPCS: 93010 ==

== ENCOUNTER 2023-12-03 21:30 | Emergency (ER) | payer OTHER, SELFPAY ==
[2023-12-03 21:38] VITALS: BP 124/82; PULSE 109; O2SAT 97
[2023-12-03 21:40] VITALS: BP 114/74; PULSE 83; RESP 20; TEMP 36.8; O2SAT 95; BMI 23.2
--- NOTE | 2023-12-03 22:32 | ED.GENADULT ---
HPI - General Adult General Chief complaint: ETOH/Substance Use Stated complaint: ETOH,HEROINE USE,SEEKING DETOX Time Seen by Provider: 12/03/23 22:31 Source: EMS Mode of arrival: EMS Limitations: language barrier History of Present Illness ED Provider: Dr. Lopes HPI narrative: patient presents wanting detox for drugs and alcohol. He is giving limited history and does not want to talk, states he is not suicidal. Onset (ago): year(s) Related Data Home Medications ?Medication ?Instructions ?Recorded ?Confirmed naltrexone 50 mg tablet 1 tab PO DAILY 12/28/21 07/16/23 gabapentin 300 mg capsule 300 mg PO TID 02/25/23 07/16/23 Previous Rx's ?Medication ?Instructions ?Recorded meclizine 25 mg tablet 25 mg PO TID PRN dizziness #14 tabs 01/20/23 cyclobenzaprine 10 mg tablet 10 mg PO TID PRN muscle spasm #20 04/09/23 tabs lidocaine 5 % topical patch 1 patch topical DAILY pain 30 days 06/27/23 #30 ea atorvastatin 40 mg tablet 40 mg PO BEDTIME 90 days #90 tabs 07/16/23 bupropion HCl 300 mg 24 hr tablet, 300 mg PO DAILY 90 days #90 tabs 07/16/23 extended release celecoxib 100 mg capsule (Celebrex) 100 mg PO BID PRN pain (scale 07/16/23 score 7-10) 30 days #60 caps omeprazole 20 mg capsule,delayed 20 mg PO DAILY PRN heartburn 30 07/16/23 release days #30 caps triamcinolone acetonide 0.1 % 1 appl topical DAILY 2 weeks #15 07/16/23 topical cream grams vitamin B complex (Vitamins B 1 cap PO DAILY 90 days #90 caps 07/16/23 Complex capsule) naproxen 500 mg tablet 500 mg PO BID PRN for pain 30 days 11/16/23 #60 tabs Allergies Allergy/AdvReac Type Severity Reaction Status Date / Time No Known Allergies Allergy Verified 12/03/23 21:43 [No Known Allergies*] Review of Systems Review of Systems: Yes all other systems are reviewed and are negative Neurologic: Denies Sensory deficit (Neuro) PMFSH Past Medical History Medical History Mild recurrent major depression Physical exam Cocaine use disorder GERD (gastroesophageal reflux disease) History of back pain Headache Right elbow pain Pure hypercholesterolemia Lumbar radiculopathy Spondylosis of lumbosacral spine without myelopathy Alcoholism Abuse, drug or alcohol Surgical History History of esophagogastroduodenoscopy (EGD) History of eye surgery History of eye surgery Family History Family History Father Alcoholism Substance use disorder Mother Diabetes Social History Social History Housing: Apartment Unable to assess alcohol history related to: Unknown Alcohol intake: former Patient Tobacco Use Status: Former Tobacco user Tobacco use type: Cigarette e-Cigarette/Vaping Use: Never Used Second Hand Smoke Exposure: No Substance Use Type: Crack/Cocaine and Marijuana Advance Directives: No Advance Directives Information Provided: No Do you have a plan to hurt others: No Plan service: No Current occupational status: unemployed Cognitive needs: No Hearing needs: No Vision needs: No Physical Exam ED Vital Signs: Vital Signs - 24 hr 12/03/23 21:40 12/03/23 22:55 12/04/23 05:44 Temperature 98.3 F 98.3 F Pulse Rate 83 65 58 Respiratory Rate 20 17 16 Blood Pressure 114/74 104/69 123/84 Pulse Oximetry 95 95 100 Oxygen Delivery Method Room Air Room Air Room Air BMI result Body Mass Index 23.2 Const Other: male unkept, appearing intoxicated Nutritional Appearance: average body habitus Orientation/consciousness: oriented to person Limitations: no limitations [facility] Head: Yes normal to inspection Ears: external ears normal General nose exam: Normal external nose present Mouth: Normal oral and palatal mucosa present and oropharynx normal Throat: Yes posterior oropharynx normal Eyes General: appearance normal, both eyes and all related structures Neck Neck: Yes normal visual inspection Chest Chest palpation & inspection: normal inspection of the chest Resp Auscultation: clear to auscultation bilaterally Cardio Jugular venous distension: no JVD Rate: regular rate Rhythm: regular rhythm Heart sounds: S1 normal heart sound present and S2 normal heart sound present GI Inspection: Yes normal to inspection Palpation (GI): Soft to palpation, nontender and No hepatosplenomegaly present Auscultation: normal bowel sounds General: Yes no CVA tenderness Back/Spine/Pelvis Back: no CVA tenderness Skin General skin exam: no rashes or lesions noted Neuro General: oriented to person Cranial nerves: Yes CN's II-XII intact bilaterally Motor exam (neuro): 5/5 motor strength present throughout Sensory Exam: No Sensory deficit (Neuro) Extrem General: Yes normal to inspection Psych Appearance: grossly normal Course Reevaluation(s) Reevaluation #1: patient is medically cleared awaiting detox will place in physician observation at this time Time: 07:47 Medical Decision Making Differential Diagnosis Differential Diagnoses: The differential diagnosis associated with the presentation includes (polysubstance abuse, alcoholism) Admission/Observation Consideration of admission/observation: Escalation of care including admission/observation considered (upon arrival patient considered for admission) Consult Healthcare Provider Management of the patient was discussed with: Behavioral Health Provider Lab Data 12/03/23 22:53 12/03/23 22:53 Labs: Lab Results 12/03/23 Range/Units 22:53 WBC 8.6 (4.8-10.8) X10*3/uL RBC 4.41 L (4.60-5.80) X10*6/uL Hgb 13.8 L (14.0-18.0) g/dl Hct 41.1 L (42.0-52.0) % MCV 93.2 (80.0-98.0) fL MCH 31.3 (27.0-33.0) pg MCHC 33.6 (31.0-36.0) g/dl RDW 13.7 (11.0-16.0) % Plt Count 318 (160-400) X10*3/uL MPV 9.3 L (9.4-12.4) fL Immature Gran % (Auto) 0.3 (0.0-0.4) % Neut % (Auto) 77.4 H (45-73) % Lymph % (Auto) 14.7 L (20-40) % [place] % (Auto) 6.8 (2-11) % Eos % (Auto) 0.3 (0-4) % Baso % (Auto) 0.5 (0-2) % Lymph # (Auto) 1.3 (1.2-4.9) X10*3/uL [place] # (Auto) 0.6 (0.1-1.2) X10*3/uL Eos # (Auto) 0.0 (0.0-0.4) X10*3/uL Baso # (Auto) 0.0 (0.0-0.2) X10*3/uL Abs Immat Gran (auto) 0.03 (0.00-0.03) X10*3/uL Absolute Neuts (auto) 6.7 (2.0-8.3) x10*3/uL Absolute Nucleated RBC 0.000 (0.0-0.012) X10*3/uL Nucleated RBC % (auto) 0.0 (0.0-0.2) /100WBC Sodium 145 (135-145) mmol/L Potassium 3.4 (3.3-5.1) mmol/L Chloride 109 H (96-108) mmol/L Carbon Dioxide 22 (22-29) mmol/L Anion Gap 17 (12-20) BUN 25 H (9-16) mg/dL Creatinine 1.13 (0.5-1.4) mg/dL Estim Creat Clear Calc 62.5 Estimated GFR > 60 Random Glucose 96 (60-115) mg/dL Calcium 9.7 (8.4-10.2) mg/dL Ethyl Alcohol 52 mg/dL External Record Review External record reviewed: Outpatient record Social Determinants Patient?s care significantly limited by Social Determinants of Health including: Low income and Alcoholism and drug addiction in family Discharge Plan Discharge Clinical Impression: Polysubstance (including opioids) dependence, daily use Patient Disposition: Still a Patient Prescriptions: No Action naproxen 500 mg tablet 500 mg PO BID PRN (Reason: for pain) 30 Days Qty: 60 3RF naltrexone 50 mg tablet 1 tab PO DAILY meclizine 25 mg tablet 25 mg PO TID PRN (Reason: dizziness) Qty: 14 0RF cyclobenzaprine 10 mg tablet 10 mg PO TID PRN (Reason: muscle spasm) Qty: 20 0RF bupropion HCl 300 mg tablet extended release 24 hr 300 mg PO DAILY 90 Days Qty: 90 1RF atorvastatin 40 mg tablet 40 mg PO BEDTIME 90 Days Qty: 90 1RF celecoxib [Celebrex] 100 mg capsule 100 mg PO BID PRN (Reason: pain (scale score 7-10)) 30 Days Qty: 60 1RF Rx Instructions: Take it with food and full glass of water. omeprazole 20 mg capsule,delayed release(DR/EC) 20 mg PO DAILY PRN (Reason: heartburn) 30 Days Qty: 30 0RF vitamin B complex [Vitamins B Complex] Capsule 1 cap PO DAILY 90 Days Qty: 90 1RF triamcinolone acetonide 0.1 % cream 1 appl topical DAILY 14 Days Qty: 15 0RF gabapentin 300 mg capsule 300 mg PO TID lidocaine 5 % adhesive patch,medicated 1 patch topical DAILY 30 Days Qty: 30 3RF Rx Instructions: leave on most painful area for up to 12 hrs Print Language: Ukrainian
[2023-12-03 22:55] VITALS: BP 104/69; PULSE 65; RESP 17; TEMP 36.8; O2SAT 95
[2023-12-03 22:58] LABS: MANUAL DIFF FLAG NO
[2023-12-03 23:03] LABS: Basophils Percent Auto 0.5 % (0-2); Eosinophils Percent Auto 0.3 % (0-4); Hematocrit 41.1 % (42.0-52.0); Hemoglobin 13.8 g/dl (14.0-18.0); Imm Gran Abs Auto 0.03 X10*3/uL (0.00-0.03); Imm Gran Pct Auto 0.3 % (0.0-0.4); Lymphocytes Absolute Auto 1.3 X10*3/uL (1.2-4.9); Lymphocytes Percent Auto 14.7 % (20-40); Mean Corpuscular HGB Conc 33.6 g/dl (31.0-36.0); Mean Corpuscular Hemoglobin 31.3 pg (27.0-33.0); Mean Corpuscular Volume 93.2 fL (80.0-98.0); Mean Platelet Volume 9.3 fL (9.4-12.4); Monocytes Absolute Auto 0.6 X10*3/uL (0.1-1.2); Monocytes Percent Auto 6.8 % (2-11); Neutrophils Absolute Auto 6.7 x10*3/uL (2.0-8.3); Neutrophils Percent Auto 77.4 % (45-73); Platelet Count 318 X10*3/uL (160-400); Red Blood Count 4.41 X10*6/uL (4.60-5.80); Red Cell Distribution Width 13.7 % (11.0-16.0); White Blood Count 8.6 X10*3/uL (4.8-10.8)
[2023-12-03 23:20] LABS: Anion Gap 17 (12-20); Blood Urea Nitrogen 25 mg/dL (9-16); Calcium 9.7 mg/dL (8.4-10.2); Carbon Dioxide 22 mmol/L (22-29); Chloride 109 mmol/L (96-108); Creatinine Clr Calc Pharmacy 62.5; Estimated Glomerular Filt Rate > 60; Ethanol 52 mg/dL; Glucose Random 96 mg/dL (60-115); Potassium 3.4 mmol/L (3.3-5.1); Sodium 145 mmol/L (135-145)
[2023-12-04 05:44] VITALS: BP 123/84; PULSE 58; RESP 16; O2SAT 100
[2023-12-04 07:58] VITALS: BP 123/73; PULSE 57; RESP 16; TEMP 36.6; O2SAT 98
[2023-12-04 08:18] LABS: Amphetamine Screen Urine Not Detected (Not Detect); Barbiturates, Urine Not Detected (Not Detect); Benzodiazepines Screen Urine Not Detected (Not Detect); Buprenorphine Scr Not Detected (Not Detect); Cannabinoid Screen Urine POSITIVE (Not Detect); Cocaine Screen Urine POSITIVE (Not Detect); Fentanyl, urine POSITIVE (Not Detect); Methadone Screen, Urine Not Detected (Not Detect); Opiate Screen Urine Not Detected (Not Detect); Oxycodone Screen Urine Not Detected (Not Detect); Phencyclidine Screen Urine Not Detected (Not Detect)
--- NOTE | 2023-12-04 08:47 | MHC.RECOVRN ---
Met with pt in ED12 after pt presented to ED for ATS. Pt laying in bed, asleep, wakes to touch, difficult to engage in conversation. Pt reports heroin/fentanyl use, 3 bags daily, INH, as well as cocaine, INH, unknown amount. Pt does not disclose amount of alcohol typically consumed. Pt reports he has not been to ATS recently. Will send referral to [facility]. Pt denies questions or concerns.
--- NOTE | 2023-12-04 09:32 | MHC.RECOVRN ---
Referral sent to [facility] for review via email at 9am this morning. Received response at 9:10 that it is currently under review by [facility].
--- NOTE | 2023-12-04 10:01 | MHC.RECOVRN ---
Talked on the phone with Wanda HORVATH from [facility] who said Nick is to call the number: [phone] (Nat) for his intake.
[2023-12-04 10:26] VITALS: BP 126/81; PULSE 60; RESP 16; TEMP 36.9; O2SAT 98
--- NOTE | 2023-12-04 10:48 | MHC.RECOVRN ---
[facility] accepted pt and expecting pt to arrive there via Lyft after his discharge from the ED is completed.
[2023-12-04 11:21] VITALS: BP 126/81; PULSE 60; RESP 18; TEMP 36.9; O2SAT 98
== END 2023-12-04 11:22 | disposition home or self-care (01) ==
PROVIDERS: Emergency Provider Emergency Medicine
DX: F19.20 Other psychoactive substance dependence, uncomplicated (principal); F10.20 Alcohol dependence, uncomplicated; Y90.2 Blood alcohol level of 40-59 mg/100 ml; E78.00 Pure hypercholesterolemia, unspecified; K21.9 Gastro-esophageal reflux disease without esophagitis; Z87.891 Personal history of nicotine dependence; Z79.899 Other long term (current) drug therapy
CPT/HCPCS: 36415; 80048; 80307; 85025; 99284; 99285

== ENCOUNTER 2023-12-10 14:58 | Outpatient (AMB) | payer OTHER, SELFPAY ==
--- NOTE | 2023-12-10 15:15 | MHC.PC.OV ---
Vital Signs 12/10/23 15:33 Height 5 ft 4 in Weight 138 lb 6 oz BMI 23.7 BP 92/60 Blood Pressure Location Lt brachial Position Sitting Pulse 69 Pulse Source Pulse Oximeter Pulse Oximetry (%) 98 Oxygen Delivery Method Room Air Intake Visit Reasons: Annual exam Intake Note: Patient is here today for a physical. Machine Preservative Filler Required: No Accompanied by: Self / Same As Patient Allergies No Known Allergies [No Known Allergies*] Allergy (Verified 12/10/23 15:44) Medication List - Last Reconciled 12/10/23 by Kaley Ramirez MD atorvastatin 40 mg PO BEDTIME 90 days bupropion HCl XL 300 mg PO DAILY 90 days celecoxib (Celebrex) 100 mg PO BID PRN 30 days cyclobenzaprine 10 mg PO TID PRN gabapentin 300 mg PO TID lidocaine 5% 1 patch topical DAILY 30 days meclizine 25 mg PO TID PRN naltrexone 1 tab PO DAILY naproxen 500 mg PO BID PRN 30 days omeprazole 20 mg PO DAILY PRN 30 days triamcinolone acetonide 0.1% 1 appl topical DAILY 2 weeks vitamin B complex (Vitamins B Complex capsule) 1 cap PO DAILY 90 days Tobacco use date assessed: 07/16/23 Dental Screening Dental Screen Date: 04/09/23 HPI HPI Comments History of Present Illness Details This is a 53-year-old male with mild major depression that comes for his physical exam. Colonoscopy done 2020 was normal. Has depression and has been out of bupropion. Has polysubstance abuse in which recently use fentanyl and cocaine as well as alcohol. Will be referred to comprehensive care. No chest pain or shortness on breath. Complains of neck pain most likely due to degenerative disc disease. Gabapentin will not be refill due to polysubstance abuse. He is aware and understands. [facility] Medical History Mild recurrent major depression Physical exam Cocaine use disorder GERD (gastroesophageal reflux disease) History of back pain Headache Right elbow pain Pure hypercholesterolemia Lumbar radiculopathy Spondylosis of lumbosacral spine without myelopathy Alcoholism Abuse, drug or alcohol Surgical History History of esophagogastroduodenoscopy (EGD) History of eye surgery History of eye surgery Family History Father Alcoholism Substance use disorder Mother Diabetes Social History (Updated 12/10/23 @ 15:49 by Kaley Ramirez MD) Housing: Apartment Unable to assess alcohol history related to: Unknown Alcohol intake: former Patient Tobacco Use Status: Former Tobacco user Tobacco use type: Cigarette e-Cigarette/Vaping Use: Never Used Second Hand Smoke Exposure: No Substance Use Type: Crack/Cocaine and Marijuana service: No Current occupational status: unemployed Cognitive needs: No Hearing needs: No Vision needs: No Questionnaire Thrive Questionnaire Date Thrive assessed: 04/09/23 KAITY-7 AMB Questionnaire KAITY-7 Date KAITY - 7 assessed: 04/09/23 Source: Developed by Drs. Andrew Olson, Anuradha Keith, Qamar Ortiz and colleagues, with an educational cj from [employer]. Review of Systems Const All systems reviewed & are unremarkable except as noted in HPI and below Card Denies chest pain at rest, Denies chest pain with activity, Denies edema, Denies irregular heart rhythm, Denies claudication, Denies dyspnea, Denies dyspnea on exertion, Denies orthopnea, Denies paroxysmal nocturnal dyspnea and Denies slow heart rate Resp Denies cough, Denies dyspnea and Denies dyspnea on exertion GI Denies abdominal pain, Denies change in bowel habits, Denies excessive flatus, Denies nausea and Denies vomiting Denies urinary hesitancy, Denies urinary incontinence and Denies urinary urgency Musc Denies abnormal gait, Denies atrophy, Denies deformity and Denies limited range of motion Skin/Breast Denies bleeding lesions, Denies changing lesions and Denies rash Neuro Denies abnormal gait, Denies behavioral changes and Denies lack of coordination Psych Denies behavioral changes Physical exam (Primary Care) Vital Signs: Last Vital Signs Pulse 69 12/10/23 15:33 BP 92/60 12/10/23 15:33 Pulse Ox 98 12/10/23 15:33 Oxygen Delivery Method Room Air 12/10/23 15:33 BMI result Body Mass Index 23.7 Tobacco/Smoking Status: Tobacco use Status Tobacco use date assessed 07/16/23 12/10/23 15:16 Patient Tobacco Use Status Former Tobacco user 12/10/23 15:49 Tobacco use type Cigarette 12/10/23 15:49 e-Cigarette/Vaping Use Never Used 12/10/23 15:49 Thrive Assessment: Date of Thrive Assessment Date Thrive assessed 04/09/23 12/10/23 15:16 [place]ENDE Head: Yes normal to inspection, Yes normocephalic and Yes atraumatic Ears: external ears normal Eyes General: appearance normal, both eyes and all related structures Eyelids: Yes eyelids normal Conjunctivae: conjunctivae normal Neck Neck: Yes normal visual inspection and Yes supple Resp Effort & Inspection: normal respiratory effort Auscultation: clear to auscultation bilaterally Cardio Jugular venous distension: no JVD Rate: regular rate Rhythm: regular rhythm Heart sounds: S1 normal heart sound present and S2 normal heart sound present GI Inspection: Yes normal to inspection Palpation (GI): Soft to palpation and nontender Auscultation: normal bowel sounds Skin General skin exam: no rashes or lesions noted Neuro General: no focal motor deficits Extrem General: Yes full ROM Psych Appearance: grossly normal Assessment and Plan Assessment & Plan (1) Physical exam: Code(s): Z00.00 - Encounter for general adult medical examination without abnormal findings Plan: Repeat in a year. (2) Mild recurrent major depression: Code(s): F33.0 - Major depressive disorder, recurrent, mild Plan: Restart bupropion. (3) Polysubstance (including opioids) dependence, daily use: Code(s): F11.20 - Opioid dependence, uncomplicated; F19.20 - Other psychoactive substance dependence, uncomplicated Plan: Referred to [facility]. Orders: Orders Comprehensive [place]. Panel Fast Today Z00.00 - Encounter for general adult medical examination without abnormal findings Vitamin D 25-OH Total Today E55.9 - Vitamin D deficiency, unspecified Complete Blood Count Auto Diff Today D64.9 - Anemia, unspecified IRON PROFILE Today D64.9 - Anemia, unspecified Lipid Panel Today E78.5 - Hyperlipidemia, unspecified, Z00.00 - Encounter for general adult medical examination without abnormal findings Referrals Addiction Medicine Referral F11.20 - Opioid dependence, uncomplicated, F19.20 - Other psychoactive substance dependence, uncomplicated Medications: Refilled celecoxib (Celebrex) Take it with food and full glass of water. 100 mg PO BID PRN 60 caps 1RF pain (scale score 7-10) 30 days M47.817 - Spondylosis without myelopathy or radiculopathy, lumbosacral region, M51.36 - Other intervertebral disc degeneration, lumbar region, M54.51 - Vertebrogenic low back pain omeprazole 20 mg PO DAILY PRN 30 caps 0RF heartburn 30 days bupropion HCl XL 300 mg PO DAILY 90 tabs 1RF 90 days E78.00 - Pure hypercholesterolemia, unspecified lidocaine 5% leave on most painful area for up to 12 hrs 1 patch topical DAILY 30 ea 3RF pain 30 days M47.817 - Spondylosis without myelopathy or radiculopathy, lumbosacral region, M51.36 - Other intervertebral disc degeneration, lumbar region, M54.51 - Vertebrogenic low back pain Discontinued meclizine Discontinued Reason: Patient Completed Course 25 mg PO TID PRN 14 tabs 0RF dizziness cyclobenzaprine Discontinued Reason: Patient Completed Course 10 mg PO TID PRN 20 tabs 0RF muscle spasm Coding Level of Care Code Est Pt Level 3 (30484) Est Pt Prev Care 40-64y(73067) Diagnoses Physical exam Z00.00 Mild recurrent major depression F33.0 Polysubstance (including opioids) dependence, daily use F11.20; F19.20 Time Spent (min) 33
[2023-12-10 15:33] VITALS: BP 92/60; PULSE 69; O2SAT 98; BMI 23.7
== END 2023-12-10 15:56 | disposition home or self-care (01) ==
PROVIDERS: PCP Internal Medicine; Visit Provider Internal Medicine
DX: Z00.00 Encounter for general adult medical examination without abnormal findings (principal); F33.0 Major depressive disorder, recurrent, mild; F11.20 Opioid dependence, uncomplicated; F19.20 Other psychoactive substance dependence, uncomplicated
CPT/HCPCS: 99213; 99396

== ENCOUNTER 2024-01-13 14:18 | Outpatient (REF) | payer OTHER, SELFPAY ==
[2024-01-13 14:34] LABS: MANUAL DIFF FLAG NO
[2024-01-13 15:35] LABS: Basophils Absolute Auto 0.1 X10*3/uL (0.0-0.2); Basophils Percent Auto 0.7 % (0-2); Eosinophils Absolute Auto 0.2 X10*3/uL (0.0-0.4); Eosinophils Percent Auto 1.9 % (0-4); Hematocrit 48.4 % (42.0-52.0); Hemoglobin 16.3 g/dl (14.0-18.0); Imm Gran Abs Auto 0.08 X10*3/uL (0.00-0.03); Imm Gran Pct Auto 0.9 % (0.0-0.4); Lymphocytes Percent Auto 33.4 % (20-40); Mean Corpuscular HGB Conc 33.7 g/dl (31.0-36.0); Monocytes Absolute Auto 0.8 X10*3/uL (0.1-1.2); Monocytes Percent Auto 8.8 % (2-11); Neutrophils Absolute Auto 4.9 x10*3/uL (2.0-8.3); Neutrophils Percent Auto 54.3 % (45-73); Platelet Count 436 X10*3/uL (160-400); Red Blood Count 5.26 X10*6/uL (4.60-5.80); Red Cell Distribution Width 12.8 % (11.0-16.0)
[2024-01-13 15:43] LABS: Prothrombin Time 11.3 SEC (10.9-12.4)
[2024-01-13 16:02] LABS: Alanine Aminotransferase 19 U/L (0-40); Albumin Level 4.9 g/dL (3.5-5.0); Alkaline Phosphatase 117 U/L (39-117); Aspartate Amino Transferase 18 U/L (5-37); Bilirubin Direct 0.2 mg/dL (0.0-0.5); Bilirubin Total 0.5 mg/dL (0.0-1.0); Total Protein 8.6 g/dL (6.5-8.0)
== END 2024-01-13 14:19 | disposition home or self-care (01) ==
LOC: HO.LAB 14:18
PROVIDERS: PCP Internal Medicine; Visit Provider Internal Medicine
DX: K70.9 Alcoholic liver disease, unspecified (principal); R79.89 Other specified abnormal findings of blood chemistry
CPT/HCPCS: 36415; 80076; 85025; 85610

== ENCOUNTER 2024-01-25 00:02 | Inpatient (IN) | payer OTHER, SELFPAY ==
[2024-01-25] VITALS (9 sets, daily range): BP systolic 98–130; BP diastolic 66–87; PULSE 69–101; RESP 16–20; TEMP 36.6–37.2; O2SAT 97–100; BMI 22.7
--- NOTE | ~2024-01-25 | CT_ITS ---
EXAMINATION: CT HEAD WITHOUT CONTRAST CLINICAL INFORMATION: New onset delusions. COMPARISON: October 27, 2023 TECHNIQUE: Contiguous axial imaging was performed from the skull base to vertex without intravenous administration of contrast. This CT examination was performed using dose optimization techniques as appropriate, variously including the following: *Automated exposure control *Adjustment of mA and/or kV according to patient size (this includes techniques or standardized protocols for targeted exams where dose is matched to indication/reason for exam; i.e. extremities or head) *Use of iterative reconstruction technique DLP: 639 mGy-cm FINDINGS: There is no evidence of acute intracranial hemorrhage or territorial infarction. No mass effect or midline shift is seen. Blake to white matter differentiation is preserved. No extra-axial fluid collections are identified. No hydrocephalus. The osseous structures and soft tissues are intact. The mastoid air cells and visualized portions of the paranasal sinuses are well aerated. CT/CT head/brain wo IV con IMPRESSION: No acute intracranial pathology. Electronically signed by: Lee Michelle MD 01/25/2024 05:18 PM EDT
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
[2024-01-25 01:20] LABS: MANUAL DIFF FLAG NO
[2024-01-25 01:21] LABS: Basophils Percent Auto 0.4 % (0-2); Eosinophils Percent Auto 0.2 % (0-4); Hematocrit 41.8 % (42.0-52.0); Hemoglobin 14.7 g/dl (14.0-18.0); Imm Gran Abs Auto 0.02 X10*3/uL (0.00-0.03); Imm Gran Pct Auto 0.2 % (0.0-0.4); Lymphocytes Absolute Auto 1.4 X10*3/uL (1.2-4.9); Lymphocytes Percent Auto 14.1 % (20-40); Mean Corpuscular HGB Conc 35.2 g/dl (31.0-36.0); Mean Corpuscular Hemoglobin 31.3 pg (27.0-33.0); Mean Corpuscular Volume 89.1 fL (80.0-98.0); Mean Platelet Volume 9.1 fL (9.4-12.4); Monocytes Absolute Auto 0.8 X10*3/uL (0.1-1.2); Monocytes Percent Auto 7.7 % (2-11); Neutrophils Absolute Auto 7.9 x10*3/uL (2.0-8.3); Neutrophils Percent Auto 77.4 % (45-73); Platelet Count 404 X10*3/uL (160-400); Red Blood Count 4.69 X10*6/uL (4.60-5.80); Red Cell Distribution Width 12.4 % (11.0-16.0); White Blood Count 10.2 X10*3/uL (4.8-10.8)
[2024-01-25 01:36] LABS: Alanine Aminotransferase 21 U/L (0-40); Albumin Level 4.3 g/dL (3.5-5.0); Alkaline Phosphatase 102 U/L (39-117); Anion Gap 14 (12-20); Aspartate Amino Transferase 18 U/L (5-37); Bilirubin Total 0.4 mg/dL (0.0-1.0); Blood Urea Nitrogen 8 mg/dL (9-16); Calcium 10.2 mg/dL (8.4-10.2); Carbon Dioxide 23 mmol/L (22-29); Chloride 109 mmol/L (96-108); Estimated Glomerular Filt Rate > 60; Ethanol < 10 mg/dL; Glucose Random 115 mg/dL (60-115); Potassium 3.9 mmol/L (3.3-5.1); Sodium 142 mmol/L (135-145); Total Protein 7.3 g/dL (6.5-8.0)
[2024-01-25 01:52] LABS: COVID-19 Test Negative (Negative); IDNOW Serial# 152EDE1D
[2024-01-25] MEDS: LORazepam 1 MG TABLET PO (03:55)
--- NOTE | 2024-01-25 09:02 | PHA.MEDREC ---
Pharmacy Consult ? Medication Reconciliation Pharmacy has completed the medication reconciliation. PHARMACY HAS REVEIEWED AND AMENDED MED REC COMPLETED BY NURSING.
[2024-01-25] MEDS: cloNIDine HCL 0.1 MG TABLET PO ×3 (09:05→21:23)
[2024-01-25] MEDS: Celecoxib 100 MG CAPSULE PO ×2 (09:07→17:15)
[2024-01-25] MEDS: buPROPion HCl XL 300 MG TAB.ER.24H PO (09:07)
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
[2024-01-25 10:31] LABS: Appearance Urine Clear; Color Urine Yellow; Glucose Urine UA Negative (Negative); Leukocyte Esterase Urine Negative (Negative); Nitrite Urine Negative (Negative); Urine Blood Negative (Negative); Urine Ketones Negative (Negative); Urine Protein Negative (Neg-Trace)
[2024-01-25 10:40] LABS: Amphetamine Screen Urine Not Detected (Not Detect); Barbiturates, Urine Not Detected (Not Detect); Benzodiazepines Screen Urine Not Detected (Not Detect); Buprenorphine Scr Not Detected (Not Detect); Cannabinoid Screen Urine POSITIVE (Not Detect); Cocaine Screen Urine Not Detected (Not Detect); Fentanyl, urine Not Detected (Not Detect); Methadone Screen, Urine Not Detected (Not Detect); Opiate Screen Urine Not Detected (Not Detect); Oxycodone Screen Urine Not Detected (Not Detect); Phencyclidine Screen Urine Not Detected (Not Detect)
--- NOTE | 2024-01-25 11:18 | MHC.CARE ---
Pt seen by CARE team and meets criteria for inpatient level of care, patient is agreeable to this level of care and ED provider Dr. Silva was notified and is in agreement with disposition, section 12 completed and placed in chart.
[2024-01-25] MEDS: Acetaminophen 325 MG TABLET 650 MG PO (12:21)
--- NOTE | 2024-01-25 19:37 | PC.NURSE ---
pt reporting a headache, took Tylenol earlier with little effect.
[2024-01-25] MEDS: Ibuprofen 600 MG TABLET PO (19:55)
[2024-01-25] MEDS: Atorvastatin Calcium 40 MG TABLET PO (21:23)
--- NOTE | 2024-01-25 23:38 | PC.NURSE ---
pt awake and cooperative.
[2024-01-25] MEDS: diphenhydrAMINE HCL 25 MG CAPSULE 50 MG PO (23:45)
--- NOTE | 2024-01-25 23:47 | PC.NURSE ---
medicated per mar, pt remains on a 1:1
--- NOTE | 2024-01-26 | ECG_ITS ---
Test Reason : PSYCH CLEARANCE Blood Pressure : / mmHG Vent. Rate : 076 BPM Atrial Rate : 076 BPM P-R Int : 176 ms QRS Dur : 084 ms QT Int : 388 ms P-R-T Axes : 035 -12 034 degrees QTc Int : 436 ms Normal sinus rhythm Normal ECG When compared with ECG of 27-OCT-2023 19:43, No significant change was found Referred By: Xochilt Phillip Electronically Signed By:Rigoberto Dunbar
--- NOTE | 2024-01-26 04:00 | PC.NURSE ---
This short story writer assumed care of this Pt at 0300. Pt appears to be sleeping, equal, non labored respirations. 1:1 at bedside for safety.
[2024-01-26 06:40] VITALS: BP 104/65; PULSE 80; RESP 16; TEMP 36.6; O2SAT 99
[2024-01-26] MEDS: Acetaminophen 325 MG TABLET 975 MG PO (07:10)
--- NOTE | 2024-01-26 07:19 | PC.NURSE ---
Pt is awake, alert and oriented. Breathing even and unlabored. Pt requested tyelnol for headache/ muscle pains in neck ongoing, medicated per MAR. Pt remains 1:1 sitter
[2024-01-26 08:36] VITALS: BP 111/72
[2024-01-26] MEDS: cloNIDine HCL 0.1 MG TABLET PO ×2 (08:36→20:17)
[2024-01-26] MEDS: Lidocaine 4 % Patch ADH..PATCH 1 PATCH TRANSDERMA (08:37)
--- NOTE | 2024-01-26 10:19 | PC.NURSE ---
called pharmacy X2 for missing med.
[2024-01-26] MEDS: buPROPion HCl XL 300 MG TAB.ER.24H PO (10:48)
[2024-01-26 15:00] VITALS: BP 118/79; PULSE 83; RESP 16; TEMP 36.6; O2SAT 100; BMI 22.1
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
[2024-01-26 20:00] VITALS: BP 117/61; PULSE 94; TEMP 36.9; O2SAT 99
[2024-01-26 20:17] VITALS: BP 117/61
[2024-01-26] MEDS: Atorvastatin Calcium 40 MG TABLET PO (20:18)
[2024-01-26] MEDS: Acetaminophen 325 MG TABLET 650 MG PO (20:19)
[2024-01-26] MEDS: traZODone HCL 50 MG TABLET PO (20:20)
[2024-01-27 07:58] LABS: Estimated Average Glucose 97 mg/dL; Hemoglobin A1C 127.1878 umol/L; Total Hemoglobin (HGBA1C) 4115.8379 umol/L
[2024-01-27 08:00] LABS: Ammonia 31 umol/L (13-55)
[2024-01-27 08:05] LABS: Cholesterol 171 mg/dL (<200); HDL Cholesterol 47 mg/dL (>40); LDL Cholesterol Calculated 100 mg/dL (<100); Triglycerides 120 mg/dL (<150)
[2024-01-27 08:36] LABS: Folate 8.7 ng/mL (> or = 4.0); Vitamin B12 842 pg/mL (200-900)
[2024-01-27] MEDS: Lidocaine 4 % Patch ADH..PATCH 1 PATCH TRANSDERMA (08:41)
[2024-01-27] MEDS: Thiamine HCL 100 MG TABLET PO (08:42)
[2024-01-27] MEDS: Acetaminophen 325 MG TABLET 650 MG PO ×2 (08:47→21:49)
[2024-01-27 10:12] VITALS: BP 121/71; PULSE 81; RESP 18; TEMP 36.4; O2SAT 99
[2024-01-27] MEDS: cloNIDine HCL 0.1 MG TABLET PO ×2 (10:15→21:44)
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
[2024-01-27] MEDS: Celecoxib 100 MG CAPSULE PO (12:24)
[2024-01-27 15:41] VITALS: BP 100/69; PULSE 63
[2024-01-27 20:00] VITALS: BP 105/70; PULSE 66; TEMP 36.4; O2SAT 99
[2024-01-27 21:44] VITALS: BP 105/70
[2024-01-27] MEDS: Atorvastatin Calcium 40 MG TABLET PO (21:44)
[2024-01-27] MEDS: traZODone HCL 50 MG TABLET PO (21:44)
[2024-01-27 22:00] VITALS: BP 94/69; PULSE 68
[2024-01-28] VITALS (7 sets, daily range): BP systolic 103–110; BP diastolic 64–74; PULSE 70–84; RESP 16; TEMP 36.7–36.9; O2SAT 98–99
[2024-01-28] MEDS: cloNIDine HCL 0.1 MG TABLET PO ×3 (08:37→21:02)
[2024-01-28] MEDS: ARIPiprazole 2 MG TABLET PO (08:38)
[2024-01-28] MEDS: Celecoxib 100 MG CAPSULE PO (08:38)
[2024-01-28] MEDS: Thiamine HCL 100 MG TABLET PO (08:38)
[2024-01-28] MEDS: Acetaminophen 325 MG TABLET 650 MG PO (08:39)
[2024-01-28] MEDS: Lidocaine 4 % Patch ADH..PATCH 1 PATCH TRANSDERMA (08:41)
[2024-01-28] MEDS: Benzocaine 20 % Oral Gel 9 GM TUBE 1 APPL MUCOUS MEM (09:01)
--- NOTE | 2024-01-28 13:27 | PC.NURSE ---
signed 3day on 01/28/24 . up on 02/02/24
--- NOTE | 2024-01-28 15:33 | P.PNPSI_ITS ---
Subjective Subjective Date of Service: 01/28/24 Reason For Visit: Delusional Subjective Notes: Conditional Voluntary and 3 Day Healthcare Proxy: No Guardianship: No Medical Problems Affecting Mental Status: No Interim History: Pt signed a three day notice of intent. Worried that he needs to return to his living situation or will be homeless. Discussed with pt and Willi NORIEGA Tolerating Abilify trial. Denies SI/HI/+AH/-VH Medication Compliance: Yes Side effects from medications: No Attending Groups: Intermittent Review of Systems Acute medical concerns: No Review of Systems Review of Systems Yes all other systems are reviewed and are negative Mental Status Exam Mental Status Exam Patient Appearance: Fatigued Patient Orientation: Person, Place, Time and Situation Level of Consciousness: Alert Patient Behavior: Appropriate, Talkative, Cooperative and Good Eye Contact Mood Description: Depressed Affect Description: Flat Patient Cognition Impaired: No Ability to Follow Directions: Good Speech Pattern: Spontaneous Speech Memory Description: Episodic Impaired Hallucinations: Visual Delusions: Paranoid Ideation Thought Process: Rumination Thought Content: positive for Perseveration Depressive Symptoms: Increased Anxiety Judgement: Fair Diagnostics Vital Signs (24Hr): Vital Signs - 24 hr 01/27/24 15:41 01/27/24 20:00 01/27/24 21:44 Temperature 97.5 F Pulse Rate 63 66 Respiratory Rate Blood Pressure 100/69 105/70 105/70 Pulse Oximetry 99 Oxygen Delivery Method Room Air 01/28/24 08:00 01/28/24 08:00 01/28/24 08:37 Temperature 98.1 F Pulse Rate 80 84 Respiratory Rate 16 Blood Pressure 103/64 106/68 103/67 Pulse Oximetry 98 Oxygen Delivery Method Room Air BMI result Body Mass Index 22.1 Labs 01/25/24 01:15 01/25/24 01:15 Labs: Laboratory Results - last 48 hr 01/27/24 07:31 Estimat Average Glucose 97 Hemoglobin A1c % 5.0 Ammonia 31 Triglycerides 120 Cholesterol 171 LDL Cholesterol, Calc 100 H HDL Cholesterol 47 Vitamin B12 842 Folate 8.7 TSH 2.60 Imaging Radiology Impressions: ITS Impressions Head CT 01/25/24 16:35 IMPRESSION: No acute intracranial pathology. Electronically signed by: Lee Michelle MD 01/25/2024 05:18 PM EDT Medications Medications Current Medications Acetaminophen (Acetaminophen 325 Mg Tablet) 650 mg PO Q6H PRN PRN Reason: Headache/Pain Mild Scale (1-3) Last Admin: 01/28/24 08:39 Dose: 650 mg Al Hydroxide/Mg Hydroxide (Magnesium Hydrox/Alum Hydrox 30 Ml Oral.Susp) 30 ml PO Q6H PRN PRN Reason: Heartburn/Nausea Aripiprazole (Aripiprazole 2 Mg Tablet) 2 mg PO DAILY [facility] Last Admin: 01/28/24 08:38 Dose: 2 mg Atorvastatin Calcium (Atorvastatin Calcium 40 Mg Tablet) 40 mg PO BEDTIME ERIKA Last Admin: 01/27/24 21:44 Dose: 40 mg Benzocaine (Benzocaine 20 % Oral Gel 9 Gm Tube) 1 appl MUCOUS MEM QID PRN; Protocol PRN Reason: dental/mouth pain Last Admin: 01/28/24 09:01 Dose: 1 appl Bupropion HCl (Bupropion Hcl Xl 300 Mg Tab.Er.24h) 300 mg PO DAILY [facility] Last Admin: 01/26/24 10:48 Dose: 300 mg Celecoxib (Celecoxib 100 Mg Capsule) 100 mg PO BID PRN PRN Reason: pain (scale score 7-10) Last Admin: 01/28/24 08:38 Dose: 100 mg Clonidine HCl (Clonidine Hcl 0.1 Mg Tablet) 0.1 mg PO TID [facility]; Protocol Last Admin: 01/28/24 08:37 Dose: 0.1 mg Lidocaine (Lidocaine 4 % Patch Adh..Patch) 1 patch TRANSDERMA DAILY [facility] Last Admin: 01/28/24 08:41 Dose: 1 patch Magnesium Hydroxide (Milk Of Magnesia 30 Ml Oral.Susp) 30 ml PO DAILY PRN PRN Reason: Constipation Nicotine (Nicotine 21 Mg Patch.Td24) 21 mg TRANSDERMA DAILY PRN PRN Reason: smoking cessation Olanzapine (Olanzapine 5 Mg Tablet) 5 mg PO TID PRN PRN Reason: agitation Thiamine HCl (Thiamine Hcl 100 Mg Tablet) 100 mg PO DAILY [facility] Last Admin: 01/28/24 08:38 Dose: 100 mg Trazodone HCl (Trazodone Hcl 50 Mg Tablet) 50 mg PO BEDTIME MRX1 PRN PRN Reason: Insomnia Last Admin: 01/27/24 21:44 Dose: 50 mg Allergies Allergies Allergy/AdvReac Type Severity Reaction Status Date / Time No Known Allergies Allergy Verified 01/25/24 00:38 [No Known Allergies*] Assessment & Plan Assessment & Plan (1) Severe recurrent major depression w/psychotic features, mood-congruent: Status: Acute Code(s): F33.3 - Major depressive disorder, recurrent, severe with psychotic symptoms (2) Alcohol use disorder, severe, dependence: Status: Acute Code(s): F10.20 - Alcohol dependence, uncomplicated (3) Cocaine use disorder: Status: Acute Code(s): F14.10 - Cocaine abuse, uncomplicated Plan Major Depression with Psychotic Features, Alcohol, Cocaine, Opiate Use disorders. Plan: Admit, CV, 15 minute checks Collateral Contact Teresa 2 mg a.m. Addiction consult-pt wants to discuss meds for alcohol use disorder and recovery coaching Diagnostics as needed 01/28/24: Continue plan of care Reason for continued inpatient stay Substantial Risk for: rapid decompensation Time Spent With Patient Time: Total time managing care of this patient today ____ minutes.
[2024-01-28] MEDS: Atorvastatin Calcium 40 MG TABLET PO (21:02)
[2024-01-28] MEDS: traZODone HCL 50 MG TABLET PO (21:03)
[2024-01-29 07:00] VITALS: BMI 22.7
[2024-01-29 08:00] VITALS: BP 93/65; PULSE 77; RESP 18; TEMP 36.8; O2SAT 97
[2024-01-29] MEDS: cloNIDine HCL 0.1 MG TABLET PO ×2 (08:28→21:20)
[2024-01-29] MEDS: Thiamine HCL 100 MG TABLET PO (08:28)
[2024-01-29] MEDS: ARIPiprazole 2 MG TABLET PO (08:28)
[2024-01-29] MEDS: Lidocaine 4 % Patch ADH..PATCH 1 PATCH TRANSDERMA (08:28)
[2024-01-29] MEDS: Acetaminophen 325 MG TABLET 650 MG PO (08:36)
[2024-01-29 14:00] VITALS: BP 110/71; PULSE 84
--- NOTE | 2024-01-29 15:25 | MHC.RECOVRN ---
Met with pt on M5 after consult placed to Addiction Medicine to review medication options. Pt laying in bed, eyes closed, wakes to voice. Easily engages in conversation. Pt reports he last used substances on 01/06. Pt had been using cocaine, 5-10 capsules daily, INH as well as 3-4 24 ounce beers daily. Pt states he stopped using because I have liver problems. Pt also states I gave my heart to Dante. Pt reports he began drinking at age 15. Longest period in recovery has been 2 months. Pt reports he has been admitted to ATS once or twice. Denies history of withdrawal seizures. Pt reports cravings for alcohol and thinking about it a lot. Discussed recovery resources, including LISA and recovery coaching. Pt is interested in naltrexone, he thinks he has tried it in the past but is unsure. Pt would also like to meet with a onsite health coach. Denies other questions or concerns. Discussed with Tatyana Grover APRN. Plan to initiate naltrexone and onsite health coach to see pt this evening.
--- NOTE | 2024-01-29 17:32 | MHC.RECOVSUP ---
? Reason for consult Recovery Support o Current location: [address] o Identified substance use concern: Alcohol - Support ? Intervention: o Community resources provided o Harm reduction discussion ? Plan: o Patient awaiting crisis evaluation o Patient to follow up with [facility] after discharge ? Additional information: Met with Patient and we talked about recovery and about the different pathways of recovery. We also talked about Harm reduction And MAT..Patient stated that he was going to go to [facility] and try it out ..
[2024-01-29] MEDS: OLANZapine 5 MG TABLET PO (17:36)
[2024-01-29] MEDS: Naltrexone HCl 50 MG TABLET 25 MG PO (17:36)
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
[2024-01-29 20:00] VITALS: BP 107/74; PULSE 78; RESP 16; TEMP 36.6; O2SAT 98
[2024-01-29 21:20] VITALS: BP 107/74
[2024-01-29] MEDS: Atorvastatin Calcium 40 MG TABLET PO (21:20)
[2024-01-29] MEDS: traZODone HCL 50 MG TABLET PO (21:20)
[2024-01-30 08:00] VITALS: BP 105/63; PULSE 69; RESP 16; TEMP 36.8; O2SAT 98
[2024-01-30 08:38] VITALS: BP 105/63
[2024-01-30] MEDS: cloNIDine HCL 0.1 MG TABLET PO ×3 (08:38→21:21)
[2024-01-30] MEDS: buPROPion HCl XL 150 MG TAB.ER.24H PO (08:38)
[2024-01-30] MEDS: ARIPiprazole 2 MG TABLET PO (08:38)
[2024-01-30] MEDS: Thiamine HCL 100 MG TABLET PO (08:39)
[2024-01-30] MEDS: Naltrexone HCl 50 MG TABLET 25 MG PO (08:39)
[2024-01-30] MEDS: Lidocaine 4 % Patch ADH..PATCH 1 PATCH TRANSDERMA (08:39)
--- NOTE | 2024-01-30 10:06 | P.PNPSI_ITS ---
Subjective Subjective Date of Service: 01/30/24 Reason For Visit: Delusional Subjective Notes: Conditional Voluntary and 3 Day Healthcare Proxy: No Guardianship: No Medical Problems Affecting Mental Status: No Interim History: Pt reports he is ready to make medicine increases Reports poor appetite-discussed Mirtazapine which he will trial in a small dose Also discussed Abilify and will increase to 5 mg. Medication Compliance: Yes Side effects from medications: No Attending Groups: Intermittent Review of Systems Acute medical concerns: No Medical Review of Systems: unchanged Review of Systems Review of Systems poor appetite Mental Status Exam Mental Status Exam Patient Appearance: Appropriate Patient Orientation: Person, Place, Time and Situation Level of Consciousness: Alert Patient Behavior: Appropriate, Talkative, Cooperative and Good Eye Contact Mood Description: Flat Affect Description: Flat Patient Cognition Impaired: No Ability to Follow Directions: Good Speech Pattern: Spontaneous Speech Memory Description: Episodic Impaired Hallucinations: Visual Delusions: Paranoid Ideation Thought Content: positive for Perseveration Depressive Symptoms: Increased Anxiety Judgement: Fair Diagnostics Vital Signs (24Hr): Vital Signs - 24 hr 01/29/24 14:00 01/29/24 20:00 01/29/24 21:20 Temperature 97.9 F Pulse Rate 84 78 Respiratory Rate 16 Blood Pressure 110/71 107/74 107/74 Pulse Oximetry 98 Oxygen Delivery Method Room Air 01/30/24 08:38 Temperature Pulse Rate Respiratory Rate Blood Pressure 105/63 Pulse Oximetry Oxygen Delivery Method BMI result Body Mass Index 22.7 Labs 01/25/24 01:15 01/25/24 01:15 Imaging Radiology Impressions: ITS Impressions Head CT 01/25/24 16:35 IMPRESSION: No acute intracranial pathology. Electronically signed by: Lee Michelle MD 01/25/2024 05:18 PM EDT RP Medications Medications Current Medications Acetaminophen (Acetaminophen 325 Mg Tablet) 650 mg PO Q6H PRN PRN Reason: Headache/Pain Mild Scale (1-3) Last Admin: 01/29/24 08:36 Dose: 650 mg Al Hydroxide/Mg Hydroxide (Magnesium Hydrox/Alum Hydrox 30 Ml Oral.Susp) 30 ml PO Q6H PRN PRN Reason: Heartburn/Nausea Aripiprazole (Aripiprazole 2 Mg Tablet) 2 mg PO DAILY ERIKA Last Admin: 01/30/24 08:38 Dose: 2 mg Atorvastatin Calcium (Atorvastatin Calcium 40 Mg Tablet) 40 mg PO BEDTIME [facility] Last Admin: 01/29/24 21:20 Dose: 40 mg Benzocaine (Benzocaine 20 % Oral Gel 9 Gm Tube) 1 appl MUCOUS MEM QID PRN; Protocol PRN Reason: dental/mouth pain Last Admin: 01/28/24 09:01 Dose: 1 appl Bupropion HCl (Bupropion Hcl Xl 150 Mg Tab.Er.24h) 150 mg PO DAILY [facility] Last Admin: 01/30/24 08:38 Dose: 150 mg Celecoxib (Celecoxib 100 Mg Capsule) 100 mg PO BID PRN PRN Reason: pain (scale score 7-10) Last Admin: 01/28/24 08:38 Dose: 100 mg Clonidine HCl (Clonidine Hcl 0.1 Mg Tablet) 0.1 mg PO TID [facility]; Protocol Last Admin: 01/30/24 08:38 Dose: 0.1 mg Lidocaine (Lidocaine 4 % Patch Adh..Patch) 1 patch TRANSDERMA DAILY [facility] Last Admin: 01/30/24 08:39 Dose: 1 patch Magnesium Hydroxide (Milk Of Magnesia 30 Ml Oral.Susp) 30 ml PO DAILY PRN PRN Reason: Constipation Naltrexone HCl (Naltrexone Hcl 50 Mg Tablet) 25 mg PO DAILY [facility] Stop: 01/31/24 09:01 Last Admin: 01/30/24 08:39 Dose: 25 mg Naltrexone HCl (Naltrexone Hcl 50 Mg Tablet) 50 mg PO DAILY [facility] Nicotine (Nicotine 21 Mg Patch.Td24) 21 mg TRANSDERMA DAILY PRN PRN Reason: smoking cessation Olanzapine (Olanzapine 5 Mg Tablet) 5 mg PO TID PRN PRN Reason: agitation Last Admin: 01/29/24 17:36 Dose: 5 mg Thiamine HCl (Thiamine Hcl 100 Mg Tablet) 100 mg PO DAILY [facility] Last Admin: 01/30/24 08:39 Dose: 100 mg Trazodone HCl (Trazodone Hcl 50 Mg Tablet) 50 mg PO BEDTIME MRX1 PRN PRN Reason: Insomnia Last Admin: 01/29/24 21:20 Dose: 50 mg Allergies Allergies Allergy/AdvReac Type Severity Reaction Status Date / Time No Known Allergies Allergy Verified 01/25/24 00:38 [No Known Allergies*] Assessment & Plan Assessment & Plan (1) Severe recurrent major depression w/psychotic features, mood-congruent: Status: Acute Code(s): F33.3 - Major depressive disorder, recurrent, severe with psychotic symptoms (2) Alcohol use disorder, severe, dependence: Status: Acute Code(s): F10.20 - Alcohol dependence, uncomplicated (3) Cocaine use disorder: Status: Acute Code(s): F14.10 - Cocaine abuse, uncomplicated Plan Major Depression with Psychotic Features, Alcohol, Cocaine, Opiate Use disorders. Plan: Admit, CV, 15 minute checks Collateral Contact Abilify 2 mg a.m. Addiction consult-pt wants to discuss meds for alcohol use disorder and recovery coaching Diagnostics as needed 01/28/24: Continue plan of care 01/29: Remeron 7.5 mg HS Increase Abilify to 5 mg daily Reason for continued inpatient stay Substantial Risk for: rapid decompensation Time Spent With Patient Time: Total time managing care of this patient today ____ minutes.
[2024-01-30] MEDS: Acetaminophen 325 MG TABLET 650 MG PO (13:05)
[2024-01-30 15:14] VITALS: BP 110/66
[2024-01-30 20:00] VITALS: BP 98/61; PULSE 82; TEMP 36.9; O2SAT 98
[2024-01-30] MEDS: Mirtazapine 7.5 MG TABLET PO (21:20)
[2024-01-30] MEDS: Atorvastatin Calcium 40 MG TABLET PO (21:20)
[2024-01-30 21:21] VITALS: BP 108/72
[2024-01-30 22:00] VITALS: BP 109/69; BP 99/74; PULSE 60; PULSE 77
[2024-01-31 08:00] VITALS: BP 112/72; PULSE 61; RESP 16; TEMP 36.9; O2SAT 98
[2024-01-31 09:10] VITALS: BP 112/72
[2024-01-31] MEDS: cloNIDine HCL 0.1 MG TABLET PO ×3 (09:10→21:24)
[2024-01-31] MEDS: buPROPion HCl XL 150 MG TAB.ER.24H PO (09:10)
[2024-01-31] MEDS: Thiamine HCL 100 MG TABLET PO (09:10)
[2024-01-31] MEDS: ARIPiprazole 5 MG TABLET PO (09:11)
[2024-01-31] MEDS: Naltrexone HCl 50 MG TABLET 25 MG PO (09:11)
[2024-01-31] MEDS: Lidocaine 4 % Patch ADH..PATCH 1 PATCH TRANSDERMA (09:12)
[2024-01-31] MEDS: Acetaminophen 325 MG TABLET 650 MG PO ×3 (09:18→21:30)
[2024-01-31] MEDS: Benzocaine 20 % Oral Gel 9 GM TUBE 1 APPL MUCOUS MEM ×3 (09:18→21:32)
--- NOTE | 2024-01-31 11:06 | P.PNPSI_ITS ---
Subjective Subjective Date of Service: 01/31/24 Reason For Visit: Delusional Interim History: Patient doing well. Improving mood and medications are helpful for depression and anxiety. Tolerating medication regimen. Denies SI. Denies MARGARETTE. Review of Systems Review of Systems poor appetite Yes all other systems are reviewed and are negative Mental Status Exam Mental Status Exam Patient Appearance: Appropriate Patient Orientation: Person, Place, Time and Situation Level of Consciousness: Alert Patient Behavior: Appropriate, Talkative, Cooperative and Good Eye Contact Mood Description: Flat Affect Description: Flat Patient Cognition Impaired: No Ability to Follow Directions: Good Speech Pattern: Spontaneous Speech Memory Description: Episodic Impaired Diagnostics Vital Signs (24Hr): Vital Signs - 24 hr 01/30/24 15:14 01/30/24 20:00 01/30/24 21:21 Temperature 98.4 F Pulse Rate 82 Respiratory Rate Blood Pressure 110/66 98/61 108/72 Pulse Oximetry 98 Oxygen Delivery Method Room Air 01/30/24 22:00 01/30/24 22:00 01/31/24 08:00 Temperature 98.5 F Pulse Rate 60 77 61 Respiratory Rate 16 Blood Pressure 109/69 99/74 112/72 Pulse Oximetry 98 Oxygen Delivery Method 01/31/24 09:10 Temperature Pulse Rate Respiratory Rate Blood Pressure 112/72 Pulse Oximetry Oxygen Delivery Method BMI result Body Mass Index 22.7 Labs 01/25/24 01:15 01/25/24 01:15 Imaging Radiology Impressions: ITS Impressions Head CT 01/25/24 16:35 IMPRESSION: No acute intracranial pathology. Electronically signed by: Lee Michelle MD 01/25/2024 05:18 PM EDT Medications Medications Current Medications Acetaminophen (Acetaminophen 325 Mg Tablet) 650 mg PO Q6H PRN PRN Reason: Headache/Pain Mild Scale (1-3) Last Admin: 01/31/24 09:18 Dose: 650 mg Al Hydroxide/Mg Hydroxide (Magnesium Hydrox/Alum Hydrox 30 Ml Oral.Susp) 30 ml PO Q6H PRN PRN Reason: Heartburn/Nausea Aripiprazole (Aripiprazole 5 Mg Tablet) 5 mg PO DAILY ERIKA Last Admin: 01/31/24 09:11 Dose: 5 mg Atorvastatin Calcium (Atorvastatin Calcium 40 Mg Tablet) 40 mg PO BEDTIME ERIKA Last Admin: 01/30/24 21:20 Dose: 40 mg Benzocaine (Benzocaine 20 % Oral Gel 9 Gm Tube) 1 appl MUCOUS MEM QID PRN; Protocol PRN Reason: dental/mouth pain Last Admin: 01/31/24 09:18 Dose: 1 appl Bupropion HCl (Bupropion Hcl Xl 150 Mg Tab.Er.24h) 150 mg PO DAILY [facility] Last Admin: 01/31/24 09:10 Dose: 150 mg Celecoxib (Celecoxib 100 Mg Capsule) 100 mg PO BID PRN PRN Reason: pain (scale score 7-10) Last Admin: 01/28/24 08:38 Dose: 100 mg Clonidine HCl (Clonidine Hcl 0.1 Mg Tablet) 0.1 mg PO TID ERIKA; Protocol Last Admin: 01/31/24 09:10 Dose: 0.1 mg Lidocaine (Lidocaine 4 % Patch Adh..Patch) 1 patch TRANSDERMA DAILY [facility] Last Admin: 01/31/24 09:12 Dose: 1 patch Magnesium Hydroxide (Milk Of Magnesia 30 Ml Oral.Susp) 30 ml PO DAILY PRN PRN Reason: Constipation Mirtazapine (Mirtazapine 7.5 Mg Tablet) 7.5 mg PO BEDTIME [facility] Last Admin: 01/30/24 21:20 Dose: 7.5 mg Naltrexone HCl (Naltrexone Hcl 50 Mg Tablet) 50 mg PO DAILY [facility] Nicotine (Nicotine 21 Mg Patch.Td24) 21 mg TRANSDERMA DAILY PRN PRN Reason: smoking cessation Olanzapine (Olanzapine 5 Mg Tablet) 5 mg PO TID PRN PRN Reason: agitation Last Admin: 01/29/24 17:36 Dose: 5 mg Thiamine HCl (Thiamine Hcl 100 Mg Tablet) 100 mg PO DAILY [facility] Last Admin: 01/31/24 09:10 Dose: 100 mg Trazodone HCl (Trazodone Hcl 50 Mg Tablet) 50 mg PO BEDTIME MRX1 PRN PRN Reason: Insomnia Last Admin: 01/29/24 21:20 Dose: 50 mg Allergies Allergies Allergy/AdvReac Type Severity Reaction Status Date / Time No Known Allergies Allergy Verified 01/25/24 00:38 [No Known Allergies*] Assessment & Plan Assessment & Plan (1) Severe recurrent major depression w/psychotic features, mood-congruent: Status: Acute Code(s): F33.3 - Major depressive disorder, recurrent, severe with psychotic symptoms (2) Alcohol use disorder, severe, dependence: Status: Acute Code(s): F10.20 - Alcohol dependence, uncomplicated (3) Cocaine use disorder: Status: Acute Code(s): F14.10 - Cocaine abuse, uncomplicated Plan Major Depression with Psychotic Features, Alcohol, Cocaine, Opiate Use disorders. Plan: Admit, CV, 15 minute checks Collateral Contact Abilify 2 mg a.m. Addiction consult-pt wants to discuss meds for alcohol use disorder and recovery coaching Diagnostics as needed 01/28/24: Continue plan of care 01/29: Remeron 7.5 mg HS Increase Abilify to 5 mg daily 01/30: Continue current management and treatment plan. Reason for continued inpatient stay Substantial Risk for: harm to self, inability to function and rapid decompensation Time Spent With Patient Time: Total time managing care of this patient today ____ minutes.
[2024-01-31 15:33] VITALS: BP 116/74
[2024-01-31] MEDS: Celecoxib 100 MG CAPSULE PO (15:33)
[2024-01-31 16:00] VITALS: BP 114/78; BP 120/78; PULSE 64; PULSE 72
[2024-01-31 20:00] VITALS: BP 103/65; PULSE 71; TEMP 37.3
[2024-01-31 21:24] VITALS: BP 103/65
[2024-01-31] MEDS: Atorvastatin Calcium 40 MG TABLET PO (21:25)
[2024-01-31] MEDS: Mirtazapine 7.5 MG TABLET PO (21:25)
[2024-02-01] VITALS: BP 96/58; PULSE 66
[2024-02-01 08:00] VITALS: BP 110/68; BP 115/66; PULSE 73; PULSE 75; RESP 16; TEMP 36.4; O2SAT 98
[2024-02-01 09:16] VITALS: BP 115/66
[2024-02-01] MEDS: Thiamine HCL 100 MG TABLET PO (09:16)
[2024-02-01] MEDS: buPROPion HCl XL 150 MG TAB.ER.24H PO (09:16)
[2024-02-01] MEDS: Celecoxib 100 MG CAPSULE PO (09:16)
[2024-02-01] MEDS: Lidocaine 4 % Patch ADH..PATCH 1 PATCH TRANSDERMA (09:16)
[2024-02-01] MEDS: ARIPiprazole 5 MG TABLET PO (09:16)
[2024-02-01] MEDS: cloNIDine HCL 0.1 MG TABLET PO ×3 (09:16→21:04)
[2024-02-01] MEDS: Naltrexone HCl 50 MG TABLET PO (09:17)
[2024-02-01] MEDS: Benzocaine 20 % Oral Gel 9 GM TUBE 1 APPL MUCOUS MEM ×2 (09:17→14:09)
--- NOTE | 2024-02-01 11:38 | P.PNPSI_ITS ---
Subjective Subjective Date of Service: 02/01/24 Reason For Visit: Delusional Interim History: Patient doing well. Feels medications are helpful and has no side effects and asking to maximize benefit from them. Clonidine helps with anxiety. Tolerating medication regimen. Denies SI. Denies AVH. Review of Systems Review of Systems poor appetite Yes all other systems are reviewed and are negative Mental Status Exam Mental Status Exam Patient Appearance: Appropriate Patient Orientation: Person, Place, Time and Situation Level of Consciousness: Alert Patient Behavior: Appropriate, Talkative, Cooperative and Good Eye Contact Mood Description: Flat Affect Description: Flat Patient Cognition Impaired: No Ability to Follow Directions: Good Speech Pattern: Spontaneous Speech Memory Description: Episodic Impaired Diagnostics Vital Signs (24Hr): Vital Signs - 24 hr 01/31/24 15:33 01/31/24 16:00 01/31/24 16:00 Temperature Pulse Rate 64 72 Blood Pressure 116/74 114/78 120/78 Oxygen Delivery Method 01/31/24 20:00 01/31/24 21:24 02/01/24 00:00 Temperature 99.1 F Pulse Rate 71 66 Blood Pressure 103/65 103/65 96/58 L Oxygen Delivery Method Room Air 02/01/24 09:16 Temperature Pulse Rate Blood Pressure 115/66 Oxygen Delivery Method BMI result Body Mass Index 22.7 Labs 01/25/24 01:15 01/25/24 01:15 Imaging Radiology Impressions: ITS Impressions Head CT 01/25/24 16:35 IMPRESSION: No acute intracranial pathology. Electronically signed by: Lee Michelle MD 01/25/2024 05:18 PM EDT Medications Medications Current Medications Acetaminophen (Acetaminophen 325 Mg Tablet) 650 mg PO Q6H PRN PRN Reason: Headache/Pain Mild Scale (1-3) Last Admin: 01/31/24 21:30 Dose: 650 mg Al Hydroxide/Mg Hydroxide (Magnesium Hydrox/Alum Hydrox 30 Ml Oral.Susp) 30 ml PO Q6H PRN PRN Reason: Heartburn/Nausea Aripiprazole (Aripiprazole 5 Mg Tablet) 5 mg PO DAILY [facility] Last Admin: 02/01/24 09:16 Dose: 5 mg Atorvastatin Calcium (Atorvastatin Calcium 40 Mg Tablet) 40 mg PO BEDTIME ERIKA Last Admin: 01/31/24 21:25 Dose: 40 mg Benzocaine (Benzocaine 20 % Oral Gel 9 Gm Tube) 1 appl MUCOUS MEM QID PRN; Protocol PRN Reason: dental/mouth pain Last Admin: 02/01/24 09:17 Dose: 1 appl Bupropion HCl (Bupropion Hcl Xl 150 Mg Tab.Er.24h) 150 mg PO DAILY [facility] Last Admin: 02/01/24 09:16 Dose: 150 mg Celecoxib (Celecoxib 100 Mg Capsule) 100 mg PO BID PRN PRN Reason: pain (scale score 7-10) Last Admin: 02/01/24 09:16 Dose: 100 mg Clonidine HCl (Clonidine Hcl 0.1 Mg Tablet) 0.1 mg PO QID ERIKA; Protocol Lidocaine (Lidocaine 4 % Patch Adh..Patch) 1 patch TRANSDERMA DAILY [facility] Last Admin: 02/01/24 09:16 Dose: 1 patch Magnesium Hydroxide (Milk Of Magnesia 30 Ml Oral.Susp) 30 ml PO DAILY PRN PRN Reason: Constipation Mirtazapine (Mirtazapine 7.5 Mg Tablet) 7.5 mg PO BEDTIME [facility] Last Admin: 01/31/24 21:25 Dose: 7.5 mg Naltrexone HCl (Naltrexone Hcl 50 Mg Tablet) 50 mg PO DAILY [facility] Last Admin: 02/01/24 09:17 Dose: 50 mg Nicotine (Nicotine 21 Mg Patch.Td24) 21 mg TRANSDERMA DAILY PRN PRN Reason: smoking cessation Olanzapine (Olanzapine 5 Mg Tablet) 5 mg PO TID PRN PRN Reason: agitation Last Admin: 01/29/24 17:36 Dose: 5 mg Thiamine HCl (Thiamine Hcl 100 Mg Tablet) 100 mg PO DAILY [facility] Last Admin: 02/01/24 09:16 Dose: 100 mg Trazodone HCl (Trazodone Hcl 50 Mg Tablet) 50 mg PO BEDTIME MRX1 PRN PRN Reason: Insomnia Last Admin: 01/29/24 21:20 Dose: 50 mg Allergies Allergies Allergy/AdvReac Type Severity Reaction Status Date / Time No Known Allergies Allergy Verified 01/25/24 00:38 [No Known Allergies*] Assessment & Plan Assessment & Plan (1) Severe recurrent major depression w/psychotic features, mood-congruent: Status: Acute Code(s): F33.3 - Major depressive disorder, recurrent, severe with psychotic symptoms (2) Alcohol use disorder, severe, dependence: Status: Acute Code(s): F10.20 - Alcohol dependence, uncomplicated (3) Cocaine use disorder: Status: Acute Code(s): F14.10 - Cocaine abuse, uncomplicated Plan Major Depression with Psychotic Features, Alcohol, Cocaine, Opiate Use disorders. Plan: Admit, CV, 15 minute checks Collateral Contact Abilify 2 mg a.m. Addiction consult-pt wants to discuss meds for alcohol use disorder and recovery coaching Diagnostics as needed 01/28/24: Continue plan of care 01/29: Remeron 7.5 mg HS Increase Abilify to 5 mg daily 01/30: Continue current management and treatment plan. 01/31: Increase Clonidine frequency to QID. Increase Wellbutrin XL to 300 mg daily. Continue other management and treatment plan. Reason for continued inpatient stay Substantial Risk for: inability to function and rapid decompensation Time Spent With Patient Time: Total time managing care of this patient today ____ minutes.
[2024-02-01 14:09] VITALS: BP 120/74
[2024-02-01] MEDS: Acetaminophen 325 MG TABLET 650 MG PO ×2 (14:09→21:05)
[2024-02-01 20:00] VITALS: BP 117/67; PULSE 70; TEMP 37.1; O2SAT 99
[2024-02-01] MEDS: Mirtazapine 7.5 MG TABLET PO (21:04)
[2024-02-01] MEDS: Atorvastatin Calcium 40 MG TABLET PO (21:04)
[2024-02-01] MEDS: traZODone HCL 50 MG TABLET PO (21:04)
[2024-02-02] VITALS: BP 117/67; PULSE 70
[2024-02-02 06:33] LABS: Vitamin B1 9 nmol/L (8-30)
[2024-02-02 08:00] VITALS: BP 109/75; PULSE 71; RESP 18; TEMP 36.9; O2SAT 99
[2024-02-02] MEDS: buPROPion HCl XL 300 MG TAB.ER.24H PO (08:27)
[2024-02-02] MEDS: Thiamine HCL 100 MG TABLET PO (08:27)
[2024-02-02] MEDS: ARIPiprazole 5 MG TABLET PO (08:27)
[2024-02-02] MEDS: Naltrexone HCl 50 MG TABLET PO (08:27)
[2024-02-02] MEDS: cloNIDine HCL 0.1 MG TABLET PO (08:27)
[2024-02-02] MEDS: Acetaminophen 325 MG TABLET 650 MG PO (08:50)
[2024-02-02] MEDS: Lidocaine 4 % Patch ADH..PATCH 1 PATCH TRANSDERMA ×2 (09:47→09:48)
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
== END 2024-02-02 11:35 | disposition other institution (70) | DRG 751 ==
LOC: HO.ED 01:02 → HO.PM5 01-26 13:26
PROVIDERS: Admitting Provider Psychiatry & Neurology Psychiatry; Emergency Provider Emergency Medicine; PCP Internal Medicine; Visit Provider Clinical Nurse Specialist Psychiatric/Mental Health, Adult
DX: F33.3 Major depressive disorder, recurrent, severe with psychotic symptoms (principal); F10.20 Alcohol dependence, uncomplicated; F14.10 Cocaine abuse, uncomplicated; Z59.01 Sheltered homelessness; Z87.891 Personal history of nicotine dependence; Z20.822 Contact with and (suspected) exposure to COVID-19; Z79.899 Other long term (current) drug therapy
CPT/HCPCS: 36415; 70450; 80053; 80061; 80307; 81003; 82140; 82607; 82746; 83036; 84425; 84443; 85025; 87635; 93005; 99285; S9485

== ENCOUNTER → 2024-01-26 08:27 | Outpatient (BNV) | payer OTHER, SELFPAY | PROVIDERS: Emergency Provider Emergency Medicine; PCP Internal Medicine; Visit Provider Internal Medicine Cardiovascular Disease | DX: R42 Dizziness and giddiness (principal) | CPT/HCPCS: 93010 ==

== ENCOUNTER → 2024-01-26 13:13 | Outpatient (BNV) | payer OTHER, SELFPAY | PROVIDERS: Admitting Provider Psychiatry & Neurology Psychiatry; Emergency Provider Emergency Medicine; PCP Internal Medicine; Visit Provider Clinical Nurse Specialist Psychiatric/Mental Health, Adult | DX: F33.3 Major depressive disorder, recurrent, severe with psychotic symptoms (principal); F14.10 Cocaine abuse, uncomplicated; F10.20 Alcohol dependence, uncomplicated | CPT/HCPCS: 90792; 99231; 99232; 99238 ==

== ENCOUNTER 2024-02-10 09:55 | Outpatient (AMB) | payer OTHER, SELFPAY ==
[2024-02-10 10:23] VITALS: BP 152/88; PULSE 102; O2SAT 98; BMI 23.2
--- NOTE | 2024-02-10 10:23 | MHC.PC.OV ---
Vital Signs 02/10/24 10:23 Height 5 ft 4 in Weight 135 lb BMI 23.2 BP 152/88 H Blood Pressure Location Lt brachial Position Sitting Pulse 102 H Pulse Source Pulse Oximeter Pulse Oximetry (%) 98 Oxygen Delivery Method Room Air Intake Visit Reasons: [facility] [place]/25 due to delusional behavior Mortgage Loan Funder Required: Yes Mortgage Loan Funder Language: Electrician Shop Name: Jana [id number] Accompanied by: Self / Same As Patient Allergies No Known Allergies [No Known Allergies*] Allergy (Verified 02/10/24 10:23) Tobacco use date assessed: 07/16/23 Dental Screening Dental Screen Date: 04/09/23 HPI HPI Comments History of Present Illness Details 53 y/o male patient who presents to the clinic for HDF. He was admitted at [facility] on 01/23 for exacerbation of recurrent major depression with Psychosis. He was discharged home on 01/25/24, to continue f/u with Psych. New medications were added; Trazodone 50 mg, Naltrexone 50 mg, Benzocaine, Abilify 5 mg, Mirtazapine 7.5 mg and Thiamine 100 mg. [facility] Medical History (Updated 02/10/24 @ 00:03 by Sanjiv Daniels) Anxiety and depression Delusions Severe recurrent major depression w/psychotic features, mood-congruent Opiate abuse, episodic Mild recurrent major depression Physical exam Cocaine use disorder GERD (gastroesophageal reflux disease) History of back pain Headache Right elbow pain Pure hypercholesterolemia Lumbar radiculopathy Spondylosis of lumbosacral spine without myelopathy Alcoholism Abuse, drug or alcohol Surgical History History of esophagogastroduodenoscopy (EGD) History of eye surgery History of eye surgery Family History Father Alcoholism Substance use disorder Mother Diabetes Social History (Updated 12/10/23 @ 15:49 by Kaley Ramirez MD) Household Members: None Housing: Apartment Do you presently have visiting nurse or other home services: No Unable to assess alcohol history related to: Unknown Alcohol intake: former Patient Tobacco Use Status: Former Tobacco user Tobacco use type: Cigarette e-Cigarette/Vaping Use: Never Used Second Hand Smoke Exposure: No Substance Use Type: Marijuana service: No Current occupational status: unemployed Sexual orientation: Straight/Heterosexual Cognitive needs: No Hearing needs: No Vision needs: No Questionnaire Thrive Questionnaire Date Thrive assessed: 01/27/24 KAITY-7 AMB Questionnaire KAITY-7 Date KAITY - 7 assessed: 04/09/23 Source: Developed by Drs. Andrew Olson, Anuradha Keith, Qamar Ortiz and colleagues, with an educational cj from [employer]. Review of Systems Const All systems reviewed & are unremarkable except as noted in HPI and below Physical exam (Primary Care) Vital Signs: Last Vital Signs Pulse 102 H 02/10/24 10:23 BP 152/88 H 02/10/24 10:23 Pulse Ox 98 02/10/24 10:23 Oxygen Delivery Method Room Air 02/10/24 10:23 BMI result Body Mass Index 23.2 Tobacco/Smoking Status: Tobacco use Status Tobacco use date assessed 07/16/23 02/10/24 10:32 Patient Tobacco Use Status Former Tobacco user 02/10/24 10:32 Tobacco use type Cigarette 02/10/24 10:32 e-Cigarette/Vaping Use Never Used 02/10/24 10:32 Thrive Assessment: Date of Thrive Assessment Date Thrive assessed 01/27/24 02/10/24 10:32 Const General: cooperative and no acute distress Orientation/consciousness: patient oriented x3 Resp Effort & Inspection: normal respiratory effort Cardio Heart sounds: S1 normal heart sound present and S2 normal heart sound present Skin General skin exam: no rashes or lesions noted Neuro General: patient oriented x3, gait normal and moves all extremities Psych Speech and movement: Normal speech and movement present Coding Level of Care Code Est Pt Level 4 (53877) Diagnoses Severe recurrent major depression w/psychotic features, mood-congruent F33.3 Time Spent (min) 20 Assessment & Plan Assessment & Plan (1) Severe recurrent major depression w/psychotic features, mood-congruent: Code(s): F33.3 - Major depressive disorder, recurrent, severe with psychotic symptoms Category: Medical Plan: Managed by Psych
== END 2024-02-10 11:13 | disposition home or self-care (01) ==
LOC: HO.HMCH 09:56
PROVIDERS: PCP Internal Medicine; Visit Provider Nurse Practitioner Family
DX: F33.3 Major depressive disorder, recurrent, severe with psychotic symptoms (principal)

== ENCOUNTER → 2024-02-10 09:55 | Outpatient (BNVA) | payer OTHER, SELFPAY | PROVIDERS: PCP Internal Medicine; Visit Provider Nurse Practitioner Family | DX: F33.3 Major depressive disorder, recurrent, severe with psychotic symptoms (principal) | CPT/HCPCS: 99212 ==

== ENCOUNTER 2024-02-13 10:54 | Day surgery (SDC) | payer OTHER, SELFPAY ==
--- NOTE | 2024-02-12 12:55 | P.CONAN_ITS ---
Documented by User: Lillian Lozoya NP 02/12/24 12:59 HPI - Anesthesia Eval Consult details Narrative: 53yo M for Right L4-L5 Transforaminal Epidural Steroid Injection ETOH use disorder Cocaine use disorder 01/2024 [facility] admit [facility] Active Problems Active Problems: All Active Problems Severe recurrent major depression w/psychotic features, mood-congruent (Acute) Right hand pain (Acute) Left hand pain (Acute) Hand pain (Acute) Lumbosacral spondylosis (Acute) Lumbar degenerative disc disease (Acute) Vertebrogenic low back pain (Acute) Hypercalcemia (Acute) Transaminitis (Acute) Polysubstance (including opioids) dependence, daily use (Acute) Rib pain on right side (Acute) Thoracic spine pain (Acute) Mild recurrent major depression (Acute) Physical exam (Acute) Cocaine use disorder (Acute) GERD (gastroesophageal reflux disease) (Acute) Encounter for routine adult health examination (Acute) Alcohol use disorder, severe, dependence (Acute) Headache (Acute) Right elbow pain (Acute) Pure hypercholesterolemia (Acute) Lumbar radiculopathy (Acute) Spondylosis of lumbosacral spine without myelopathy (Acute) Alcoholism (Acute) Abuse, drug or alcohol (Acute) Past Medical History Medical History (Updated 02/10/24 @ 00:03 by Sanjiv Daniels) Anxiety and depression Delusions Severe recurrent major depression w/psychotic features, mood-congruent Opiate abuse, episodic Mild recurrent major depression Physical exam Cocaine use disorder GERD (gastroesophageal reflux disease) History of back pain Headache Right elbow pain Pure hypercholesterolemia Lumbar radiculopathy Spondylosis of lumbosacral spine without myelopathy Alcoholism Abuse, drug or alcohol Family History Family History Father Alcoholism Substance use disorder Mother Diabetes Family history of problems with anesthesia: No Surgical History Surgical History History of esophagogastroduodenoscopy (EGD) History of eye surgery History of eye surgery History of Problems with Anesthesia: No Social History Social History (Updated 12/10/23 @ 15:49 by Kaley Ramirez MD) Household Members: None Housing: Apartment Do you presently have visiting nurse or other home services: No Unable to assess alcohol history related to: Unknown Alcohol intake: former Patient Tobacco Use Status: Former Tobacco user Tobacco use type: Cigarette e-Cigarette/Vaping Use: Never Used Second Hand Smoke Exposure: No Substance Use Type: Marijuana Have you been hit, kicked, punched, or otherwise hurt by someone within the past year? If so, by whom?: No Are you DNR?: No Advance Directives: No Advance Directives Information Provided: Yes service: No Current occupational status: unemployed Sexual orientation: Straight/Heterosexual Cognitive needs: No Hearing needs: No Vision needs: No Meds Allergies Allergy/AdvReac Type Severity Reaction Status Date / Time No Known Allergies Allergy Verified 02/10/24 10:23 [No Known Allergies*] Home Medications ?Medication ?Instructions ?Recorded ?Confirmed ?Last Taken ?Type clonidine HCl 0.1 mg tablet 0.1 mg PO TID 01/25/24 01/25/24 Unknown History duloxetine 30 mg capsule,delayed 30 mg PO DAILY 02/10/24 Unknown History release Exam Pertinent Lab Results Pertinent Lab Results: Laboratory Tests 01/25/24 01:15 WBC 10.2 Hgb 14.7 Hct 41.8 L Plt Count 404 H Sodium 142 Potassium 3.9 Chloride 109 H Carbon Dioxide 23 BUN 8 L Creatinine 1.14 Narrative Narrative: EKG 01/2024 Vent. Rate : 076 BPM Atrial Rate : 076 BPM P-R Int : 176 ms QRS Dur : 084 ms QT Int : 388 ms P-R-T Axes : 035 -12 034 degrees QTc Int : 436 ms Normal sinus rhythm Normal ECG When compared with ECG of 27-OCT-2023 19:43, No significant change was found Assessment and Plan Assessment Anesthesia Assessment: Chart Reviewed Final Anesthetic Review Family History of Problems with Anesthesia: No History of Problems with Anesthesia: No Documented by User: Cony Mclain MD 02/13/24 13:24 [facility] Past Medical History Medical History (Updated 02/10/24 @ 00:03 by Sanjiv Daniels) Anxiety and depression Delusions Severe recurrent major depression w/psychotic features, mood-congruent Opiate abuse, episodic Mild recurrent major depression Physical exam Cocaine use disorder GERD (gastroesophageal reflux disease) History of back pain Headache Right elbow pain Pure hypercholesterolemia Lumbar radiculopathy Spondylosis of lumbosacral spine without myelopathy Alcoholism Abuse, drug or alcohol Family History Family History Father Alcoholism Substance use disorder Mother Diabetes Surgical History Surgical History History of esophagogastroduodenoscopy (EGD) History of eye surgery History of eye surgery Social History Social History (Updated 12/10/23 @ 15:49 by Kaley Ramirez MD) Household Members: None Housing: Apartment Do you presently have visiting nurse or other home services: No Unable to assess alcohol history related to: Unknown Alcohol intake: former Patient Tobacco Use Status: Former Tobacco user Tobacco use type: Cigarette e-Cigarette/Vaping Use: Never Used Second Hand Smoke Exposure: No Substance Use Type: Marijuana Have you been hit, kicked, punched, or otherwise hurt by someone within the past year? If so, by whom?: No Are you DNR?: No Advance Directives: No Advance Directives Information Provided: Yes service: No Current occupational status: unemployed Sexual orientation: Straight/Heterosexual Cognitive needs: No Hearing needs: No Vision needs: No Meds Allergies Allergy/AdvReac Type Severity Reaction Status Date / Time No Known Allergies Allergy Verified 02/10/24 10:23 [No Known Allergies*] Home Medications ?Medication ?Instructions ?Recorded ?Confirmed ?Last Taken ?Type clonidine HCl 0.1 mg tablet 0.1 mg PO TID 01/25/24 01/25/24 Unknown History duloxetine 30 mg capsule,delayed 30 mg PO DAILY 02/10/24 Unknown History release Exam Airway Mallampati Class: II TM Dist: >3cm Neck ROM: Full Partial: Lower Heart: rrr Lungs: cta Assessment and Plan Assessment Anesthesia Assessment: Anesthesia Plan Discussed Final Anesthetic Review NPO: Yes ASA Class: III Final Preanesthetic Review: No Changes in Pt Med Stat, Meds/Allgs Chart Reviewed and Consent Obtained/Reviewed Patient Risk: Low Procedure Risk: Low Anesthetic Plan Anesthetic Plan: MAC: Disposition: Standard PACU
[2024-02-13 06:49] VITALS: BMI 23.3
[2024-02-13 11:23] VITALS: BP 125/86; PULSE 81; RESP 18; TEMP 36.4; O2SAT 97; BMI 23.7
[2024-02-13] MEDS: Lactated Ringers 1,000 ML 100 ML IVCONT (11:27)
[2024-02-13 11:43] LABS: Amphetamine Screen Urine Not Detected (Not Detect); Barbiturates, Urine Not Detected (Not Detect); Benzodiazepines Screen Urine Not Detected (Not Detect); Buprenorphine Scr Not Detected (Not Detect); Cannabinoid Screen Urine Not Detected (Not Detect); Cocaine Screen Urine Not Detected (Not Detect); Fentanyl, urine Not Detected (Not Detect); Methadone Screen, Urine Not Detected (Not Detect); Opiate Screen Urine Not Detected (Not Detect); Oxycodone Screen Urine Not Detected (Not Detect); Phencyclidine Screen Urine Not Detected (Not Detect)
--- NOTE | 2024-02-13 13:27 | P.HPSUR_ITS ---
Pre-Procedural Eval Section A - 24 Hr Update-Section A only Date of Service: 02/13/24 The patient is an INPATIENT: No Changes since office visit: Yes Patient answered all questions The patient has been examined within 24 hours of the surgical procedure. The History & Physical has been completed within 30 days and I have reviewed it.: No Section B - Complete if H&P > 30 days Chief Complaint: Radiculopathy, lumbar region Details of Present Illness: As above Relevant Family History (Specify if Yes): No Relevant Social History: None Present Medications: see Short Stay Collaborative assessment Medical History: No relevant PMH History of Previous Operations: No relevant previous surgery Allergies: Allergies Allergy/AdvReac Type Severity Reaction Status Date / Time No Known Allergies Allergy Verified 02/10/24 10:23 [No Known Allergies*] Review of Systems Sugical H&P ROS: Negative: Constitution, Cardiovascular, Respiratory, Neurological, Hem-Onc, Allergic/Immunologic, Genitourinary, Integumentary, Endocrine and Eyes/Ears/Nose/Throat and Yes, Specify: Psychiatric (MDD, polysubstance abuse), Gastrointestinal (GERD, alcoholism) and Musculoskeletal (D ISC DEGENERATION LUMBAR RADICULOPATHY LUMBAR) Exam Surgical H&P Exam: Normal: HEENT, Normal: Heart, Normal: Lungs, Normal: Extremities, Normal: Abdomen, Normal: Skin and Normal: Neurological Plan Diagnosis/Plan: Unchanged I have reviewed the history and physical and performed a pertinent physical examination on my patient. No changes have occurred unless specified. Time Spent With Patient Time: Total time managing care of this patient today ____ minutes.
--- NOTE | 2024-02-13 14:10 | P.BOP_ITS ---
Brief Operative Note Date of Service: 02/13/24 Pre-op diagnosis: Radiculopathy lumbar Post-op diagnosis: same Procedure: Transforaminal right L4-5 epidural steroid injection. Implants: None Surgeon: Dariel Jacobo MD Anesthesia: MAC Was an Physical Sciences Professor used for this Procedure?: No Estimated blood loss (mL): 0 Condition: stable Disposition: PACU
[2024-02-13 14:14] VITALS: BP 149/78; PULSE 90; RESP 12; TEMP 36.1; O2SAT 97
[2024-02-13 14:28] VITALS: BP 133/72; PULSE 75; RESP 16; O2SAT 97
[2024-02-13 14:45] VITALS: BP 144/92; PULSE 77; RESP 16; TEMP 36.6; O2SAT 100
--- NOTE | 2024-02-13 16:54 | P.OP_ITS ---
Operative Note Operative Note Date of Service: 02/13/24 Narrative: Right L4-5 Transforaminal epidural steroid injection Informed consent was thoroughly explained to the patient before the procedure. Risks were delineated as bleeding infection peripheral nerve damage spinal cord damage headache. Alternatives were noted as the physical therapy occupational therapy combination of the medications. The patient came to the operating room. He was positioned prone on operating table with a pillow under her abdomen. [employer] monitors were applied and patient was deeply sedated. Time-out was performed delineating correct site and side of the procedure, nature of the injection, name and date of of the patient. The lower back of the patient was prepped with ChloraPrep and draped with sterile utility towels. C-arm was brought over the operating field and sq picture of L4 vertebra was demonstrated on the screen. The right side was chosen as the side of the injection. Tilting machine ipsilateral to the right at the level of L4 the most prominent picture of the pedicle on the right was demonstrated on the screen. 3 mm below the most lowest point of the pedicle projection to the skin small amount of lidocaine 1% was injected to anesthetize the skin. After that 5 in 22 gauge Quincke point needle was inserted through the skin wheal and was advanced to were the L4-L5 foramina on anterior posterior, lateral and oblique views intermittently. When the needle entered foramina on AP view When tip of the needle entered foramina projection on AP view injection of the contrast was performed demonstrating epidural and perineu ral spread of the contrast. After that injection of the treatment medicine 2 cc of preservative-free lidocaine 1% mixed with Kenalog 40 mg was injected into the foramina. No intrathecal and no intravascular spread of the contrast was noted. During the procedure patient was restless unable to stay still on the operating table was coughing and lifting himself up against advancing needle. Eventually upon injection of the medication the needle was removed I have Band- Aid was applied. Patient was transferred to the stretcher and brought to the recovery room where he unfortunately continued to complain on pain in the back with radiation to the right lower extremity.
== END 2024-02-13 15:21 | disposition home or self-care (01) ==
PROVIDERS: Nurse Practitioner; PCP Internal Medicine; Visit Provider Anesthesiology
PROC: 3E0R33Z Introduction of Anti-inflammatory into Spinal Canal, Percutaneous Approach (ICD-10-PCS; CPT 64483; principal; 2024-02-13 13:10)
DX: M51.16 Intervertebral disc disorders with radiculopathy, lumbar region (principal); G89.29 Other chronic pain; M47.817 Spondylosis without myelopathy or radiculopathy, lumbosacral region; M54.51 Vertebrogenic low back pain; E78.5 Hyperlipidemia, unspecified; F32.A Depression, unspecified; K21.9 Gastro-esophageal reflux disease without esophagitis; Z79.899 Other long term (current) drug therapy; F10.20 Alcohol dependence, uncomplicated; F14.90 Cocaine use, unspecified, uncomplicated; Z98.890 Other specified postprocedural states; Z87.891 Personal history of nicotine dependence; Z56.0 Unemployment, unspecified
CPT/HCPCS: 64483; 80307; J2003; J2250; J2704; J3010; J3301; Q9965; Q9967

== ENCOUNTER → 2024-02-13 10:54 | Outpatient (BNV) | payer OTHER, SELFPAY | PROVIDERS: PCP Internal Medicine; Visit Provider Anesthesiology | DX: M54.16 Radiculopathy, lumbar region (principal) | CPT/HCPCS: 64680 ==

== ENCOUNTER 2024-02-16 09:54 | Outpatient (RCR) | payer OTHER, SELFPAY ==
--- NOTE | 2024-02-16 14:02 | MHC.OT.OEV ---
[address] [phone] F: [phone] Occupational Therapy Evaluation Patient Name: Nick Munoz Diagnosis: (B)wrist/hand pain Date of Onset: Date of Surgery: Attending Provider: Kaley Ramirez Prescribed Treatment: Follow Up Appointment: History of Current Condition: Patient is a 53 year old male who was referred for (B)hand pain. Patient reported 5/10 pain in (B)wrist that is throbbing at the ulnar styloid for the last for 2 years. He reported that the pain is constant and l opening jars/ sodas will bother it. No report of numbness/tingling. He also stated that it hurts when it is cold out. 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 He stated he Lives alone. Significant Medical History: Mild recurrent major depression cocaine use disorder GERD back pain (R)elbow pain Pure hypercholesterolemia Lumbar radiculopathy Spondylosis of lumbosacral spine without myelopathy Alcoholism Precautions/Contraindications: Patient Goals: Hand Dominance: Observations: QuickDASH Score: Prior Level of Function and Occupation Self Care, Employment, Leisure: Retired (I)ADLs/IADLs Living Situation, Family and/or Social Support: lives alone Current Level of Function and Occupation Self Care, Employment, Leisure: min (A)self care tasks Sleep: Driving: Vision: Balance: Pain Assessment Pain Score: 5 Pain Scale Used: Numeric (0 - 10) Pain Location and Description: (B)wrist throbbing pain Pain with the cold Aggravating Factors: Alleviating Factors: Heat Skin and Soft Tissue Assessment Skin and Soft Tissue: Comments: Skin intact Bruising present on (L)dorsum of the hand from IV placement from hospital stay per patient report Ivette's nodes not present Nerve assessment Ulnar Nerve: Median Nerve: Radial Nerve: Comments: WFL Sensory Assessment Temperature: Light Touch: Proprioception: Vibration: Comments: Edema Assessment Upper Extremity: Lower Extremity: Comments: Dexterity Assessment Dexterity: WNL Comments: Finger opposition Special Tests Comments: Phalen's (-) Machine Or Machinery Mechanic Strength Test (-) AROM(PROM) Strength Cervical Cervical Flexion: Cervical Extension: Cervical Lateral Flexion: Cervical Rotation: Comments: WFL Shoulder Flexion: Extension: Abduction: Internal Rotation: External Rotation: Comments: WFL Flexion: Extension: Abduction: Internal Rotation: External Rotation: Comments: WFL Elbow Flexion: Extension: Pronation: Supination: Comments: WFL Flexion: Extension: Pronation: Supination: Comments: WFL Wrist Flexion: Extension: Ulnar Deviation: Radial Deviation: Comments: WFL Flexion: Extension: Ulnar Deviation: Radial Deviation: Comments: WFL Thumb Thumb CMC Flexion: Thumb MCP Flexion: Thumb IP Flexion: Radial Abduction: Palmar Abduction: Drain (Kapandji 0-10): Comments: WFL Digits Index MCP: PIP: DIP: Long MCP: PIP: DIP: Ring MCP: PIP: DIP: Small MCP: PIP: DIP: Comments: WFL Gross Grasp: 23lbs. (R), 43lbs. (L) Lateral Pinch: Two-Point Pinch: Three-Jaw Benjamin: Comments: Performed evaluator transfer students strength with submaximal effort Patient Education Primary Language: Entry Driver Operator Required: No Current Knowledge: Teaching Method: Education Needs Identified on Evaluation: How did patient/family demonstrate learning? Barriers to Learning: Readiness for Learning: Who was educated? Comments: [facility] Plan of Care Assessment: Based on initial evaluation patient present with pain on the wrist (B'ly) at the ulnar styloid which is constant and impaired evaluator transfer students strength as he achieved 23lbs. (R) and 43 (L). Provocative testing was (-) for Phalen's Test and Machine Or Machinery Mechanic Strength Test. Ivette's nodes were not present and his ROM and strength were WFL. Patient may benefit from a short course of therapy for (B)wrist stabilization and pain management in order to increase patient's quality of life. Thank you for your referral. STG Duration: 2 weeks Short Term Goals: Patient will be (I) in joint protection techniques Patient will report 0/10 pain in (B'ly) wrist Patient will be (I) with HEP Patient will be (I) with wear schedule of wrist brace PRN LTG Duration: Senior Analyst Programmer Goals: Frequency and Duration: The patient will be seen Treatment Plan: Therapeutic Exercise Therapeutic Activity Home Exercise Program Splinting Patient Education Edema Control ADL Training Ultrasound Iontophoresis Paraffin Fluidotherapy MHP Cold Packs Joint Mobilization Soft Tissue Mobilization Kinesiotaping Other (see comments) 2x a week for 2 weeks Electronically Signed By: Lillian Neumann OTR/Daphney, CLT Reviewed/agree with student documentation: Therapist: Please sign and return to therapist, Thank you for your referral.
--- NOTE | 2024-02-23 10:55 | MHC.OT.DC ---
[address] [phone] F: [phone] Occupational Therapy Discharge Note Patient Name: Nick Munoz Provider: Kaley Ramirez Diagnosis: (B)wrist/hand pain Date of Surgery: Date of Evaluation: 02/16/24 Date of Discharge: Treatments to Date: 1 Cancellations to Date: No Shows to Date: Discharge Status: Visit Non-compliance Discharge Summary: Patient is d/c'd due to visit policy Electronically Signed By: Lillian Neumann OTR/L, CLT Reviewed/agree with student documentation: Therapist: Please Sign and return to therapist, thank you for your referral.
== END 2024-02-23 10:56 | disposition home or self-care (01) ==
LOC: HO.OT 09:54
PROVIDERS: PCP Internal Medicine; Visit Provider Internal Medicine
DX: M79.642 Pain in left hand (principal); M79.641 Pain in right hand
CPT/HCPCS: 97110; 97165

== ENCOUNTER 2024-03-09 16:47 | Emergency (ER) | payer OTHER, SELFPAY ==
--- NOTE | ~2024-03-09 | XR_ITS ---
EXAMINATION: XR CHEST CLINICAL INFORMATION: pain COMPARISON: Chest radiograph November 27, 2013 TECHNIQUE: 2 views of the chest were obtained. FINDINGS: No significant abnormality is noted involving the heart, lungs, mediastinum, bony thorax or soft tissues. XR/XR chest 2V IMPRESSION: Unremarkable examination. Electronically signed by: Faisal Gaitan MD 03/09/2024 08:41 PM [facility]
[2024-03-09 17:18] VITALS: BP 121/86; PULSE 90; RESP 16; TEMP 36.6; O2SAT 98; BMI 23.9
--- NOTE | 2024-03-09 17:22 | ECG_ITS ---
Test Reason : CHEST PAIN Blood Pressure : / mmHG Vent. Rate : 074 BPM Atrial Rate : 074 BPM P-R Int : 164 ms QRS Dur : 086 ms QT Int : 380 ms P-R-T Axes : 024 -21 045 degrees QTc Int : 421 ms Normal sinus rhythm Minimal voltage criteria for LVH, may be normal variant ( R in aVL ) Borderline ECG When compared with ECG of 26-JAN-2024 08:27, No significant change was found Referred By: Janay Alvarez Electronically Signed By:Rigoberto Dunbar
--- NOTE | 2024-03-09 17:24 | ED.ARRPALP ---
HPI - Arrhythmia/Palpitations General Chief Complaint: Arrhythmia/Palpitations Stated Complaint: palpitations, tremors, poor appetite Time Seen by Provider: 03/09/24 21:16 Source: patient Mode of arrival: ambulatory Limitations: no limitations History of Present Illness ED Provider: Dr. Kyle Elizalde HPI narrative: 53-year-old male with a history of depression with psychotic features, polysubstance abuse, alcohol abuse, chronic pain, arthritis who presents with palpitations associated with diaphoresis. Patient states that he had no food he eats he has had no appetite. He drank 2 cups of coffee and shortly after drinking the coffee he started to feel anxious and upset. He states that he then felt like his heart was racing fast. He felt lightheaded and dizzy. He became shaky and diaphoretic. States he has had similar symptoms in the past. He denied chest pain, fever, chills, cough, vomiting or diarrhea. Related Data Home Medications ?Medication ?Instructions ?Recorded ?Confirmed clonidine HCl 0.1 mg tablet 0.1 mg PO TID 01/25/24 01/25/24 duloxetine 30 mg capsule,delayed 30 mg PO DAILY 02/10/24 release Previous Rx's ?Medication ?Instructions ?Recorded atorvastatin 40 mg tablet 40 mg PO BEDTIME 90 days #90 tabs 07/16/23 bupropion HCl 300 mg 24 hr tablet, 300 mg PO DAILY 90 days #90 tabs 12/10/23 extended release aripiprazole 5 mg tablet (Abilify) 5 mg PO DAILY #30 tabs 02/02/24 mirtazapine 7.5 mg tablet 7.5 mg PO BEDTIME #30 tabs 02/02/24 naltrexone 50 mg tablet 50 mg PO DAILY #30 tabs 02/02/24 thiamine mononitrate (vit B1) 100 100 mg PO DAILY #30 tabs 02/02/24 mg tablet trazodone 50 mg tablet 50 mg PO BEDTIME MRX1 PRN Insomnia 02/02/24 #30 tabs cyclobenzaprine 10 mg tablet 10 mg PO TID PRN muscle spasm #14 03/12/24 tabs lidocaine 5 % topical patch 1 patch topical DAILY #15 ea 03/12/24 naproxen 500 mg tablet 500 mg PO BID PRN pain #20 tabs 03/12/24 hydroxyzine HCl 25 mg tablet 25 mg PO TID PRN anxiety #20 tabs 03/17/24 Allergies Allergy/AdvReac Type Severity Reaction Status Date / Time No Known Allergies Allergy Verified 03/17/24 11:02 [No Known Allergies*] Review of Systems Review of Systems: Yes all other systems are reviewed and are negative [facility] Past Medical History [facility] Narrative: Social history: The patient denies tobacco use. He states that he stopped drinking alcohol 2 months ago. He states he stopped using crack cocaine and heroin 2 months ago as well. Medical History (Updated 03/13/24 @ 00:02 by Sanjiv Daniels) Anxiety and depression Delusions Severe recurrent major depression w/psychotic features, mood-congruent Opiate abuse, episodic Mild recurrent major depression Physical exam Cocaine use disorder GERD (gastroesophageal reflux disease) History of back pain Headache Right elbow pain Pure hypercholesterolemia Lumbar radiculopathy Spondylosis of lumbosacral spine without myelopathy Alcoholism Abuse, drug or alcohol Surgical History History of esophagogastroduodenoscopy (EGD) History of eye surgery History of eye surgery Family History Family History Father Alcoholism Substance use disorder Mother Diabetes Social History Social History Household Members: None Housing: Apartment Do you presently have visiting nurse or other home services: No Unable to assess alcohol history related to: Unknown Alcohol intake: former Patient Tobacco Use Status: Former Tobacco user Tobacco use type: Cigarette e-Cigarette/Vaping Use: Never Used Second Hand Smoke Exposure: No Substance Use Type: Former Substance User service: No Current occupational status: unemployed Sexual orientation: Straight/Heterosexual Cognitive needs: No Hearing needs: No Vision needs: No Physical Exam Vital Signs: Vital Signs: Last Vital Signs Temp 97.7 F 03/09/24 22:32 Pulse 94 03/09/24 22:32 Resp 18 03/09/24 22:32 BP 135/93 H 03/09/24 22:32 Pulse Ox 98 03/09/24 22:32 O2 Del Method Room Air 03/09/24 22:32 BMI result Body Mass Index 23.9 Vital signs revealed an elevated blood pressure of 136/87 otherwise unremarkable Exam: General: Awake, alert in no distress Head: Normocephalic, atraumatic EENT: PERRL, Lids normal, sclera normal, conjunctiva normal, nose normal , ears normal, throat without erythema or exudates Neck: Supple, no adenopathy Lung: breath sounds symmetric, no wheezing, rales or rhonchi Chest: symmetric movement, nontender Heart: regular rate and rhythm, normal S1, S2 no murmurs or rubs Abdomen: soft, non-tender, nondistended, normal bowel sounds Back: no vertebral tenderness, no CVAT Extremities: no deformities, moves all extremities symmetrically Neuro: Awake, alert, oriented, normal speech, cranial nerves intact, moves all extremities symmetrically Psych: Pleasant, cooperative Course Course Course Narrative: This is a rapid medical exam performed by Janay Alvarez PA-C. Patient is a 53-year-old male with a history of depression with psychotic features, polysubstance abuse, alcohol abuse, chronic pain, arthritis who presents with palpitations. Patient states he developed a rapid heart rate 30 minutes ago, with the associated chest discomfort, described as ?it is my heart?. We will be screening basic labs, cardiac enzyme, drug and alcohol screen, EKG and chest x-ray. The patient is hemodynamically stable in his able to return to the waiting room pending his full medical assessment. Medications Administered Discontinued Medications Generic Name Dose Route Start Last Admin Trade Name Freq PRN Reason Stop Dose Admin Hydroxyzine HCl 25 mg 03/09/24 22:02 03/09/24 22:28 Hydroxyzine Hcl 25 Mg Tablet PO 03/09/24 22:03 25 mg ONCE ONE Administration Medical Decision Making Medical Decision Making [facility] Narrative: 53-year-old male with a history of depression with psychotic features, polysubstance abuse, alcohol abuse, chronic pain, arthritis who presents with palpitations associated with diaphoresis started this morning lasts approximately 30 minute. Patient was at a similar presentation in the past. Patient states that he was anxious and upset part of the onset of his symptoms. Vital signs were unremarkable physical examination was normal Differential diagnosis: ?Includes but is not limited to myocardial infarction, myocardial ischemia, palpitations, electrolyte abnormalities, anemia, anxiety Course: 21:51 My independent interpretation patient's laboratory evaluation as follows: WBC elevated 11,900. Bicarb elevated 30. Glucose elevated 127. High sensitive troponin I was below detectable limits. Patient's chest x-ray and 12 EKG were unremarkable. Patient's presentation is consistent with anxiety triggering palpitations. Patient was given hydroxyzine 25 mg orally and he was prescribed hydroxyzine 25 mg 3 times a day as needed for anxiety. Patient was given printed and verbal instructions and discharged home. Admission/Observation Consideration of admission/observation: Escalation of care including admission/observation considered (Yes) Lab Data MDM Lab Attestation statement: I reviewed the patient's lab results. 03/09/24 17:54 03/09/24 17:54 Labs: Lab Results 03/09/24 Range/Units 17:54 WBC 11.9 H (4.8-10.8) X10*3/uL RBC 5.25 (4.60-5.80) X10*6/uL Hgb 16.1 (14.0-18.0) g/dl Hct 47.9 (42.0-52.0) % MCV 91.2 (80.0-98.0) fL MCH 30.7 (27.0-33.0) pg MCHC 33.6 (31.0-36.0) g/dl RDW 13.0 (11.0-16.0) % Plt Count 344 (160-400) X10*3/uL MPV 9.0 L (9.4-12.4) fL Immature Gran % (Auto) 0.3 (0.0-0.4) % Neut % (Auto) 71.9 (45-73) % Lymph % (Auto) 17.6 L (20-40) % [place] % (Auto) 9.2 (2-11) % Eos % (Auto) 0.7 (0-4) % Baso % (Auto) 0.3 (0-2) % Lymph # (Auto) 2.1 (1.2-4.9) X10*3/uL [place] # (Auto) 1.1 (0.1-1.2) X10*3/uL Eos # (Auto) 0.1 (0.0-0.4) X10*3/uL Baso # (Auto) 0.0 (0.0-0.2) X10*3/uL Abs Immat Gran (auto) 0.03 (0.00-0.03) X10*3/uL Absolute Neuts (auto) 8.6 H (2.0-8.3) x10*3/uL Absolute Nucleated RBC 0.000 (0.0-0.012) X10*3/uL Nucleated RBC % (auto) 0.0 (0.0-0.2) /100WBC Sodium 141 (135-145) mmol/L Potassium 4.0 (3.3-5.1) mmol/L Chloride 103 (96-108) mmol/L Carbon Dioxide 30 H (22-29) mmol/L Anion Gap 12 (12-20) BUN 13 (9-16) mg/dL Creatinine 0.99 (0.5-1.4) mg/dL Estim Creat Clear Calc 71.4 Estimated GFR > 60 Random Glucose 127 H (60-115) mg/dL Calcium 10.2 (8.4-10.2) mg/dL Magnesium 2.3 (1.6-2.6) mg/dL Total Bilirubin 0.6 (0.0-1.0) mg/dL AST 30 (5-37) U/L ALT 61 H (0-40) U/L Alkaline Phosphatase 117 (39-117) U/L Troponin I High Sens < 2.7 (<3.5-35.0) ng/L Total Protein 8.0 (6.5-8.0) g/dL Albumin 4.7 (3.5-5.0) g/dL Lipase 15 (8-78) U/L Urine Opiates Screen Not Detected (Not Detect) Ur Buprenorphine Scrn Not Detected (Not Detect) ng/mL Ur Oxycodone Screen Not Detected (Not Detect) ng/mL Urine Methadone Screen Not Detected (Not Detect) ng/mL Urine Fentanyl Screen Not Detected (Not Detect) Ur Barbiturates Screen Not Detected (Not Detect) Ur Phencyclidine Scrn Not Detected (Not Detect) Ur Amphetamines Screen POSITIVE H (Not Detect) U Benzodiazepines Scrn Not Detected (Not Detect) Urine Cocaine Screen Not Detected (Not Detect) U Marijuana (THC) Screen Not Detected (Not Detect) Ethyl Alcohol < 10 mg/dL Independent Interpretation I performed an independent interpretation of an: EKG and Plain X-Ray Interpretation: My independent interpretation patient's 12 EKG done at 17:35 hours is as follows: Normal sinus rhythm rate of 74, normal AR interval, QRS duration QTC interval, no ST segment elevation, no ST segment depression, no significant T-wave abnormalities, no PACs, no PVCs My independent interpretation patient's chest x-ray is as follows: No acute disease Radiology Impression Radiologist Impression: XR chest 2V IMPRESSION: Unremarkable examination. Electronically signed by: Faisal Gaitan MD 03/09/2024 08:41 PM Prescription Management I considered prescription management with: Other (Antianxiety medications) Discharge Plan Discharge Clinical Impression: Heart palpitations, Anxiety Patient Disposition: Home, Self-Care Instructions: Heart Palpitations (ED) Additional Instructions: Your blood work was normal. Your EKG was unremarkable which is reassuring. Your chest x-ray was normal. Your symptoms may have been triggered by anxiety and stress. Therefore I am prescribing a medicine that may help with your anxiety. Take hydroxyzine 25 mg pills, 1 pill 3 times a day as needed for anxiety or palpitations (heart racing sensation). This medication will make you sleepy, do not drive or work while taking this medication. Continue taking your medications as prescribed by your providers. Follow-up with your doctor in 2 days. Please return to the emergency department if your symptoms get worse or if you develop any symptoms that are concerning to you. Prescriptions: No Action clonidine HCl 0.1 mg tablet 0.1 mg PO TID trazodone 50 mg Tablet 50 mg PO BEDTIME MRX1 PRN (Reason: Insomnia) Qty: 30 0RF naltrexone 50 mg Tablet 50 mg PO DAILY Qty: 30 0RF aripiprazole [Abilify] 5 mg Tablet 5 mg PO DAILY Qty: 30 0RF mirtazapine 7.5 mg Tablet 7.5 mg PO BEDTIME Qty: 30 0RF thiamine mononitrate (vit B1) 100 mg Tablet 100 mg PO DAILY Qty: 30 0RF cyclobenzaprine 10 mg tablet 10 mg PO TID PRN (Reason: muscle spasm) Qty: 14 0RF lidocaine 5 % adhesive patch,medicated 1 patch topical DAILY Qty: 15 0RF Rx Instructions: leave on most painful area for up to 12 hrs naproxen 500 mg tablet 500 mg PO BID PRN (Reason: pain) Qty: 20 0RF bupropion HCl 300 mg tablet extended release 24 hr 300 mg PO DAILY 90 Days Qty: 90 1RF atorvastatin 40 mg tablet 40 mg PO BEDTIME 90 Days Qty: 90 1RF duloxetine 30 mg capsule,delayed release(DR/EC) 30 mg PO DAILY hydroxyzine HCl 25 mg tablet 25 mg PO TID PRN (Reason: anxiety) Qty: 20 0RF Interventions: ED Discharge Assessment Last Done: 03/09/24 22:32 Discharge Date/Time: 03/09/24 22:33 Print Language: Citizen Of [place]
[2024-03-09 17:59] LABS: MANUAL DIFF FLAG NO
[2024-03-09 18:01] LABS: Basophils Percent Auto 0.3 % (0-2); Eosinophils Absolute Auto 0.1 X10*3/uL (0.0-0.4); Eosinophils Percent Auto 0.7 % (0-4); Hematocrit 47.9 % (42.0-52.0); Hemoglobin 16.1 g/dl (14.0-18.0); Imm Gran Abs Auto 0.03 X10*3/uL (0.00-0.03); Imm Gran Pct Auto 0.3 % (0.0-0.4); Lymphocytes Absolute Auto 2.1 X10*3/uL (1.2-4.9); Lymphocytes Percent Auto 17.6 % (20-40); Mean Corpuscular HGB Conc 33.6 g/dl (31.0-36.0); Mean Corpuscular Hemoglobin 30.7 pg (27.0-33.0); Mean Corpuscular Volume 91.2 fL (80.0-98.0); Monocytes Absolute Auto 1.1 X10*3/uL (0.1-1.2); Monocytes Percent Auto 9.2 % (2-11); Neutrophils Absolute Auto 8.6 x10*3/uL (2.0-8.3); Neutrophils Percent Auto 71.9 % (45-73); Platelet Count 344 X10*3/uL (160-400); Red Blood Count 5.25 X10*6/uL (4.60-5.80); White Blood Count 11.9 X10*3/uL (4.8-10.8)
[2024-03-09 18:12] LABS: Amphetamine Screen Urine POSITIVE (Not Detect); Barbiturates, Urine Not Detected (Not Detect); Benzodiazepines Screen Urine Not Detected (Not Detect); Buprenorphine Scr Not Detected (Not Detect); Cannabinoid Screen Urine Not Detected (Not Detect); Cocaine Screen Urine Not Detected (Not Detect); Fentanyl, urine Not Detected (Not Detect); Methadone Screen, Urine Not Detected (Not Detect); Opiate Screen Urine Not Detected (Not Detect); Oxycodone Screen Urine Not Detected (Not Detect); Phencyclidine Screen Urine Not Detected (Not Detect)
[2024-03-09 18:16] LABS: Ethanol < 10 mg/dL
[2024-03-09 18:18] LABS: Alanine Aminotransferase 61 U/L (0-40); Albumin Level 4.7 g/dL (3.5-5.0); Alkaline Phosphatase 117 U/L (39-117); Anion Gap 12 (12-20); Aspartate Amino Transferase 30 U/L (5-37); Bilirubin Total 0.6 mg/dL (0.0-1.0); Blood Urea Nitrogen 13 mg/dL (9-16); Calcium 10.2 mg/dL (8.4-10.2); Carbon Dioxide 30 mmol/L (22-29); Chloride 103 mmol/L (96-108); Creatinine Clr Calc Pharmacy 71.4; Estimated Glomerular Filt Rate > 60; Glucose Random 127 mg/dL (60-115); Lipase 15 U/L (8-78); Magnesium 2.3 mg/dL (1.6-2.6); Sodium 141 mmol/L (135-145)
[2024-03-09 18:38] LABS: Troponin-I High Sensitivity < 2.7 ng/L (<3.5-35.0)
[2024-03-09 20:14] VITALS: BP 136/87; PULSE 69; RESP 17; TEMP 36.8; O2SAT 99
[2024-03-09 20:17] VITALS: PULSE 74
[2024-03-09 22:27] VITALS: BP 135/93; PULSE 97; RESP 18; TEMP 36.5; O2SAT 98
[2024-03-09] MEDS: hydrOXYzine HCL 25 MG TABLET PO (22:28)
[2024-03-09 22:32] VITALS: BP 135/93; PULSE 94; RESP 18; TEMP 36.5; O2SAT 98
== END 2024-03-09 22:33 | disposition home or self-care (01) ==
PROVIDERS: Physician Assistant Medical; Emergency Provider Emergency Medicine Emergency Medical Services; PCP Internal Medicine
DX: I49.9 Cardiac arrhythmia, unspecified (principal); R00.2 Palpitations; F41.9 Anxiety disorder, unspecified; R42 Dizziness and giddiness; Z79.899 Other long term (current) drug therapy; Z51.81 Encounter for therapeutic drug level monitoring
CPT/HCPCS: 36415; 71046; 80053; 80307; 83690; 83735; 84484; 85025; 93005; 99285

== ENCOUNTER → 2024-03-09 17:22 | Outpatient (BNV) | payer OTHER, SELFPAY | PROVIDERS: Emergency Provider Emergency Medicine Emergency Medical Services; PCP Internal Medicine; Visit Provider Internal Medicine Cardiovascular Disease | DX: R07.9 Chest pain, unspecified (principal) | CPT/HCPCS: 93010 ==

== ENCOUNTER 2024-03-12 08:54 | Emergency (ER) | payer OTHER, SELFPAY ==
[2024-03-12 09:04] VITALS: BP 106/79; PULSE 80; RESP 16; TEMP 36; O2SAT 100; BMI 23.9
--- NOTE | 2024-03-12 09:24 | ED.FALL ---
HPI - Fall General Chief Complaint: Fall Stated Complaint: Fall back pain neck pain Time Seen by Provider: 03/12/24 09:12 Source: patient Mode of arrival: ambulatory Limitations: no limitations History of Present Illness ED Provider: Jennifer Jaramillo PA-C HPI Narrative: 53 yo male presents to the ER for evaluation of left sided upper and lower back pain after he slipped and fell on the ice yesterday. He states he slipped and fell onto his left side. He denies hitting his head or losing consciousness. He woke up today with soreness in his left upper, middle and lower back. he states Has chronic low back pain and gets injections in his back, last was 2 weeks ago. He states the pain is worse with movement and palpation. He has no chest pain, abdominal pain, radiation of the pain. No numbness or tingling in his legs. No bowel or bladder incontinence. He has not taken any medications for the pain. He denies any headache or neck pain. MD complaint: fall Onset (ago): day(s) (1) Fall from: standing Fall witnessed: no Place fall occurred: street Loss of consciousness: none Prolonged down time: no Symptoms prior to fall: none Context: tripped/slipped Location of injury: back Severity: moderate Quality: aching and spasming Associated symptoms (after fall): denies Related Data Home Medications ?Medication ?Instructions ?Recorded ?Confirmed clonidine HCl 0.1 mg tablet 0.1 mg PO TID 01/25/24 01/25/24 duloxetine 30 mg capsule,delayed 30 mg PO DAILY 02/10/24 release Previous Rx's ?Medication ?Instructions ?Recorded atorvastatin 40 mg tablet 40 mg PO BEDTIME 90 days #90 tabs 07/16/23 bupropion HCl 300 mg 24 hr tablet, 300 mg PO DAILY 90 days #90 tabs 12/10/23 extended release aripiprazole 5 mg tablet (Abilify) 5 mg PO DAILY #30 tabs 02/02/24 mirtazapine 7.5 mg tablet 7.5 mg PO BEDTIME #30 tabs 02/02/24 naltrexone 50 mg tablet 50 mg PO DAILY #30 tabs 02/02/24 thiamine mononitrate (vit B1) 100 100 mg PO DAILY #30 tabs 02/02/24 mg tablet trazodone 50 mg tablet 50 mg PO BEDTIME MRX1 PRN Insomnia 02/02/24 #30 tabs hydroxyzine HCl 25 mg tablet 25 mg PO TID PRN anxiety #20 tabs 03/09/24 cyclobenzaprine 10 mg tablet 10 mg PO TID PRN muscle spasm #14 03/12/24 tabs lidocaine 5 % topical patch 1 patch topical DAILY #15 ea 03/12/24 naproxen 500 mg tablet 500 mg PO BID PRN pain #20 tabs 03/12/24 Allergies Allergy/AdvReac Type Severity Reaction Status Date / Time No Known Allergies Allergy Verified 03/12/24 09:05 [No Known Allergies*] Review of Systems Review of Systems: Yes all other systems are reviewed and are negative [facility] Past Medical History Medical History (Updated 03/12/24 @ 10:03 by SONU Potter) Anxiety and depression Delusions Severe recurrent major depression w/psychotic features, mood-congruent Opiate abuse, episodic Mild recurrent major depression Physical exam Cocaine use disorder GERD (gastroesophageal reflux disease) History of back pain Headache Right elbow pain Pure hypercholesterolemia Lumbar radiculopathy Spondylosis of lumbosacral spine without myelopathy Alcoholism Abuse, drug or alcohol Surgical History History of esophagogastroduodenoscopy (EGD) History of eye surgery History of eye surgery Family History Family History Father Alcoholism Substance use disorder Mother Diabetes Social History Social History (Updated 12/10/23 @ 15:49 by Kaley Ramirez MD) Household Members: None Housing: Apartment Do you presently have visiting nurse or other home services: No Unable to assess alcohol history related to: Unknown Alcohol intake: former Patient Tobacco Use Status: Former Tobacco user Tobacco use type: Cigarette e-Cigarette/Vaping Use: Never Used Second Hand Smoke Exposure: No Substance Use Type: Former Substance User Advance Directives: No Advance Directives Information Provided: Yes service: No Current occupational status: unemployed Sexual orientation: Straight/Heterosexual Cognitive needs: No Hearing needs: No Vision needs: No Physical Exam Vital Signs: Vital Signs: Last Vital Signs Temp 96.8 F 03/12/24 10:06 Pulse 80 03/12/24 10:06 Resp 16 03/12/24 10:06 BP 106/79 03/12/24 10:06 Pulse Ox 100 03/12/24 10:06 O2 Del Method Room Air 03/12/24 10:06 BMI result Body Mass Index 23.9 Appearance: Alert. Oriented X3. No acute distress. Head: normocephalic, atraumatic. Eyes: Pupils equal, round and reactive to light. ENT: Pharynx normal. No tonsillar swelling or exudate. Neck: Normal inspection. Neck supple. No midline tenderness. no soft tissue tenderness, full ROM CVS: Normal heart rate and rhythm. Pulses normal. Respiratory: No respiratory distress. Breath sounds normal. Back: normal inspection, no ecchymosis, no midline tenderness of the thoracic or lumbar spine. soft tissue tenderness medial to the scapula and in the upper lumbar region Skin: Skin warm and dry. Normal skin color. Normal skin turgor. No rashes. Extremities: No lower extremity edema. No joint swelling. Neuro/psych: Oriented X 3. No motor deficit. No sensory deficit. CN II-XII intact. Normal speech and cognition. steady gait Medical Decision Making Medical Decision Making MDM Narrative: 53-year-old male presents to the ER for evaluation of left-sided back pain after he slipped and fell on ice yesterday while taking out his trash. No head strike or loss of consciousness. No other injuries. He is on anticoagulation. On examination he has soft tissue tenderness on the left side of his back, no midline tenderness. Low suspicion for acute traumatic fracture or subluxation. No need for imaging today as his exam and clinical presentation are most consistent with muscle strain and spasm with palpable spasm and soft tissue tenderness on examination. Will prescribe anti-inflammatories, muscle relaxers, Lidoderm patches. He has a PCP appointment in 1 week. Advised to return to the ER if he has new or worsening symptoms. Stable for discharge home. Differential Diagnosis Differential Diagnoses: The differential diagnosis associated with the presentation includes Muscle strain, muscle spasm, contusion, low suspicion for acute fracture or traumatic head injury External Record Review External record reviewed: Prior outpatient labs and Prior outpatient radiology Tests considered The following testing was considered but not selected: CT scan of the head and neck were considered, x-rays of the lumbar spine were considered Prescription Management I considered prescription management with: Pain Medication Chronic Conditions Patient?s care impacted by: Other (chronic low back pain) Critical Care Time Critical Care Time Critical Care Time: No Discharge Plan Discharge Clinical Impression: Muscle strain Patient Disposition: Home, Self-Care Instructions: Muscle Spasm (ED) Additional Instructions: Your pain is most likely due to muscle strain and spasm. Limit bending, lifting or twisting. Use ice several times per day for 20 minutes at a time for the next 48 hours and then change to heat. Take medications as prescribed to help with pain and discomfort. Follow up with your Primary Care Doctor as scheduled on the . If your pain worsens, if you develop new numbness, tingling, weakness, loss of function or incontinence call 911 or come back to the ER right away for evaluation. Prescriptions: New cyclobenzaprine 10 mg tablet 10 mg PO TID PRN (Reason: muscle spasm) Qty: 14 0RF lidocaine 5 % adhesive patch,medicated 1 patch topical DAILY Qty: 15 0RF Rx Instructions: leave on most painful area for up to 12 hrs naproxen 500 mg tablet 500 mg PO BID PRN (Reason: pain) Qty: 20 0RF No Action clonidine HCl 0.1 mg tablet 0.1 mg PO TID trazodone 50 mg Tablet 50 mg PO BEDTIME MRX1 PRN (Reason: Insomnia) Qty: 30 0RF naltrexone 50 mg Tablet 50 mg PO DAILY Qty: 30 0RF aripiprazole [Abilify] 5 mg Tablet 5 mg PO DAILY Qty: 30 0RF mirtazapine 7.5 mg Tablet 7.5 mg PO BEDTIME Qty: 30 0RF thiamine mononitrate (vit B1) 100 mg Tablet 100 mg PO DAILY Qty: 30 0RF hydroxyzine HCl 25 mg tablet 25 mg PO TID PRN (Reason: anxiety) Qty: 20 0RF bupropion HCl 300 mg tablet extended release 24 hr 300 mg PO DAILY 90 Days Qty: 90 1RF atorvastatin 40 mg tablet 40 mg PO BEDTIME 90 Days Qty: 90 1RF duloxetine 30 mg capsule,delayed release(DR/EC) 30 mg PO DAILY Referrals: Kaley Sanchez MD [Primary Care Provider] - Interventions: ED Discharge Assessment Last Done: 03/12/24 10:06 Discharge Date/Time: 03/12/24 10:09 Print Language: Maldivian
[2024-03-12 10:06] VITALS: BP 106/79; PULSE 80; RESP 16; TEMP 36; O2SAT 100
== END 2024-03-12 10:09 | disposition home or self-care (01) ==
PROVIDERS: Emergency Provider Emergency Medicine Emergency Medical Services; PCP Internal Medicine
DX: T14.8XXA Other injury of unspecified body region, initial encounter (principal); W00.0XXA Fall on same level due to ice and snow, initial encounter; M54.89 Other dorsalgia; Y93.01 Activity, walking, marching and hiking; Y92.480 Sidewalk as the place of occurrence of the external cause; Y99.9 Unspecified external cause status
CPT/HCPCS: 99282; 99283

== ENCOUNTER 2024-03-17 09:56 | Outpatient (AMB) | payer OTHER, SELFPAY ==
--- NOTE | 2024-03-17 10:14 | A.OFFPC_ITS ---
Vital Signs 03/17/24 10:15 Height 5 ft 4 in Weight 147 lb BMI 25.2 BP 120/70 Blood Pressure Location Lt brachial Position Sitting Pulse 105 H Pulse Source Pulse Oximeter Pulse Oximetry (%) 98 Oxygen Delivery Method Room Air Int[place] [facility] [place] pain neck pain Intake Note: Patient is here to follow-up after a visit the [place] [facility] [place] Spring Bender Required: No Ornamenter: Not Required per policy Accompanied by: Self / Same As Patient Allergies No Known Allergies [No Known Allergies*] Allergy (Verified 03/17/24 11:02) Medication List - Last Reconciled 03/17/24 by Shlomo Maria MD aripiprazole (Abilify) 5 mg PO DAILY atorvastatin 40 mg PO BEDTIME 90 days bupropion HCl XL 300 mg PO DAILY 90 days clonidine HCl 0.1 mg PO TID cyclobenzaprine 10 mg PO TID PRN duloxetine 30 mg PO DAILY hydroxyzine HCl 25 mg PO TID PRN lidocaine 5% 1 patch topical DAILY mirtazapine 7.5 mg PO BEDTIME naltrexone 50 mg PO DAILY naproxen 500 mg PO BID PRN thiamine mononitrate (vit B1) 100 mg PO DAILY trazodone 50 mg PO BEDTIME MRX1 PRN Tobacco use date assessed: 03/17/24 Dental Screening Dental Screen Date: 04/09/23 [place] [facility] [place] pain neck pain HPI Details 53-year-old male presents to the office after a recent discharge from the emergency room. Patient presented to the emergency room with symptoms of back pain which is chronic. He was prescribed hydroxyzine for anxiety. Patient would like to get a refill on the anxiety medication. [facility] Medical History (Updated 03/13/24 @ 00:02 by Sanjiv Daniels) Anxiety and depression Delusions Severe recurrent major depression w/psychotic features, mood-congruent Opiate abuse, episodic Mild recurrent major depression Physical exam Cocaine use disorder GERD (gastroesophageal reflux disease) History of back pain Headache Right elbow pain Pure hypercholesterolemia Lumbar radiculopathy Spondylosis of lumbosacral spine without myelopathy Alcoholism Abuse, drug or alcohol Surgical History History of esophagogastroduodenoscopy (EGD) History of eye surgery History of eye surgery Family History Father Alcoholism Substance use disorder Mother Diabetes Social History Household Members: None Housing: Apartment Do you presently have visiting nurse or other home services: No Unable to assess alcohol history related to: Unknown Alcohol intake: former Patient Tobacco Use Status: Former Tobacco user Tobacco use type: Cigarette e-Cigarette/Vaping Use: Never Used Second Hand Smoke Exposure: No Substance Use Type: Former Substance User service: No Current occupational status: unemployed Sexual orientation: Straight/Heterosexual Cognitive needs: No Hearing needs: No Vision needs: No Questionnaire Thrive Questionnaire Date Thrive assessed: 01/27/24 KAITY-7 AMB Questionnaire KAITY-7 Date KAITY - 7 assessed: 04/09/23 Source: Developed by Drs. Andrew Olson, Anuradha Keith, Qamar Ortiz and colleagues, with an educational cj from [employer] Physical exam (Primary Care) Vital Signs: Last Vital Signs Pulse 105 H 03/17/24 10:15 BP 120/70 03/17/24 10:15 Pulse Ox 98 03/17/24 10:15 Oxygen Delivery Method Room Air 03/17/24 10:15 BMI result Body Mass Index 25.2 Tobacco/Smoking Status: Tobacco use Status Tobacco use date assessed 03/17/24 03/17/24 10:19 Patient Tobacco Use Status Former Tobacco user 03/17/24 10:19 Tobacco use type Cigarette 03/17/24 10:19 e-Cigarette/Vaping Use Never Used 03/17/24 10:19 Thrive Assessment: Date of Thrive Assessment Date Thrive assessed 01/27/24 03/17/24 10:19 Const General: cooperative and healthy appearing Nutritional Appearance: well nourished Orientation/consciousness: patient oriented x3 Limitations: no limitations HENMT Head: Yes normal to inspection Eyes General: appearance normal, both eyes and all related structures Neck Neck: Yes normal visual inspection Chest Chest palpation & inspection: normal palpation of entire chest wall Resp Effort & Inspection: normal respiratory effort Neuro General: patient oriented x3 Coding Level of Care Code Est Pt Level 3 (25242) Complex EM visit Add On G2211 Diagnoses Mild recurrent major depression F33.0 Assessment & Plan Assessment & Plan (1) Mild recurrent major depression: Code(s): F33.0 - Major depressive disorder, recurrent, mild Category: Medical Plan: ER note reviewed. Hydroxyzine prescribed. Medications: Refilled hydroxyzine HCl 25 mg PO TID PRN 20 tabs 0RF anxiety hydroxyzine HCl 25 mg PO TID PRN 20 tabs 0RF anxiety
[2024-03-17 10:15] VITALS: BP 120/70; PULSE 105; O2SAT 98; BMI 25.2
== END 2024-03-17 11:06 | disposition home or self-care (01) ==
PROVIDERS: PCP Internal Medicine; Visit Provider Internal Medicine
DX: F33.0 Major depressive disorder, recurrent, mild (principal)

== ENCOUNTER → 2024-03-17 09:56 | Outpatient (BNVA) | payer OTHER, SELFPAY | PROVIDERS: PCP Internal Medicine; Visit Provider Physician Assistant Medical | DX: F33.0 Major depressive disorder, recurrent, mild (principal); M54.50 Low back pain, unspecified | CPT/HCPCS: 99212 ==

== ENCOUNTER 2024-03-19 10:11 | Outpatient (AMB) | payer OTHER, SELFPAY ==
--- NOTE | 2024-03-19 10:21 | MHC.OFFVIS ---
Vital Signs 03/19/24 10:24 Height 5 ft 4 in Weight 147 lb 8 oz BMI 25.3 BP 112/66 Blood Pressure Location Lt brachial Position Sitting Pulse 112 H Pulse Source Pulse Oximeter Pulse Oximetry (%) 98 Oxygen Delivery Method Room Air Intake Visit Reasons: S/p L4-L5 TFESI 02/13/24 Intake Note: Pain today 11/14 Flight Kitchen Manager Required: Yes Flight Kitchen Manager Language: Customer Logistics Manager Services: Flight Kitchen Manager Present Flight Kitchen Manager Name: Duarte Accompanied by: Self / Same As Patient Allergies No Known Allergies [No Known Allergies*] Allergy (Verified 03/19/24 10:25) HPI Comments Details: Patient presents today to assess response to Right L4-L5 TFESI on 02/13/[address] Jacobo. Patient reports ongoing 60% right leg pain relief but no pain relief in his right sided low back pain. He reports partial improvement in his daily activities and functioning but has difficulty sleeping due to axial low back pain. Patient reports gabapentin has been beneficial, requests refill for this. He is interested to repeat right-sided diagnostic lumbar medial branch blocks to address axial low back pain. [place] [facility] [place] for evaluation of left sided upper and lower back pain after he slipped and fell on the ice on 03/11/24. He reports he slipped and fell onto his left side without LOC or hitting his head. He was treated with cyclobenzaprine, lidocaine patches, and naproxen for muscle strain and spasms with localized tenderness on the left side. Denies any recent cough, cold, infection, fever or any other significant changes in medical history since last office visit. Past Procedures: 02/13/24: Right L4-L5 TFESI-60% right leg pain, 0% back pain relief 04/18/22: Right L2, L3, L4 DR L5 MBB-50% pain relief 2018: Right L4-L5 TFESI-good relief PRIOR: Patient presents today for follow up to discuss interventional procedures to alleviate his chronic low back pain with right sided radiculopathy. This has been chronic issues for him and he was treated in our office for axial and right radicular pain in the past as well as underwent neurosurgical evaluation by Dr. Smith and was deemed non-surgical. He had good response to right L4-L5 TFESI in 2018 which provided him significant pain relief. Patient request to repeat this injection under sedation. He denies any recent cough, cold, infection, fever, bladder or bowel dysfunction, saddle anesthesia, any significant changes in her medical history, medications or recent hospitalizations. PRIOR: Patient is a pleasant Czech speaking 52-year-old male with a past medical history of ETOH and cocaine use disorder, HLD, lumbar DDD and radiculopathy, depression, GERD, presents today for follow up for worsening chronic low back pain, worse on the right side that radiates up to his neck. Patient was recently treated in our ED s/p intoxication/polysubstance use and fall. Patient states he has been sober for 2 months. Patient reports he was trying to get refill for gabapentin from his PCP office but was told it was not good for him. His previous ALT level was elevated. Patient has outstanding lab work ordered by his PCP but not completed yet, I have reminded patient to complete these labs and follow up with his PCP. Patient reports increase in back pain with any movement, worse with bending forward, pulling, lifting, walking, prolonged standing. Resting and repositioning will temporary alleviate his back symptoms. Pain negatively affects his daily activities, functioning, mood, social activities and quality of life. He reports he tried massage therapy, acupuncture, attempted physical therapy and underwent back injections with minimal to no improvement in his symptoms. Denies any fever, chills, weight loss, abdominal or groin pain, gait imbalances, bladder or bowel dysfunction or saddle anesthesia. PRIOR Dr. Jacobo 04/2022: Nick is very pleasant 51 years old gentleman who presents in my office with complains on lower back pain on the right side with radiation into the right lower extremity to the level of the knee but not below the level of the knee. He is under observation in this office for long period of time. He was requesting to be admitted into chronic opioid program in the past. Due to chronic addiction to a alcoholism he was not admitted to the opioid program. He was offered multiple injections. He had an MRI in the past with changes dictated as below. Diagnostic medial branch block on the right L2-L3 L4-5 resulted in less than 50% pain improvement, he does not want to proceed in more injections. Possibility of treating his pain as discogenic explained to the patient. In the past he was adamantly refusing the injections which were offered to him. He requests me to give him some medications which potentially could help him with the pain. He requests me to start him on gabapentin will do it with 6 refills. He is recommended to give us a call in 5-6 months to request about possibility of intradiscal injections. [facility] Medical History Anxiety and depression Delusions Severe recurrent major depression w/psychotic features, mood-congruent Opiate abuse, episodic Mild recurrent major depression Physical exam Cocaine use disorder GERD (gastroesophageal reflux disease) History of back pain Headache Right elbow pain Pure hypercholesterolemia Lumbar radiculopathy Spondylosis of lumbosacral spine without myelopathy Alcoholism Abuse, drug or alcohol Surgical History History of esophagogastroduodenoscopy (EGD) History of eye surgery History of eye surgery Family History Father Alcoholism Substance use disorder Mother Diabetes Social History Household Members: None Housing: Apartment Do you presently have visiting nurse or other home services: No Unable to assess alcohol history related to: Unknown Alcohol intake: former Patient Tobacco Use Status: Former Tobacco user Tobacco use type: Cigarette e-Cigarette/Vaping Use: Never Used Second Hand Smoke Exposure: No Substance Use Type: Former Substance User service: No Current occupational status: unemployed Sexual orientation: Straight/Heterosexual Cognitive needs: No Hearing needs: No Vision needs: No Review of Systems Const All systems reviewed & are unremarkable except as noted in HPI and below ENT Reports Normal hearing present Neuro Reports Normal hearing present, Denies Abnormal speech present, Denies confusion and Denies Sensory deficit (Neuro) Psych Denies confusion Physical Exam Vital Signs: Last Vital Signs Pulse 112 H 03/19/24 10:24 BP 112/66 03/19/24 10:24 Pulse Ox 98 03/19/24 10:24 Oxygen Delivery Method Room Air 03/19/24 10:24 BMI result Body Mass Index 25.3 Const General: cooperative, no acute distress, alert, awake, anxious and well groomed; No confusion Nutritional Appearance: average body habitus Orientation/consciousness: patient oriented x3 and No confusion Limitations: language barrier HEENT Head: Yes normal to inspection, Yes No palpable skull fracture present, Yes normocephalic, Yes atraumatic, No occipital foramen tenderness, No Temporal artery tenderness present and No periorbital ecchymosis Ears: hearing grossly normal bilaterally Face and sinus: Yes normal facial exam and Yes face symmetric Eyes General: appearance normal, both eyes and all related structures Neck Neck: Yes normal visual inspection, Yes full ROM, Yes no lymphadenopathy, Yes supple, No anterior neck swelling, Yes no JVD and No prominent dorsocervical fat pad Resp Effort & Inspection: normal respiratory effort, able to speak in complete sentences, no audible wheezes and no cough Cardio Jugular venous distension: no JVD GI Inspection: Yes normal to inspection Palpation (GI): Soft to palpation and nontender Back/Spine/Pelvis Other: Limited lumbar ROM due to pain. No midline tenderness to palpation in the thoracic or lumbar spine. Mild on the right and moderate on the left paraspinal tenderness to palpation in the lumbar spine. Lumbar extension causes moderate to severe pain. Painful facet loading bilaterally, R>L. Cervical Spine: cervical muscular tenderness, pain with cervical ROM, cervical spasm, No Cervical spine tenderness and No step off deformity Thoracic/Lumbar Spine: thoracic and lumbar spine normal to inspection, No Thoracic/lumbar spine scar(s), Lasegue's sign negative, straight leg raise negative bilaterally, pain with thoraco-lumbar ROM, paraspinal muscle tenderness on the left greater than right, thoraco-lumbar ROM limited, No thoracic spinal tenderness and lumbar spinal tenderness at L4 and at L5 Pelvis: no buttock tenderness Sacroiliac joints: bilaterally (Renaldo's test reproduces right lateral hip pain, not back pain.) nontender Neuro General: patient oriented x3 and No confusion Cranial nerves: Yes Normal hearing present Speech: No Abnormal speech present Sensory Exam: No Sensory deficit (Neuro) Extrem General: Yes capillary refill normal, Yes no clubbing, cyanosis or edema and Yes no calf tenderness Psych Appearance: grossly normal and well kempt Mental Status: mental status grossly normal Speech and movement: Normal speech and movement present and Clear speech present Affect: normal affect and Anxious affect present Attitude: cooperative Thought process: Normal thought process present Thought content: Normal thought content present, suicidality, no hallucinations and No Depressive thoughts present Insight: Good insight present (Psych) Judgement: Good judgement present (Psych) Quality Reporting (2019) Adult ([facility] 138/05/29/68) Smoking risk assessment performed?: Yes Patient Tobacco Use Status: Former Tobacco user Results Reviewed Results Reviewed: MR LUMBAR SPINE WITHOUT CONTRAST 05/15/21 CLINICAL INFORMATION: Right-sided lower back pain. Right leg pain. COMPARISON: Lumbar spine radiographs dated 03/26/2017 and lumbar spine MRI dated 06/03/2011. TECHNIQUE: MRI of the lumbar spine was obtained using routine sequences without contrast. FINDINGS: VERTEBRAL BODIES AND PARASPINAL STRUCTURES: Normal vertebral body alignment. The lumbar lordosis is maintained. No acute fracture or subluxation. No loss of vertebral body height. Prominent loss of intervertebral disc height with disc desiccation at L4-L5 and L5-S1 where there are Modic type II degenerative endplate changes as well as a prominent Schmorl's node at the inferior endplate of L4. More mild loss of intervertebral disc height with disc desiccation at L3-L4. Findings have progressed when compared to the prior MRI. No evidence of acute osseous injury. The visualized paraspinal soft tissues are unremarkable. CONUS MEDULLARIS AND CAUDA EQUINA: Normal, terminating at the level of L1. SPINAL LEVELS: T12-L1: No significant disc bulge. No central canal or neural foraminal stenosis. L1-L2: No significant disc bulge. No central canal or neural foraminal stenosis. L2-L3: No significant disc bulge. No central canal or neural foraminal stenosis. L3-L4: Mild broad-based disc bulge with a tiny left paracentral disc protrusion. Bilateral facet arthropathy. Mild bilateral neural foraminal stenosis. Findings are new/increased when compared to the prior examination. L4-L5: Broad-based disc bulge with bilateral facet arthropathy which encroaches upon the traversing bilateral L5 nerve roots within the lateral recesses and causes [id number] bilateral neural foraminal stenosis. Findings are slightly progressed when compared to the prior examination. L5-S1: Broad-based disc bulge with faint annular fissuring which abuts the traversing bilateral S1 nerve roots in the lateral recesses. Bilateral facet arthropathy causing mild central canal as well as [id number] bilateral neural foraminal stenosis, increased when compared to the prior examination. IMPRESSION: 1. Prominent degenerative disc disease at L4-L5 with a posterior Schmorl's node as well as a broad-based disc bulge and bilateral facet arthropathy which encroach upon the traversing bilateral L5 nerve roots in the lateral recesses. This causes [id number] bilateral neural foraminal stenosis. Findings are progressed when compared to the prior examination. 2. Degenerative disc disease at L5-S1 with a broad-based disc bulge and faint annular fissuring which abuts the traversing bilateral S1 nerve roots in combination with bilateral facet arthropathy causes mild central canal as well as [id number] bilateral neural foraminal stenosis, increased when compared to the prior examination. 3. Mild broad-based disc bulge at L3-L4 with a tiny left paracentral disc protrusion and bilateral facet arthropathy causing mild bilateral neural foraminal stenosis, new/increased when compared to the prior examination. NONCONTRAST HEAD CT NONCONTRAST CERVICAL SPINE CT 12/26/22 INDICATION INFORMATION: Altered mental status, possible fall COMPARISON: 11/23/2022 FINDINGS: Head: There is no evidence of acute intracranial hemorrhage or territorial infarction. No abnormal mass-effect or midline shift is seen. Blake to white matter differentiation is well preserved. No extra-axial fluid collections are identified. The ventricles are normal in size. There is no abnormal attenuation within the brain parenchyma. The osseous structures and soft tissues are normal. The mastoid air cells and visualized portions of the paranasal sinuses are well-aerated. Cervical spine: There is anatomic alignment of the vertebral bodies and posterior elements. Vertebral body heights are maintained. There is degenerative change at the atlantodens articulation. There is partial ankylosis across C3-C4. There is disc space narrowing throughout much of the remaining cervical spine along with endplate osteophytes. No evidence of acute fracture. No prevertebral soft tissue swelling. Visualized portions of the lung apices are unremarkable. The thyroid gland is unremarkable. IMPRESSION: HEAD: No acute intracranial findings. CERVICAL SPINE: No acute findings identified. Degenerative changes as noted above. Assessment & Plan Assessment & Plan (1) Spondylosis of lumbosacral spine without myelopathy: Code(s): M47.817 - Spondylosis without myelopathy or radiculopathy, lumbosacral region Category: Medical (2) Lumbar radiculopathy: Code(s): M54.16 - Radiculopathy, lumbar region Category: Medical (3) Lumbosacral spondylosis: Code(s): M47.817 - Spondylosis without myelopathy or radiculopathy, lumbosacral region Category: Medical (4) Lumbar degenerative disc disease: Code(s): M51.36 - Other intervertebral disc degeneration, lumbar region Category: Medical (5) Vertebrogenic low back pain: Code(s): M54.51 - Vertebrogenic low back pain Category: Medical Plan Patient is one month status post right L4-L5 TFESI with good pain relief for right radicular pain but continues to have significant axial low back pain on the right. We will proceed with repeating diagnostic right L2-L3 L4 DR L5 MBB with local and fluoroscopy. Expectations, risks and benefits were reviewed. Patient is aware he will be contacted to schedule this procedure. His initial injections on 04/16/22 resulted in less than 50% pain improvement. We reviewed Sprint PNS trial and RFA procedure. Script sent for gabapentin 300 mg at bedtime. Side effects and precautions were discussed with patient. He reports good tolerance with past use. All questions were answered and patient is in agreement of plan. Follow up after injections and sooner as needed. Medications: New gabapentin This may make you drowsy, do not drink alcohol or drive after taking it. 300 mg PO BEDTIME 30 days 30 caps 0RF pain M47.817 - Spondylosis without myelopathy or radiculopathy, lumbosacral region, M54.16 - Radiculopathy, lumbar region Coding Level of Care Code Est Pt Level 4 (71288) Complex EM visit Add On G2211 Diagnoses Spondylosis of lumbosacral spine without myelopathy M47.817 Lumbar radiculopathy M54.16 Lumbosacral spondylosis M47.817 Lumbar degenerative disc disease M51.36 Vertebrogenic low back pain M54.51
[2024-03-19 10:24] VITALS: BP 112/66; PULSE 112; O2SAT 98; BMI 25.3
== END 2024-03-19 10:34 | disposition home or self-care (01) ==
PROVIDERS: PCP Internal Medicine; Visit Provider Nurse Practitioner Family
DX: M47.817 Spondylosis without myelopathy or radiculopathy, lumbosacral region (principal); M54.16 Radiculopathy, lumbar region; M51.369 Other intervertebral disc degeneration, lumbar region without mention of lumbar back pain or lower extremity pain; M54.51 Vertebrogenic low back pain
CPT/HCPCS: 99214; G2211

== ENCOUNTER → 2024-03-19 10:11 | Outpatient (BNVA) | payer OTHER, SELFPAY | PROVIDERS: PCP Internal Medicine; Visit Provider Nurse Practitioner Family | DX: M47.817 Spondylosis without myelopathy or radiculopathy, lumbosacral region (principal); M54.16 Radiculopathy, lumbar region; M51.360 Other intervertebral disc degeneration, lumbar region with discogenic back pain only | CPT/HCPCS: 99212 ==

== ENCOUNTER 2024-03-30 09:37 | Outpatient (AMB) | payer OTHER, SELFPAY ==
--- NOTE | 2024-03-30 09:37 | MHC.OFFVIS ---
Vital Signs 03/30/24 09:38 Height 5 ft 4 in Weight 147 lb BMI 25.2 Intake Visit Reasons: Medication review/work letter Allergies No Known Allergies [No Known Allergies*] Allergy (Verified 03/30/24 09:38) HPI Comments Details: Patient presents today via telehealth encounter for medication review. He continues to endorse low back pain with radiation into his right lower extremity. Patient reports gabapentin has been helpful but does not relieve pain completely. He continues to reports partial pain relief with right L4-L5 TFESI last month. We also addressing his axial low back pain with pending insurance approval for right sided diagnostic lumbar medial branch blocks. His back and leg pain is increased with walking and especially frequent climbing stairs at his apartment complex. He lives on the second floor and has reached out to his landlord multiple times for first floor accommodation. He request letter for this today. Denies any recent cough, cold, infection, fever or any other significant changes in medical history since last office visit. Past Procedures: 02/13/24: Right L4-L5 TFESI-60% right leg pain, 0% back pain relief 04/18/22: Right L2, L3, L4 DR L5 MBB-50% pain relief 2018: Right L4-L5 TFESI-good relief PRIOR: Patient presents today for follow up to discuss interventional procedures to alleviate his chronic low back pain with right sided radiculopathy. This has been chronic issues for him and he was treated in our office for axial and right radicular pain in the past as well as underwent neurosurgical evaluation by Dr. Smith and was deemed non-surgical. He had good response to right L4-L5 TFESI in 2018 which provided him significant pain relief. Patient request to repeat this injection under sedation. He denies any recent cough, cold, infection, fever, bladder or bowel dysfunction, saddle anesthesia, any significant changes in her medical history, medications or recent hospitalizations. PRIOR: Patient is a pleasant Khmer speaking 52-year-old male with a past medical history of ETOH and cocaine use disorder, HLD, lumbar DDD and radiculopathy, depression, GERD, presents today for follow up for worsening chronic low back pain, worse on the right side that radiates up to his neck. Patient was recently treated in our ED s/p intoxication/polysubstance use and fall. Patient states he has been sober for 2 months. Patient reports he was trying to get refill for gabapentin from his PCP office but was told it was not good for him. His previous ALT level was elevated. Patient has outstanding lab work ordered by his PCP but not completed yet, I have reminded patient to complete these labs and follow up with his PCP. Patient reports increase in back pain with any movement, worse with bending forward, pulling, lifting, walking, prolonged standing. Resting and repositioning will temporary alleviate his back symptoms. Pain negatively affects his daily activities, functioning, mood, social activities and quality of life. He reports he tried massage therapy, acupuncture, attempted physical therapy and underwent back injections with minimal to no improvement in his symptoms. Denies any fever, chills, weight loss, abdominal or groin pain, gait imbalances, bladder or bowel dysfunction or saddle anesthesia. PRIOR Dr. Jacobo 04/2022: Nick is very pleasant 51 years old gentleman who presents in my office with complains on lower back pain on the right side with radiation into the right lower extremity to the level of the knee but not below the level of the knee. He is under observation in this office for long period of time. He was requesting to be admitted into chronic opioid program in the past. Due to chronic addiction to a alcoholism he was not admitted to the opioid program. He was offered multiple injections. He had an MRI in the past with changes dictated as below. Diagnostic medial branch block on the right L2-L3 L4-5 resulted in less than 50% pain improvement, he does not want to proceed in more injections. Possibility of treating his pain as discogenic explained to the patient. In the past he was adamantly refusing the injections which were offered to him. He requests me to give him some medications which potentially could help him with the pain. He requests me to start him on gabapentin will do it with 6 refills. He is recommended to give us a call in 5-6 months to request about possibility of intradiscal injections. [facility] Medical History Anxiety and depression Delusions Severe recurrent major depression w/psychotic features, mood-congruent Opiate abuse, episodic Mild recurrent major depression Physical exam Cocaine use disorder GERD (gastroesophageal reflux disease) History of back pain Headache Right elbow pain Pure hypercholesterolemia Lumbar radiculopathy Spondylosis of lumbosacral spine without myelopathy Alcoholism Abuse, drug or alcohol Surgical History History of esophagogastroduodenoscopy (EGD) History of eye surgery History of eye surgery Family History Father Alcoholism Substance use disorder Mother Diabetes Social History Household Members: None Housing: Apartment Do you presently have visiting nurse or other home services: No Unable to assess alcohol history related to: Unknown Alcohol intake: former Patient Tobacco Use Status: Former Tobacco user Tobacco use type: Cigarette e-Cigarette/Vaping Use: Never Used Second Hand Smoke Exposure: No Substance Use Type: Former Substance User service: No Current occupational status: unemployed Sexual orientation: Straight/Heterosexual Cognitive needs: No Hearing needs: No Vision needs: No Review of Systems Const All systems reviewed & are unremarkable except as noted in HPI and below ENT Reports Normal hearing present Neuro Reports Normal hearing present and Denies confusion Psych Denies confusion Physical Exam Vital Signs: BMI result Body Mass Index 25.2 Const General: cooperative, alert and awake; No confusion Orientation/consciousness: patient oriented x3 and No confusion Resp Effort & Inspection: able to speak in complete sentences, no audible wheezes and no cough Neuro General: patient oriented x3 and No confusion Cranial nerves: Yes Normal hearing present Cognition (Neuro): normal cognition Psych Mental Status: mental status grossly normal Speech and movement: Clear speech present Affect: normal affect Attitude: cooperative Thought process: Normal thought process present Thought content: Normal thought content present and No Depressive thoughts present Insight: Good insight present (Psych) Judgement: Good judgement present (Psych) Quality Reporting (2019) Adult ([facility] ) Smoking risk assessment performed?: Yes Patient Tobacco Use Status: Former Tobacco user Telehealth Telehealth Telehealth Platform: Telephone Location of provider rendering services: practice address Location of patient: address on file Patient Identification confirmed using: Name, : Yes Telehealth method: voice only Patient verbally consented to treatment: Yes Patient verbally consented to billing insurance company: Yes Patient informed of any privacy concerns related to visit: Yes Minutes spent on Phone/Video with Pt.: 13 Results Reviewed Results Reviewed: MR LUMBAR SPINE WITHOUT CONTRAST 05/15/21 CLINICAL INFORMATION: Right-sided lower back pain. Right leg pain. COMPARISON: Lumbar spine radiographs dated 03/26/2017 and lumbar spine MRI dated 06/03/2011. TECHNIQUE: MRI of the lumbar spine was obtained using routine sequences without contrast. FINDINGS: VERTEBRAL BODIES AND PARASPINAL STRUCTURES: Normal vertebral body alignment. The lumbar lordosis is maintained. No acute fracture or subluxation. No loss of vertebral body height. Prominent loss of intervertebral disc height with disc desiccation at L4-L5 and L5-S1 where there are Modic type II degenerative endplate changes as well as a prominent Schmorl's node at the inferior endplate of L4. More mild loss of intervertebral disc height with disc desiccation at L3-L4. Findings have progressed when compared to the prior MRI. No evidence of acute osseous injury. The visualized paraspinal soft tissues are unremarkable. CONUS MEDULLARIS AND CAUDA EQUINA: Normal, terminating at the level of L1. SPINAL LEVELS: T12-L1: No significant disc bulge. No central canal or neural foraminal stenosis. L1-L2: No significant disc bulge. No central canal or neural foraminal stenosis. L2-L3: No significant disc bulge. No central canal or neural foraminal stenosis. L3-L4: Mild broad-based disc bulge with a tiny left paracentral disc protrusion. Bilateral facet arthropathy. Mild bilateral neural foraminal stenosis. Findings are new/increased when compared to the prior examination. L4-L5: Broad-based disc bulge with bilateral facet arthropathy which encroaches upon the traversing bilateral L5 nerve roots within the lateral recesses and causes [id number] bilateral neural foraminal stenosis. Findings are slightly progressed when compared to the prior examination. L5-S1: Broad-based disc bulge with faint annular fissuring which abuts the traversing bilateral S1 nerve roots in the lateral recesses. Bilateral facet arthropathy causing mild central canal as well as [id number] bilateral neural foraminal stenosis, increased when compared to the prior examination. IMPRESSION: 1. Prominent degenerative disc disease at L4-L5 with a posterior Schmorl's node as well as a broad-based disc bulge and bilateral facet arthropathy which encroach upon the traversing bilateral L5 nerve roots in the lateral recesses. This causes [id number] bilateral neural foraminal stenosis. Findings are progressed when compared to the prior examination. 2. Degenerative disc disease at L5-S1 with a broad-based disc bulge and faint annular fissuring which abuts the traversing bilateral S1 nerve roots in combination with bilateral facet arthropathy causes mild central canal as well as [id number] bilateral neural foraminal stenosis, increased when compared to the prior examination. 3. Mild broad-based disc bulge at L3-L4 with a tiny left paracentral disc protrusion and bilateral facet arthropathy causing mild bilateral neural foraminal stenosis, new/increased when compared to the prior examination. NONCONTRAST HEAD CT NONCONTRAST CERVICAL SPINE CT 12/26/22 INDICATION INFORMATION: Altered mental status, possible fall COMPARISON: 11/23/2022 FINDINGS: Head: There is no evidence of acute intracranial hemorrhage or territorial infarction. No abnormal mass-effect or midline shift is seen. Blake to white matter differentiation is well preserved. No extra-axial fluid collections are identified. The ventricles are normal in size. There is no abnormal attenuation within the brain parenchyma. The osseous structures and soft tissues are normal. The mastoid air cells and visualized portions of the paranasal sinuses are well-aerated. Cervical spine: There is anatomic alignment of the vertebral bodies and posterior elements. Vertebral body heights are maintained. There is degenerative change at the atlantodens articulation. There is partial ankylosis across C3-C4. There is disc space narrowing throughout much of the remaining cervical spine along with endplate osteophytes. No evidence of acute fracture. No prevertebral soft tissue swelling. Visualized portions of the lung apices are unremarkable. The thyroid gland is unremarkable. IMPRESSION: HEAD: No acute intracranial findings. CERVICAL SPINE: No acute findings identified. Degenerative changes as noted above. Assessment & Plan Assessment & Plan (1) Spondylosis of lumbosacral spine without myelopathy: Code(s): M47.817 - Spondylosis without myelopathy or radiculopathy, lumbosacral region Category: Medical (2) Lumbar radiculopathy: Code(s): M54.16 - Radiculopathy, lumbar region Category: Medical (3) Lumbosacral spondylosis: Code(s): M47.817 - Spondylosis without myelopathy or radiculopathy, lumbosacral region Category: Medical (4) Lumbar degenerative disc disease: Code(s): M51.36 - Other intervertebral disc degeneration, lumbar region Category: Medical (5) Vertebrogenic low back pain: Code(s): M54.51 - Vertebrogenic low back pain Category: Medical Plan Patient is 1.5 month status post right L4-L5 TFESI with partial pain relief for right radicular pain but continues to have significant axial low back pain on the right. We are awaiting insurance approval for diagnostic right L2-L3 L4 DR L5 MBB with local and fluoroscopy. Expectations, risks and benefits were reviewed with patient. Patient is aware he will be contacted to schedule this procedure. His initial injections on 04/16/22 resulted in less than 50% pain improvement. We reviewed Sprint PNS trial and RFA procedure. Script sent for gabapentin 300 mg TID with 90 day supply. Reports good tolerance without any side effects. House accomodation letter was provided today at patient's request. All questions were answered and patient is in agreement of plan. Follow up after injections and sooner as needed. I hereby testify that I spent 13 minutes in conversation with this patient as well as with planning and coordinating care for this patient and organizing this note. Medications: Changed From gabapentin This may make you drowsy, do not drink alcohol or drive after taking it. 300 mg PO TID 30 days 90 caps 0RF pain M47.817 - Spondylosis without myelopathy or radiculopathy, lumbosacral region, M54.16 - Radiculopathy, lumbar region To gabapentin This may make you drowsy, do not drink alcohol or drive after taking it. 300 mg PO TID 90 days 270 caps 0RF pain M47.817 - Spondylosis without myelopathy or radiculopathy, lumbosacral region, M54.16 - Radiculopathy, lumbar region Coding Level of Care Code Tele Est Pt Level 4 (41660) Complex EM visit Add On G2211 Diagnoses Spondylosis of lumbosacral spine without myelopathy M47.817 Lumbar radiculopathy M54.16 Lumbosacral spondylosis M47.817 Lumbar degenerative disc disease M51.36 Vertebrogenic low back pain M54.51
[2024-03-30 09:38] VITALS: BMI 25.2
== END 2024-03-30 09:48 | disposition home or self-care (01) ==
LOC: HO.PMC 09:37
PROVIDERS: PCP Internal Medicine; Visit Provider Nurse Practitioner Family
DX: M47.817 Spondylosis without myelopathy or radiculopathy, lumbosacral region (principal); M54.16 Radiculopathy, lumbar region; M51.369 Other intervertebral disc degeneration, lumbar region without mention of lumbar back pain or lower extremity pain; M54.51 Vertebrogenic low back pain
CPT/HCPCS: 99214; G2211

== ENCOUNTER → 2024-03-30 09:37 | Outpatient (BNVA) | payer OTHER, SELFPAY | PROVIDERS: PCP Internal Medicine; Visit Provider Nurse Practitioner Family ==

== ENCOUNTER 2024-04-02 09:16 | Emergency (ER) | payer OTHER, SELFPAY ==
--- NOTE | ~2024-04-02 | CT_ITS ---
EXAMINATION: CT ABDOMEN AND PELVIS WITH CONTRAST CLINICAL INFORMATION: Abdominal pain. No further clinical information provided. COMPARISON: 03/26/2022. TECHNIQUE: Multidetector volumetric images were obtained from the superior aspect of the liver through the pubic symphysis following administration 85 mL of Omnipaque 350 intravenous contrast. Sagittal and coronal reformatted images were obtained on the technologist's workstation. Oral contrast: No This CT examination was performed using dose optimization techniques as appropriate, variously including the following: *Automated exposure control *Adjustment of mA and/or kV according to patient size (this includes techniques or standardized protocols for targeted exams where dose is matched to indication/reason for exam; i.e. extremities or head) *Use of iterative reconstruction technique DLP: 423 mGy-cm FINDINGS: LUNG BASES: Lung bases are clear aside from minor dependent atelectasis. Heart size is normal. There are no effusions. LIVER, GALLBLADDER, AND BILIARY TREE: The liver is normal in size, shape, and attenuation. No focal hepatic lesion or biliary ductal dilatation is present. The gallbladder is unremarkable with no evidence of radiopaque gallstones, gallbladder wall thickening, or obvious pericholecystic inflammatory changes. PANCREAS: Unremarkable. SPLEEN: Unremarkable. ADRENAL GLANDS: Unremarkable. KIDNEYS AND URETERS: The kidneys are normal in size, shape, and attenuation. No hydronephrosis, hydroureter, or obstructing calculi seen. No perinephric stranding. 2 mm nonobstructing calculus right kidney lower pole. BLADDER: Unremarkable. GASTROINTESTINAL TRACT: -The stomach is decompressed. Possible tiny type I hiatus hernia. -The duodenal sweep and small bowel appear normal. -Normal appendix seen. -The colon is normal in course and caliber without wall thickening or inflammation. Mild diverticulosis of the sigmoid. -No rectal abnormality. ABDOMINAL WALL: -There is a tiny fat-containing umbilical hernia. -There is mild gynecomastia bilaterally. LYMPH NODES: Normal. VASCULAR: Unremarkable. PELVIC VISCERA: The prostate is mildly enlarged with eccentric calcifications, measuring diameter of 4.3 cm. Normal seminal vesicles. OSSEOUS STRUCTURES: No suspicious lytic or blastic bone lesions. -No acute findings. Mild to moderate degenerative changes of the spine. Mild arthritis in the hip joints. CT/CT abdomen pelvis w IV con IMPRESSION: 1. No acute findings in the abdomen or pelvis. 2. 3 mm nonobstructing calculus right kidney lower pole. 3. Mild sigmoid colonic diverticulosis. 4. Additional ancillary findings as discussed in the body of the report. Electronically signed by: Howie James MD 04/02/2024 03:06 PM [place]
[2024-04-02 09:23] VITALS: BP 130/90; PULSE 107; RESP 20; TEMP 36.4; O2SAT 97; BMI 25.0
[2024-04-02 09:42] LABS: MANUAL DIFF FLAG NO
[2024-04-02 09:45] LABS: Basophils Absolute Auto 0.1 X10*3/uL (0.0-0.2); Basophils Percent Auto 0.4 % (0-2); Eosinophils Absolute Auto 0.2 X10*3/uL (0.0-0.4); Eosinophils Percent Auto 1.8 % (0-4); Hematocrit 44.1 % (42.0-52.0); Hemoglobin 15.1 g/dl (14.0-18.0); Imm Gran Abs Auto 0.05 X10*3/uL (0.00-0.03); Imm Gran Pct Auto 0.4 % (0.0-0.4); Lymphocytes Absolute Auto 3.5 X10*3/uL (1.2-4.9); Mean Corpuscular HGB Conc 34.2 g/dl (31.0-36.0); Mean Corpuscular Hemoglobin 31.1 pg (27.0-33.0); Mean Corpuscular Volume 90.9 fL (80.0-98.0); Mean Platelet Volume 8.6 fL (9.4-12.4); Monocytes Percent Auto 8.6 % (2-11); Neutrophils Absolute Auto 6.5 x10*3/uL (2.0-8.3); Neutrophils Percent Auto 57.8 % (45-73); Platelet Count 390 X10*3/uL (160-400); Red Blood Count 4.85 X10*6/uL (4.60-5.80); Red Cell Distribution Width 13.1 % (11.0-16.0); White Blood Count 11.3 X10*3/uL (4.8-10.8)
[2024-04-02 09:59] LABS: Alanine Aminotransferase 35 U/L (0-40); Albumin Level 4.2 g/dL (3.5-5.0); Alkaline Phosphatase 151 U/L (39-117); Anion Gap 12 (12-20); Aspartate Amino Transferase 29 U/L (5-37); Bilirubin Direct 0.1 mg/dL (0.0-0.5); Bilirubin Total 0.4 mg/dL (0.0-1.0); Blood Urea Nitrogen 22 mg/dL (9-16); Calcium 9.5 mg/dL (8.4-10.2); Carbon Dioxide 24 mmol/L (22-29); Chloride 107 mmol/L (96-108); Creatinine Clr Calc Pharmacy 87.2; Estimated Glomerular Filt Rate > 60; Glucose Random 97 mg/dL (60-115); Lipase 39 U/L (8-78); Magnesium 1.9 mg/dL (1.6-2.6); Potassium 3.8 mmol/L (3.3-5.1); Sodium 139 mmol/L (135-145); Total Protein 7.7 g/dL (6.5-8.0)
[2024-04-02 12:04] VITALS: BP 132/87; PULSE 77; RESP 18; TEMP 36.6; O2SAT 98
--- NOTE | 2024-04-02 12:04 | ED_ITS ---
HPI - Abdominal Pain General Chief Complaint: Abdominal Pain Stated Complaint: Abd pain Time Seen by Provider: 04/02/24 11:44 Source: patient Mode of arrival: ambulatory Limitations: no limitations History of Present Illness HPI narrative: This is 83 years old the patient presented to the emergency department complaining of abdominal pain for about 3 days. The pain is localized in the upper abdomen he has history of alcohol abuse in the past none recently MD elicited complaint: abdominal pain Pertinent past history: none Onset (ago): day(s) (3) Pain Consistency: constant Location: diffuse Severity: mild Quality: cramping Radiation: none Migration to: no migration Exacerbating factors: nothing Relieving factors: nothing Related Data Home Medications ?Medication ?Instructions ?Recorded ?Confirmed clonidine HCl 0.1 mg tablet 0.1 mg PO TID 01/25/24 01/25/24 duloxetine 30 mg capsule,delayed 30 mg PO DAILY 02/10/24 release celecoxib 100 mg capsule 100 mg PO BID 03/19/24 duloxetine 60 mg capsule,delayed 60 mg PO DAILY 03/19/24 release Previous Rx's ?Medication ?Instructions ?Recorded atorvastatin 40 mg tablet 40 mg PO BEDTIME 90 days #90 tabs 07/16/23 bupropion HCl 300 mg 24 hr tablet, 300 mg PO DAILY 90 days #90 tabs 12/10/23 extended release aripiprazole 5 mg tablet (Abilify) 5 mg PO DAILY #30 tabs 02/02/24 mirtazapine 7.5 mg tablet 7.5 mg PO BEDTIME #30 tabs 02/02/24 naltrexone 50 mg tablet 50 mg PO DAILY #30 tabs 02/02/24 thiamine mononitrate (vit B1) 100 100 mg PO DAILY #30 tabs 02/02/24 mg tablet trazodone 50 mg tablet 50 mg PO BEDTIME MRX1 PRN Insomnia 02/02/24 #30 tabs cyclobenzaprine 10 mg tablet 10 mg PO TID PRN muscle spasm #14 03/12/24 tabs lidocaine 5 % topical patch 1 patch topical DAILY #15 ea 03/12/24 naproxen 500 mg tablet 500 mg PO BID PRN pain #20 tabs 03/12/24 hydroxyzine HCl 25 mg tablet 25 mg PO TID PRN anxiety #20 tabs 03/17/24 gabapentin 300 mg capsule 300 mg PO TID pain 90 days #270 03/30/24 caps Allergies Allergy/AdvReac Type Severity Reaction Status Date / Time No Known Allergies Allergy Verified 04/02/24 09:23 [No Known Allergies*] Review of Systems Constitutional: Reports no additional constitutional complaints Reports system reviewed and no additional complaints, except as documented Respiratory: Reports no additional respiratory complaints Reports system reviewed and no additional complaints, except as documented [facility] Past Medical History Attestation statement: The following information was validated with the patient. [facility] Narrative: alcohol abuse,anxiety Medical History Anxiety and depression Delusions Severe recurrent major depression w/psychotic features, mood-congruent Opiate abuse, episodic Mild recurrent major depression Physical exam Cocaine use disorder GERD (gastroesophageal reflux disease) History of back pain Headache Right elbow pain Pure hypercholesterolemia Lumbar radiculopathy Spondylosis of lumbosacral spine without myelopathy Alcoholism Abuse, drug or alcohol Surgical History History of esophagogastroduodenoscopy (EGD) History of eye surgery History of eye surgery Family History Family History Father Alcoholism Substance use disorder Mother Diabetes Social History Social History Household Members: None Housing: Apartment Do you presently have visiting nurse or other home services: No Unable to assess alcohol history related to: Unknown Alcohol intake: former Patient Tobacco Use Status: Former Tobacco user Tobacco use type: Cigarette Smoked in Last 30 Days: No e-Cigarette/Vaping Use: Never Used Second Hand Smoke Exposure: No Use of substances other than those prescribed or required for medical reasons: Yes Substance Use Type: Marijuana Advance Directives: No Advance Directives Information Provided: Yes service: No Current occupational status: unemployed Sexual orientation: Straight/Heterosexual Cognitive needs: No Hearing needs: No Vision needs: No Physical Exam ED Vital Signs: Vital Signs - 24 hr 04/02/24 09:23 04/02/24 12:04 04/02/24 12:15 Temperature 97.5 F 97.8 F Pulse Rate 107 H 77 Respiratory Rate 20 18 16 Blood Pressure 130/90 H 132/87 Pulse Oximetry 97 98 Oxygen Delivery Method Room Air BMI result Body Mass Index 25.0 Const General: cooperative Nutritional Appearance: average body habitus Orientation/consciousness: patient oriented x3 HENMT Head: Yes normal to inspection General nose exam: Normal external nose present Face and sinus: Yes normal facial exam Mouth: Normal oral and palatal mucosa present Throat: Yes posterior oropharynx normal Neck Neck: Yes normal visual inspection Lymphatic: no lymphadenopathy noted Resp Effort & Inspection: normal respiratory effort Auscultation: clear to auscultation bilaterally Cardio Jugular venous distension: no JVD Rate: regular rate Rhythm: regular rhythm GI Inspection: Yes normal to inspection Palpation (GI): Soft to palpation, not firm, nontender and no guarding Percussion: Yes normal to percussion Auscultation: normal bowel sounds Skin General skin exam: no rashes or lesions noted Lesions: no lesions Rashes: no rashes Neuro General: patient oriented x3 Course Reevaluation(s) Reevaluation #1: On re-examination is feeling much better, CT scan of the abdomen and pelvis was essentially unremarkable, labs normal , initial tachycardia resolved, I think at this point we could safely discharge the patient home he is comfortable with the plan of care Time: 15:31 Medical Decision Making Medical Decision Making [facility] Narrative: Patient presented to the emergency department complaining of abdominal pain diffuse check labs administer IV fluid and reassessed Differential Diagnosis Differential Diagnoses: The differential diagnosis associated with the presentation includes Colitis/diverticulitis/peptic ulcer disease Admission/Observation Consideration of admission/observation: Escalation of care including admission/observation considered Lab Data MDM Lab Attestation statement: I reviewed the patient's lab results. 04/02/24 09:40 04/02/24 09:40 Labs: Lab Results 04/02/24 04/02/24 Range/Units 09:40 12:05 WBC 11.3 H (4.8-10.8) X10*3/uL RBC 4.85 (4.60-5.80) X10*6/uL Hgb 15.1 (14.0-18.0) g/dl Hct 44.1 (42.0-52.0) % MCV 90.9 (80.0-98.0) fL MCH 31.1 (27.0-33.0) pg MCHC 34.2 (31.0-36.0) g/dl RDW 13.1 (11.0-16.0) % Plt Count 390 (160-400) X10*3/uL MPV 8.6 L (9.4-12.4) fL Immature Gran % (Auto) 0.4 (0.0-0.4) % Neut % (Auto) 57.8 (45-73) % Lymph % (Auto) 31.0 (20-40) % [place] % (Auto) 8.6 (2-11) % Eos % (Auto) 1.8 (0-4) % Baso % (Auto) 0.4 (0-2) % Lymph # (Auto) 3.5 (1.2-4.9) X10*3/uL [place] # (Auto) 1.0 (0.1-1.2) X10*3/uL Eos # (Auto) 0.2 (0.0-0.4) X10*3/uL Baso # (Auto) 0.1 (0.0-0.2) X10*3/uL Abs Immat Gran (auto) 0.05 H (0.00-0.03) X10*3/uL Absolute Neuts (auto) 6.5 (2.0-8.3) x10*3/uL Absolute Nucleated RBC 0.000 (0.0-0.012) X10*3/uL Nucleated RBC % (auto) 0.0 (0.0-0.2) /100WBC Sodium 139 (135-145) mmol/L Potassium 3.8 (3.3-5.1) mmol/L Chloride 107 (96-108) mmol/L Carbon Dioxide 24 (22-29) mmol/L Anion Gap 12 (12-20) BUN 22 H (9-16) mg/dL Creatinine 0.81 (0.5-1.4) mg/dL Estim Creat Clear Calc 87.2 Estimated GFR > 60 Random Glucose 97 (60-115) mg/dL Calcium 9.5 D (8.4-10.2) mg/dL Magnesium 1.9 (1.6-2.6) mg/dL Total Bilirubin 0.4 (0.0-1.0) mg/dL Direct Bilirubin 0.1 (0.0-0.5) mg/dL AST 29 (5-37) U/L ALT 35 (0-40) U/L Alkaline Phosphatase 151 H (39-117) U/L Total Protein 7.7 (6.5-8.0) g/dL Albumin 4.2 (3.5-5.0) g/dL Lipase 39 (8-78) U/L Urine Color Dark Yellow Urine Appearance Clear Urine pH 5.5 (5.0-9.0) Ur Specific [place] 1.025 (1.005-1.025) Urine Protein Negative (Neg-Trace) mg/dL Urine Glucose (UA) Negative (Negative) mg/dL Urine Ketones Trace (Negative) mg/dL Urine Blood Negative (Negative) Urine Nitrite Negative (Negative) Ur Leukocyte Esterase Negative (Negative) Urine RBC 0-2 (0-2) /HPF Urine WBC 0-5 (0-5) /HPF Ur Squamous Epith Cells 0-2 (0-2) /HPF Urine Bacteria None Seen (None Seen) Hyaline Casts 0-2 (0-2) /LPF Independent Interpretation I performed an independent interpretation of an: CT Scan Interpretation: No acute disease Radiology Impression Discussion of test interpretation with radiology: I have reviewed the radiologist's reading. Radiologist Impression: NAD External Record Review External record reviewed: Inpatient record Medications Administered Discontinued Medications Generic Name Dose Route Start Last Admin Trade Name Freq PRN Reason Stop Dose Admin Sodium Chloride 1,000 mls @ 999 mls/hr 04/02/24 12:15 04/02/24 13:30 Ns IVCONT 04/02/24 13:15 Infused .Q1H1M ERIKA Infusion Iohexol 85 ml 04/02/24 14:11 04/02/24 14:11 Iohexol 350 Mg/Ml 75 Ml Infus..Btl IV 04/02/24 14:12 85 ml ONCE ONE Administration Morphine Sulfate 4 mg 04/02/24 12:03 04/02/24 12:15 Morphine Sulfate 4 Mg/Ml Cartridge IVPUSH 04/02/24 12:04 4 mg ONCE ONE Administration Protocol Ondansetron HCl 4 mg 04/02/24 12:03 04/02/24 12:13 Ondansetron Hcl 4 Mg/2 Ml Vial IVPUSH 04/02/24 12:04 4 mg ONCE ONE Administration Discharge Plan Discharge Clinical Impression: Abdominal pain Qualifiers: Abdominal location: generalized Qualified Code(s): R10.84 - Generalized abdominal pain Patient Disposition: Home, Self-Care Instructions: Abdominal Pain (ED) Additional Instructions: Follow-up with your primary care physician return to the emergency room if you are worse any concern, so liquid diet for 24 hour Prescriptions: No Action clonidine HCl 0.1 mg tablet 0.1 mg PO TID trazodone 50 mg Tablet 50 mg PO BEDTIME MRX1 PRN (Reason: Insomnia) Qty: 30 0RF naltrexone 50 mg Tablet 50 mg PO DAILY Qty: 30 0RF aripiprazole [Abilify] 5 mg Tablet 5 mg PO DAILY Qty: 30 0RF mirtazapine 7.5 mg Tablet 7.5 mg PO BEDTIME Qty: 30 0RF thiamine mononitrate (vit B1) 100 mg Tablet 100 mg PO DAILY Qty: 30 0RF cyclobenzaprine 10 mg tablet 10 mg PO TID PRN (Reason: muscle spasm) Qty: 14 0RF lidocaine 5 % adhesive patch,medicated 1 patch topical DAILY Qty: 15 0RF Rx Instructions: leave on most painful area for up to 12 hrs naproxen 500 mg tablet 500 mg PO BID PRN (Reason: pain) Qty: 20 0RF bupropion HCl 300 mg tablet extended release 24 hr 300 mg PO DAILY 90 Days Qty: 90 1RF atorvastatin 40 mg tablet 40 mg PO BEDTIME 90 Days Qty: 90 1RF duloxetine 60 mg capsule,delayed release(DR/EC) 60 mg PO DAILY celecoxib 100 mg capsule 100 mg PO BID duloxetine 30 mg capsule,delayed release(DR/EC) 30 mg PO DAILY hydroxyzine HCl 25 mg tablet 25 mg PO TID PRN (Reason: anxiety) Qty: 20 0RF gabapentin 300 mg capsule 300 mg PO TID 90 Days Qty: 270 0RF Rx Instructions: This may make you drowsy, do not drink alcohol or drive after taking it. Referrals: Kaley Sanchez MD [Primary Care Provider] - 04/05/24 Print Language: [place]
[2024-04-02] MEDS: ondansetron HCL 4 MG/2 ML VIAL IVPUSH (12:13)
[2024-04-02] MEDS: 0.9 % Sodium Chloride 1,000 ML 999 ML IVCONT (12:14)
[2024-04-02 12:15] VITALS: RESP 16
[2024-04-02] MEDS: Morphine Sulfate 4 MG/ML CARTRIDGE IVPUSH (12:15)
[2024-04-02 12:16] LABS: Appearance Urine Clear; Color Urine Dark Yellow; Glucose Urine UA Negative (Negative); Leukocyte Esterase Urine Negative (Negative); Nitrite Urine Negative (Negative); PH 5.5 (5.0-9.0); Specific Gravity - Urine 1.025 (1.005-1.025); Urine Blood Negative (Negative); Urine Ketones Trace mg/dL (Negative); Urine Protein Negative (Neg-Trace)
[2024-04-02 12:19] LABS: Bacteria Urine None Seen (None Seen); Hyaline Casts Urine 0-2 /LPF (0-2); RBC Urine 0-2 /HPF (0-2); Squamous Epithelial Cell Urine 0-2 /HPF (0-2); WBC Urine 0-5 /HPF (0-5)
[2024-04-02] MEDS: iohexoL 350 MG/ML 75 ML INFUS..BTL 85 ML IV (14:11)
[2024-04-02 15:53] VITALS: BP 132/89; PULSE 77; RESP 16; TEMP 36.3; O2SAT 99
== END 2024-04-02 15:58 | disposition home or self-care (01) ==
PROVIDERS: Emergency Provider Emergency Medicine; PCP Internal Medicine
DX: R10.2 Pelvic and perineal pain (principal); Z87.891 Personal history of nicotine dependence; Z79.899 Other long term (current) drug therapy
CPT/HCPCS: 36415; 74177; 80048; 80076; 81001; 83690; 83735; 85025; 96361; 96374; 96375; 99284; 99285; J2270; J2405; Q9967

== ENCOUNTER → 2024-04-02 12:53 | Outpatient (BNV) | payer OTHER, SELFPAY | PROVIDERS: Emergency Provider Emergency Medicine; PCP Internal Medicine; Visit Provider Radiology Diagnostic Radiology | DX: R10.9 Unspecified abdominal pain (principal) | CPT/HCPCS: 74177 ==

== ENCOUNTER 2024-05-03 08:53 | Outpatient (REF) | payer OTHER, SELFPAY ==
[2024-05-03 09:19] LABS: MANUAL DIFF FLAG NO
[2024-05-03 09:38] LABS: Basophils Percent Auto 0.6 % (0-2); Eosinophils Absolute Auto 0.2 X10*3/uL (0.0-0.4); Eosinophils Percent Auto 3.4 % (0-4); Hematocrit 42.9 % (42.0-52.0); Hemoglobin 14.1 g/dl (14.0-18.0); Imm Gran Abs Auto 0.02 X10*3/uL (0.00-0.03); Imm Gran Pct Auto 0.3 % (0.0-0.4); Lymphocytes Absolute Auto 2.4 X10*3/uL (1.2-4.9); Lymphocytes Percent Auto 37.9 % (20-40); Mean Corpuscular HGB Conc 32.9 g/dl (31.0-36.0); Mean Corpuscular Hemoglobin 30.4 pg (27.0-33.0); Mean Corpuscular Volume 92.5 fL (80.0-98.0); Mean Platelet Volume 8.6 fL (9.4-12.4); Monocytes Absolute Auto 0.6 X10*3/uL (0.1-1.2); Monocytes Percent Auto 8.6 % (2-11); Neutrophils Absolute Auto 3.2 x10*3/uL (2.0-8.3); Neutrophils Percent Auto 49.2 % (45-73); Platelet Count 340 X10*3/uL (160-400); Red Blood Count 4.64 X10*6/uL (4.60-5.80); Red Cell Distribution Width 12.8 % (11.0-16.0); White Blood Count 6.4 X10*3/uL (4.8-10.8)
[2024-05-03 10:11] LABS: Alanine Aminotransferase 48 U/L (0-40); Albumin Level 4.2 g/dL (3.5-5.0); Alkaline Phosphatase 124 U/L (39-117); Anion Gap 9 (12-20); Aspartate Amino Transferase 43 U/L (5-37); Bilirubin Total 0.3 mg/dL (0.0-1.0); Blood Urea Nitrogen 13 mg/dL (9-16); Calcium 9.7 mg/dL (8.4-10.2); Carbon Dioxide 28 mmol/L (22-29); Chloride 110 mmol/L (96-108); Cholesterol 200 mg/dL (<200); Estimated Glomerular Filt Rate > 60; Glucose Fasting 77 mg/dL (60-99); HDL Cholesterol 57 mg/dL (>40); Iron 98 mcg/dL (45-160); LDL Cholesterol Calculated 125 mg/dL (<100); Percent Iron Saturation 31 % (15-50); Potassium 4.4 mmol/L (3.3-5.1); Sodium 143 mmol/L (135-145); Total Iron Binding Capacity 320 mcg/dL (228-428); Triglycerides 91 mg/dL (<150); Unsaturated Iron Binding 222 ug/dL
--- OUTSIDE RECORDS SUMMARY | 2024-05-03 13:12 | XMS_ITS ---
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 [address] [place] [address] 07/17/2023 Andrew Pope PLAN OF TREATMENT Next Appt Details Provider Name:Andrew Pope , 07/13/2024 01:20:00 PM, [address], [address], [place], [address],
--- OUTSIDE RECORDS SUMMARY | 2024-05-03 13:13 | XMS_ITS | Encounter Summary ---
Author Organization [employer] Address [address] [place] [address] Care Team Providers Care Molder Trimmer Name Role Phone Unavailable Primary Care Provider Unavailabl e Reason for Visit * Reason Comments [facility] Recovery Supports Encounter Details Date Type Department Care Team (Late st Contact Info) Description 04/29/2024 Patient Outreach [facility] [address], [place] [phone] Serge Cabral [address], [place] [phone] Recovery Supports Social History Tobacco Use Types Packs/Day Years Used Date Smoking Tobacco: Never Smokeless Tobacco: Never Alcohol Use Standard Drinks/Week Comments Not Currently 0 (1 standard drink = 0.6 oz pur e alcohol) Sex and Gender Information Value Date Recorded Sex Assigned at Male 02/04/2022 10:14 AM EDT Legal Sex Male 10:14 AM EDT Gender Identity Male 07/16/2023 12:59 PM EDT Sexual Orientation Straight 07/16/2023 12 :59 PM EDT documented as of this encounter Progress Notes * Serge Cabral - 04/29/2024 11:34 AM EST I met with Nick today. Setting: in person at [facility] Recovery Wellness Goals worked on: Social Stability and Spiritual Wellness Action taken/next steps: Offered person centered recovery support, Assisted with relapse prevention planning, Attended alcohol and drug free activity, and Supported spiritual needs Additional comments:Today, Nick came in with his therapist to the Center. I briefly introduced myself as a defensive secondary coach. We were able to talk about all the services we offer both inside and outside of our organization. The patient expressed that he will begin attending the different support groups we offer, and I gave him my card with my phone number in case he needs support and can call me during my working hours. Serge Cabral documented in this encounter Plan of Treatment Upcoming Encounters Date Type Department Care Team (Late st Contact Info) Description 06/24/2024 8:00 AM EDT Office Visit [facility] [address] [place] [address] Zuleyma Hernandez documented as of this encounter Visit Diagnoses Not on filedocumented in this encounter
--- OUTSIDE RECORDS SUMMARY | 2024-05-03 13:13 | XMS_ITS ---
Author Organization 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 Name Role Phone Kaley Sanchez Primary Care Provider Unavailab Andrew Luna Unavailable [phone] ALLERGIES No Known Allergies REASON FOR VISIT Patient presents today for elevated lft's MEDICATIONS Medication SIG (Take, Route, Frequency, Duration) Notes Start Date End Date Status Celecoxib 100 MG Oral for 30 A ctive Lidocaine 5 % External for 30 Active Omeprazole Active Naltrexone HCl Activ e ibuprofen 800 Not daily Active Gabapentin Active buPROPion HCl ER (XL) Active SOCIAL HISTORY Sex Assigned At : Social History Observation Description Sex Assigned At Unknown Alcohol Screen Question Answer Notes Did you have a drink containing alcohol in the p ast year? No Points 0 Interpretation Negative VITAL SIGNS BMI 21.63 kg/m2 01/13/2024 Blood pressure systolic 00 mm Hg 01/13/20 24 Blood pressure diastolic 00 mm Hg 024 Height 65 in 01/13/2024 Weight 130 lbs 01/13/2024 Encounters Encounter Location Date Provider Diagnosis [facility] [address] [place] [address] 01/13/2024 Andrew Pope Alcohol liver damage K70.9 ; Elevated liver function tests R79.89 and 16 weeks gestation of Z3A.16 ASSESSMENTS Encounter Date Diagnosis Assessment Notes Treatment Notes Treatment Clinical Notes 01/13/2024 Alcohol liver damage (ICD-10 - K70.9) 01/13/2024 Elevated liver function tests (ICD-10 - R79.89) 01/13/2024 16 weeks gestation of (ICD-10 - Z3A.16) PLAN OF TREATMENT Pending Test Test Name Order Date LIVER PROFILE 01/13/2024 CBC w DIFF 01/13/2024 Prothrombin Time INR 01/13/2024 Next Appt Details Follow Up: 2024, [place] son: Provider Name:Andrew Pope , 07/13/2024 01:20:00 PM, [address], [address], [place], [address], Progress Notes * Examination Category Sub-Category Detail Notes General Examination GENERAL APPEARANCE: pleasant , well nourished, well developed, in no acute distress HEAD: EYES: sclera non-icteric EARS: NOSE: THROAT: NECK/THYROID: no cervical lymphade nopathy, neck supple HEART: S1, S2 normal CHEST: LUNGS: clear to auscultatio n bilaterally ABDOMEN: normal bowel sounds, no guarding or rigidity, no guarding or rigidity, no masses palpable, soft, nontender, nondistended NEUROLOGIC: alert and oriented SKIN: nonjaundiced, no spi elizabeth angiomata EXTREMITIES: no edema PERIPHERAL PULSES: BACK: BREASTS: MUSCULOSKELETAL: MALE GENITOURINARY: LYMPH NODES: RECTAL EXAM: FEMALE GENITOURINARY: ORAL CAVITY: mucosa moist
--- OUTSIDE RECORDS SUMMARY | 2024-05-03 13:13 | XMS_ITS | Patient Health Record ---
Author Organization [facility] Address [address] [place] [address] Care Team Providers Care Procedure Manager Name Role Phone Kaley Sanchez Primary Care Provider UnavailAndrew Owens Unavailable [phone] ALLERGIES No Known Allergies RESULTS Component Value Reference Range Notes Complete Blood Count Auto Di ff Reviewed date:06/24/2023 10:37:03 PM Interpretation: Performing Lab:[facility], [address] [place] [phone] Notes/Report: White Blood Count 8.1 4.8-10.8 X10*3/uL Red Blood Count 5.41 4.60-5.80 X10*6/uL Hemoglobin 16.4 14.0-18.0 g/dl Hematocrit 48.2 42.0-52.0 % Mean Corpuscular Volume 89.1 80.0-98.0 fL Mean Corpuscular Hemoglobin 30.3 27.0-33.0 pg Mean Corpuscular HGB Conc 34.0 31.0-36.0 g/dl Red Cell Distribution Width 13.0 11.0-16.0 % Platelet Count 441 160-400 X10*3/uL Mean Platelet Volume 9.2 9.4-12.4 fL Neutrophils Percent Auto 59.0 45-73 % Imm Gran Pct Auto 0.4 0.0-0.4 % Lymphocytes Percent Auto 30.1 20-40 % Monocytes Percent Auto 8.1 2-11 % Eosinophils Percent Auto 2.0 0-4 % Basophils Percent Auto 0.4 0-2 % NRBC Pct Auto 0.0 0.0-0.2 /100WBC Neutrophils Absolute Auto 4.8 2.0-8.3 x10*3/u L Imm Gran Abs Auto 0.03 0.00-0.03 X10*3/uL Lymphocytes Absolute Auto 2.4 1.2-4.9 X10*3/u L Monocytes Absolute Auto 0.7 0.1-1.2 X10*3/uL Eosinophils Absolute Auto 0.2 0.0-0.4 X10*3/u L Basophils Absolute Auto 0.0 0.0-0.2 X10*3/uL NRBC Abs Auto 0.000 0.0-0.012 X10*3/uL Prothrombin Time INR Reviewed date:06/24/2023 10:36:37 PM Interpretation: Performing Lab:[address] [phone] Notes/Report: Prothrombin Time 11.8 11.1-13.3 SEC INTERNATIONAL NORM RATIO 1.0 0.9-1.1 INTERNATIONAL NORMALIZED RATIO (INR) REFERENCE RANGES Reference Range For patients not on anticoagulant therapy: 0.9 - 1.1 INR ranges for oral anticoagulant therapy: For prevention and treatment of venous thrombosis and pulmonary embolism: 2.0 - 3.0 For acute myocardial infarction with aspirin therapy: 2.0 - 3.0 For acute myocardial infarction without aspirin therapy: 3.0 - 4.0 For patients with mechanical prosthetic heart valves: 2.5 - 3.5 Liver Panel Reviewed date:06/24/2023 10:38:22 PM Interpretation: Performing Lab:[address] [phone] Notes/Report: Bilirubin Total 0.6 0.0-1.0 mg/dL Bilirubin Direct 0.2 0.0-0.5 mg/dL Aspartate Amino Transferase 16 5-37 U/L Alanine Aminotransferase 25 0-40 U/L Total Protein 7.4 6.5-8.0 g/dL Albumin Level 4.2 3.5-5.0 g/dL Alkaline Phosphatase 127 39-117 U/L Alpha Fetoprotein Reviewed date:07/12/2023 10:43:19 PM Interpretation: Performing Lab:[address] [phone] Notes/Report: Alpha Fetoprotein 11.3 <6.1 ng/mL This test was performed using the John Olga chemiluminescent method. Values obtained from different assay methods cannot be used interchangeably. AFP levels, regardless of value, should not be interpreted as absolute evidence of the presence or absence of disease. THIS TEST WAS PERFORMED AT: [facility] [address] [place] [phone] SARA LLAMAS MD Liver Fibrosis Pnl Reviewed date:06/30/2023 11:45:31 PM Interpretation: Performing Lab:[facility], [address] [place] [phone] Notes/Report: Liver Fibrosis Score 0.21 Liver Fibrosis Stage F0-F1 Liver Fibrosis Interpretation SEE NOTE no fibrosis Fibro Test Score (f) Metavir Score f>=0 and f<=0.21 : F0 (no fibrosis) f>0.21 and f<=0.27 : F0-F1 (no fibrosis) f>0.27 and f<=0.31 : F1 (minimal fibrosis) f>0.31 and f<=0.48 : F1-F2 (minimal fibrosis) f>0.48 and f<=0.58 : F2 (moderate fibrosis) f>0.58 and f<=0.72 : F3 (advanced fibrosis) f>0.72 and f<=0.74 : F3-F4 (advanced fibrosis) f>0.74 and f<=1.00 : F4 (severe fibrosis) Nec Inflam Act Score 0.08 Nec Inflam Act Grade A0 Nec Inflam Act Interpretation SEE NOTE no activity ActiTest Score (a) Metavir Score a>=0 and a<=0.17 : A0 (no activity) a>0.17 and a<=0.29 : A0-A1 (no activity) a>0.29 and a<=0.36 : A1 (minimal activity) a>0.36 and a<=0.52 : A1-A2 (minimal activity) a>0.52 and a<=0.60 : A2 (significant activity) a>0.60 and a<=0.62 : A2-A3 (significant activity) a>0.62 and a<=1.00 : A3 (severe activity) XQS-Olpem-9-Macroglobulin 209 106-279 mg/dL FIB-Haptoglobin 145 43-212 mg/dL FIB-Apolipoprotein A1 168 94-176 mg/dL FIB-Total Bilirubin 0.6 0.2-1.2 mg/dL FIB-GGT 25 3-95 U/L FIB-ALT 22 9-46 U/L Reference ID [id number] Footnote SEE NOTE The reliability of results is dependent on compliance with the preanalytical and analytical conditions recommended by [employer]. The tests have to be deferred for: acute hemolysis, acute hepatitis, acute inflammation, extra hepatic cholestasis. The advice of a specialist should be sought for interpretation in chronic hemolysis and Gilbert's syndrome. The test interpretation is not validated in liver transplant patients. Isolated extreme values of one of the components should lead to caution in interpreting the results. In case of discordance between a biopsy result and a test, it is recommended to seek the advice of a specialist. The causes of these discordances could be due to a flaw of the test or to a flaw in the biopsy: i.e. a liver biopsy has a 33% variability rate for one fibrosis stage. FibroTest is interpretable for chronic hepatitis B and C, alcoholic and non alcoholic steatosis. ActiTest is interpretable for chronic hepatitis B and C. The performance characteristics have been determined by [employer] [facility]. It has not been cleared or approved by the U.S. Food and Drug Administration. Performance characteristics refer to the analytical performance of the test. [employer], [employer], the associated logo, [employer] and all associated [employer] thorpe are the registered trademarks of [employer]. All third libertarian thorpe - (R) and (TM) - are the property of their respective owners. (C) 2440-6212 [employer]. All rights reserved. THIS TEST WAS PERFORMED AT: [employer] [facility] [place] [facility] [address] [place] [address] FARA PIERRE MD,PHD,MULUGETA Hepatitis B,C Profile Reviewed date:06/24/2023 10:38:46 PM Interpretation: Performing Lab:[facility], [address] [place] [phone] Notes/Report: Hepatitis B Surface Antibody REACTIVE Nonreactive REACTIVE: > 11.99 mIU/mL Hepatitis B Core Antibody Nonreactive Nonreactive Hepatitis C Antibody Nonreactive Nonreactive Antibodies to HCV not detected; does not exclude early acute HCV infection. Hepatitis B Surface Antigen Negative Negative US abdomen comp w elastograp hy Reviewed date:07/12/2023 10:42:05 PM Interpretation: Performing Lab: Notes/Report: [address] [address] Ultrasound Report Signed Patient: Nick Brenner MR#: [id number] : 1970 Acct:[id number] Age/Sex: 53 / M ADM Date: 06/23/23 Loc: HO.US Attending Dr: Andrew Pope MD Ordering Physician: Andrew Pope Date of Service: 06/23/23 Procedure(s): US abdomen comp w elastography Accession Number(s): [id number] cc: Kaley Sanchez MD; Andrew Pope EXAMINATION: US COMPLETE ABDOMEN WITH LIVER ELASTOGRAPHY CLINICAL INFORMATION: Elevated liver function test; alcoholic liver damage. COMPARISON: None available. TECHNIQUE: Real-time imaging of the abdominal viscera. Noninvasive ultrasound liver fibrosis assessment is performed using Vern ElastPQ point quantification shear wave elastography (2D-SWE) with a C5-2 MHz transducer. Multiple elastography samples are obtained. FINDINGS: PANCREAS: Largely obscured by overlapping bowel gas. ABDOMINAL AORTA: The proximal, middle, and distal aortic segments are normal in caliber. INFERIOR VENA CAVA: Visualized portions are normal. LIVER: Normal. The liver demonstrates normal size, contour and echogenicity. No focal lesion or intrahepatic biliary duct dilatation. The right lobe measures 12.4 cm in length. The left lobe measures 9.0 cm in length. Portal flow is towards the liver (hepatopetal). Shear wave liver elastography median stiffness is 1.35 m/s (reference: normal median stiffness is 1.3 m/s or less). IQR/median stiffness to assess sampling precision is 0.07 (reference: good quality data set is IQR/median stiffness of 0.15 or less). GALLBLADDER: Normal. The gallbladder is physiologically distended without evidence of stones, sludge, polyps, wall thickening or pericholecystic fluid. COMMON BILE DUCT: Normal in caliber measuring 0.2 cm in diameter. RIGHT KIDNEY: Normal. No hydronephrosis. No renal calculi or focal parenchymal lesions. The kidney measures 10.3 cm in maximum dimension. LEFT KIDNEY: Normal. No hydronephrosis. No renal calculi or focal parenchymal lesions. The kidney measures 10.2 cm in maximum dimension. SPLEEN: Normal. The spleen measures 10.7 cm in maximum dimension. FREE FLUID: None. US/US abdomen comp w elastography IMPRESSION: 1. Liver elastography: In the absence of other known clinical signs, measurements rule out compensated advanced chronic liver disease. If there are known clinical signs, further testing may be needed for confirmation. 2. Technically limited ultrasound examination of pancreas. REFERENCE: Society of Radiologists in Ultrasound Liver Stiffness Thresholds (2020): LIVER STIFFNESS THRESHOLDS: *Liver Stiffness equal or less than 1.3 m/s: High probability of being normal. *Liver Stiffness less than 1.7 m/s: In the absence of other known clinical signs, rules out compensated advanced chronic liver disease. *Liver Stiffness 1.7-2.1 m/s: Suggestive of compensated advanced chronic liver disease but need further test for confirmation. *Liver Stiffness over 2.1 m/s: Rules in compensated advanced chronic liver disease. *Liver Stiffness over 2.4 m/s: Suggestive of clinically significant portal hypertension. QUALITY OF DATA SET: *IQR/Median value equal or less than 0.15 implies a quality data set. *IQR/Median value over 0.15 implies a poor quality data set. SIGNIFICANT CHANGE FROM PRIOR EXAM: Significant change if liver stiffness measurement is 10% or greater from prior exam. OTHER CONSIDERATIONS: The stage of liver fibrosis may be overestimated in the setting of acute hepatitis, liver inflammation, elevated liver function tests, hepatic vascular congestion, obstructive cholestasis, non-fasting state, and infiltrative diseases such as amyloidosis and lymphoma. In some patients with NAFLD, the liver stiffness thresholds for compensated advanced chronic liver disease may be lower. In causes other than viral hepatitis and NAFLD, liver stiffness thresholds are not well established. Dictated By: Georgi Winchester MD Signed By: <Electronically signed by Georgi Winchester MD in OV> 06/30/23 1253 DD/ 1001 TD/TT: Sign Installer: AZAM Complete Blood Count Auto Di ff Reviewed date:01/13/2024 09:27:38 PM Interpretation: Performing Lab:[facility], [address] [place] [phone] Notes/Report: White Blood Count 9.0 4.8-10.8 X10*3/uL Red Blood Count 5.26 4.60-5.80 X10*6/uL Hemoglobin 16.3 14.0-18.0 g/dl Hematocrit 48.4 42.0-52.0 % Mean Corpuscular Volume 92.0 80.0-98.0 fL Mean Corpuscular Hemoglobin 31.0 27.0-33.0 pg Mean Corpuscular HGB Conc 33.7 31.0-36.0 g/dl Red Cell Distribution Width 12.8 11.0-16.0 % Platelet Count 436 160-400 X10*3/uL Mean Platelet Volume 10.0 9.4-12.4 fL Neutrophils Percent Auto 54.3 45-73 % Imm Gran Pct Auto 0.9 0.0-0.4 % Lymphocytes Percent Auto 33.4 20-40 % Monocytes Percent Auto 8.8 2-11 % Eosinophils Percent Auto 1.9 0-4 % Basophils Percent Auto 0.7 0-2 % NRBC Pct Auto 0.0 0.0-0.2 /100WBC Neutrophils Absolute Auto 4.9 2.0-8.3 x10*3/u L Imm Gran Abs Auto 0.08 0.00-0.03 X10*3/uL Lymphocytes Absolute Auto 3.0 1.2-4.9 X10*3/u L Monocytes Absolute Auto 0.8 0.1-1.2 X10*3/uL Eosinophils Absolute Auto 0.2 0.0-0.4 X10*3/u L Basophils Absolute Auto 0.1 0.0-0.2 X10*3/uL NRBC Abs Auto 0.000 0.0-0.012 X10*3/uL Prothrombin Time INR Reviewed date:01/13/2024 09:27:25 PM Interpretation: Performing Lab:[facility], [address] [place] [phone] Notes/Report: Prothrombin Time 11.3 10.9-12.4 SEC INTERNATIONAL NORM RATIO 1.0 0.9-1.1 INTERNATIONAL NORMALIZED RATIO (INR) REFERENCE RANGES Reference Range For patients not on anticoagulant therapy: 0.9 - 1.1 INR ranges for oral anticoagulant therapy: For prevention and treatment of venous thrombosis and pulmonary embolism: 2.0 - 3.0 For acute myocardial infarction with aspirin therapy: 2.0 - 3.0 For acute myocardial infarction without aspirin therapy: 3.0 - 4.0 For patients with mechanical prosthetic heart valves: 2.5 - 3.5 Liver Panel Reviewed date:01/13/2024 09:27:57 PM Interpretation: Performing Lab:[facility], [address] [place] [phone] Notes/Report: Bilirubin Total 0.5 0.0-1.0 mg/dL Bilirubin Direct 0.2 0.0-0.5 mg/dL Aspartate Amino Transferase 18 5-37 U/L Alanine Aminotransferase 19 0-40 U/L Total Protein 8.6 6.5-8.0 g/dL Albumin Level 4.9 3.5-5.0 g/dL Alkaline Phosphatase 117 39-117 U/L REASON FOR REFERRAL No Information MEDICATIONS Medication SIG (Take, Route, Frequency, Duration) Notes Start Date End Date Status Celecoxib 100 MG Oral for 30 A ctive Lidocaine 5 % External for 30 Active Omeprazole Active ibuprofen 800 Not daily Active Gabapentin Active buPROPion HCl ER (XL) Active Naltrexone HCl Activ e IMMUNIZATIONS Vaccine Route Administration Date Status Comme nts Influenza Unknown 01/06/2020 Administered SOCIAL HISTORY Sex Assigned At : Social History Observation Description Sex Assigned At Unknown Alcohol Screen Question Answer Notes Did you have a drink containing alcohol in the p ast year? No Points 0 Interpretation Negative PROBLEMS Problem Type ICD Code Onset Dates Problem Status W/U Status Risk SNOMED Code Notes Problem Abdominal pain, epigastric (R10.13) Active confirmed 34545135 Problem Gastroesophageal reflux disease, esophagitis presence not specified (K21.9) Active confirmed 477056737 Problem Gastroesophageal reflux disease, unspecified whether esophagitis present (K21.9) Active confirmed 640299615 Problem Encounter for screening for malignant neoplasm of colon (Z12.11) Active confirmed 757040136 Problem H. pylori infection (A04.8) Active confirmed 260578713 Problem Generalized abdominal pain (R10.84) Active confirmed 791777470 Problem Diverticulosis of large intestine without perforation or abscess without bleeding (K57.30) Active confirmed Diverticul ar disease of colon (054367814) Problem Gastritis (K29.70) Active confirmed Gas tritis (5757180) Problem Alcohol liver damage (K70.9) Active confirmed Alcoholic fifi er damage (91469903) Problem Elevated liver function tests (R79.89) Active confirmed Elevated liver enzymes level (120702594) Problem Chronic gastritis (K29.50) Active confirmed Chronic gastritis (4677036) VITAL SIGNS Temperature 99.3 degrees Fahrenheit 06/03/2023 Blood pressure diastolic 00 mm Hg 01/13/2024 Height 65 in 01/13/2024 Blood pressure systolic 00 mm Hg 01/13/2024 Weight 130 lbs 01/13/2024 BMI 21.63 kg/m2 01/13/2024 Encounters Encounter Location Date Provider Diagnosis [facility] [address] [place] [phone] 06/03/2023 Andrew Pope Alcohol liver damage K70.9 ; Elevated liver function tests R79.89 and Chronic gastritis K29.50 [facility] [address] [place] [phone] 01/13/2024 Andrew Pope Alcohol liver damage K70.9 ; Elevated liver function tests R79.89 and 16 weeks gestation of Z3A.16 [facility] [address] [place] [phone] 07/17/2023 Andrew Pope [facility] [address] [place] [phone] 07/23/2023 Andrew Pope ASSESSMENTS Encounter Date Diagnosis Assessment Notes Treatment Notes Treatment Clinical Notes 06/03/2023 Elevated liver function tests (ICD-10 - R79.89) 06/03/2023 Alcohol liver damage (ICD-10 - K70.9) 01/13/2024 Elevated liver function tests (ICD-10 - R79.89) 01/13/2024 Alcohol liver damage (ICD-10 - K70.9) 06/03/2023 Chronic gastritis (ICD-10 - K29.50) 01/13/2024 16 weeks gestation of (ICD-10 - Z3A.16) PLAN OF TREATMENT Pending Test Test Name Order Date LIVER PROFILE 01/13/2024 LIVER PROFILE 06/03/2023 CBC w DIFF 06/03/2023 CBC w DIFF 01/13/2024 ALPHA-FETOPROTEIN,TUMOR MARKER US ABD 08/22/2020 Prothrombin Time INR 06/03/2023 Prothrombin Time INR 01/13/2024 Liver Fibrosis Pnl 06/03/2023 Hepatitis B,C Profile 06/03/2023 US abdomen comp w elastography Future Test Test Name Order Date UPPER GI ENDOSCOPY 12/14/2015 UPPER GI ENDOSCOPY 08/22/2020 COLONOSCOPY 08/22/2020 Next Appt Details Provider Name:Andrew Pope , 07/13/2024 01:20:00 PM, [address] [facility], [address], [place], [address], Insurance Providers Payer Name Payer Address Payer Phone Subscriber Number Group Number Insured Name Patient Relationship to Insured Coverage Start Date Coverage End Date [facility] flatev [facility] [address] [address] [place], [place] [id number] NICK SPIVEY Self - patient is the insured MEDICAL (GENERAL) HISTORY Medical History History ICD Code Hyperlipidemia Chronic low back pain Hx of alcoholism and cocaine use Depression Denies AL,DM,CVA,Lung disease,renal dise ase EGD 2015-small hiatal hernia and mild gastritis--- gastric biopsies were positive for H. pylori Negative abdominal ultrasound in 2015 Negative screening colonoscopy in September Upper endoscopy in September revealed a small hiatal hernia and mild gastritis, with biopsies positive for H. pylori. There was no evidence of any Lopez's esophagus nor esophagitis Surgical History Surgery Date(Month/Year) Left Eye surgey as a child
--- OUTSIDE RECORDS SUMMARY | 2024-05-03 13:13 | XMS_ITS ---
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
--- OUTSIDE RECORDS SUMMARY | 2024-05-03 13:13 | XMS_ITS | Encounter Summary ---
Author Organization [facility] Address [address] [facility] 7t [place] [address] Care Team Providers Care Tech Ed/Woodshop Teacher Name Role Phone Unavailable Primary Care Provider Unavailabl e Reason for Visit * Reason Comments Dental Pain UR Encounter Details Date Type Department Care Team (Late st Contact Info) Description 04/29/2024 11:30 AM EST Office Visit [facility] ADULT DENTAL [address] [place] [address] Mohini Jean DDS [address] [place] [address] Periodontal disease (Primary Dx); Periapical abscess without sinus Social History Tobacco Use Types Packs/Day Years [...] as of this encounter Progress Notes * Mohini Jean DDS - 04/29/2024 11:30 AM EST Dental procedures in this visit D9110 - ADJUNCTIVE GENERAL SERVICES - UNCLASSIFIED TREATMENT - PALLIATIVE TREATMENT OF DENTAL PAIN - PER VISIT (Completed) Service provider: Mohini Jean DDS Billing provider: Mohini Jean DDS [id number] - INTRAORAL - PERIAPICAL FIRST RADIOGRAPHIC IMAGE (Completed) Service provider: Mohini Jean DDS Billing provider: Mohini Jean DDS [id number] - ADJUNCTIVE GENERAL SERVICES - PROFESSIONAL VISITS - CASE PRESENTATION, SUBSEQUENT TO DETAILED AND EXTENSIVE TREATMENT PLANNING (Completed) Service provider: Mohini Jean DDS Billing provider: Mohini Jean DDS Patient ID: Nick Littlejohn is a 54 y.o. male. Time Out: Timeout Date: 04/29/24, Timeout Time: 1128 (pain UR) Location: [facility] Tooth: #3 Procedure: Emergency Verified the above with patient, graduate assistant, and provider. Confirmed via patient's chart, intraorally and by radiographs. Industrial Safety And Health Manager: not applicable Chief Complaint Patient presents with Dental Pain UR Medical Hx: Vitals: There were no vitals taken for this visit. Past Medical History: Diagnosis Date Arthritis GERD (gastroesophageal reflux disease) Osteoporosis Medications: Outpatient Encounter Medications as of 04/29/2024 Medication Sig Dispense Refill B Complex Vitamins (Vitamin B Complex) capsule TAKE 1 CAP ORALLY DAILY FOR 90 DAYS celecoxib (CeleBREX) 100 MG capsule TOME ABBEY C PSULA DOS VECES AL D A POR 30 WELLS cloNIDine (Catapres) 0.1 MG tablet PLEASE SEE ATTACHED FOR DETAILED DIRECTIONS DULoxetine (Cymbalta) [address] capsule Take 60 mg by mouth in the morning. hydrOXYzine HCl (Atarax) 25 MG tablet TOME 1 TABLETA POR V A ORAL KERRY VECES AL D A CUANDO SEA NECESARIO PARA LA ANSIEDAD lidocaine (Lidoderm) 5 % patch APPLY 1 PATCH TOPICALLY DAILY LEAVE ON MOST PAINFUL AREA FOR UP TO 12 HRS risperiDONE (RisperDAL) 0.25 MG tablet TOME 1 TABLETA POR V A ORAL TODOS LOS D AL ACOSTARSE traZODone (Desyrel) 50 MG tablet TOME ABBEY TABLETA POR V A ORAL BEDTIME, MAY REPEAT X 1 NEEDED FOR INSOMNIA acetaminophen (Tylenol 8 Hour) 650 MG ER tablet Take 1 tablet (650 mg) by mouth every 8 (eight) hours if needed for moderate pain for up to 10 days. Do not crush, chew, or split. 15 tablet 0 acetaminophen (Tylenol) 500 MG tablet Take 1 tablet (500 mg) by mouth every 6 (six) hours if neededfor mild pain for up to 20 doses. 20 tablet 0 amoxicillin (Amoxil) 500 MG capsule Take 1 capsule (500 mg) by mouth every 8 (eight) hours for 7 days. 21 capsule 0 atorvastatin (Lipitor) 40 MG tablet chlorhexidine (Peridex) 0.12 % solution Use 15 mL in the mouth or throat if needed (for mouthwash 15 ml for 30 seconds, swish and spit) for up to 14 days. 473 mL 0 cyclobenzaprine (Flexeril) 10 MG tablet TOME ABBEY TABLETA KERRY VECES AL D A CUANDO SEA NECESARIO PORMUSCULOS gabapentin (Neurontin) 300 MG capsule TOME 1 C PSULA POR V A ORAL KERRY VECES AL D A FOR 30 DAYS ibuprofen 600 MG tablet Take 1 tablet (600 mg) by mouth every 6 (six) hours if needed for mild painfor up to 10 days. 15 tablet 0 naproxen (Naprosyn) 500 MG tablet TAKE 1 TABLET ORALLY 2 TIMES A DAY NEEDED FOR FOR PAIN FOR 30 DAYS No facility-administered encounter medications on file as of 04/29/2024. Subjective: Pain: severe Duration: 1 days Objective: Tooth: #3 Radiographs Taken: PA(s) Radiographic Findings: large PARL corresponding with abscess son 33. Tooth in hyper eruption, bone loss, calculus and plaque Clinical Findings: large B abscess observed, Sever L recession and gingiva inflammation observed Swelling: Tenderness and Intraoral swelling Endo Testing: Cold: No response Percussion: Pain Palpation: Pain Diagnosis: Acute Periapical periodontitis; Dental Abscess Assessment/Plan: Referred for ext Prescriptions: Amoxicillin 500 mg/tid/7 days 21 caps Ibuprofen 600 mg/tid/prn 15 tabs Tylenol 650 mg/tid/prn 15 tabs Peridex 15 ml/tid/prn 473 ml bottle Pt tolerated procedure well, all questions answered. Dismissed in good condition. NV: Ext #3 Van Helper: Amirah Kay Dentist: Mohini Jean DDS documented in this encounter Plan of Treatment Upcoming Encounters Date Type Department Care Team (Late st Contact Info) Description 06/24/2024 8:00 AM EDT Office Visit [facility] ADULT DENTAL [address] [place] [address] Zuleyma Hernandez Scheduled Orders Name Type Priority Associated Diagnoses Orde r Schedule 3 3 EXTRACTION, ERUPTED TOOTH OR EXPOSED ROOT (ELEVATION AND/OR FORCEPS REMOVAL) Dental Routine 1 Occurrences s tarting 04/29/2024 documented as of this encounter Procedures Procedure Name Priority Date/Time Associated Diagnosis Comments ADJUNCTIVE GENERAL SERVICES - UNCLASSIFIED TREATMENT - PALLIATIVE TREATMENT OF DENTAL PAIN - PER VISIT Routine 04/29/2024 11:30 AM EST Periodontal disease Periapical abscess without sinus INTRAORAL - PERIAPICAL FIRST RADIOGRAPHIC IMAGE Routine 04/29/2024 11:30 AM EST Periodontal disease Periapical abscess without sinus ADJUNCTIVE GENERAL SERVICES - PROFESSIONAL VISITS - CASE PRESENTATION, SUBSEQUENT TO DETAILED AND EXTENSIVE TREATMENT PLANNING Routine 04/29/2024 11:30 AM EST Periodontal disease Periapical abscess without sinus documented in this encounter Visit Diagnoses Diagnosis Periodontal disease- Primary Unspecified gingival and periodontal disease Periapical abscess without sinus documented in this encounter
--- OUTSIDE RECORDS SUMMARY | 2024-05-03 13:13 | XMS_ITS | Encounter Summary ---
Author Organization [facility] Address [address] [place] [address] Care Team Providers Care Porter Baggage Name Role Phone Unavailable Primary Care Provider Unavailabl e Encounter Details Date Type Department Care Team (Latest Contact Info) Description 01/19/2019 Abstract [facility] CONVERSIONS Dental, Provider, DDS Social History Tobacco Use Types Packs/Day Years Used Date Smoking Tobacco: Never Assessed Sex and Gender Information Value Date Recorded Sex Assigned at Male 02/04/2022 10:14 AM EDT Legal Sex Male 10:14 AM EDT Gender Identity Male 07/16/2023 12:59 PM EDT Sexual Orientation Straight 07/16/2023 12 :59 PM EDT documented as of this encounter Plan of Treatment Upcoming Encounters Date Type Department Care Team (Late st Contact Info) Description 06/24/2024 8:00 AM EDT Office Visit [facility] ADULT DENTAL [address] [place] [address] Zuleyma Hernandez documented as of this encounter Visit Diagnoses Not on filedocumented in this encounter
--- OUTSIDE RECORDS SUMMARY | 2024-05-03 13:13 | XMS_ITS | Clinical Summary ---
Author Organization [employer] Address [address] [facility] 7[address] [place] [address] Care Team Providers Care Flame Annealing Machine Operator Name Role Phone Unavailable Primary Care Provider Unavailabl e Allergies No known active allergies Medications gabapentin (Neurontin) 300 MG capsule TOME 1 C PSULA POR V A ORAL KERRY VECES AL D A FOR 30 DAYS 4 Active cyclobenzaprine (Flexeril) 10 MG tablet TOME ABBEY TABLETA KERRY VECES AL D A CUANDO SEA NECESARIO POR MUSCULOS 4 Active atorvastatin (Lipitor) 40 MG tablet 4 Active naproxen (Naprosyn) 500 MG tablet TAKE 1 TABLET ORALLY 2 TIMES A DAY NEEDED FOR FOR PAIN FOR 30 DAYS 4 Active acetaminophen (Tylenol) 500 MG tabletIndicatio ns:Periodontal disease Take 1 tablet (500 mg) by mouth every 6 (six) hours if needed for mild pain for up to 20 doses. 20 tablet 4 Active B Complex Vitamins (Vitamin B Complex) capsule TAKE 1 CAP ORALLY DAILY FOR 90 DAYS 4 Active cloNIDine (Catapres) 0.1 MG tablet PLEASE SEE ATTACHED FOR DETAILED DIRECTIONS 4 Active celecoxib (CeleBREX) 100 MG capsule TOME ABBEY C PSULA DOS VECES AL D A POR 30 WELLS 5 Active DULoxetine (Cymbalta) [address] capsule Take 60 mg by mouth in the morning. 5 Active hydrOXYzine HCl (Atarax) 25 MG tablet TOME 1 TABLETA POR V A ORAL KERRY VECES AL D A CUANDO SEA NECESARIO PARA LA ANSIEDAD 4 Active lidocaine (Lidoderm) 5 % patch APPLY 1 PATCH TOPICALLY DAILY LEAVE ON MOST PAINFUL AREA FOR UP TO 12 HRS 4 Active traZODone (Desyrel) 50 MG tablet TOME ABBEY TABLETA POR V A ORAL BEDTIME, MAY REPEAT X 1 NEEDED FOR INSOMNIA 4 Active risperiDONE (RisperDAL) 0.25 MG tablet TOME 1 TABLETA POR V A ORAL TODOS LOS D AL ACOSTARSE 5 Active amoxicillin (Amoxil) 500 MG capsule Take 1 capsule (500 mg) by mouth every 8 (eight) hours for 7 days. 21 capsule 5 05/06/19 25 Active ibuprofen 600 MG tablet Take 1 tablet (600 mg) by mouth every 6 (six) hours if needed for mild pain for up to 10 days. 15 tablet 5 05/09/19 25 Active acetaminophen (Tylenol 8 Hour) 650 MG ER tablet Take 1 tablet (650 mg) by mouth every 8 (eight) hours if needed for moderate pain for up to 10 days. Do not crush, chew, or split. 15 tablet 5 05/09/19 25 Active chlorhexidine (Peridex) 0.12 % solution Use 15 mL in the mouth or throat if needed (for mouthwash 15 ml for 30 seconds, swish and spit) for up to 14 days. 473 mL 5 05/13/19 25 Active Active Problems Problem Noted Date Diagnosed Date Periodontal disease 03/08/2024 Chronic periodontitis 07/16/2023 Chronic low back pain 07/24/2012 Depressive disorder 07/24/2012 History of alcoholism 07/24/2012 Hyperlipidemia 07/24/2012 Encounters Date Type Department Care Team Description 04/29/2024 11:30 AM EST Office Visit [facility] ADULT DENTAL [address] [place] [address] Mohini Jean DDS Periodontal disease (Primary Dx); Periapical abscess without sinus 04/29/2024 Patient Outreach [facility] MEDICINE [address], [place] [id number] Serge Cabral Recovery Supports 03/08/2024 8:00 AM EST Office Visit [facility] ADULT DENTAL [address] [place] [address] Jerardo Martinez DDS Periodontal disease (Primary Dx) from Last 3 Months Social History Tobacco Use Types Packs/Day Years Used Date Smoking Tobacco: Never Smokeless Tobacco: Never Tobacco Cessation:Counseling Given: Not Answered Alcohol Use Standard Drinks/Week Comments Not Currently 0 (1 standard drink = 0.6 oz pur e alcohol) Sex and Gender Information Value Date Recorded Sex Assigned at Male 02/04/2022 10:14 AM EDT Legal Sex Male 10:14 AM EDT Gender Identity Male 07/16/2023 12:59 PM EDT Sexual Orientation Straight 07/16/2023 12 :59 PM EDT Last Filed Vital Signs Vital Sign Reading Time Taken Comments Blood Pressure 120/80 03/08/2024 8:00 AM EST Pulse - - Temperature - - Respiratory Rate - - Oxygen Saturation - - Inhaled Oxygen Concentration - - Weight - - Height - - Body Mass Index - - Plan of Treatment Upcoming Encounters Date Type Department Care Team (Late st Contact Info) Description 06/24/2024 8:00 AM EDT Office Visit [facility] ADULT DENTAL [address] [place] [address] Zuleyma Hernandez Health Maintenance Due Date Last Done Comments CT Colonography 1969 Colonoscopy 1969 Colorectal Cancer Screening 1969 Depression Screening 1969 FIT DNA/Cologuard 1969 FIT 1969 FOBT 1969 HIV Screening 1969 Lipid Panel 1969 SDOH Screening 1969 Sigmoidoscopy 1969 Alcohol/Substance Use Screening 1981 Hepatitis C Screening 1987 Hepatitis B Vaccines (1 of 3 - 19+ 3-dose series) 1988 Zoster Vaccines (1 of 2) 2019 Dental X-Ray: Full Mouth 08/06/2021 08/05/2018 Dental Oral Exam 12/17/2021 06/15/2021, 02/2021, 02/23/2019, Additional history exists Dental Prophylaxis 02/08/2022 08/07/2021, 0 11/15/2020, 01/19/2019, Additional history exists Dental X-Ray: Bitewings 06/16/2022 06/16/19 22, 11/15/2020, 08/05/2018, Additional history exists Tobacco Screening 04/29/2025 04/29/2024 DTaP/Tdap/Td Vaccines (3 - Td or Tdap) 10/12/2027 10/11/2017, 01/23/2017, 09/23/2015, Additional history exists RSV Patients and Patients Aged 60 years or older (1 - 1-dose 75+ series) 2044 COVID-19 Vaccine Completed 12/16/2023, 08/2022, 10/30/2021, Additional history exists Influenza Vaccine Completed 12/16/2023, , 01/21/2022, Additional history exists HIB Vaccines Aged Out No longer eligi ble based on patient's age to complete this topic HPV Vaccines Aged Out No longer eligi ble based on patient's age to complete this topic Hepatitis A Vaccines Aged Out No long er eligible based on patient's age to complete this topic IPV Vaccines Aged Out No longer eligi ble based on patient's age to complete this topic Meningococcal Vaccine Aged Out No cely yeyo eligible based on patient's age to complete this topic Pneumococcal Vaccine: Pediatrics (0 to 5 Years) and At-Risk Patients (6 to 64 Years) Aged Out No longer eligible based on patient's age to complete this topic RSV under 20 months Aged Out No longe r eligible based on patient's age to complete this topic Rotavirus Vaccines Aged Out No longer eligible based on patient's age to complete this topic Procedures Procedure Name Priority Date/Time Associated Diagnosis Comments ADJUNCTIVE GENERAL SERVICES - PROFESSIONAL VISITS - CASE PRESENTATION, SUBSEQUENT TO DETAILED AND EXTENSIVE TREATMENT PLANNING Routine 04/29/2024 11:30 AM EST Periodontal disease Periapical abscess without sinus INTRAORAL - PERIAPICAL FIRST RADIOGRAPHIC IMAGE Routine 04/29/2024 11:30 AM EST Periodontal disease Periapical abscess without sinus ADJUNCTIVE GENERAL SERVICES - UNCLASSIFIED TREATMENT - PALLIATIVE TREATMENT OF DENTAL PAIN - PER VISIT Routine 04/29/2024 11:30 AM EST Periodontal disease Periapical abscess without sinus ADJUNCTIVE GENERAL SERVICES - PROFESSIONAL VISITS - CASE PRESENTATION, SUBSEQUENT TO DETAILED AND EXTENSIVE TREATMENT PLANNING Routine 03/08/2024 8:00 AM EST 14 EXTRACTION, ERUPTED TOOTH OR EXPOSED ROOT (ELEVATION AND/OR FORCEPS REMOVAL) Routine 03/08/2024 8:00 AM EST PROPHYLAXIS - ADULT Routine 08/07/2021 1 2:00 AM EDT BITEWINGS - 4 RADIOGRAPHIC IMAGES Routine 06/15/2021 12:00 AM EST PERIODIC ORAL EVALUATION - ESTABLISHED PATIENT Routine 06/15/2021 12:00 AM EST DIAGNOSTIC - DIAGNOSTIC IMAGING - INTRAORAL - COMPREHENSIVE SERIES OF RADIOGRAPHIC IMAGES Routine 08/05/2018 12:00 AM EDT from Last 3 Months or Most Recently Relevant to Health Maintenance Insurance [facility] MEDICAID STAND ADULT
--- OUTSIDE RECORDS SUMMARY | 2024-05-03 13:13 | XMS_ITS | Encounter Summary ---
Author Organization [facility] Address [address] [facility] [address] [place] [address] Care Team Providers Care Veterinary Nurse Name Role Phone Unavailable Primary Care Provider Unavailabl e Encounter Details Date Type Department Care Team (Latest Contact Info) Description 11/15/2020 Abstract [facility] CONVERSIONS Dental, Provider, DDS Social History Tobacco [...] Description 06/24/2024 8:00 AM EDT Office Visit [facility] ADULT DENTAL [address] [place] [address] Zuleyma Hernandez documented as of this encounter Visit Diagnoses Not on filedocumented in this encounter
== END 2024-05-03 08:54 | disposition home or self-care (01) ==
LOC: HO.LAB 08:53
PROVIDERS: PCP Internal Medicine; Visit Provider Internal Medicine
DX: Z00.00 Encounter for general adult medical examination without abnormal findings (principal); D64.9 Anemia, unspecified; E55.9 Vitamin D deficiency, unspecified; E78.5 Hyperlipidemia, unspecified
CPT/HCPCS: 36415; 80053; 80061; 82306; 83540; 85025

== ENCOUNTER 2024-05-27 11:44 | Emergency (ER) | payer OTHER, SELFPAY ==
--- OUTSIDE RECORDS SUMMARY | 2024-05-27 13:45 | XMS_ITS ---
Author Organization [facility] Address [address] [place] [address] Care Team Providers Care Hydraulic Rock Drill Operator Name Role Phone Kaely Sanchez Primary Care Provider Unavailab Andrew Luna Unavailable [phone] REASON FOR VISIT results Encounters Encounter Location Date Provider Diagnosis [facility] [address] [place] [address] 07/17/2023 Andrew Pope PLAN OF TREATMENT Next Appt Details Provider Name:Andrew Pope , 07/13/2024 01:20:00 PM, [address], [address], [place], [address],
--- OUTSIDE RECORDS SUMMARY | 2024-05-27 13:46 | XMS_ITS | Encounter Summary ---
Author Organization [facility] Address [address] [facility] 7t [place] [address] Care Team Providers Care Dag Sprayer Name Role Phone Unavailable Primary Care Provider Unavailabl e Encounter Details Date Type Department Care Team (Latest Contact Info) Description 11/15/2020 Abstract [facility] CONVERSIONS Dental, Provider, DDS Social [...] Description 06/24/2024 8:00 AM EDT Office Visit [facility] ADULT DENTAL [address] [place] [address] Zuleyma Hernandez 06/28/2024 9:00 AM EDT Office Visit [facility] ADULT DENTAL [address] [place] [address] Jerardo Martinez DDS [address] [place] [address] documented as of this encounter Visit Diagnoses Not on filedocumented in this encounter
--- OUTSIDE RECORDS SUMMARY | 2024-05-27 13:46 | XMS_ITS | Patient Health Record ---
Author Organization [facility] Address [address] [place] [address] Care Team Providers Care Scarfer Operator Name Role Phone Kaley Sanchez Primary Care Provider UnavailAndrew Owens Unavailable [phone] ALLERGIES No Known Allergies RESULTS Component Value Reference Range Notes Complete Blood Count Auto Di ff Reviewed date:06/24/2023 10:37:03 PM Interpretation: Performing Lab:[facility], [address] [place] [phone] Notes/Report: White Blood Count 8.1 4.8-10.8 X10*3/uL [...] INR Reviewed date:06/24/2023 10:36:37 PM Interpretation: Performing Lab:[address] [address] Notes/Report: Prothrombin Time 11.8 11.1-13.3 SEC INTERNATIONAL [...] Panel Reviewed date:06/24/2023 10:38:22 PM Interpretation: Performing Lab:[address] [address] Notes/Report: Bilirubin Total 0.6 0.0-1.0 mg/dL Bilirubin Direct 0.2 0.0-0.5 mg/dL Aspartate Amino Transferase 16 5-37 U/L Alanine Aminotransferase 25 0-40 U/L Total Protein 7.4 6.5-8.0 g/dL Albumin Level 4.2 3.5-5.0 g/dL Alkaline Phosphatase 127 39-117 U/L Alpha Fetoprotein Reviewed date:07/12/2023 10:43:19 PM Interpretation: Performing Lab:[address] [address] Notes/Report: Alpha Fetoprotein 11.3 <6.1 ng/mL This test was performed using the John Wheatland chemiluminescent method. Values obtained from different assay methods cannot be used interchangeably. AFP levels, regardless of value, should not be interpreted as absolute evidence of the presence or absence of disease. THIS TEST WAS PERFORMED AT: [facility] [address] [place] [phone] SARA LLAMAS MD Liver Fibrosis Pnl Reviewed date:06/30/2023 11:45:31 PM Interpretation: Performing Lab:[facility], [address] [place] [phone] Notes/Report: Liver Fibrosis Score 0.21 Liver Fibrosis [...] a>0.62 and a<=1.00 : A3 (severe activity) LVE-Szfla-6-Macroglobulin 209 106-279 mg/dL FIB-Haptoglobin 145 43-212 mg/dL FIB-Apolipoprotein A1 168 94-176 mg/dL FIB-Total Bilirubin 0.6 0.2-1.2 mg/dL FIB-GGT 25 3-95 U/L FIB-ALT 22 9-46 U/L Reference ID [id number] Footnote SEE NOTE The reliability of results [...] The performance characteristics have been determined by [employer] [facility]. It has not been cleared or approved by the U.S. Food and Drug Administration. Performance characteristics refer to the analytical performance of the test. [employer], [employer], the associated logo, Wh[employer] (formerly [employer]) and all associated [employer] thorpe are the registered trademarks of [employer]. All third constitution party thorpe - (R) and (TM) - are the property of their respective owners. (C) 0091-7195 [employer]. All rights reserved. THIS TEST WAS PERFORMED AT: [email or web address] [facility] [address] [place] [address] FARA PIERRE MD,PHD,MULUGETA Hepatitis B,C Profile Reviewed date:06/24/2023 10:38:46 PM Interpretation: Performing Lab:[facility], [address] [place] [phone] Notes/Report: Hepatitis B Surface Antibody REACTIVE Nonreactive REACTIVE: > 11.99 mIU/mL Hepatitis B Core Antibody Nonreactive Nonreactive Hepatitis C Antibody Nonreactive Nonreactive Antibodies to HCV not detected; does not exclude early acute HCV infection. Hepatitis B Surface Antigen Negative Negative US abdomen comp w elastograp hy Reviewed date:07/12/2023 10:42:05 PM Interpretation: Performing Lab: Notes/Report: [address] [address] Ultrasound Report Signed Patient: Nick Brenner MR#: [id number] : 1970 Acct:[id number] Age/Sex: 53 / M ADM Date: 06/23/23 Loc: HO.US Attending Dr: Andrew Pope MD Ordering Physician: Andrew Pope Date of Service: 06/23/23 Procedure(s): US abdomen comp w elastography Accession Number(s): [id number] cc: Kaley Sanchez MD; Andrew Pope EXAMINATION: [...] in OV> 06/30/23 1253 DD/ 1001 TD/TT: Occasional Babysitter: AZAM Complete Blood Count Auto Di ff Reviewed date:01/13/2024 09:27:38 PM Interpretation: Performing Lab:[facility], [address] [place] [phone] Notes/Report: White Blood Count 9.0 4.8-10.8 X10*3/uL [...] INR Reviewed date:01/13/2024 09:27:25 PM Interpretation: Performing Lab:[facility], [address] [place] [phone] Notes/Report: Prothrombin Time 11.3 10.9-12.4 SEC INTERNATIONAL [...] Panel Reviewed date:01/13/2024 09:27:57 PM Interpretation: Performing Lab:[facility], [address] [place] [phone] Notes/Report: Bilirubin Total 0.5 0.0-1.0 mg/dL Bilirubin [...] Problem Abdominal pain, epigastric (R10.13) Active confirmed 34028605 Problem Gastroesophageal reflux disease, esophagitis presence not specified (K21.9) Active confirmed 168800432 Problem Gastroesophageal reflux disease, unspecified whether esophagitis present (K21.9) Active confirmed 903028404 Problem Encounter for screening for malignant neoplasm of colon (Z12.11) Active confirmed 461090280 Problem H. 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) Active confirmed Alcoholic fifi er damage (36140524) Problem Elevated liver function tests (R79.89) Active confirmed Elevated liver enzymes level (397189885) Problem Chronic gastritis (K29.50) Active confirmed Chronic gastritis (0279245) VITAL SIGNS Temperature 99.3 degrees Fahrenheit 06/03/2023 Blood pressure diastolic 00 mm Hg 01/13/2024 Height 65 in 01/13/2024 Blood pressure systolic 00 mm Hg 01/13/2024 Weight 130 lbs 01/13/2024 BMI 21.63 kg/m2 01/13/2024 Encounters Encounter Location Date Provider Diagnosis [facility] [address] [place] [phone] 06/03/2023 Andrew Pope Alcohol liver damage K70.9 ; Elevated liver function tests R79.89 and Chronic gastritis K29.50 [facility] [address] [place] [phone] 01/13/2024 Andrew Pope Alcohol liver damage K70.9 ; Elevated liver function tests R79.89 and 16 weeks gestation of Z3A.16 [facility] [address] [place] [phone] 07/17/2023 Andrew Pope [facility] [address] [place] [phone] 07/23/2023 Andrew Pope ASSESSMENTS Encounter Date Diagnosis [...] Test Test Name Order Date LIVER PROFILE 06/03/2023 LIVER PROFILE 01/13/2024 CBC w DIFF 06/03/2023 CBC w DIFF 01/13/2024 ALPHA-FETOPROTEIN,TUMOR MARKER US ABD 08/22/2020 Prothrombin Time INR 06/03/2023 Prothrombin Time INR 01/13/2024 Liver Fibrosis Pnl 06/03/2023 Hepatitis B,C Profile 06/03/2023 US abdomen comp w elastography Future Test Test Name Order Date UPPER GI ENDOSCOPY 12/14/2015 UPPER GI ENDOSCOPY 08/22/2020 COLONOSCOPY 08/22/2020 Next Appt Details Provider Name:Andrew Pope , 07/13/2024 01:20:00 PM, [address] [facility], [address], [place], [address], Insurance Providers Payer Name Payer Address Payer Phone Subscriber Number Group Number Insured Name Patient Relationship to Insured Coverage Start Date Coverage End Date [facility] [address] [address] [place], [place] [id number] NICK SPIVEY Self - patient is the insured MEDICAL (GENERAL) HISTORY Medical History History ICD Code Hyperlipidemia Chronic low back pain Hx of alcoholism and cocaine use Depression Denies DE,DM,CVA,Lung disease,renal dise ase EGD 2015-small hiatal hernia [...]
--- OUTSIDE RECORDS SUMMARY | 2024-05-27 13:46 | XMS_ITS | Encounter Summary ---
Author Organization [employer] [facility] Address [address]t [place] [address] Care Team Providers Care Commercial Loan Officer Name Role Phone Unavailable Primary Care Provider Unavailabl e Encounter Details Date Type Department Care Team (Latest Contact Info) Description 01/19/2019 Abstract [facility] CON[facility] Dental, Provider, DDS Social History [...] 06/24/2024 8:00 AM EDT Office Visit [facility] [address] [place] [address] Zuleyma Hernandez 06/28/2024 9:00 AM EDT Office Visit [facility] [address] [place] [address] Jerardo Martinez DDS [address] [place] [address] documented as of this encounter Visit Diagnoses Not on filedocumented in this encounter
--- OUTSIDE RECORDS SUMMARY | 2024-05-27 13:46 | XMS_ITS | Encounter Summary ---
Author Organization [employer] [facility] Address [address] [place] [address] Care Team Providers Care Obgyn Nurse Name Role Phone Unavailable Primary Care Provider Unavailabl e Reason for Visit * Reason Comments Dental Pain UR Encounter Details Date Type Department Care Team (Late st Contact Info) Description 04/29/2024 11:30 AM EST Office Visit [facility] [address] [place] [address] Mohini Jean DDS [address] [place] [address] Periodontal disease (Primary Dx); Periapical abscess without [...] 04/29/24, Timeout Time: 1128 (pain UR) Location: [facility] Tooth: #3 Procedure: Emergency Verified the above with patient, assistant librarian, and provider. Confirmed via patient's chart, intraorally and by radiographs. Oil Processing Technician: not applicable Chief Complaint Patient presents with [...] Dismissed in good condition. NV: Ext #3 General Ledger Bookkeeper: Amirah Kay Dentist: Mohini Jean DDS documented in this encounter Plan of Treatment Upcoming Encounters Date Type Department Care Team (Late st Contact Info) Description 06/24/2024 8:00 AM EDT Office Visit [facility] [address] [place], [place] [phone] Zuleyma Hernandez 06/28/2024 9:00 AM EDT Office Visit [facility] [address] [place], [place] [phone] Jerardo Martinez DDS [address] [place] [address] Scheduled Orders Name Type Priority Associated Diagnoses Orde r Schedule 3 3 EXTRACTION, ERUPTED TOOTH OR EXPOSED ROOT (ELEVATION AND/OR FORCEPS REMOVAL) Dental Routine 1 Occurrences s tarting 04/29/2024 documented as of this encounter Procedures Procedure Name Priority Date/Time Associated Diagnosis Comments PALLIATIVE (EMERGENCY) TREATMENT OF DENTAL PAIN - MINOR PROCEDURE Routine 04/29/2024 11:30 AM EST Periodontal disease Periapical abscess without sinus INTRAORAL - PERIAPICAL FIRST RADIOGRAPHIC IMAGE Routine 04/29/2024 11:30 AM EST Periodontal disease Periapical abscess without sinus CASE PRESENTATION, DETAILED AND EXTENSIVE TREATMENT PLANNING Routine 04/29/2024 11:30 AM EST Periodontal disease Periapical abscess without sinus documented in this encounter Visit Diagnoses Diagnosis Periodontal disease- Primary Unspecified gingival and periodontal disease Periapical abscess without sinus documented in this encounter
--- OUTSIDE RECORDS SUMMARY | 2024-05-27 13:46 | XMS_ITS ---
Author Organization [facility] Address [address] [place] [address] Care Team Providers Care Bight Maker Name Role Phone Kaley Sanchez Primary Care Provider Unavailab Andrew Luna Unavailable [phone] Encounters Encounter Location Date Provider Diagnosis [facility] [address] [place] [address] 07/23/2023 Andrew Pope PLAN OF TREATMENT Next Appt Details Provider Name:Andrew Pope , 07/13/2024 01:20:00 PM, [address], [address], [place], [address],
--- OUTSIDE RECORDS SUMMARY | 2024-05-27 13:46 | XMS_ITS | Encounter Summary ---
Author Organization [employer] Address [address] 7t [place] [address] Care Team Providers Care Raise Driller Name Role Phone Unavailable Primary Care Provider Unavailabl e Reason for Visit * Reason Comments [facility] Recovery Supports Encounter Details Date Type Department Care Team (Late st Contact Info) Description 04/29/2024 Patient Outreach [facility] [address] [place], [place] [phone] Serge Cabral [address] [place], [place] [phone] Recovery Supports Social History Tobacco Use Types [...] with Nick today. Setting: in person at [facility] Recovery Wellness Goals worked on: Social Stability and Spiritual Wellness Action taken/next steps: Offered person centered recovery support, Assisted with relapse prevention planning, Attended alcohol and drug free activity, and Supported spiritual needs Additional comments:Today, Nick came in with his therapist to the Center. I briefly introduced myself as a rn recovery. We were able to talk about all [...] Description 06/24/2024 8:00 AM EDT Office Visit [facility] [address] [place] [address] Zuleyma Hernandez 06/28/2024 9:00 AM EDT Office Visit [facility] [address] [place], [place] [phone] Jerardo Martinez DDS [address] [place] [address] documented as of this encounter Visit Diagnoses Not on filedocumented in this encounter
--- OUTSIDE RECORDS SUMMARY | 2024-05-27 13:46 | XMS_ITS | Clinical Summary ---
Author Organization [employer] Address [address] [place] [address] Care Team Providers Care Candy Cooker Helper Name Role Phone Unavailable Primary Care Provider [...] 7 days. 21 capsule 5 05/06/19 25 ibuprofen 600 MG tablet Take 1 tablet (600 mg) by mouth every 6 (six) hours if needed for mild pain for up to 10 days. 15 tablet 5 05/09/19 25 acetaminophen (Tylenol 8 Hour) 650 MG ER tablet Take 1 tablet (650 mg) by mouth every 8 (eight) hours if needed for moderate pain for up to 10 days. Do not crush, chew, or split. 15 tablet 5 05/09/19 25 chlorhexidine (Peridex) 0.12 % solution Use 15 mL in the mouth or throat if needed (for mouthwash 15 ml for 30 seconds, swish and spit) for up to 14 days. 473 mL 5 05/13/19 25 Active Problems Problem Noted Date Diagnosed Date Periodontal disease 03/08/2024 Chronic periodontitis 07/16/2023 Chronic low back pain 07/24/2012 Depressive disorder 07/24/2012 History of alcoholism 07/24/2012 Hyperlipidemia 07/24/2012 Encounters Date Type Department Care Team Description 04/29/2024 11:30 AM EST Office Visit [facility] [address] [place] [address] Mohini Jean DDS Periodontal disease (Primary Dx); Periapical abscess without sinus 04/29/2024 Patient Outreach [facility] [address] [place], [place] [phone] Serge Cabral Recovery Supports 03/08/2024 8:00 AM EST Office Visit [facility] [address] [place], [place] [phone] Jerardo Martinez DDS Periodontal disease (Primary Dx) [...] Description 06/24/2024 8:00 AM EDT Office Visit [facility] [address] [place] [address] Zuleyma Hernandez 06/28/2024 9:00 AM EDT Office Visit [facility] [address] [place] [address] Jerardo Martinez, DDS [address] [place] [address] Health Maintenance Due Date Last Done Comments CT Colonography 1969 Colonoscopy 1969 Colorectal Cancer Screening 1970 Depression Screening 1970 FIT DNA/Cologuard 1970 FIT 1970 FOBT 1970 HIV Screening 1970 Lipid Panel 1969 SDOH Screening 1969 Sigmoidoscopy 1969 Alcohol/Substance Use Screening 1981 Hepatitis C Screening 1987 Hepatitis B Vaccines (1 of 3 - 19+ 3-dose series) 1988 Pneumococcal Vaccine: 50+ Years (1 of 1 - PCV) 2019 Zoster Vaccines (1 of 2) 2019 Dental [...] Procedure Name Priority Date/Time Associated Diagnosis Comments CASE PRESENTATION, DETAILED AND EXTENSIVE TREATMENT PLANNING Routine 04/29/2024 11:30 AM EST Periodontal disease Periapical abscess without sinus INTRAORAL - PERIAPICAL FIRST RADIOGRAPHIC IMAGE Routine 04/29/2024 11:30 AM EST Periodontal disease Periapical abscess without sinus PALLIATIVE (EMERGENCY) TREATMENT OF DENTAL PAIN - MINOR PROCEDURE Routine 04/29/2024 11:30 AM EST Periodontal disease Periapical abscess without sinus CASE PRESENTATION, DETAILED AND EXTENSIVE TREATMENT PLANNING Routine 03/08/2024 8:00 AM EST 14 EXTRACTION, ERUPTED TOOTH OR EXPOSED ROOT (ELEVATION/FORCEPS REMOVAL) Routine 03/08/2024 8:00 AM EST PROPHYLAXIS - ADULT Routine 08/07/2021 1 2:00 AM EDT BITEWINGS - 4 RADIOGRAPHIC IMAGES Routine 06/15/2021 12:00 AM EST PERIODIC ORAL EVALUATION - ESTABLISHED PATIENT Routine 06/15/2021 12:00 AM EST INTRAORAL - COMPLETE SERIES OF RADIOGRAPHIC IMAGES Routine 08/05/2018 12:00 AM EDT from Last 3 Months or Most Recently Relevant to Health Maintenance Insurance [facility] MEDICAID STAND ADULT
--- OUTSIDE RECORDS SUMMARY | 2024-05-27 13:46 | XMS_ITS ---
Author Organization [facility] Address [address] [place] [address] Care Team Providers Care Garnetter Name Role Phone Kaley Sanchez Primary Care Provider Unavailab Andrew Luna Unavailable [phone] ALLERGIES No Known Allergies REASON FOR VISIT [...] 01/13/2024 Encounters Encounter Location Date Provider Diagnosis [facility] [address] [place] [address] 01/13/2024 Andrew Pope Alcohol liver damage K70.9 [...] 01/13/2024 Next Appt Details Follow Up: 2024, Michelle son: Provider Name:Andrew Pope , 07/13/2024 01:20:00 PM, [address] [facility], [address], [place], [address], Progress Notes * Examination Category Sub-Category Detail [...]
== END 2024-05-27 13:57 | disposition left against medical advice (07) ==
PROVIDERS: Emergency Provider Emergency Medicine; PCP Internal Medicine
DX: M54.50 Low back pain, unspecified (principal)

== ENCOUNTER 2024-06-01 06:16 | Outpatient (REF) | payer OTHER, SELFPAY ==
--- NOTE | ~2024-06-01 | FL_ITS ---
EXAMINATION: FL GUIDANCE ONLY HISTORY: M47.817 - Spondylosis without myelopathy or radiculopathy, lumbosacral COMPARISON: None available. TECHNIQUE: Fluoroscopy time: 0.4 minutes. Cumulative Dose: 4.80 mGy. DAP: 0.0835 mGym2 Images: 8. FINDINGS: Images demonstrate needles and contrast material in the regions of the right L3-4, L4-5, and L5-S1 facet joints. FL/FL guidance in treatment room IMPRESSION: Fluoroscopy during procedure. Please see procedure report for additional information. Electronically signed by: Andrew Parker MD 06/01/2024 01:26 PM [place]
--- OUTSIDE RECORDS SUMMARY | 2024-06-01 06:18 | XMS_ITS | Encounter Summary ---
Author Organization [employer] [facility] Address [address] 7t [place] [address] Care Team Providers Care Clinical Data Analyst Name Role Phone Unavailable Primary Care Provider Unavailabl e Encounter Details Date Type Department Care Team (Latest Contact Info) Description 01/19/2019 Abstract [facility] CONVERSIONS Dental, Provider, DDS [...] Description 06/24/2024 8:00 AM EDT Office Visit [facility] ADULT D[facility] [address] [place] [address] Zuleyma Hernandez 06/28/2024 9:00 AM EDT Office Visit [facility] ADULT [facility] [address] [place] [address] Jerardo Martinez DDS [address] [place] [address] documented as of this encounter Visit Diagnoses Not on filedocumented in this encounter
--- OUTSIDE RECORDS SUMMARY | 2024-06-01 06:18 | XMS_ITS ---
Author Organization [facility] Address [address] [place] [address] Care Team Providers Care Product Handler Name Role Phone Kaley Sanchez Primary Care Provider Unavailab Andrew Luna Unavailable [phone] REASON FOR VISIT results Encounters Encounter Location Date Provider Diagnosis [facility] [address] [place] [address] 07/17/2023 Andrew Pope PLAN OF TREATMENT Next Appt Details Provider Name:Andrew Pope , 07/13/2024 01:20:00 PM, [address], [address], [place], [address],
--- OUTSIDE RECORDS SUMMARY | 2024-06-01 06:19 | XMS_ITS | Patient Health Record ---
Author Organization [facility] Address [address] [place] [address] Care Team Providers Care Play Leader Name Role Phone Kaley Sanchez Primary Care Provider UnavailAndrew Owens Unavailable [phone] ALLERGIES No Known Allergies RESULTS Component Value Reference Range Notes Complete Blood Count Auto Di ff Reviewed date:06/24/2023 10:37:03 PM Interpretation: Performing Lab:[facility], [address] [place] [phone] Notes/Report: White Blood Count 8.1 4.8-10.8 X10*3/uL [...] INR Reviewed date:06/24/2023 10:36:37 PM Interpretation: Performing Lab:[address] [phone] Notes/Report: Prothrombin Time 11.8 11.1-13.3 SEC INTERNATIONAL [...] Panel Reviewed date:06/24/2023 10:38:22 PM Interpretation: Performing Lab:[address] [phone] Notes/Report: Bilirubin Total 0.6 0.0-1.0 mg/dL Bilirubin Direct 0.2 0.0-0.5 mg/dL Aspartate Amino Transferase 16 5-37 U/L Alanine Aminotransferase 25 0-40 U/L Total Protein 7.4 6.5-8.0 g/dL Albumin Level 4.2 3.5-5.0 g/dL Alkaline Phosphatase 127 39-117 U/L Alpha Fetoprotein Reviewed date:07/12/2023 10:43:19 PM Interpretation: Performing Lab:[address] [address] Notes/Report: Alpha Fetoprotein 11.3 <6.1 ng/mL This test was performed using the John Huson chemiluminescent method. Values obtained from different assay methods cannot be used interchangeably. AFP levels, regardless of value, should not be interpreted as absolute evidence of the presence or absence of disease. THIS TEST WAS PERFORMED AT: [facility] [address] [place] [phone] SARA LLAMAS MD Liver Fibrosis Pnl Reviewed date:06/30/2023 11:45:31 PM Interpretation: Performing Lab:[facility], [address] [place] [phone] Notes/Report: Liver Fibrosis Score 0.21 Liver Fibrosis [...] a>0.62 and a<=1.00 : A3 (severe activity) RYP-Bdvoe-2-Macroglobulin 209 106-279 mg/dL FIB-Haptoglobin 145 43-212 mg/dL FIB-Apolipoprotein A1 168 94-176 mg/dL FIB-Total Bilirubin 0.6 0.2-1.2 mg/dL FIB-GGT 25 3-95 U/L FIB-ALT 22 9-46 U/L Reference ID [id number] Footnote SEE NOTE The reliability of results [...] The performance characteristics have been determined by [facility]. It has not been cleared or approved by the U.S. Food and Drug Administration. Performance characteristics refer to the analytical performance of the test. [employer], [employer], the associated logo, [employer] and all associated [employer] thorpe are the registered trademarks of [employer]. All third alliance party thorpe - (R) and (TM) - are the property of their respective owners. (C) 8399-7362 [employer]. All rights reserved. THIS TEST WAS PERFORMED AT: [employer] [facility] [address] [place] [address] FARA PIERRE MD,PHD,MULUGETA Hepatitis B,C Profile Reviewed date:06/24/2023 10:38:46 PM Interpretation: Performing Lab:[facility], [address] [place] [phone] Notes/Report: Hepatitis B Surface Antibody REACTIVE Nonreactive REACTIVE: > 11.99 mIU/mL Hepatitis B Core Antibody Nonreactive Nonreactive Hepatitis C Antibody Nonreactive Nonreactive Antibodies to HCV not detected; does not exclude early acute HCV infection. Hepatitis B Surface Antigen Negative Negative US abdomen comp w elastograp hy Reviewed date:07/12/2023 10:42:05 PM Interpretation: Performing Lab: Notes/Report: [address] [address] Ultrasound Report Signed Patient: Nick Brenner MR#: [id number] : 1970 Acct:[id number] Age/Sex: 53 / M ADM Date: 06/23/23 Loc: HO.US Attending Dr: Andrew Pope MD Ordering Physician: Andrew Pope Date of Service: 06/23/23 Procedure(s): US abdomen comp w elastography Accession Number(s): [id number] cc: Kaley Sanchez MD; Andrew Pope EXAMINATION: [...] in OV> 06/30/23 1253 DD/ 1001 TD/TT: Diesel Fleet Mechanic: AZAM Complete Blood Count Auto Di ff Reviewed date:01/13/2024 09:27:38 PM Interpretation: Performing Lab:[facility], [address] [place] [phone] Notes/Report: White Blood Count 9.0 4.8-10.8 X10*3/uL [...] INR Reviewed date:01/13/2024 09:27:25 PM Interpretation: Performing Lab:[facility], [address] [place] [phone] Notes/Report: Prothrombin Time 11.3 10.9-12.4 SEC INTERNATIONAL [...] Panel Reviewed date:01/13/2024 09:27:57 PM Interpretation: Performing Lab:[facility], [address] [place] [phone] Notes/Report: Bilirubin Total 0.5 0.0-1.0 mg/dL Bilirubin [...] W/U Status Risk SNOMED Code Notes Problem Encounter for screening for malignant neoplasm of colon (Z12.11) Active confirmed 680751916 Problem Diverticulosis of large intestine without perforation or abscess without bleeding (K57.30) Active confirmed Diverticul ar disease of colon (221415994) Problem Generalized abdominal pain (R10.84) Active confirmed 199683646 Problem Abdominal pain, epigastric (R10.13) Active confirmed 13253078 Problem Elevated liver function tests (R79.89) Active confirmed Elevated liver enzymes level (084316097) Problem Gastroesophageal reflux disease, esophagitis presence not specified (K21.9) Active confirmed 513424291 Problem Gastritis (K29.70) Active confirmed Gas tritis (9890677) Problem Alcohol liver damage (K70.9) Active confirmed Alcoholic fifi er damage (41133084) Problem Chronic gastritis (K29.50) Active confirmed Chronic gastritis (7335764) Problem H. pylori infection (A04.8) Active confirmed 528224440 Problem Gastroesophageal reflux disease, unspecified whether esophagitis present (K21.9) Active confirmed 836073229 VITAL SIGNS Temperature 99.3 degrees Fahrenheit 06/03/2023 Blood pressure diastolic 00 mm Hg 01/13/2024 Height 65 in 01/13/2024 Blood pressure systolic 00 mm Hg 01/13/2024 Weight 130 lbs 01/13/2024 BMI 21.63 kg/m2 01/13/2024 Encounters Encounter Location Date Provider Diagnosis [facility] [address] [place] [phone] 06/03/2023 Andrew Pope Alcohol liver damage K70.9 ; Elevated liver function tests R79.89 and Chronic gastritis K29.50 [facility] [address] [place] [phone] 01/13/2024 Andrew Pope Alcohol liver damage K70.9 ; Elevated liver function tests R79.89 and 16 weeks gestation of Z3A.16 [facility] [address] [place] [phone] 07/17/2023 Andrew Pope [facility] [address] [place] [phone] 07/23/2023 Andrew Pope ASSESSMENTS Encounter Date Diagnosis [...] Name:Andrew Pope , 07/13/2024 01:20:00 PM, [address] [facility], [address], [place], [address], Insurance Providers Payer Name Payer Address Payer Phone Subscriber Number Group Number Insured Name Patient Relationship to Insured Coverage Start Date Coverage End Date [facility] [address] [address] [place], [place] [id number] NICK SPIVEY Self - patient is the insured MEDICAL (GENERAL) HISTORY Medical History History ICD Code Hyperlipidemia Chronic low back pain Hx of alcoholism and cocaine use Depression Denies [place],DM,CVA,Lung disease,renal dise ase EGD 2015-small hiatal hernia [...]
--- OUTSIDE RECORDS SUMMARY | 2024-06-01 06:19 | XMS_ITS | Encounter Summary ---
Author Organization [facility] Address [address] [place] [address] Care Team Providers Care Burglar Alarm Mechanic Name Role Phone Unavailable Primary Care Provider Unavailabl e Encounter Details Date Type Department Care Team (Latest Contact Info) Description 11/15/2020 Abstract [facility] CONVERSIONS Dental, Provider, DDS Social History Tobacco [...] Description 06/24/2024 8:00 AM EDT Office Visit [facility] ADULT DENTAL [address] [place] [address] Zuleyma Hernandez 06/28/2024 9:00 AM EDT Office Visit [facility] [address] [place] [address] Jerardo Martinez DDS [address] [place] [address] documented as of this encounter Visit Diagnoses Not on filedocumented in this encounter
--- OUTSIDE RECORDS SUMMARY | 2024-06-01 06:19 | XMS_ITS ---
Author Organization [facility] Address [address] [place] [address] Care Team Providers Care Performance Tester Name Role Phone Kaley Sanchez Primary Care Provider Unavailab Andrew Luna Unavailable [phone] Encounters Encounter Location Date Provider Diagnosis [facility] [address] [place] [address] 07/23/2023 Andrew Pope PLAN OF TREATMENT Next Appt Details Provider Name:Andrew Pope , 07/13/2024 01:20:00 PM, [address], [address], [place], [address],
--- OUTSIDE RECORDS SUMMARY | 2024-06-01 06:19 | XMS_ITS ---
Author Organization [facility] Address [address] [place] [address] Care Team Providers Care Shook Machine Operator Name Role Phone Kaley Sanchez Primary Care Provider Unavailab Andrew Luna Unavailable [phone] ALLERGIES No Known Allergies REASON FOR VISIT [...] No Points 0 Interpretation Negative VITAL SIGNS Blood pressure systolic 00 mm Hg 01/13/20 24 Blood pressure diastolic 00 mm Hg 024 Height 65 in 01/13/2024 Weight 130 lbs 01/13/2024 BMI 21.63 kg/m2 01/13/2024 Encounters Encounter Location Date Provider Diagnosis [facility] [address] [place] [address] 01/13/2024 Andrew Pope Alcohol liver damage K70.9 [...] Name:Andrew Pope , 07/13/2024 01:20:00 PM, [address] [facility], [address], [place], [address], Progress Notes * Examination Category Sub-Category Detail [...]
--- OUTSIDE RECORDS SUMMARY | 2024-06-01 06:19 | XMS_ITS | Clinical Summary ---
Author Organization [employer] Address [address]t [place] [address] Care Team Providers Care Music Education Adjunct Professor Name Role Phone Unavailable Primary Care Provider [...] Description 04/29/2024 11:30 AM EST Office Visit [facility] ADULT D[facility] [address] [place] [address] Mohini Jean DDS Periodontal disease (Primary Dx); Periapical abscess without sinus 04/29/[address] [facility] [address] [place], [place] [phone] Serge Cabral Recovery Supports 03/08/2024 8:00 AM EST Office Visit [facility] [address] [place], [place] [phone] Jerardo Martinez DDS Periodontal disease (Primary Dx) [...] Description 06/24/2024 8:00 AM EDT Office Visit [facility] [address] [place] [address] Zuleyma Hernandez 06/28/2024 9:00 AM EDT Office Visit [facility] [address] [place] [address] Jerardo Martinez, DDS [address] [place] [address] Health Maintenance Due Date Last Done Comments [...] Most Recently Relevant to Health Maintenance Insurance [facility] MEDICAID STAND ADULT
== END 2024-06-01 06:17 | disposition home or self-care (01) ==
LOC: CF 06:16
PROVIDERS: Visit Provider Anesthesiology
DX: M47.817 Spondylosis without myelopathy or radiculopathy, lumbosacral region (principal)
CPT/HCPCS: 64493; 64494; J2003; J2795; Q9967

== ENCOUNTER 2024-06-01 07:11 | Outpatient (AMB) | payer OTHER, SELFPAY ==
--- OUTSIDE RECORDS SUMMARY | 2024-06-01 07:14 | XMS_ITS | Encounter Summary ---
Author Organization [employer] [facility] Address [address] [place] [address] Care Team Providers Care Muck Boss Name Role Phone Unavailable Primary Care Provider Unavailabl e Encounter Details Date Type Department Care Team (Latest Contact Info) Description 11/15/2020 Abstract [facility] CONVERSIONS Dental, Provider, DDS Social [...] Description 06/24/2024 8:00 AM EDT Office Visit [facility]ULT [facility] [address] [place] [address] Zuleyma Hernandez 06/28/2024 9:00 AM EDT Office Visit [facility] [address] [place] [address] Jerardo Martinez DDS [address] [place] [address] documented as of this encounter Visit Diagnoses Not on filedocumented in this encounter
--- OUTSIDE RECORDS SUMMARY | 2024-06-01 07:14 | XMS_ITS | Clinical Summary ---
Author Organization [employer] Address [address] [facility] [address]t [place] [address] Care Team Providers Care Flour Inspector Name Role Phone Unavailable Primary Care Provider [...] Description 04/29/2024 11:30 AM EST Office Visit [facility] [address] [place] [address] Mohini Jean DDS Periodontal disease (Primary Dx); Periapical abscess without sinus 04/29/2024 Patient Outreach [facility] [address] [place], [place] [phone] Serge Cabral Recovery Supports 03/08/2024 8:00 AM EST Office Visit [facility] [address] [place], [place] [phone] Jerardo Martinez DDS Periodontal disease (Primary Dx) [...] Description 06/24/2024 8:00 AM EDT Office Visit [facility] [address] [place] [address] Zuleyma Hernandez 06/28/2024 9:00 AM EDT Office Visit [facility] [address] [place] [address] Jerardo Martinez, DDS [address] [place] [address] Health Maintenance Due Date Last Done Comments [...] Most Recently Relevant to Health Maintenance Insurance [facility] MEDICAID STAND ADULT
--- OUTSIDE RECORDS SUMMARY | 2024-06-01 07:14 | XMS_ITS | Encounter Summary ---
Author Organization [facility] [facility] Address [address] [facility] [address] [place] [address] Care Team Providers Care Trademark Paralegal Name Role Phone Unavailable Primary Care Provider Unavailabl e Encounter Details Date Type Department Care Team (Latest Contact Info) Description 01/19/2019 Abstract [facility] CONVERSIONS Dental, Provider, DDS Social History Tobacco [...] Description 06/24/2024 8:00 AM EDT Office Visit [facility] ADULT DENTAL [address] [place] [address] Zuleyma Hernandez 06/28/2024 9:00 AM EDT Office Visit [facility] ADULT DENTAL [address] [place] [address] Jerardo Martinez DDS [address] [place] [address] documented as of this encounter Visit Diagnoses Not on filedocumented in this encounter
--- NOTE | 2024-06-01 07:23 | A.OFFVIS_ITS ---
Vital Signs 06/01/24 07:24 06/01/24 08:24 BP 134/83 146/81 H Blood Pressure Location Rt brachial Lt brachial Position Sitting Sitting Pulse 109 H 99 Pulse Source Pulse Oximeter Pulse Oximeter Pulse Oximetry (%) 96 97 Oxygen Delivery Method Room Air Room Air Comment Pre-Op Post-Op Intake Visit Reasons: RIGHT DIAGNOSTIC L2, L3, L4 DRL5 MBB Allergies No Known Allergies [No Known Allergies*] Allergy (Verified 04/02/24 09:23) PFSH Medical History Anxiety and depression Delusions Severe recurrent major depression w/psychotic features, mood-congruent Opiate abuse, episodic Mild recurrent major depression Physical exam Cocaine use disorder GERD (gastroesophageal reflux disease) History of back pain Headache Right elbow pain Pure hypercholesterolemia Lumbar radiculopathy Spondylosis of lumbosacral spine without myelopathy Alcoholism Abuse, drug or alcohol Surgical History History of esophagogastroduodenoscopy (EGD) History of eye surgery History of eye surgery Family History Father Alcoholism Substance use disorder Mother Diabetes Social History Household Members: None Housing: Apartment Do you presently have visiting nurse or other home services: No Unable to assess alcohol history related to: Unknown Alcohol intake: former Patient Tobacco Use Status: Former Tobacco user Tobacco use type: Cigarette e-Cigarette/Vaping Use: Never Used Second Hand Smoke Exposure: No Substance Use Type: Marijuana service: No Current occupational status: unemployed Sexual orientation: Straight/Heterosexual Cognitive needs: No Hearing needs: No Vision needs: No Physical Exam Vital Signs: Last Vital Signs Pulse 99 06/01/24 08:24 BP 146/81 H 06/01/24 08:24 Pulse Ox 97 06/01/24 08:24 Oxygen Delivery Method Room Air 06/01/24 08:24 Quality Reporting (2019) Adult ([facility] 138/05/29/68) Smoking risk assessment performed?: Yes Patient Tobacco Use Status: Former Tobacco user Assessment & Plan Assessment & Plan (1) Spondylosis of lumbar region without myelopathy or radiculopathy: Code(s): M47.816 - Spondylosis without myelopathy or radiculopathy, lumbar region Category: Medical Plan Diagnostic right medial branch block L2, L3, L4, dorsal ramus L5. Informed consent was thoroughly explained to the patient before the procedure.? The patient came to the operating room.? He was positioned prone on operating table with a pillow under his abdomen.? Time-out was performed delineating correct site and side of the procedure, nature of the injection, name and date of of the patient. The lower back and upper buttocks of the patient was prepped with ChloraPrep and draped with sterile utility towels.? C-arm was brought over the operating field and the point of interest were delineated as confluence of the superior articular process of L3, L4 vertebra and L5 vertebra on the right with corresponding transverse process on the right, as well as confluence of the superior articular process of S1 on the right with sacral ala on the right. The point of interest projection to the skin was injected with small amount of mixture of lidocaine 2% and ropivacaine 0.5%. After that 22 gauge 3-1/2 inch needle was driven to point of interest in tunnel vision fashion. When needle gently contacted the bone injection of the contrast was performed delineating no intravascular and no intrathecal spread of the contrast. After that injection of the small amount of ropivacaine 0.5% less than 1 cc into each target site was performed. Upon completion of the injections the needle was removed sterile Band-Aids were applied. The patient tolerated procedure well. He was given a pain diary to complete after the procedure. Orders: Orders FL guidance in treatment room Today M47.817 - Spondylosis without myelopathy or radiculopathy, lumbosacral region Coding Level of Care Code Procedure Only Diagnoses Spondylosis of lumbar region without myelopathy or radiculopathy M47.816
[2024-06-01 07:24] VITALS: BP 134/83; PULSE 109; O2SAT 96
[2024-06-01 08:24] VITALS: BP 146/81; PULSE 99; O2SAT 97
== END 2024-06-01 08:29 | disposition home or self-care (01) ==
LOC: HO.PMCPRC 07:11
PROVIDERS: PCP Internal Medicine; Visit Provider Anesthesiology
DX: M47.816 Spondylosis without myelopathy or radiculopathy, lumbar region (principal)
CPT/HCPCS: 64493; 64494

== ENCOUNTER 2024-06-07 08:56 | Outpatient (AMB) | payer OTHER, SELFPAY ==
--- NOTE | 2024-06-07 08:58 | A.OFFVIS_ITS ---
Vital Signs 06/07/24 09:02 Height 5 ft 4 in Weight 158 lb 6 oz BMI 27.2 BP 111/78 Blood Pressure Location Rt brachial Position Sitting Pulse 84 Pulse Source Pulse Oximeter Pulse Oximetry (%) 99 Oxygen Delivery Method Room Air Intake Visit Reasons: RIGHT L2, L3, L4, DRL5 MBB Intake Note: [place] today 08/14 Supervisor [employer] Required: No Accompanied by: Self / Same As Patient Allergies No Known Allergies [No Known Allergies*] Allergy (Verified 06/07/24 09:03) HPI Comments Details: Patient presents today to assess response for RIGHT DIAGNOSTIC L2, L3, L4 DRL5 MBB on 06/01/[address] Jacobo. Patient reports 90% pain relief for 24 hours after procedure with significant improvement in his daily activities, functioning, sleep and social activities. He reports shoulder and neck arthritis pain and has been managing this with NSAID, gabapentin, muscle relaxant, and heat applications. Patient reports lidocaine patch has been minimally effective and he is interested to trial another patch. For axial low back pain he is interested to proceed with Sprint PNS trial. Denies any recent cough, cold, infection, fever or any other significant changes in medical history since last office visit. Past Procedures: 06/01/24: Right L2-L3-L4 DR L5 MBB-90% pain relief for 24 hours 02/13/24: Right L4-L5 TFESI-60% right leg pain, 0% back pain relief 04/18/22: Right L2, L3, L4 DR L5 MBB-50% pain relief 2018: Right L4-L5 TFESI-good relief PRIOR: Patient presents today for follow up to discuss interventional procedures to alleviate his chronic low back pain with right sided radiculopathy. This has b een chronic issues for him and he was treated in our office for axial and right radicular pain in the past as well as underwent neurosurgical evaluation by Dr. Smith and was deemed non-surgical. He had good response to right L4-L5 TFESI in 2018 which provided him significant pain relief. Patient request to repeat this injection under sedation. He denies any recent cough, cold, infection, fever, bl adder or bowel dysfunction, saddle anesthesia, any significant changes in her medical history, medications or recent hospitalizations. PRIOR: Patient is a pleasant Arabic speaking 52-year-old male with a past medical history of ETOH and cocaine use disorder, HLD, lumbar DDD and radiculopathy, depression, GERD, presents today for follow up for worsening chronic low back pain, worse on the right side that radiates up to his neck. Patient was recently treated in our ED s/p intoxication/polysubstance use and fall. Patient states he has been sober for 2 months. Patient reports he was trying to get refill for gabapentin from his PCP office but was told it was not good for him. His previous ALT level was elevated. Patient has outstanding lab work ordered by his PCP but not completed yet, I have reminded patient to complete these labs and follow up with his PCP. Patient reports increase in back pain with any movement, worse with bending forward, pulling, lifting, walking, prolonged standing. Resting and repositioning will temporary alleviate his back symptoms. Pain negatively affects his daily activities, functioning, mood, social activities and quality of life. He reports he tried massage therapy, acupuncture, attempted physical therapy and underwent back injections with minimal to no improvement in his symptoms. Denies any fever, chills, weight loss, abdominal or groin pain, gait imbalances, bladder or bowel dysfunction or saddle anesthesia. PRIOR Dr. Jacobo 04/2022: Nick is very pleasant 51 years old gentleman who presents in my office with complains on lower back pain on the right side with radiation into the right lower extremity to the level of the knee but not below the level of the knee. He is under observation in this office for long period of time. He was requesting to be admitted into chronic opioid program in the past. Due to chronic addiction to a alcoholism he was not admitted to the opioid program. He was offered multiple injections. He had an MRI in the past with changes dictated as below. Diagnostic medial branch block on the right L2-L3 L4-5 resulted in less than 50% pain improvement, he does not want to proceed in more injections. Possibility of treating his pain as discogenic explained to the patient. In the past he was adamantly refusing the injections which were offered to him. He requests me to give him some medications which potentially could help him with the pain. He requests me to start him on gabapentin will do it with 6 refills. He is recommended to give us a call in 5-6 months to request about possibility of intradiscal injections. [facility], [facility] Medical History Anxiety and depression Delusions Severe recurrent major depression w/psychotic features, mood-congruent Opiate abuse, episodic Mild recurrent major depression Physical exam Cocaine use disorder GERD (gastroesophageal reflux disease) History of back pain Headache Right elbow pain Pure hypercholesterolemia Lumbar radiculopathy Spondylosis of lumbosacral spine without myelopathy Alcoholism Abuse, drug or alcohol Surgical History History of esophagogastroduodenoscopy (EGD) History of eye surgery History of eye surgery Family History Father Alcoholism Substance use disorder Mother Diabetes Social History Household Members: None Housing: Apartment Do you presently have visiting nurse or other home services: No Unable to assess alcohol history related to: Unknown Alcohol intake: former Patient Tobacco Use Status: Former Tobacco user Tobacco use type: Cigarette e-Cigarette/Vaping Use: Never Used Second Hand Smoke Exposure: No Substance Use Type: Marijuana service: No Current occupational status: unemployed Sexual orientation: Straight/Heterosexual Cognitive needs: No Hearing needs: No Vision needs: No Review of Systems Const All systems reviewed & are unremarkable except as noted in HPI and below Physical Exam Vital Signs: Last Vital Signs Pulse 84 06/07/24 09:02 BP 111/78 06/07/24 09:02 Pulse Ox 99 06/07/24 09:02 Oxygen Delivery Method Room Air 06/07/24 09:02 BMI result Body Mass Index 27.2 General: Appears afebrile. Alert and oriented. Mood and affect appropriate. Follows and participates in conversation appropriately. Respiratory effort is unlabored. No cough. No nasal discharge. Able to transition from sit to stand unassisted. Ambulates with bilaterally normal heel strike and toe off. General: Yes no CVA tenderness Back/Spine/Pelvis Other: Limited lumbar ROM due to pain. No midline tenderness to palpation in the thoracic or lumbar spine. Mild on the right and moderate on the left paraspinal tenderness to palpation in the lumbar spine. Lumbar extension causes moderate pain. Painful facet loading bilaterally, R>L. Back: no CVA tenderness Cervical Spine: cervical muscular tenderness, pain with cervical ROM, cervical spasm and No Cervical spine tenderness Thoracic/Lumbar Spine: thoracic and lumbar spine normal to inspection, No Thoracic/lumbar spine scar(s), Lasegue's sign negative, straight leg raise negative bilaterally, pain with thoraco-lumbar ROM, paraspinal muscle tenderness on the left greater than right, thoraco-lumbar ROM limited, No thoracic spinal tenderness and lumbar spinal tenderness at L4 and at L5 Pelvis: no buttock tenderness and no sciatic notch tenderness Sacroiliac joints: bilaterally (Renaldo's test reproduces right lateral hip pain, not back pain.) nontender Extrem General: Yes capillary refill normal, Yes no clubbing, cyanosis or edema and Yes no calf tenderness Quality Reporting (2019) Adult ([facility] 138/05/29/68) Smoking risk assessment performed?: Yes Patient Tobacco Use Status: Former Tobacco user Results Reviewed Results Reviewed: MR LUMBAR SPINE WITHOUT CONTRAST 05/15/21 CLINICAL INFORMATION: Right-sided lower back pain. Right leg pain. COMPARISON: Lumbar spine radiographs dated 03/26/2017 and lumbar spine MRI dated 06/03/2011. TECHNIQUE: MRI of the lumbar spine was obtained using routine sequences without contrast. FINDINGS: VERTEBRAL BODIES AND PARASPINAL STRUCTURES: Normal vertebral body alignment. The lumbar lordosis is maintained. No acute fracture or subluxation. No loss of vertebral body height. Prominent loss of intervertebral disc height with disc desiccation at L4-L5 and L5-S1 where there are Modic type II degenerative endplate changes as well as a prominent Schmorl's node at the inferior endplate of L4. More mild loss of intervertebral disc height with disc desiccation at L3-L4. Findings have progressed when compared to the prior MRI. No evidence of acute osseous injury. The visualized paraspinal soft tissues are unremarkable. CONUS MEDULLARIS AND CAUDA EQUINA: Normal, terminating at the level of L1. SPINAL LEVELS: T12-L1: No significant disc bulge. No central canal or neural foraminal stenosis. L1-L2: No significant disc bulge. No central canal or neural foraminal stenosis. L2-L3: No significant disc bulge. No central canal or neural foraminal stenosis. L3-L4: Mild broad-based disc bulge with a tiny left paracentral disc protrusion. Bilateral facet arthropathy. Mild bilateral neural foraminal stenosis. Findings are new/increased when compared to the prior examination. L4-L5: Broad-based disc bulge with bilateral facet arthropathy which encroaches upon the traversing bilateral L5 nerve roots within the lateral recesses and causes [id number] bilateral neural foraminal stenosis. Findings are slightly progressed when compared to the prior examination. L5-S1: Broad-based disc bulge with faint annular fissuring which abuts the traversing bilateral S1 nerve roots in the lateral recesses. Bilateral facet arthropathy causing mild central canal as well as [id number] bilateral neural foraminal stenosis, increased when compared to the prior examination. IMPRESSION: 1. Prominent degenerative disc disease at L4-L5 with a posterior Schmorl's node as well as a broad-based disc bulge and bilateral facet arthropathy which encroach upon the traversing bilateral L5 nerve roots in the lateral recesses. This causes gzks-[id number]-clnmocqa bilateral neural foraminal stenosis. Findings are progressed when compared to the prior examination. 2. Degenerative disc disease at L5-S1 with a broad-based disc bulge and faint annular fissuring which abuts the traversing bilateral S1 nerve roots in combination with bilateral facet arthropathy causes mild central canal as well as jqyo-[id number] bilateral neural foraminal stenosis, increased when compared to the prior examination. 3. Mild broad-based disc bulge at L3-L4 with a tiny left paracentral disc protrusion and bilateral facet arthropathy causing mild bilateral neural foraminal stenosis, new/increased when compared to the prior examination. NONCONTRAST HEAD CT NONCONTRAST CERVICAL SPINE CT 12/26/22 INDICATION INFORMATION: Altered mental status, possible fall COMPARISON: 11/23/2022 FINDINGS: Head: There is no evidence of acute intracranial hemorrhage or territorial infarction. No abnormal mass-effect or midline shift is seen. Blake to white matter differentiation is well preserved. No extra-axial fluid collections are identified. The ventricles are normal in size. There is no abnormal attenuation within the brain parenchyma. The osseous structures and soft tissues are normal. The mastoid air cells and visualized portions of the paranasal sinuses are well-aerated. Cervical spine: There is anatomic alignment of the vertebral bodies and posterior elements. Vertebral body heights are maintained. There is degenerative change at the atlantodens articulation. There is partial ankylosis across C3-C4. There is disc space narrowing throughout much of the remaining cervical spine along with endplate osteophytes. No evidence of acute fracture. No prevertebral soft tissue swelling. Visualized portions of the lung apices are unremarkable. The thyroid gland is unremarkable. IMPRESSION: HEAD: No acute intracranial findings. CERVICAL SPINE: No acute findings identified. Degenerative changes as noted above. Assessment & Plan Assessment & Plan (1) Spondylosis of lumbosacral spine without myelopathy: Code(s): M47.817 - Spondylosis without myelopathy or radiculopathy, lumbosacral region Category: Medical (2) Lumbar degenerative disc disease: Code(s): M51.36 - Other intervertebral disc degeneration, lumbar region Category: Medical (3) Lumbosacral spondylosis: Code(s): M47.817 - Spondylosis without myelopathy or radiculopathy, lumbosacral region Category: Medical (4) Chronic pain syndrome: Code(s): G89.4 - Chronic pain syndrome Category: Medical Plan Schedule Right L3 Medial Branch Sprint PNS trial with local , oral Ativan and fluoroscopy given successful results with recent diagnostic lumbar medial branch blocks. Expectations, risks and benefits were reviewed with patient. Patient is aware he will be contacted to schedule this procedure. We also reviewed therapeutic injections and RFA procedure. Sprint PNS visual m shanell was utilized for patient education today. Patient lives alone and prefers dressing changes in the office by staff. Script sent for Salonpas patches. Continue gabapentin and monitor for any side effects. All questions were answered and patient is in agreement of plan. Follow up after Sprint placement and sooner as needed. Medications: New methyl salicylate-menthol 10-3 % (Salonpas (methyl salicylate-menthol)) do not exceed 2 doses in a 24 hour period 1 patch topical Q12H PRN 20 ea 3RF muscle pain M47.817 - Spondylosis without myelopathy or radiculopathy, lumbosacral region, M51.36 - Other intervertebral disc degeneration, lumbar region, M54.51 - Vertebrogenic low back pain Discontinued lidocaine 5% leave on most painful area for up to 12 hrs Discontinued Reason: Patient Completed Course 1 patch topical DAILY 15 ea 0RF Coding Level of Care Code Est Pt Level 4 (96232) Complex EM visit Add On G2211 Diagnoses Spondylosis of lumbosacral spine without myelopathy M47.817 Lumbar degenerative disc disease M51.36 Lumbosacral spondylosis M47.817 Chronic pain syndrome G89.4
[2024-06-07 09:02] VITALS: BP 111/78; PULSE 84; O2SAT 99; BMI 27.2
--- OUTSIDE RECORDS SUMMARY | 2024-06-07 09:33 | XMS_ITS | Encounter Summary ---
Author Organization [employer] [facility] Address [address] [place] [address] Care Team Providers Care Tape Recorder Mechanic Name Role Phone Unavailable Primary Care Provider Unavailabl e Encounter Details Date Type Department Care Team (Latest Contact Info) Description 11/15/2020 Abstract [facility] CONVERSIONS Dental, Provider, DDS Social History [...] Description 06/24/2024 8:00 AM EDT Office Visit [facility] [address] [place] [address] Zuleyma Hernandez 06/28/2024 9:00 AM EDT Office Visit [facility] [address] [place] [address] Jerardo Martinez DDS [address] [place] [address] documented as of this encounter Visit Diagnoses Not on filedocumented in this encounter
--- OUTSIDE RECORDS SUMMARY | 2024-06-07 09:33 | XMS_ITS ---
Author Organization [facility] Address [address] [place] [address] Care Team Providers Care Research Environmental Engineer Name Role Phone Kaley Sanchez Primary Care Provider Unavailab Andrew Luna Unavailable [phone] REASON FOR VISIT results Encounters Encounter Location Date Provider Diagnosis [facility] [address] [place] [address] 07/17/2023 Andrew Pope PLAN OF TREATMENT Next Appt Details Provider Name:Andrew Pope , 07/13/2024 01:20:00 PM, [address], [address], [place], [address],
--- OUTSIDE RECORDS SUMMARY | 2024-06-07 09:33 | XMS_ITS | Encounter Summary ---
Author Organization [employer] [facility] Address [address] [place] [address] Care Team Providers Care Orthopedics Teacher Name Role Phone Unavailable Primary Care Provider Unavailabl e Encounter Details Date Type Department Care Team (Latest Contact Info) Description 01/19/2019 Abstract [facility] CONVERSIONS Dental, Provider, DDS Social History [...] Description 06/24/2024 8:00 AM EDT Office Visit [facility] [address] [place] [address] Zuleyma Hernandez 06/28/2024 9:00 AM EDT Office Visit [facility] [address] [place] [address] Jerardo Martinez DDS [address] [place] [address] documented as of this encounter Visit Diagnoses Not on filedocumented in this encounter
--- OUTSIDE RECORDS SUMMARY | 2024-06-07 09:33 | XMS_ITS ---
Author Organization [facility] Address [address] [place] [address] Care Team Providers Care Enrollment Services Vice President Name Role Phone Kaley Sanchez Primary Care Provider Unavailab Andrew Luna Unavailable [phone] Encounters Encounter Location Date Provider Diagnosis [facility] [address] [place] [address] 07/23/2023 Andrew Pope PLAN OF TREATMENT Next Appt Details Provider Name:Andrew Pope , 07/13/2024 01:20:00 PM, [address], [address], [place], [address],
--- OUTSIDE RECORDS SUMMARY | 2024-06-07 09:33 | XMS_ITS | Clinical Summary ---
Author Organization [employer] Address [address] [place] [address] Care Team Providers Care Telephony Engineer Name Role Phone Unavailable Primary Care Provider [...] TODOS LOS D AL ACOSTARSE 5 Active ibuprofen 600 MG tablet Take 1 [...] Description 04/29/2024 11:30 AM EST Office Visit [facility] [address] [place], [place] [phone] Mohini Jean DDS Periodontal disease (Primary Dx); Periapical abscess without sinus 04/29/2024 Patient Outreach [facility] [address] [place], [place] [phone] Serge Cabral Recovery Supports from Last 3 Months Social History Tobacco [...] Description 06/24/2024 8:00 AM EDT Office Visit [facility] [address] [place] [address] Mary Zuleyma 06/28/2024 9:00 AM EDT Office Visit [facility] [address] [place], [place] [phone] Jerardo Martinez DDS [address] [place], [place] [phone] Health Maintenance Due Date Last Done Comments [...] EST Periodontal disease Periapical abscess without sinus PROPHYLAXIS - ADULT Routine 08/07/2021 1 2:00 AM EDT BITEWINGS - 4 RADIOGRAPHIC IMAGES Routine 06/15/2021 12:00 AM EST PERIODIC ORAL EVALUATION - ESTABLISHED PATIENT Routine 06/15/2021 12:00 AM EST INTRAORAL - COMPLETE SERIES OF RADIOGRAPHIC IMAGES Routine 08/05/2018 12:00 AM EDT from Last 3 Months or Most Recently Relevant to Health Maintenance Insurance [place] AD[place]
--- OUTSIDE RECORDS SUMMARY | 2024-06-07 09:33 | XMS_ITS | Patient Health Record ---
Author Organization [facility] Address [address] [place] [address] Care Team Providers Care Sales Merchandising Specialist Name Role Phone Kaley Sanchez Primary Care Provider UnavailAndrew Owens Unavailable [phone] ALLERGIES No Known Allergies RESULTS Component Value Reference Range Notes Complete Blood Count Auto Di ff Reviewed date:06/24/2023 10:37:03 PM Interpretation: Performing Lab:[facility], [address] [place] [phone] Notes/Report: White Blood Count 8.1 4.8-10.8 X10*3/uL [...] INR Reviewed date:06/24/2023 10:36:37 PM Interpretation: Performing Lab:[address] [address] Notes/Report: Prothrombin Time 11.8 11.1-13.3 [employer] [...] Panel Reviewed date:06/24/2023 10:38:22 PM Interpretation: Performing Lab:[address] [address] Notes/Report: Bilirubin Total 0.6 0.0-1.0 mg/dL Bilirubin Direct 0.2 0.0-0.5 mg/dL Aspartate Amino Transferase 16 5-37 U/L Alanine Aminotransferase 25 0-40 U/L Total Protein 7.4 6.5-8.0 g/dL Albumin Level 4.2 3.5-5.0 g/dL Alkaline Phosphatase 127 39-117 U/L Alpha Fetoprotein Reviewed date:07/12/2023 10:43:19 PM Interpretation: Performing Lab:[address] [address] Notes/Report: Alpha Fetoprotein 11.3 <6.1 ng/mL This test was performed using the [employer] Austin chemiluminescent method. Values obtained from different assay methods cannot be used interchangeably. AFP levels, regardless of value, should not be interpreted as absolute evidence of the presence or absence of disease. THIS TEST WAS PERFORMED AT: [employer] [employer] [address] [place] [phone] SARA LLAMAS MD Liver Fibrosis Pnl Reviewed date:06/30/2023 11:45:31 PM Interpretation: Performing Lab:[facility], [address] [place] [address] Notes/Report: Liver Fibrosis Score 0.21 Liver Fibrosis [...] a>0.62 and a<=1.00 : A3 (severe activity) IKA-Kgpdn-7-Macroglobulin 209 106-279 mg/dL FIB-Haptoglobin 145 43-212 mg/dL FIB-Apolipoprotein A1 168 94-176 mg/dL FIB-Total Bilirubin 0.6 0.2-1.2 mg/dL FIB-GGT 25 3-95 U/L FIB-ALT 22 9-46 U/L Reference ID [id number] Footnote SEE NOTE The reliability of results [...] The performance characteristics have been determined by [employer]. It has not been cleared or approved by the U.S. Food and Drug Administration. Performance characteristics refer to the analytical performance of the test. [employer], [employer], the associated logo, [employer] and all associated [employer] thorpe are the registered trademarks of [employer]. All third democrat thorpe - (R) and (TM) - are the property of their respective owners. (C) 5280-6494 [employer]. All rights reserved. THIS TEST WAS PERFORMED AT: [employer] [facility] [place] [address] [place] [address] FARA PIERRE MD,PHD,MULUGETA Hepatitis B,C Profile Reviewed date:06/24/2023 10:38:46 PM Interpretation: Performing Lab:[facility], [address] [place] [phone] Notes/Report: Hepatitis B Surface Antibody REACTIVE Nonreactive REACTIVE: > 11.99 mIU/mL Hepatitis B Core Antibody Nonreactive Nonreactive Hepatitis C Antibody Nonreactive Nonreactive Antibodies to HCV not detected; does not exclude early acute HCV infection. Hepatitis B Surface Antigen Negative Negative US abdomen comp w elastograp hy Reviewed date:07/12/2023 10:42:05 PM Interpretation: Performing Lab: Notes/Report: [address] [address] Ultrasound Report Signed Patient: Nick Brenner MR#: [id number] : 1970 Acct:[id number] Age/Sex: 53 / M ADM Date: 06/23/23 Loc: HO.US Attending Dr: Andrew Pope MD Ordering Physician: Andrew Pope Date of Service: 06/23/23 Procedure(s): US abdomen comp w elastography Accession Number(s): [id number] cc: Kaley Sanchez MD; Andrew Pope EXAMINATION: [...] in OV> 06/30/23 1253 DD/ 1001 TD/TT: Java Grails Developer: AZAM Complete Blood Count Auto Di ff Reviewed date:01/13/2024 09:27:38 PM Interpretation: Performing Lab:[facility], [address] [place] [phone] Notes/Report: White Blood Count 9.0 4.8-10.8 X10*3/uL [...] INR Reviewed date:01/13/2024 09:27:25 PM Interpretation: Performing Lab:[facility], [address] [place] [phone] Notes/Report: Prothrombin Time 11.3 10.9-12.4 SEC [employer]NATIONAL [...] Panel Reviewed date:01/13/2024 09:27:57 PM Interpretation: Performing Lab:[facility], [address] [place] [phone] Notes/Report: Bilirubin Total 0.5 0.0-1.0 mg/dL Bilirubin [...] malignant neoplasm of colon (Z12.11) Active confirmed 153249260 Problem Diverticulosis of large intestine without perforation or abscess without bleeding (K57.30) Active confirmed Diverticul ar disease of colon (273094248) Problem Generalized abdominal pain (R10.84) Active confirmed 090011144 Problem Abdominal pain, epigastric (R10.13) Active confirmed 04656894 Problem Elevated liver function tests (R79.89) Active confirmed Elevated liver enzymes level (140769783) Problem Gastroesophageal reflux disease, esophagitis presence not specified (K21.9) Active confirmed 699309596 Problem Gastritis (K29.70) Active confirmed Gas tritis (3099458) Problem Alcohol liver damage (K70.9) Active confirmed Alcoholic fifi er damage (52388068) Problem Chronic gastritis (K29.50) Active confirmed Chronic gastritis (0916889) Problem H. pylori infection (A04.8) Active confirmed 810309250 Problem Gastroesophageal reflux disease, unspecified whether esophagitis present (K21.9) Active confirmed 865498266 VITAL SIGNS Blood pressure diastolic 00 mm Hg 01/13/2024 Height 65 in 01/13/2024 Blood pressure systolic 00 mm Hg 01/13/2024 Weight 130 lbs 01/13/2024 BMI 21.63 kg/m2 01/13/2024 Encounters Encounter Location Date Provider Diagnosis [facility] [address] [place] [address] 01/13/2024 Andrew Pope Alcohol liver damage K70.9 ; Elevated liver function tests R79.89 and 16 weeks gestation of Z3A.16 [facility] [address] [place] [address] 07/17/2023 Andrew Pope [facility] [address] [facility] [address] [place] [address] 07/23/2023 Andrew Pope ASSESSMENTS Encounter Date Diagnosis Assessment Notes Treatment Notes Treatment Clinical Notes 01/13/2024 Elevated liver function tests (ICD-10 - R79.89) 01/13/2024 Alcohol liver damage (ICD-10 - K70.9) 01/13/2024 16 weeks gestation of (ICD-10 - Z3A.16) PLAN OF TREATMENT Pending Test Test Name Order Date LIVER PROFILE 06/03/2023 LIVER PROFILE 01/13/2024 CBC w DIFF 06/03/2023 CBC w DIFF 01/13/2024 ALPHA-FETOPROTEIN,TUMOR MARKER US ABD 08/22/2020 Prothrombin Time INR 01/13/2024 Prothrombin Time INR 06/03/2023 Liver Fibrosis Pnl 06/03/2023 Hepatitis B,C Profile 06/03/2023 US abdomen comp w elastography Future Test Test Name Order Date UPPER GI ENDOSCOPY 12/14/2015 UPPER GI ENDOSCOPY 08/22/2020 COLONOSCOPY 08/22/2020 Next Appt Details Provider Name:Andrew Britton Niko , 07/13/2024 01:20:00 PM, [address] [facility], [address], [place], [address], Insurance Providers Payer Name Payer Address Payer Phone Subscriber Number Group Number Insured Name Patient Relationship to Insured Coverage Start Date Coverage End Date [facility] [address] [address] [place], [place] [id number] [phone] [id number] NICK SPIVEY Self - patient is the insured MEDICAL (GENERAL) HISTORY Medical History History ICD Code Hyperlipidemia Chronic low back pain Hx of alcoholism and cocaine use Depression Denies DC,DM,CVA,Lung disease,renal dise ase EGD 2015-small hiatal hernia [...]
--- OUTSIDE RECORDS SUMMARY | 2024-06-07 09:33 | XMS_ITS ---
Author Organization [facility] Address [address] [place] [address] Care Team Providers Care Change Control Analyst Name Role Phone Kaley Sanchez Primary Care Provider Unavailab Andrew Luna Unavailable [phone] ALLERGIES No Known Allergies REASON FOR VISIT [...] 01/13/2024 Encounters Encounter Location Date Provider Diagnosis [facility] [address] [place] [address] 01/13/2024 Andrew Pope Alcohol liver damage K70.9 [...] 01/13/2024 Next Appt Details Follow Up: 2024, [place] son: Provider Name:Andrew Pope , 07/13/2024 01:20:00 PM, [address] [facility], [address], [place], [address], Progress Notes * Examination Category Sub-Category Detail [...]
== END 2024-06-07 09:20 | disposition home or self-care (01) ==
PROVIDERS: PCP Internal Medicine; Visit Provider Nurse Practitioner Family
DX: M47.817 Spondylosis without myelopathy or radiculopathy, lumbosacral region (principal); M51.369 Other intervertebral disc degeneration, lumbar region without mention of lumbar back pain or lower extremity pain; G89.4 Chronic pain syndrome
CPT/HCPCS: 99214; G2211

== ENCOUNTER → 2024-06-07 08:56 | Outpatient (BNVA) | payer OTHER, SELFPAY | PROVIDERS: PCP Internal Medicine; Visit Provider Nurse Practitioner Family | DX: M47.817 Spondylosis without myelopathy or radiculopathy, lumbosacral region (principal); M51.369 Other intervertebral disc degeneration, lumbar region without mention of lumbar back pain or lower extremity pain; G89.4 Chronic pain syndrome | CPT/HCPCS: 99212 ==

== ENCOUNTER 2024-07-08 10:32 | Outpatient (AMB) | payer OTHER, SELFPAY ==
--- NOTE | 2024-07-08 10:34 | A.OFFPC_ITS ---
Vital Signs 07/08/24 10:40 Height 5 ft 4 in Weight 170 lb BMI 29.2 BP 126/82 Blood Pressure Location Lt brachial Position Sitting Intake Visit Reasons: Follow Up Intake Note: Patient here for a follow up, c/o abdominal pain Sampling Theory Teacher Required: No Accompanied by: Self / Same As Patient Allergies No Known Allergies [No Known Allergies*] Allergy (Verified 07/08/24 10:56) Medication List - Last Reviewed 07/08/24 by YIN Singh aripiprazole (Abilify) 5 mg PO DAILY atorvastatin 40 mg PO BEDTIME 90 days bupropion HCl XL 300 mg PO DAILY 90 days celecoxib 100 mg PO BID clonidine HCl 0.1 mg PO TID cyclobenzaprine 10 mg PO TID PRN duloxetine 30 mg PO DAILY duloxetine 60 mg PO DAILY gabapentin 400 mg PO TID 30 days hydroxyzine HCl 25 mg PO TID PRN methyl salicylate-menthol 10-3 % (Salonpas (methyl salicylate-menthol)) 1 patch topical Q12H PRN mirtazapine 7.5 mg PO BEDTIME naltrexone 50 mg PO DAILY naproxen 500 mg PO BID PRN risperidone 0.5 mg PO DAILY thiamine mononitrate (vit B1) 100 mg PO DAILY trazodone 50 mg PO BEDTIME MRX1 PRN Tobacco use date assessed: 07/08/24 Dental Screening Dental Screen Date: 07/08/24 Did you have a dental visit in the last 12 months?: No Did you have a dental problem in the last 6 months where you did not have access to dental care?: No Was dental information given to patient?: Patient has dentist HPI HPI Comments History of Present Illness Details The patient is a 54-year-old male presenting with epigastric pain. The pain developed a few months ago and is accompanied by symptoms suggestive of gastroesophageal reflux disease (GERD), manifesting as a burning sensation in the epigastric area. The patient has been following recommendations such as using two pillows while sleeping, avoiding acidic foods like sauces, and not eating for at least three hours before bedtime, although no specific relief from the interventions is reported. Additionally, he experiences mild major depressive disorder and generalized anxiety disorder, which are both under psychiatric care. Insomnia is well managed with the administration of trazodone. The patient takes atorvastatin to manage his hypercholesterolemia. Socially, he has recently ceased alcohol consumption, effectively putting his alcohol use disorder in remission, and he has also successfully stopped smoking, marking the remission of his tobacco use disorder. [facility] Medical History (Updated 07/08/24 @ 11:16 by Kaley Ramirez MD) Anxiety and depression Delusions Severe recurrent major depression w/psychotic features, mood-congruent Opiate abuse, episodic Mild recurrent major depression Physical exam Cocaine use disorder GERD (gastroesophageal reflux disease) History of back pain Headache Right elbow pain Pure hypercholesterolemia Lumbar radiculopathy Spondylosis of lumbosacral spine without myelopathy Alcoholism Abuse, drug or alcohol Surgical History History of esophagogastroduodenoscopy (EGD) History of eye surgery History of eye surgery Family History Father Alcoholism Substance use disorder Mother Diabetes Social History Household Members: None Housing: Apartment Do you presently have visiting nurse or other home services: No Unable to assess alcohol history related to: Unknown Alcohol intake: former Patient Tobacco Use Status: Former Tobacco user Tobacco use type: Cigarette e-Cigarette/Vaping Use: Never Used Second Hand Smoke Exposure: No Substance Use Type: Marijuana service: No Current occupational status: unemployed Sexual orientation: Straight/Heterosexual Cognitive needs: No Hearing needs: No Vision needs: No Questionnaire PHQ-9 Over the last 2 weeks, how often have you been bothered by any of the following problems? 1. Little interest or pleasure in doing things: several days 2. Feeling down, depressed, or hopeless: several days 3. Trouble falling or staying asleep, or sleeping too much: several days 4. Feeling tired or having little energy: several days 5. Poor appetite or overeating: several days 6. Feeling bad about yourself - or that you are a failure or have let yourself or your family down: several days 7. Trouble concentrating on things, such as reading the newspaper or watching television: several days 8. Moving or speaking so slowly that other people could have noticed. Or the opposite - being so fidgety or restless that you have been moving around a lot more than usual: not at all 9. Thoughts that you would be better off or of hurting yourself in some way: not at all Total score: 7 Depression Screening Interpretation: Positive Depression Screening Follow-up: Existing condition and Follow-up Visit Requested Depression Screening Done: Yes 65523 - PHQ-9 Billing: Yes Source: Developed by Drs. Andrew Olson, Anuradha Keith, aQmar Ortiz and colleagues, with an educational cj from [employer]. Thrive Questionnaire Date Thrive assessed: 07/08/24 I am a: Patient What is your living situation today?: I have a steady place to live Within the past 12 months, did the food you bought not last and you didn't have the money to get more?: Never true Within the past 12 months, did you worry whether your food would run out before you got money to buy more?: Never true Do you have trouble paying for medicines?: No Do you have trouble getting transportation to medical appointments?: No Do you have trouble paying your heating and electricity bill?: No Do you have trouble taking care of your child, family member or friend?: No Do you have trouble with day-to-day activities such as bathing, preparing meals, shopping, managing finances, etc.?: No Are you currently unemployed and looking for a job?: No Are you interested in more education?: No Please select the resources that you would like help with: None Currently or been in a relationship where the following occur: No concerns reported THRIVE Score: 0 AUDIT C Alcohol Use Questionnaire (AUDIT-C) 1. How often do you have a drink containing alcohol?: Never Total Score: 0 Score Reviewed/Action Taken: No KAITY-7 AMB Questionnaire KAITY-7 Date KAITY - 7 assessed: 07/08/24 Feeling nervous, anxious, or on edge: 1 = Several days Not being able to stop or control worryin = Not at all Worrying too much about different things: 1 = Several days Trouble relaxin = Several days Being so restless that it is hard to sit still: 1 = Several days Becoming easily annoyed or irritable: 1 = Several days Feeling afraid as if something awful might happen: 0 = Not at all Total KAITY-7 score (0-4 normal; 5-9 mild; 10-14 moderate; 15-21 severe): 5 Source: Developed by Drs. Andrew Olson, Anuradha Keith, Qamar Ortiz and colleagues, with an educational cj from [employer]. KAITY-7 Assessment Billing KAITY-7 Assessment Tool: KAIYT-7 Assessment 36901 Review of Systems Const All systems reviewed & are unremarkable except as noted in HPI and below Card Denies chest pain at rest, Denies chest pain with activity, Denies edema, Denies irregular heart rhythm, Denies claudication, Denies dyspnea, Denies dyspnea on exertion, Denies orthopnea, Denies paroxysmal nocturnal dyspnea and Denies slow heart rate Resp Denies cough, Denies dyspnea and Denies dyspnea on exertion Neuro Denies lack of coordination Physical exam (Primary Care) Vital Signs: Last Vital Signs BP 126/82 07/08/24 10:40 BMI result Body Mass Index 29.2 Tobacco/Smoking Status: Tobacco use Status Tobacco use date assessed 07/08/24 07/08/24 10:56 Patient Tobacco Use Status Former Tobacco user 07/08/24 10:34 Tobacco use type Cigarette 07/08/24 10:34 e-Cigarette/Vaping Use Never Used 07/08/24 10:34 PHQ-9: PHQ-9 Score PHQ-9: Total score 7 07/08/24 10:54 Depression Screening Interpretation: Positive Depression Screening Follow-up: Existing condition and Follow-up Visit Requested Thrive Assessment: Date of Thrive Assessment Date Thrive assessed 07/08/24 07/08/24 10:49 Currently or been in a relationship where the following occur: No concerns reported Resp Effort & Inspection: normal respiratory effort Auscultation: clear to auscultation bilaterally Cardio Jugular venous distension: no JVD Rate: regular rate Rhythm: regular rhythm Heart sounds: S1 normal heart sound present and S2 normal heart sound present Extrem General: Yes full ROM Coding Level of Care Code Est Pt Level 4 (45338) Complex EM visit Add On G2211 Diagnoses Chronic GERD K21.9 Mild recurrent major depression F33.0 Polysubstance (including opioids) dependence, daily use F11.20; F19.20 Cocaine use disorder F14.10 Alcohol use disorder, severe, dependence F10.20 Alcoholism F10.20 Pure hypercholesterolemia E78.00 Additional Codes KAITY-7 Assessment Billing - KAITY-7 Assessment Tool: KAITY-7 Assessment 10136 ([id number]) PHQ-9 - 46341 - PHQ-9 Billing: Yes ([id number]) Time Spent (min) 22 Assessment & Plan Assessment & Plan (1) Chronic GERD: Code(s): K21.9 - Gastro-esophageal reflux disease without esophagitis Category: Medical (2) Mild recurrent major depression: Code(s): F33.0 - Major depressive disorder, recurrent, mild Category: Medical (3) Polysubstance (including opioids) dependence, daily use: Code(s): F11.20 - Opioid dependence, uncomplicated; F19.20 - Other psychoactive substance dependence, uncomplicated Category: Medical (4) Cocaine use disorder: Code(s): F14.10 - Cocaine abuse, uncomplicated Category: Medical (5) Alcohol use disorder, severe, dependence: Code(s): F10.20 - Alcohol dependence, uncomplicated Category: Medical (6) Alcoholism: Code(s): F10.20 - Alcohol dependence, uncomplicated Category: Medical (7) Pure hypercholesterolemia: Code(s): E78.00 - Pure hypercholesterolemia, unspecified Category: Medical Plan For the management of epigastric pain, likely due to gastroesophageal reflux disease GERD), omeprazole 20 mg is to be initiated. An upper gastrointestinal series has been ordered for further diagnostic clarity, and referral to gastroenterology is also planned. Treatment with atorvastatin for hypercholesterolemia will be continued. The patient?s psychiatric conditions including major depressive disorder and generalized anxiety disorder are managed by psychiatry, with insomnia well-controlled on trazodone. The recent cessation of alcohol and smoking is recognized as an important step, necessitating ongoing support and regular follow-up to maintain the current remission status and encourage healthier lifestyle practices. Patient was informed and verbally consented to the use of an ambient scribe for clinic note documentation during this visit. During our conversation, I discussed with the patient the likely diagnosis of gastroesophageal reflux disease (GERD) for his epigastric pain and the initiating treatment with omeprazole 20 mg. I also reviewed the planned upper gastrointestinal series to evaluate further and recommended a referral to gastroenterology. We discussed the importance of continuing atorvastatin for hypercholesterolemia. Additionally, we addressed the existing psychiatric management for his depressive disorder and anxiety with psychiatry overseeing this area, noting that his insomnia is effectively managed with trazodone. I also highlighted the importance of sustaining his recent lifestyle modifications in quitting alcohol and smoking, emphasizing regular follow-up to support this significant health improvement. Orders: Orders [place] upper GI series Today K21.9 - Gastro-esophageal reflux disease without esophagitis Medications: New omeprazole 20 mg PO DAILY 90 days 90 caps 1RF Changed From thiamine mononitrate (vit B1) 100 mg PO DAILY 30 tabs 0RF To thiamine mononitrate (vit B1) 100 mg PO DAILY 30 days 30 tabs 11RF Patient Instructions: - Start taking omeprazole 20 mg as prescribed for stomach pain relief. - Continue your current atorvastatin medication for cholesterol. - Follow the advice of eating nothing three hours before bedtime and avoid acidic foods. - Use two pillows when sleeping to help reduce symptoms. - Attend your gastroenterology referral as scheduled. - Maintain abstinence from alcohol and smoking. - Keep all scheduled follow-ups with your psychiatric care team. - Report any worsening symptoms or new concerns promptly.
[2024-07-08 10:40] VITALS: BP 126/82; BMI 29.2
--- OUTSIDE RECORDS SUMMARY | 2024-07-08 11:40 | XMS_ITS ---
Author Organization [facility] Address [address] [place] [address] Care Team Providers Care Joy Operator Helper Name Role Phone Kaley Sanchez Primary Care Provider Unavailab Andrew Luna [phone] REASON FOR VISIT results Encounters Encounter Location Date Provider Diagnosis [facility] [address] [place] [address] 07/17/2023 Andrew Pope Plan Of Treatment Next Appt Details Provider Name:Andrew Pope , 07/13/2024 01:20:00 PM, [address], [address], [place], [address], Progress Notes * ARGENTINA SPIVEYOB:1970 (53 yo M)Acc No.[id number]:07/17/2023 Patient:?DANI SPIVEY :1970???Age:53 Y???Sex:Male Address:[address] [place] [address] [place], [address] * true * Date:? Generated for Printi azra/Laura/eTransmitting on:?07/08/2024 11:40 AM EDT
--- OUTSIDE RECORDS SUMMARY | 2024-07-08 11:41 | XMS_ITS | Encounter Summary ---
Author Organization [facility] Address [address] [place] [address] Care Team Providers Care Cord Maker Name Role Phone Unavailable Primary Care Provider Unavailabl e Encounter Details Date Type Department Care Team (Latest Contact Info) Description 11/15/2020 Abstract C CONVERSIONS Dental, Provider, DDS Social History Tobacco Use Types Packs/Day Years Used Date Smoking Tobacco: Never Assessed Sex and Gender Information Value Date Recorded Sex Assigned at Male 02/04/2022 10:14 AM EDT Legal Sex Male 10:14 AM EDT Gender Identity Male 07/16/2023 12:59 PM EDT Sexual Orientation Straight 07/16/2023 12 :59 PM EDT documented as of this encounter Plan of Treatment Not on file documented as of this encounter Visit Diagnoses Not on filedocumented in this encounter
--- OUTSIDE RECORDS SUMMARY | 2024-07-08 11:41 | XMS_ITS ---
Author Organization [facility] Address [address] [place] [address] Care Team Providers Care Application Systems Engineer Name Role Phone Kaley Sanchez Primary Care Provider Unavailab Andrew Luna Unavailable [phone] Allergies No Known Allergies REASON FOR VISIT Patient presents today for elevated lft's Medications Medication SIG (Take, Route, Frequency, Duration) Notes Start Date End Date Status Celecoxib 100 MG Oral for 30 A ctive Lidocaine 5 % External for 30 Active Omeprazole Active Naltrexone HCl Activ e ibuprofen 800 Not daily Active Gabapentin Active buPROPion HCl ER (XL) Active Social History Alcohol Screen Question Answer Notes Did you have a drink containing alcohol in the p ast year? No Points 0 Interpretation Negative Section Notes: Smokes occasional marijuana. Using nasal cocaine and drinks fairly regularly, but describes abstinence for a few weeks as of the 08/2020 office visit. He did unfortunately relapse with drugs and alcohol. However, he reports that he has been abstinent from all drugs or alcohol for the past 5 months as of the 06/03/2023 office visit. However, started drinking and doing drugs in 11/2023 through 12/2023....he says he stopped for 1 week before the 01/2024 OV Vital Signs Blood pressure systolic 00 mm Hg 01/13/20 24 Blood pressure diastolic 00 mm Hg 024 Height 65 in 01/13/2024 Weight 130 lbs 01/13/2024 BMI 21.63 kg/m2 01/13/2024 Encounters Encounter Location Date Provider Diagnosis [facility] [address] [place] [address] 01/13/2024 Andrew Pope Alcohol liver damage K70.9 ; Elevated liver function tests R79.89 and 16 weeks gestation of Z3A.16 Assessments Encounter Date Diagnosis (ICD Code) Assessment Notes Treatment Notes Treatment Clinical Notes Section Notes 01/13/2024 Alcohol liver damage (ICD-10 - K70.9) Overall, Nick appears well at the present time despite his relapse into drugs and alcohol. He has lost a considerable amount of weight given his substance abuse and poor eating habits lately. We did have a very lengthy and detailed discussion today regarding his need to remain abstinent completely from drugs and alcohol on a long-term basis. I am going to check some followup laboratories today including a CBC, liver profile, and PT with INR. I don't think he needs any imaging studies at this time. I advised him that the best thing to do is obviously remain sober. I will plan to see him again in the Spring but advised him to contact me prior to that if he has any problems or questions I can be of assistance with in the interim. Nick was comfortable with this plan. Thank you again for allowing me to participate in Nick's care. I shall continue to keep you advised of his progress. 01/13/2024 Elevated liver function tests (ICD-10 - R79.89) Overall, iNck appears well at the present time despite his relapse into drugs and alcohol. He has lost a considerable amount of weight given his substance abuse and poor eating habits lately. We did have a very lengthy and detailed discussion today regarding his need to remain abstinent completely from drugs and alcohol on a long-term basis. I am going to check some followup laboratories today including a CBC, liver profile, and PT with INR. I don't think he needs any imaging studies at this time. I advised him that the best thing to do is obviously remain sober. I will plan to see him again in the Spring but advised him to contact me prior to that if he has any problems or questions I can be of assistance with in the interim. Nick was comfortable with this plan. Thank you again for allowing me to participate in Nick's care. I shall continue to keep you advised of his progress. 01/13/2024 16 weeks gestation of (ICD-10 - Z3A.16) Overall, Nick appears well at the present time despite his relapse into drugs and alcohol. He has lost a considerable amount of weight given his substance abuse and poor eating habits lately. We did have a very lengthy and detailed discussion today regarding his need to remain abstinent completely from drugs and alcohol on a long-term basis. I am going to check some followup laboratories today including a CBC, liver profile, and PT with INR. I don't think he needs any imaging studies at this time. I advised him that the best thing to do is obviously remain sober. I will plan to see him again in the Spring but advised him to contact me prior to that if he has any problems or questions I can be of assistance with in the interim. Nick was comfortable with this plan. Thank you again for allowing me to participate in Nick's care. I shall continue to keep you advised of his progress. Plan Of Treatment Pending Test Test Name Order Date LIVER PROFILE 01/13/2024 CBC w DIFF 01/13/2024 Prothrombin Time INR 01/13/2024 Next Appt Details Follow Up: 2024, [place] son: Provider Name:Andrew Pope , 07/13/2024 01:20:00 PM, [address] [place] [address], [place] [address], [place], [address], Progress Notes * ARGENTINA SPIVEYOB:1970 (53 yo M)Acc No.[id number]:01/13/2024 Progress Notes Patient:NICK MICHAEL Provider:?Andrew Pope MD :1970???Age:53 Y???Sex:Male Yuval e:01/13/2024 Address:[address] [place], [place] [id number] Pcp:Kaley Ramirez Subjective: * Chief Complaints: * ???Patient presents today fo r elevated lft's * HPI: ???incontinence:? I saw Nick in followup today in regard to his alcohol-related liver disease. ?I last saw Nick in May. At that time he had been abstinent from drugs and alcohol for about 5 months. This remained the case up until sometime in approximately November. Unfortunately he began using drugs and alcohol again at that time. He describes having at least 3 large beers every day and using either crack or cocaine intranasally on a daily basis. During this time he has not been eating well and has lost about 20 pounds. He has noticed some dark urine. He denies any signs of GI bleeding, vomiting, nor any definitive signs of jaundice otherwise. He has been having some right upper quadrant pain. ?Studies from June when he was sober revealed a normal CBC, normal PT with INR, normal liver profile, a liver fibrosis score only F0-F1, and a negative hepatitis C antibody and negative hepatitis B surface antigen. His abdominal ultrasound in June described a normal appearing liver, spleen, and no ascites. There was no evidence of gallstones. * ROS:?General/Constitutional:?Change in appetite?denies.?Chills?denies.?Fatigue?denies.?Ophthalmologic:?Comments?all negative.?ENT:?Comments?all negative.?Respiratory:?hemoptysis?denies.?Cough?denies.?Cardiovascular:?Chest pain?denies.?Orthopnea?denies.?Gastrointestinal:?Comments?See HPI for details.?Genitourinary:?Hematuria?denies.?Dysuria?denies.?Musculoskeletal:?Painful joints?Back pain.?Weakness?denies.?Skin:?Itching?denies.?Rash?denies.?Neurologic:?Headache?denies.?Seizures?denies.?Psychiatric:?Comments?all negative.? * Medical History:? * Surgical History:?Left Eye s urgey as a child * Hospitalization/Major Diagno stic Procedure:?No Hospitalization History. * Family History:?Father: dece ased.?Mother: alive.? No known hx of colon cancer nor peptic ulcer disease. * Social History:?Tobacco Use:?Tobacco Use/Smoking?Patient is a: nonsmoker.?Drugs/Alcohol:?Alcohol Screen?Did you have a drink containing alcohol in the past year??No,?Points?0,?Interpretation?Negative.?Miscellaneous:?Marital status: . Occupation: disabled. ???Smokes occasional marijuana. Using nasal cocaine and drinks fairly regularly, but describes abstinence for a few weeks as of the 08/2020 office visit. He did unfortunately relapse with drugs and alcohol. However, he reports that he has been abstinent from all drugs or alcohol for the past 5 months as of the 06/03/2023 office visit. However, started drinking and doing drugs in 11/2023 through 12/2023....he says he stopped for 1 week before the 01/2024 OV. * Medications:?Takingibuprofen 800 mg , Notes: Not dailyGabapentin buPROPion HCl ER (XL) Naltrexone HCl Omeprazole Celecoxib 100 MG Capsule Oral Lidocaine 5 % Patch External Taking ibuprofen 800 mg , Notes: Not dailyTaking Gabapentin Taking buPROPion HCl ER (XL) Taking Naltrexone HCl Taking Omeprazole Taking Celecoxib 100 MG Capsule Oral Taking Lidocaine 5 % Patch External DiscontinuedNaproxen 500 MG Tablet Oral Medication List reviewed and reconciled with the patientDiscontinued Naproxen 500 MG Tablet Oral Medication List reviewed and reconciled with the patient * Allergies:?N.K.D.A.yes[Aller gies Verified] Objective: * Vitals:?Wt: 130 lbs, Ht: 65 in, BMI:21.63 Index, BP: 00/00 mm Hg. * Examination: ???General Examination: ?GENERAL APPEARANCE:?pleasant, well nourished, well developed, in no acute distress.?EYES:?sclera non-icteric.?ORAL CAVITY:?mucosa moist.?NECK/THYROID:?no cervical lymphadenopathy, neck supple.?SKIN:?nonjaundiced, no spider angiomata.?HEART:?S1, S2 normal.?LUNGS:?clear to auscultation bilaterally.?ABDOMEN:?normal bowel sounds, no guarding or rigidity, no guarding or rigidity, no masses palpable, soft, nontender, nondistended.?EXTREMITIES:?no edema.?NEUROLOGIC:?alert and oriented.? Assessment: * Assessment: 1.?Alcohol liver damage - K7 0.9 (Primary)?2.?Elevated liver function tests - R79.89?3.?16 weeks gestation of - Z3A.16? Overall, Nick appears well at the present time despite his relapse into drugs and alcohol. He has lost a considerable amount of weight given his substance abuse and poor eating habits lately. We did have a very lengthy and detailed discussion today regarding his need to remain abstinent completely from drugs and alcohol on a long-term basis. I am going to check some followup laboratories today including a CBC, liver profile, and PT with INR. I don't think he needs any imaging studies at this time. I advised him that the best thing to do is obviously remain sober. I will plan to see him again in the Spring but advised him to contact me prior to that if he has any problems or questions I can be of assistance with in the interim. Nick was comfortable with this plan. Thank you again for allowing me to participate in Nick's care. I shall continue to keep you advised of his progress. Plan: * Treatment: 2.?Elevated liver function t ests?LAB: LIVER PROFILE ?LAB: CBC w DIFF ?LAB: Prothrombin Time INR * Procedure Codes:?G9711 PT W/ DX PAST HX TOTAL COLECTOMY/[id number] TOBACCO NON- [id number] BP SCR NOT PRFRM REC REASON NOS * Follow Up:?2024 * * Sign off status: Completed true * Provider:?Andrew Pope MD Date:? 024 Generated for Roberto Carlos oquendo/Laura/eTransmitting on:?07/08/2024 11:40 AM EDT History and Physical Notes * HPI (History of Present Illness) Category Sub-Category Detail Notes Category Not es incontinence I saw Nick in followup today in regard to his alcohol-related liver disease. I last saw Nick in May. At that time he had been abstinent from drugs and alcohol for about 5 months. This remained the case up until sometime in approximately November. Unfortunately he began using drugs and alcohol again at that time. He describes having at least 3 large beers every day and using either crack or cocaine intranasally on a daily basis. During this time he has not been eating well and has lost about 20 pounds. He has noticed some dark urine. He denies any signs of GI bleeding, vomiting, nor any definitive signs of jaundice otherwise. He has been having some right upper quadrant pain. Studies from June when he was sober revealed a normal CBC, normal PT with INR, normal liver profile, a liver fibrosis score only F0-F1, and a negative hepatitis C antibody and negative hepatitis B surface antigen. His abdominal ultrasound in June described a normal appearing liver, spleen, and no ascites. There was no evidence of gallstones. Examination Category Sub-Category Detail Notes Category Not es General Examination GENERAL APPEARANCE: pleasant , well [...]
--- OUTSIDE RECORDS SUMMARY | 2024-07-08 11:41 | XMS_ITS | Patient Health Record ---
Author Organization [facility] Address [address] [place] [address] Care Team Providers Care Polymerization Helper Name Role Phone Kaley Sanchez Primary Care Provider UnavailAndrew Owens Unavailable [phone] Allergies No Known Allergies Results Component Value Reference Range Notes Complete Blood Count Auto Di ff Reviewed date:01/13/2024 09:27:38 PM Interpretation: Performing Lab:[facility], [address] [place] [id number] Notes/Report: White Blood Count 9.0 4.8-10.8 X10*3/uL [...] INR Reviewed date:01/13/2024 09:27:25 PM Interpretation: Performing Lab:[address] [address] Notes/Report: Prothrombin Time 11.3 10.9-12.4 [employer] [...] Panel Reviewed date:01/13/2024 09:27:57 PM Interpretation: Performing Lab:[address] [address] Notes/Report: Bilirubin Total 0.5 0.0-1.0 mg/dL Bilirubin Direct 0.2 0.0-0.5 mg/dL Aspartate Amino Transferase 18 5-37 U/L Alanine Aminotransferase 19 0-40 U/L Total Protein 8.6 6.5-8.0 g/dL Albumin Level 4.9 3.5-5.0 g/dL Alkaline Phosphatase 117 39-117 U/L Reason For Referral No Information Medications Medication SIG (Take, Route, Frequency, Duration) Notes Start Date End Date Status Celecoxib 100 MG Oral for 30 A ctive Lidocaine 5 % External for 30 Active Omeprazole Active ibuprofen 800 Not daily Active Gabapentin Active buPROPion HCl ER (XL) Active Naltrexone HCl Activ e Immunizations Vaccine Route Administration Date Status Comme nts Influenza Unknown 01/06/2020 Administered Social History Alcohol Screen Question Answer Notes Did you have a drink containing alcohol in the p ast year? No Points 0 Interpretation Negative Section Notes: Smokes occasional marijuana and does occasional nasal cocaine; drinks Rum ever day Smokes occasional marijuana. Using nasal cocaine and drinks Rum fairly regularly, but describes abstinence for a few weeks as of the 08/2020 office visit Smokes occasional marijuana. Using nasal cocaine and drinks fairly regularly, but describes abstinence for a few weeks as of the 08/2020 office visit. He did unfortunately relapse with drugs and alcohol. However, he reports that he has been abstinent from all drugs or alcohol for the past 5 months as of the 06/03/2023 office visit. Smokes occasional marijuana. Using nasal cocaine and [...] for 1 week before the 01/2024 OV Problems Problem Type SNOMED Code ICD Code Onset Dates Problem Status W/U Status Risk Notes Problem 961410982 Encounter for screening for malignant neoplasm of colon (Z12.11) Active confirmed Problem Diverticular disease of colon (762946925) Diverticulosis of large intestine without perforation or abscess without bleeding (K57.30) Active confirmed Problem 254087711 Generalized abdominal pain (R10.84) Active confirmed Problem 16524019 Abdominal pain, epigastric (R10.13) Active confirmed Problem Elevated liver enzymes level (978992118) Elevated liver function tests (R79.89) Active confirmed Problem 968869332 Gastroesophageal reflux disease, esophagitis presence not specified (K21.9) Active confirmed Problem Gastritis (8521021) Gastritis (K29.70) Active confirmed Problem Alcoholic liver damage (61909472) Alcohol liver damage (K70.9) Active confirmed Problem Chronic gastritis (6317164) Chronic gastritis (K29.50) Active confirmed Problem 821538441 H. pylori infect ion (A04.8) Active confirmed Problem 431304304 Gastroesophageal reflux disease, unspecified whether esophagitis present (K21.9) Active confirmed Vital Signs Blood pressure diastolic 00 mm Hg 01/13/2024 Height 65 in 01/13/2024 Blood pressure systolic 00 mm Hg 01/13/2024 Weight 130 lbs 01/13/2024 BMI 21.63 kg/m2 01/13/2024 Encounters Encounter Location Date Provider Diagnosis [facility] [address] [place] [address] 01/13/2024 Andrew Pope Alcohol liver damage K70.9 ; Elevated liver function tests R79.89 and 16 weeks gestation of Z3A.16 [facility] [address] [place] [address] 07/17/2023 Andrew Pope [facility] [address] [place] [address] 07/23/2023 Andrew Pope Assessments Encounter Date Diagnosis (ICD Code) Assessment Notes Treatment Notes Treatment Clinical Notes Section Notes 01/13/2024 Elevated liver function tests (ICD-10 - R79.89) Overall, Nick appears well at the present [...] keep you advised of his progress. 01/13/2024 Alcohol liver damage (ICD-10 - K70.9) [...] 01/13/2024 LIVER PROFILE 06/03/2023 CBC w DIFF 01/13/2024 CBC w DIFF 06/03/2023 ALPHA-FETOPROTEIN,TUMOR MARKER 4 US ABD 08/22/2020 Prothrombin Time INR 06/03/2023 Prothrombin Time INR 01/13/2024 Liver Fibrosis Pnl 06/03/2023 Hepatitis B,C Profile 06/03/2023 US abdomen comp w elastography 4 Future Test Test Name Order Date UPPER GI ENDOSCOPY 12/14/2015 UPPER GI ENDOSCOPY 08/22/2020 COLONOSCOPY 08/22/2020 Next Appt Details Provider Name:nAdrew Pope , 07/13/2024 01:20:00 PM, [address], [address], [place], [address], Insurance Providers Payer Name Payer Address Payer Phone Subscriber Number Group Number Insured Name Patient Relationship to Insured Coverage Start Date Coverage End Date [facility] [address] [address] [place], [place] [phone] [id number] NICK SPIVEY Self - patient is the insured Medical (General) History Medical History History ICD Code Hyperlipidemia Chronic low back pain Hx of alcoholism and cocaine use Depression Denies PA,DM,CVA,Lung disease,renal dise ase EGD 2016-small hiatal hernia and mild gastritis--- gastric biopsies [...]
--- OUTSIDE RECORDS SUMMARY | 2024-07-08 11:41 | XMS_ITS | Encounter Summary ---
Author Organization [facility] Address [address] [place] [address] Care Team Providers Care Placement Director Name Role Phone Unavailable Primary Care Provider Unavailabl e Encounter Details Date Type Department Care Team (Latest Contact Info) Description 01/19/[address] [facility] CONVERSIONS Dental, Provider, DDS Social History [...]
--- OUTSIDE RECORDS SUMMARY | 2024-07-08 11:41 | XMS_ITS ---
Author Organization [facility] Address [address] [place] [address] Care Team Providers Care Coat Ironer Hand Name Role Phone Kaley Sanchez Primary Care Provider Unavailab Andrew Luna [phone] Encounters Encounter Location Date Provider Diagnosis [facility] [address] [place] [address] 07/23/2023 Andrew Pope Plan Of Treatment Next Appt Details Provider Name:Andrew Pope , 07/13/2024 01:20:00 PM, [address], [address], [place], [address], Progress Notes * ARGENTINA SPIVEYOB:1970 (53 yo M)Acc No.[id number]:07/23/2023 Patient:?DANI SPIVEY :1970???Age:53 Y???Sex:Male Address:[address] [place] [address] [place], [address] * true * Date:? Generated for Printi azra/Laura/eTransmitting on:?07/08/2024 11:40 AM EDT
--- OUTSIDE RECORDS SUMMARY | 2024-07-08 11:41 | XMS_ITS | Clinical Summary ---
Author Organization [employer] Address [address] [place] [address] Care Team Providers Care Export Sales Assistant Name Role Phone Unavailable Primary Care Provider [...] TODOS LOS D AL ACOSTARSE 5 Active Active Problems Problem Noted Date Diagnosed Date Periodontal disease 03/08/2024 Chronic periodontitis 07/16/2023 Chronic low back pain 07/24/2012 Depressive disorder 07/24/2012 History of alcoholism 07/24/2012 Hyperlipidemia 07/24/2012 Encounters Date Type Department Care Team Description 04/29/2024 11:30 AM EST Office Visit [facility] [address] [place] [address] Mohini Jean DDS Periodontal disease (Primary Dx); Periapical abscess without sinus 04/29/2024 Patient Outreach [facility] [address] [place], [place] [phone] Serge Cabral Recovery Supports from Last 3 [...] Mass Index - - Plan of Treatment Health Maintenance Due Date Last Done Comments [...] Additional history exists Dental X-Ray: Bitewings 06/16/2022 06/16/19, 11/15/2020, 08/05/2018, Additional history exists Tobacco Screening [...] Most Recently Relevant to Health Maintenance Insurance [facility] MEDICAID STAND ADULT
== END 2024-07-08 11:02 | disposition home or self-care (01) ==
LOC: HO.HMCH 10:32
PROVIDERS: PCP Internal Medicine; Visit Provider Internal Medicine
DX: K21.9 Gastro-esophageal reflux disease without esophagitis (principal); F33.0 Major depressive disorder, recurrent, mild; F11.20 Opioid dependence, uncomplicated; F19.20 Other psychoactive substance dependence, uncomplicated; F14.10 Cocaine abuse, uncomplicated; F10.20 Alcohol dependence, uncomplicated; E78.00 Pure hypercholesterolemia, unspecified

== ENCOUNTER → 2024-07-08 10:32 | Outpatient (BNVA) | payer OTHER, SELFPAY | PROVIDERS: PCP Internal Medicine; Visit Provider Internal Medicine | DX: K21.9 Gastro-esophageal reflux disease without esophagitis (principal); F33.0 Major depressive disorder, recurrent, mild; F11.20 Opioid dependence, uncomplicated; F19.20 Other psychoactive substance dependence, uncomplicated; F14.10 Cocaine abuse, uncomplicated; F10.20 Alcohol dependence, uncomplicated; E78.00 Pure hypercholesterolemia, unspecified | CPT/HCPCS: 96127; 99212 ==

== ENCOUNTER 2024-08-10 06:11 | Outpatient (REF) | payer OTHER, SELFPAY ==
--- OUTSIDE RECORDS SUMMARY | 2024-08-10 06:14 | XMS_ITS | Encounter Summary ---
Author Organization [employer] [facility] Address [address] [place] [address] Care Team Providers Care Child Care Education Coordinator Name Role Phone Unavailable Primary Care Provider Unavailabl e Encounter Details Date Type Department Care Team (Latest Contact Info) Description 01/19/2019 Abstract [facility] CONVERSIONS Dental, Provider, DDS Social [...]
--- OUTSIDE RECORDS SUMMARY | 2024-08-10 06:14 | XMS_ITS | Clinical Summary ---
Author Organization [employer] Address [address] [place] [address] Care Team Providers Care [place] Cutter Name Role Phone Unavailable Primary Care Provider [...] 07/24/2012 History of alcoholism 07/24/2012 Hyperlipidemia 07/24/2012 Social History Tobacco Use Types Packs/Day Years [...] Procedure Name Priority Date/Time Associated Diagnosis Comments PROPHYLAXIS - ADULT Routine 08/07/2021 1 2:00 [...]
--- OUTSIDE RECORDS SUMMARY | 2024-08-10 06:14 | XMS_ITS | Encounter Summary ---
Author Organization [employer] [facility] Address [address] [place] [address] Care Team Providers Care Business Solutions Consultant Name Role Phone Unavailable Primary Care Provider [...]
== END 2024-08-10 06:12 | disposition home or self-care (01) ==
LOC: CF 06:11
PROVIDERS: Visit Provider Anesthesiology
DX: Z13.89 Encounter for screening for other disorder (principal)

== ENCOUNTER 2024-12-16 12:54 | Outpatient (AMB) | payer OTHER, SELFPAY ==
[2024-12-16 13:03] VITALS: BP 110/70; PULSE 79; O2SAT 97; BMI 27.4
--- NOTE | 2024-12-16 13:03 | MHC.PC.OV ---
Vital Signs 12/16/24 13:03 Height 5 ft 4 in Weight 159 lb 6 oz BMI 27.4 BP 110/70 Blood Pressure Location Lt brachial Position Sitting Pulse 79 Pulse Oximetry (%) 97 Oxygen Delivery Method Room Air Intake Visit Reasons: Annual Exam Loan Assistant Required: No Accompanied by: Self / Same As Patient Allergies No Known Allergies (No Known Allergies*) Allergy (Verified 12/16/24 13:34) Medication List - Last Reconciled 12/16/24 by Kaley Ramirez MD aripiprazole (Abilify) 5 mg PO DAILY atorvastatin 40 mg PO BEDTIME 90 days bupropion HCl XL 300 mg PO DAILY 90 days celecoxib 100 mg PO BID clonidine HCl 0.1 mg PO TID cyclobenzaprine 10 mg PO TID PRN duloxetine 30 mg PO DAILY duloxetine 60 mg PO DAILY gabapentin 400 mg PO TID 30 days hydroxyzine HCl 25 mg PO TID PRN lorazepam (Ativan) 1 mg PO ONCE lorazepam (Ativan) 1 mg PO ONCE methyl salicylate-menthol 10-3 % (Salonpas (methyl salicylate-menthol)) 1 patch topical Q12H PRN mirtazapine 7.5 mg PO BEDTIME naltrexone 50 mg PO DAILY naproxen 500 mg PO BID PRN omeprazole 20 mg PO DAILY 90 days risperidone 0.5 mg PO DAILY thiamine mononitrate (vit B1) 100 mg PO DAILY 30 days trazodone 50 mg PO BEDTIME MRX1 PRN Tobacco use date assessed: 12/16/24 Dental Screening Dental Screen Date: 12/16/24 Did you have a dental visit in the last 12 months?: Yes Did you have a dental problem in the last 6 months where you did not have access to dental care?: No Was dental information given to patient?: Patient has dentist HPI HPI Comments History of Present Illness Details This is a 54-year-old male with mild recurrent major depression, cocaine use disorder, severe dependence of alcohol use disorder that comes today for his physical exam. Colonoscopy done 2020. Tdap vaccine up-to-date. Denies any chest pain or shortness on breath. Depression stable with meds. [facility] Medical History Anxiety and depression Delusions Severe recurrent major depression w/psychotic features, mood-congruent Opiate abuse, episodic Mild recurrent major depression Physical exam Cocaine use disorder GERD (gastroesophageal reflux disease) History of back pain Headache Right elbow pain Pure hypercholesterolemia Lumbar radiculopathy Spondylosis of lumbosacral spine without myelopathy Alcoholism Abuse, drug or alcohol Surgical History History of esophagogastroduodenoscopy (EGD) History of eye surgery History of eye surgery Family History Father Alcoholism Substance use disorder Mother Diabetes Social History (Updated 12/16/24 @ 13:39 by Kaley Ramirez MD) Household Members: None Housing: Apartment Do you presently have visiting nurse or other home services: No Alcohol intake: current Alcohol intake frequency: former alcohol drinker Alcohol type: beer and hard liquor Patient Tobacco Use Status: Former Tobacco user Tobacco use type: Cigarette e-Cigarette/Vaping Use: Never Used Second Hand Smoke Exposure: No Substance Use Type: Marijuana service: No Current occupational status: unemployed Sexual orientation: Straight/Heterosexual Cognitive needs: No Hearing needs: No Vision needs: No Questionnaire PHQ-9 Over the last 2 weeks, how often have you been bothered by any of the following problems? 1. Little interest or pleasure in doing things: several days 2. Feeling down, depressed, or hopeless: several days 3. Trouble falling or staying asleep, or sleeping too much: several days 4. Feeling tired or having little energy: several days 5. Poor appetite or overeating: several days 6. Feeling bad about yourself - or that you are a failure or have let yourself or your family down: several days 7. Trouble concentrating on things, such as reading the newspaper or watching television: several days 8. Moving or speaking so slowly that other people could have noticed. Or the opposite - being so fidgety or restless that you have been moving around a lot more than usual: not at all 9. Thoughts that you would be better off or of hurting yourself in some way: not at all Total score: 7 Depression Screening Interpretation: Positive Depression Screening Follow-up: Existing condition, In treatment, Community Mental Health Worker F/U and Follow-up Visit Requested Depression Screening Done: Yes 07545 - PHQ-9 Billing: Yes Source: Developed by Drs. Andrew Olson, Anuradha Keith, Qamar Ortiz and colleagues, with an educational cj from [employer]. Thrive Questionnaire Date Thrive assessed: 12/16/24 I am a: Patient What is your living situation today?: I have a steady place to live Within the past 12 months, did the food you bought not last and you didn't have the money to get more?: Often true Within the past 12 months, did you worry whether your food would run out before you got money to buy more?: Often true Do you have trouble paying for medicines?: Yes Do you have trouble getting transportation to medical appointments?: Yes Do you have trouble paying your heating and electricity bill?: Yes Do you have trouble taking care of your child, family member or friend?: Yes Do you have trouble with day-to-day activities such as bathing, preparing meals, shopping, managing finances, etc.?: Yes Are you currently unemployed and looking for a job?: Yes Are you interested in more education?: Yes THRIVE Score: 4 AUDIT C Alcohol Use Questionnaire (AUDIT-C) 1. How often do you have a drink containing alcohol?: 4 or more times a week 2. How many drinks containing alcohol do you have on a typical day when you are drinking?: 3 or 4 Total Score: 5 KAITY-7 AMB Questionnaire KAITY-7 Date KAITY - 7 assessed: 12/16/24 Feeling nervous, anxious, or on edge: 1 = Several days Not being able to stop or control worryin = Not at all Worrying too much about different things: 1 = Several days Trouble relaxin = Several days Being so restless that it is hard to sit still: 1 = Several days Becoming easily annoyed or irritable: 1 = Several days Feeling afraid as if something awful might happen: 0 = Not at all Total KAITY-7 score (0-4 normal; 5-9 mild; 10-14 moderate; 15-21 severe): 5 Source: Developed by Drs. Andrew Olson, Qamar Meraz and colleagues, with an educational cj from [employer] KAITY-7 Assessment Billing KAITY-7 Assessment Tool: KAITY-7 Assessment 14071 Review of Systems Const All systems reviewed & are unremarkable except as noted in HPI and below Card Denies chest pain at rest, Denies chest pain with activity, Denies edema, Denies irregular heart rhythm, Denies claudication, Denies dyspnea, Denies dyspnea on exertion, Denies orthopnea, Denies paroxysmal nocturnal dyspnea and Denies slow heart rate Resp Denies cough, Denies dyspnea and Denies dyspnea on exertion Neuro Denies lack of coordination Physical exam (Primary Care) Vital Signs: Last Vital Signs Pulse 79 12/16/24 13:03 BP 110/70 12/16/24 13:03 Pulse Ox 97 12/16/24 13:03 Oxygen Delivery Method Room Air 12/16/24 13:03 BMI result Body Mass Index 27.4 Tobacco/Smoking Status: Tobacco use Status Tobacco use date assessed 12/16/24 12/16/24 13:09 Patient Tobacco Use Status Former Tobacco user 12/16/24 13:39 Tobacco use type Cigarette 12/16/24 13:39 e-Cigarette/Vaping Use Never Used 12/16/24 13:39 PHQ-9: PHQ-9 Score PHQ-9: Total score 7 12/16/24 13:39 Depression Screening Interpretation: Positive Depression Screening Follow-up: Existing condition, In treatment, Community Mental Health Worker F/U and Follow-up Visit Requested Thrive Assessment: Date of Thrive Assessment Date Thrive assessed 12/16/24 12/16/24 13:09 HENSD Head: Yes normal to inspection, Yes normocephalic and Yes atraumatic Ears: external ears normal Eyes General: appearance normal, both eyes and all related structures Eyelids: Yes eyelids normal Conjunctivae: conjunctivae normal Neck Neck: Yes normal visual inspection and Yes supple Resp Effort & Inspection: normal respiratory effort Auscultation: clear to auscultation bilaterally Cardio Jugular venous distension: no JVD Rate: regular rate Rhythm: regular rhythm Heart sounds: S1 normal heart sound present and S2 normal heart sound present GI Inspection: Yes normal to inspection Palpation (GI): Soft to palpation and nontender Auscultation: normal bowel sounds Skin General skin exam: no rashes or lesions noted Neuro General: no focal motor deficits Extrem General: Yes full ROM Psych Appearance: grossly normal Coding Level of Care Code Est Pt Prev Care 40-64y(83375) Diagnoses Physical exam Z00.00 Mild recurrent major depression F33.0 Alcohol use disorder, severe, dependence F10.20 Cocaine use disorder F14.10 Additional Codes KAITY-7 Assessment Billing - KAITY-7 Assessment Tool: KAITY-7 Assessment 27705 ([id number]) PHQ-9 - 97368 - PHQ-9 Billing: Yes ([id number]) Time Spent (min) 31 Assessment & Plan Assessment & Plan (1) Physical exam: Code(s): Z00.00 - Encounter for general adult medical examination without abnormal findings Category: Medical (2) Mild recurrent major depression: Code(s): F33.0 - Major depressive disorder, recurrent, mild Category: Medical (3) Alcohol use disorder, severe, dependence: Code(s): F10.20 - Alcohol dependence, uncomplicated Category: Medical (4) Cocaine use disorder: Code(s): F14.10 - Cocaine abuse, uncomplicated Category: Medical Plan Repeat physical exam in a year. Continue current meds. Colonoscopy 2030. Tdap vaccine 2027.
== END 2024-12-16 13:45 | disposition home or self-care (01) ==
LOC: HO.HMCH 12:55
PROVIDERS: PCP Internal Medicine; Visit Provider Internal Medicine
DX: Z00.00 Encounter for general adult medical examination without abnormal findings (principal); F33.0 Major depressive disorder, recurrent, mild; F10.20 Alcohol dependence, uncomplicated; F14.10 Cocaine abuse, uncomplicated

== ENCOUNTER → 2024-12-16 12:54 | Outpatient (BNVA) | payer OTHER, SELFPAY | PROVIDERS: PCP Internal Medicine; Visit Provider Internal Medicine | DX: Z00.00 Encounter for general adult medical examination without abnormal findings (principal); F33.0 Major depressive disorder, recurrent, mild; F10.20 Alcohol dependence, uncomplicated; F14.10 Cocaine abuse, uncomplicated; Z13.31 Encounter for screening for depression; Z13.39 Encounter for screening examination for other mental health and behavioral disorders | CPT/HCPCS: 96127; 99396 ==

== ENCOUNTER 2025-02-08 06:09 | Outpatient (REF) | payer OTHER, SELFPAY ==
--- OUTSIDE RECORDS SUMMARY | 2025-02-03 12:30 | XMS_ITS | Encounter Summary ---
Author Organization [employer] [facility] Address [address] [place] [address] Care Team Providers Care Vehicle Upholsterer Name Role Phone Unavailable Primary Care Provider Unavailabl e Reason for Visit * Reason Comments Dentures Delivery of a repair partail Encounter Details Date Type Department Care Team (Late st Contact Info) Description 02/03/2025 1:30 PM EDT Office Visit [facility] [address], [place] [phone] Jerardo Martinez DDS [address], [place] [phone] Missing teeth, acquired (Primary Dx) Social History Tobacco Use Types Packs/Day Years [...] as of this encounter Progress Notes * Jerardo Martinez DDS - 02/03/2025 1:30 PM EDT Patient ID: Nick Littlejohn is a 54 y.o. male. Time Out: Timeout Date: 02/03/25, Timeout Time: 1323 (delivery of a repair partail) Location: [facility] Tooth: Mandible Procedure: Dentures Verified the above with patient, bookkeeper assistant, and provider. Confirmed via patient's chart, intraorally and by radiographs. Retail Team Leader: not applicable Chief Complaint Patient presents with Dentures Delivery of a repair partail Medical Hx: Vitals: There were no vitals taken for this visit. Medications, Med Hx reviewed with patient and updated in chart. Consent Obtained: The risks, benefits, indications, potential complications, and alternatives were explained to the patient and informed consent was obtained with good understanding. Treatment Provided: Dental procedures in this visit D5611 - REPAIR RESIN PARTIAL DENTURE BASE, RADHA (Completed) Service provider: Jerardo Martinez DDS Billing provider: Jerardo Martinez DDS D9450 - CASE PRESENTATION, DETAILED AND EXTENSIVE TREATMENT PLANNING (Completed) Service provider: Jerardo Martinez DDS Billing provider: Jerardo Martinez DDS Tried in denture(s) -Evaluated for comfort, fit, phonetics, and stability (f, v, s, th sounds; swallow, yawn, etc) -Evaluated for satisfactory esthetics. -Occlusion verified; adjustments made as necessary. Patient has received information sheet for denture care and expectations. Pt was provided with denture case and denture brush. NV: F/U as needed / 6mrc It Support Consultant: Erna Perez Dentist: Jerardo Martinez DDS documented in this encounter Plan of Treatment Not on file documented as of this encounter Procedures Procedure Name Priority Date/Time Associated Diagnosis Comments REPAIR RESIN PARTIAL DENTURE BASE, RADHA Routine 02/03/2025 1:30 PM EDT CASE PRESENTATION, DETAILED AND EXTENSIVE TREATMENT PLANNING Routine 02/03/2025 1:30 PM EDT documented in this encounter Visit Diagnoses Diagnosis Missing teeth, acquired- Primary documented in this encounter
--- OUTSIDE RECORDS SUMMARY | 2025-02-08 06:13 | XMS_ITS | Clinical Summary ---
Author Organization [employer] Address [address] [place] [address] Care Team Providers Care Hospital Corpsman Name Role Phone Unavailable Primary Care Provider [...] FOR PAIN FOR 30 DAYS 4 Active B Complex Vitamins (Vitamin B [...] TODOS LOS D AL ACOSTARSE 5 Active acetaminophen (Tylenol 8 Hour) 650 MG ER tablet Take 1 tablet (650 mg) by mouth every 8 (eight) hours if needed for mild pain. Do not crush, chew, or split. 30 tablet 5 Active Active Problems Problem Noted Date Diagnosed Date Missing teeth, acquired 02/03/2025 Ill-fitting dentures 01/27/2025 History of tooth extraction 10/07/2024 Advanced periodontitis 09/28/2024 Severe localized gingival recession 09/28/2024 Periodontal disease 03/08/2024 Chronic periodontitis 07/16/2023 Chronic low back pain 07/24/2012 Depressive disorder 07/24/2012 History of alcoholism ([facility]) 07/24/2012 Hyperlipidemia 07/24/2012 Encounters Date Type Department Care Team Description 02/03/2025 1:30 PM EDT Office Visit [facility] [address] [place] [phone] Jerardo Martinez DDS Missing teeth, acquired (Primary Dx) 01/31/2025 Telephone [facility] [address] [place] [address] Bolano case back from lab. 01/27/2025 11:30 AM EDT Office Visit [facility] [address] [place] [address] Jerardo Martinez DDS Ill-fitting dentures (Primary Dx) 01/14/2025 Patient Outreach [facility] [address] [place] [phone] Jerardo Will Recovery Supports from Last 3 Months Social [...] Sign Reading Time Taken Comments Blood Pressure 114/76 01/27/2025 11:17 AM EDT Pulse - - Temperature - - Respiratory [...] Panel 1969 SDOH Screening 1969 Sigmoidoscopy 1969 Disability Screening 1969 Alcohol/Substance Use Screening 1981 Hepatitis C [...] 11/15/2020, 08/05/2018, Additional history exists Tobacco Screening 02/03/2026 02/03/2025 DTaP/Tdap/Td Vaccines (3 - Td or Tdap) 10/12/2027 10/11/2017, 01/23/2017, 09/23/2015, Additional history exists RSV Patients and Patients Aged 60 years or older (1 - 1-dose 75+ series) 2044 COVID-19 Vaccine Completed 12/16/2023, 08/2022, 10/30/2021, Additional history exists Influenza Vaccine Completed 11/29/2024, , 01/07/2023, Additional history exists HIB Vaccines Aged Out [...] patient's age to complete this topic Meningococcal B Vaccine Aged Out No l onger eligible based on patient's age to complete [...] TREATMENT PLANNING Routine 02/03/2025 1:30 PM EDT REPAIR RESIN PARTIAL DENTURE BASE, RADHA Routine 02/03/2025 1:30 PM EDT CASE PRESENTATION, DETAILED AND EXTENSIVE TREATMENT PLANNING Routine 01/27/2025 11:30 AM EDT LIMITED ORAL EVALUATION - PROBLEM FOCUSED Routine 01/27/2025 11:30 AM EDT PROPHYLAXIS - ADULT Routine 08/07/2021 1 2:00 AM EDT BITEWINGS - 4 RADIOGRAPHIC IMAGES Routine 06/15/2021 12:00 AM EST PERIODIC ORAL EVALUATION - ESTABLISHED PATIENT Routine 06/15/2021 12:00 AM EST INTRAORAL - COMPLETE SERIES OF RADIOGRAPHIC IMAGES Routine 08/05/2018 12:00 AM EDT from Last 3 Months or Most Recently Relevant to Health Maintenance Insurance [facility] MEDICAID STAND ADULT
--- OUTSIDE RECORDS SUMMARY | 2025-02-08 06:13 | XMS_ITS | Encounter Summary ---
Author Organization [employer] [facility] Address [address] [place] [address] Care Team Providers Care Superintendent Factory Name Role Phone Unavailable Primary Care Provider Unavailabl e Encounter Details Date Type Department Care Team (Latest Contact Info) Description 01/19/2019 Abstract [facility] CONVERSIONS Dental, Provider, DDS [...]
--- OUTSIDE RECORDS SUMMARY | 2025-02-08 06:13 | XMS_ITS | Encounter Summary ---
Author Organization [employer] Address [address] [place] [address] Care Team Providers Care Apprentice Jockey Name Role Phone Unavailable Primary Care Provider Unavailabl e Reason for Visit * Reason Onset Date Comments rs no show visit 09/27/2024 Encounter Details Date Type Department Care Team ([facility] st Contact Info) Description 09/27/2024 Telephone [facility] [address], [place] [phone] Jerardo Martinez DDS [address], [place] [phone] rs no show visit Social History Tobacco Use Types Packs/Day Years [...] PM EDT documented as of this encounter Miscellaneous Notes * Telephone Encounter - Janine Price - 09/27/2024 11:35 AM EDT Patient advised this rs is from no show visit on 06/2024. If he no shows agan he will be waiting period prior to rs. patient understood DR documented in this encounter Plan of Treatment Not on file documented as of this encounter Visit Diagnoses Not on filedocumented in this encounter
--- OUTSIDE RECORDS SUMMARY | 2025-02-08 06:13 | XMS_ITS | Encounter Summary ---
Author Organization [employer] [facility] Address [address] [place] [address] Care Team Providers Care Wire Web Worker Name Role Phone Unavailable Primary Care Provider Unavailabl e Encounter Details Date Type Department Care Team (Latest Contact Info) Description 11/15/2020 Abstract [facility] CONVERSIONS Dental, Provider, DDS Social History [...]
--- OUTSIDE RECORDS SUMMARY | 2025-02-08 06:13 | XMS_ITS | Encounter Summary ---
Author Organization [employer] Address [address] [place] [address] Care Team Providers Care Sustainability Executive Director Name Role Phone Unavailable Primary Care Provider Unavailabl e Reason for Visit * Reason Onset Date Comments Dr. Martinez case back from lab. 01/31/2025 Encounter Details Date Type Department Care Team (Late st Contact Info) Description 01/31/2025 Telephone [facility]ULT [facility] [address] [place], [place] [phone] Jerardo Martinez DDS [address] [place], [place] [phone] Dr. Martinez case back from lab. Social History Tobacco Use Types Packs/Day Years [...] * Telephone Encounter - Janine Price - 01/31/2025 12:32 PM EDT Patient called earlier today and is calling again to verify if case is back from lab. * Telephone Encounter - Aurora Bloom - 01/31/2025 8:53 AM EDT PT is calling to see if his dentures have arrived so he can come pick them up. Please give him a call if they are in. Thank you documented in this encounter Plan of Treatment Not on file documented as of this encounter Visit Diagnoses Not on filedocumented in this encounter
== END 2025-02-08 06:10 | disposition home or self-care (01) ==
LOC: CF 06:09
PROVIDERS: Visit Provider Anesthesiology
DX: Z13.89 Encounter for screening for other disorder (principal)